=== PATIENT | female | born 1945 | race Caucasian/White ===

== ENCOUNTER 2017-07-16 12:33 | Observation (INO) ==
--- NOTE | 2017-07-16 12:46 | Emergency Department Note ---
ED Disposition Clinical Impression: Elevated troponin Syncope Qualifiers: Syncope type: unspecified Qualified Code(s): R55 - Syncope and collapse Disposition: Admitted As Inpatient Condition on Discharge: Good - Critical Care Critical Care Time: No Attestation: On , the high probability of a clinically significant, sudden or life threatening deterioration of the following system(s) required my full and direct attention, intervention and personal management. The time I documented below is in addition to time spent performing reported procedures but includes the following listed in this critical care notation. Medical Decision Making - Medical Records Medical records reviewed: Yes: I reviewed the patient's medical records. - Ben Inquiry Pt receiving controlled substance: No Vital Signs: 07/16/17 12:34 Temperature 98.0 F Temperature Source Oral Pulse Rate [Right Radial] 76 Respiratory Rate 16 Blood Pressure [Right Arm] 120/62 Blood Pressure Mean [Right Arm] 81 Blood Pressure Source [Right Arm] Automatic Cuff Blood Pressure Position [Right Arm] Supine 02 Sat by Pulse Oximetry 96 - Lab Data Lab Results 07/16/17 12:45: WBC 7.7, RBC 4.34, Hgb 12.7, Hct 39.0, MCV 89.7, MCH 29.3, MCHC 32.7, RDW 13.3, Plt Count 256, MPV 8.6, Neut % (Auto) 68.1, Lymph % (Auto) 24.6 , [place] % (Auto) 5.1, Eos % (Auto) 1.7, Baso % (Auto) 0.4, Neut # (Auto) 5.3, Lymph # (Auto) 1.9, [place] # (Auto) 0.4, Eos # (Auto) 0.1, Baso # (Auto) 0.0 07/16/17 12:45: Sodium 135 L, Potassium 4.2, Chloride 101, Carbon Dioxide 27, Anion Gap 11.2, BUN 15, Creatinine 1.03 H, Estimated Creat Clear 49, Estimated GFR 53 L, Est GFR ( Amer) 64, Glucose 454 H*, Calcium 9.6, Total Bilirubin 1.0, AST 16, ALT 29, Alkaline Phosphatase 127 H, Troponin I 0.13 H, Total Protein 6.8, Albumin 3.5, Globulin 3.3 H, Albumin/Globulin Ratio 1.1 07/16/17 13:01: Lactic Acid 0.8 Result diagrams: 07/16/17 12:45 07/16/17 12:45 Orders (Tests/Meds): ED MEDICATIONS Generic Name Dose Route Start Last Admin Trade Name Freq PRN Reason Stop Dose Admin Aspirin 300 mg 07/16/17 13:57 Aspirin 600mg Suppository RC 07/16/17 13:58 ONCE ONE Discontinued Medications Generic Name Dose Route Start Last Admin Trade Name Freq PRN Reason Stop Dose Admin Acetaminophen 500 mg 07/16/17 12:42 07/16/17 14:53 Tylenol 500mg Tablet PO 07/16/17 12:43 500 mg ONCE ONE Administration Sodium Chloride 500 mls @ 999 mls/hr 07/16/17 12:41 07/16/17 14:39 Sod Chlor 0.9% 1000ml Bag IV 07/16/17 13:11 999 mls/hr .Q31M ONE Administration Cefazolin Sodium 1 gm/ Sodium 50 mls @ 100 mls/hr 07/16/17 12:41 07/16/17 14: 41 Chloride IV 07/16/17 13:10 100 mls/hr ONCE ONE Administration Protocol Insulin Human Regular 2 unit 07/16/17 13:58 07/16/17 14:42 Humulin R Insulin 100 Units/Ml 10ml Vial IVP 07/16/17 13:59 2 unit ONCE ONE Administration Tetanus/Reduced Diphtheria/Acell Pertussis 0.5 ml 07/16/17 12:42 Adacel Tdap 0.5ml Syringe IM 07/16/17 12:43 .ONCE ONE ORDERS Category Date Time Status EKG Request [ECG Request by /Cierra] Stat Y 07/16/17 12:39 Ordered - CT Data CT Scan: Head, C-Spine Time Received: 15:16 (no bleed, no fx) - ECG Data Tracing #1 ECG initial impression time: 15:17 (nsr 71, lvh, no stemi) Fall HPI - General Chief Complaint: Fall Stated Complaint: fall Time Seen by Provider: 07/16/17 12:43 Mode of Arrival: Ambulatory Source of Information: Patient, EMS Limitations: Altered Mental Status - History of Present Illness HPI Narrative: assisted living pt tripped and fell against her bed, striking her head, forehead and occiptal laceration, +confusion, no emesis, poor historian MD complaint: fall - Related Data Allergies Allergy/AdvReac Type Severity Reaction Status Date / Time No Known Allergies Allergy Verified 07/16/17 12:37 [facility] History I have reviewed the patient's past medical history: Yes ROS Obtained: Yes unobtainable due to mental status Physical Exam - General General appearance: alert - Head Head exam: other (superficial linear lac of the left supraorbit, and occipital scalp) - Eye Eye exam: Present: normal appearance, PERRL - ENT ENT exam: Present: normal oropharynx - Neck Neck exam: Present: other (hard c collar) - Chest Chest inspection: Present: normal inspection - Respiratory Respiratory exam: Present: normal lung sounds bilaterally - Cardiovascular Cardiovascular exam: Present: regular rate, normal rhythm - Abdominal Exam Abdominal exam: Present: soft, other (pelvis nontender). Absent: rebound - Extremities Exam Extremities exam: Present: other (head stock operator equal). Absent: tenderness - Back Exam Back exam: Present: other (nontender midline spine of the back) - Neurological Exam Neurological exam: Present: alert. Absent: oriented X3 - Psychiatric Psychiatric exam: Present: depressed - Skin Skin exam: Absent: cyanosis Procedures - Laceration Laceration 1 Site: scalp, other (20cm horizontal occipital lac, irrigated, no fb, bleeding controlled, 10 guevara applied) Size (cm): 20 Description: linear Depth: simple, single layer
[2017-07-16 13:00] LABS: Basophils % 0.4 % (0.1-2.0); Eosinophils # 0.1 K/mm3 (0.0-0.4); Eosinophils % 1.7 % (0.1-12.0); Hemoglobin 12.7 g/dL (12.2-16.2); Lymphocytes # 1.9 K/mm3 (0.7-4.5); Lymphocytes % 24.6 K/mm3 (10-50); Mean Corpuscular HGB Conc 32.7 g/dL (31.8-35.4); Mean Corpuscular Hemoglobin 29.3 pg (27.0-31.2); Mean Corpuscular Volume 89.7 fl (81-99); Mean Platelet Volume 8.6 fl (7.4-10.4); Monocytes # 0.4 K/mm3 (0.1-1.0); Monocytes % 5.1 % (1.7-9.3); Neutrophils # 5.3 K/mm3 (1.8-7.8); Neutrophils % 68.1 % (37.0-80.0); Platelet Count 256 K/mm3 (142-424); Red Blood Count 4.34 M/mm3 (4.20-5.40); Red Cell Distribution Width 13.3 % (11.5-17.5); White Blood Count 7.7 K/mm3 (4.8-10.8)
[2017-07-16 13:15] LABS: Albumin Level 3.5 gm/dL (3.4-5.0); Albumin/Globulin Ratio 1.1 (1.1-1.8); Anion Gap 11.2 mEq/L (5-15); Calcium 9.6 mg/dL (8.5-10.1); Globulin 3.3 gm/dl (1.3-3.2); Potassium 4.2 mmoL/L (3.5-5.1); Total Protein,Serum 6.8 gm/dL (6.4-8.2)
--- NOTE | 2017-07-17 08:33 | History & Physical Report ---
*Admission Date: 07/16/17 *Chief complaint: fall *History of present illness: this wf who is a new resident at nursing home with hx of several medical issues including iddm , htn and hypothyroidism- she also has sig anxiety assoc with recent move - she fell at [facility] - trip mechanism - no chest pain or sz - ssisted living pt tripped and fell against her bed, striking her head, forehead and occiptal laceration, +confusion, no emesis, poor historian [facility] History I have reviewed the patient's past medical history: Yes Medical History: Reports:: Diabetes Mellitus Type 2, Hyperlipidemia, Hypertension Denies:: Cancer, MRSA Other Medical History: Reports: Anemia Amputation: No - *Social History Alcohol Intake: never Occupational Status: other Housing: assisted living facility - Psychiatric History Expresses thoughts of harming self/others: None Suicide Plan Description: No Plan *Family Hx:: Unable to obtain Review of Systems - Review of Systems Review of systems:: pertinent systems reviewed and negative unless documented below - Constitutional Denies fever(s) - Eyes Denies change in vision - ENT Denies sore throat - *Cardiovascular Denies chest pain at rest - *Respiratory Denies cough, Denies shortness of breath - *Gastrointestinal Denies abdominal pain, Denies nausea, Denies vomiting - *Genitourinary Denies blood in urine - *Musculoskeletal Denies joint pain, Denies limited joint movement, Denies neck pain - Integumentary/Breasts Denies rash - *Neurologic Denies seizure-like activity, Denies loss of vision - Psychiatric Reports anxiety Meds Home Medications Medication Instructions Recorded Confirmed Type Amlodipine Besylate [Amlodipine 10 mg PO DAILY 07/16/17 07/16/17 History 10mg Tab] Aspirin [Aspirin 81mg chewable 81 mg PO DAILY 07/16/17 07/16/17 History tab] Cyanocobalamin (Vitamin B-12) 1,000 mcg PO DAILY 07/16/17 07/16/17 History [Vitamin B-12] Duloxetine HCl [Cymbalta 30mg 30 mg PO DAILY 07/16/17 07/16/17 History capsule] Gabapentin [Gabapentin 100mg Cap] 100 mg PO TID 07/16/17 07/16/17 History Insulin Detemir [Levemir 30 unit SQ BID 07/16/17 07/16/17 History 100units/mL 3mL flexpen] LORazepam [Ativan 0.5mg tablet] 0.5 mg PO Q6HP PRN 07/16/17 07/16/17 History Levothyroxine Sodium 50 mcg PO DAILY 07/16/17 07/16/17 History [Levothyroxine 50mcg (0.05mg) Tab] Lisinopril [Lisinopril 10mg Tab] 10 mg PO DAILY 07/16/17 07/16/17 History Multivitamin with Minerals 1 each PO DAILY 07/16/17 07/16/17 History [Multivitamins with Minerals] Omeprazole [Omeprazole 20mg 20 mg PO DAILY 07/16/17 07/16/17 History Capsule] Simvastatin 20 mg PO DAILY 07/16/17 07/16/17 History Tamsulosin HCl [Flomax 0.4mg 0.4 mg PO DAILY 07/16/17 07/16/17 History capsule] Allergies Allergy/AdvReac Type Severity Reaction Status Date / Time No Known Allergies Allergy Verified 07/16/17 12:37 Exam Vital signs and Labs for Last 24 Hours: Temp Pulse Resp BP Pulse Ox 98.1 F 77 16 141/50 95 07/17/17 08:00 07/17/17 08:00 07/17/17 08:00 07/17/17 08:00 07/17/17 08:00 Laboratory Results - last 24 hr 07/16/17 12:45: WBC 7.7, RBC 4.34, Hgb 12.7, Hct 39.0, MCV 89.7, MCH 29.3, MCHC 32.7, RDW 13.3, Plt Count 256, MPV 8.6, Neut % (Auto) 68.1, Lymph % (Auto) 24.6 , [place] % (Auto) 5.1, Eos % (Auto) 1.7, Baso % (Auto) 0.4, Neut # (Auto) 5.3, Lymph # (Auto) 1.9, [place] # (Auto) 0.4, Eos # (Auto) 0.1, Baso # (Auto) 0.0 07/16/17 12:45: Sodium 135 L, Potassium 4.2, Chloride 101, Carbon Dioxide 27, Anion Gap 11.2, BUN 15, Creatinine 1.03 H, Estimated Creat Clear 49, Estimated GFR 53 L, Est GFR ( Amer) 64, Glucose 454 H*, Calcium 9.6, Total Bilirubin 1.0, AST 16, ALT 29, Alkaline Phosphatase 127 H, Troponin I 0.13 H, Total Protein 6.8, Albumin 3.5, Globulin 3.3 H, Albumin/Globulin Ratio 1.1 07/16/17 13:01: Lactic Acid 0.8 07/16/17 15:45: Troponin I 0.11 H 07/16/17 16:21: POC Glucose 359 H* 07/16/17 18:45: Troponin I 0.07 H 07/16/17 20:59: POC Glucose 410 H* 07/16/17 21:45: Troponin I 0.07 H 07/17/17 05:52: POC Glucose 308 H* I & O for Last 24 hours: Intake & Output 07/14/17 07/15/17 07/16/17 07/17/17 11:59 11:59 11:59 11:59 Intake Total 1009 / 1009 Output Total 950 / 950 Balance 59 Weight 132 lb 8 oz - Constitutional no acute distress - *Routine HEENT Exam Head: Present: laceration (repaired in ed ) Eye: Present: EOMI, PERRL, periorbital swelling ENT: Present: mucous membranes dry - *Routine Neck Exam Absent: JVD - *Routine Respiratory Exam Present: CTA bilaterally - *Routine Cardiovascular Exam Present: RRR, murmur, S4 - *Routine Abdominal Exam Present: soft - *Routine Extremities Exam Absent: edema - *Routine Skin Exam Comments: healing laceration - *Routine Neurological Exam Present: alert, CN II-XII intact ox2 - Routine Psychiatric Exam Present: anxious H&P: Result - Labs Labs: Short CBC 07/16/17 Range/Units 12:45 WBC 7.7 (4.8-10.8) K/mm3 Hgb 12.7 (12.2-16.2) g/dL Hct 39.0 (37.0-47.0) % Plt Count 256 (142-424) K/mm3 BMP 07/16/17 12:45 Sodium 135 L Potassium 4.2 Chloride 101 Carbon Dioxide 27 BUN 15 Creatinine 1.03 H Glucose 454 H* Calcium 9.6 Cardiac Enzymes 07/16/17 07/16/17 07/16/17 Range/Units 12:45 15:45 18:45 Troponin I 0.13 H 0.11 H 0.07 H (0.00-0.06) ng/ml 07/16/17 Range/Units 21:45 Troponin I 0.07 H (0.00-0.06) ng/ml Liver Function 07/16/17 Range/Units 12:45 Total Bilirubin 1.0 (0.2-1.0) mg/dL AST 16 (15-37) U/L ALT 29 (12-78) U/L Alkaline Phosphatase 127 H (46-116) U/L Albumin 3.5 (3.4-5.0) gm/dL Assessment and Plan (1) Headache, post-traumatic Current visit: Yes Status: Acute Category: Medical Code(s): G44.309 - Post -traumatic headache, unspecified, not intractable (2) IDDM (insulin dependent diabetes mellitus) Current visit: Yes Status: Acute Category: Medical Code(s): E11.9 - Type 2 diabetes mellitus without complications; Z79.4 - detention (current) use of insulin (3) Scalp laceration Current visit: Yes Status: Acute Category: Medical Code(s): S01.01XA - Laceration without foreign body of scalp, initial encounter (4) Anxiety Current visit: Yes Status: Acute Category: Medical Code(s): F41.9 - Anxiety disorder, unspecified (5) Elevated troponin Current visit: Yes Status: Acute Category: Medical Code(s): R74.8 - Abnormal levels of other serum enzymes
--- NOTE | 2017-07-17 08:45 | Pharmacy Consult Notes ---
[facility] Pharmacy VTE Monitoring - Patient Demographics Admission date: 07/16/17 Report Date: 07/17/17 Time: 08:45 Allergies/Adverse Reactions: Patient Allergies No Known Allergies Allergy (Verified 07/16/17 12:37) Height: 1.6 m Weight: 60.101 kg Patient Problems: Current Active Problems Elevated troponin (Acute) Syncope (Acute) Headache, post-traumatic (Acute) IDDM (insulin dependent diabetes mellitus) (Acute) Scalp laceration (Acute) - VTE Risk Labs: VTE Related Lab Results Hgb 12.7 g/dL (12.2-16.2) 07/16/17 12:45 Hct 39.0 % (37.0-47.0) 07/16/17 12:45 Plt Count 256 K/mm3 (142-424) 07/16/17 12:45 BUN 15 mg/dL (7-18) 07/16/17 12:45 Creatinine 1.03 mg/dL (0.55-1.02) H 07/16/17 12:45 Estimated Creat Clear 49 mL/min (0-300) 07/16/17 12:45 VTE Score: 1 VTE Risk Level: Low Risk - Prophylaxis VTE Prophylaxis Ordered?: Yes Types of VTE Prophylaxis: TEDS Knee High Location of Applied Device: Bilateral Lower Extremeties - VTE Diagnosis Confirmed Treatment or plan recommended: Continue Current Treatment
[2017-07-18 07:30] VITALS: BP 126/56
--- NOTE | 2017-07-18 14:37 | Discharge Summary ---
General - General Admission date:: 07/16/17 Discharge date: 07/18/17 HPI HPI: this wf who is a new resident at care home with hx of several medical issues including iddm , htn and hypothyroidism- she also has sig anxiety assoc with recent move - she fell at [facility] - trip mechanism - no chest pain or sz - ssisted living pt tripped and fell against her bed, striking her head, forehead and occiptal laceration, +confusion, no emesis, poor historian Hospital Course Hospital Course: pt with slow improvement and more to baseline after trauma - she has no focal changes and had elevated glu but otherwise stable exam and labs - she was seen by pt -will arrange therapy at care home and manage glucose Objective Vital signs: Temp Pulse Resp BP Pulse Ox 98.3 F 80 20 126/56 98 07/18/17 07:29 07/18/17 07:29 07/18/17 07:29 07/18/17 07:29 07/18/17 07:29 no acute distress - *Routine HEENT Exam Eye: Present: EOMI, PERRL ENT: Present: mucous membranes dry - *Routine Neck Exam Absent: JVD, tenderness - *Routine Respiratory Exam Present: CTA bilaterally - *Routine Cardiovascular Exam Present: RRR, murmur, S4 - *Routine Abdominal Exam Present: soft - *Routine Extremities Exam Absent: edema, calf tenderness - Routine Back/Spine/Pelvis Exam Back/Spine: Absent: vertebral tenderness - *Routine Skin Exam Present: intact - *Routine Neurological Exam Present: alert, CN II-XII intact. Absent: sensory deficit, motor deficit - Routine Psychiatric Exam Present: anxious Results Labs on day of discharge: Labs from last 24 hours 07/17/17 07/17/17 20:21 16:38 POC Glucose 464 H* 375 H* DS: Diagnosis - Discharge Diagnosis (1) Headache, post-traumatic Status: Acute (2) IDDM (insulin dependent diabetes mellitus) Status: Acute (3) Scalp laceration Status: Acute (4) Anxiety Status: Acute (5) Elevated troponin Status: Acute (6) Neuropathy Status: Acute Discharge Plan - Patient Discharge Instructions ACTIVITY: Continue current activity DIET: continue same diet Patient Instructions: Type 1 Diabetes, DI for Laceration Repair of the Scalp, DI for Anxiety -- Adult - Follow up Plan Follow up with: Tank Gabriel MD [Primary Care Provider] - Disposition: Home, Self-Correction Medications: Home Medications Medication Instructions Recorded Confirmed Type Amlodipine Besylate [Amlodipine 10 mg PO DAILY 07/16/17 07/16/17 History 10mg Tab] Aspirin [Aspirin 81mg chewable 81 mg PO DAILY 07/16/17 07/16/17 History tab] Cyanocobalamin (Vitamin B-12) 1,000 mcg PO DAILY 07/16/17 07/16/17 History [Vitamin B-12] Duloxetine HCl [Cymbalta 30mg 30 mg PO DAILY 07/16/17 07/16/17 History capsule] Gabapentin [Gabapentin 100mg Cap] 100 mg PO TID 07/16/17 07/16/17 History Insulin Detemir [Levemir 30 unit SQ BID 07/16/17 07/16/17 History 100units/mL 3mL flexpen] LORazepam [Ativan 0.5mg tablet] 0.5 mg PO Q6HP PRN 07/16/17 07/16/17 History Levothyroxine Sodium 50 mcg PO DAILY 07/16/17 07/16/17 History [Levothyroxine 50mcg (0.05mg) Tab] Lisinopril [Lisinopril 10mg Tab] 10 mg PO DAILY 07/16/17 07/16/17 History Multivitamin with Minerals 1 each PO DAILY 07/16/17 07/16/17 History [Multivitamins with Minerals] Omeprazole [Omeprazole 20mg 20 mg PO BID 07/16/17 07/17/17 History Capsule] Simvastatin 20 mg PO HS 07/16/17 07/17/17 History Tamsulosin HCl [Flomax 0.4mg 0.4 mg PO DAILY 07/16/17 07/16/17 History capsule] Prescriptions/Medication Reconciliation: New LORazepam [Ativan 0.5mg tablet] 0.5 mg PO Q6HP PRN tablet PRN Reason: Anxiety Pravastatin Sodium [Pravachol 40mg Tablet] 40 mg PO HS tablet Continue Duloxetine HCl [Cymbalta 30mg capsule] 30 mg PO DAILY Amlodipine Besylate [Amlodipine 10mg Tab] 10 mg PO DAILY Aspirin [Aspirin 81mg chewable tab] 81 mg PO DAILY Lisinopril [Lisinopril 10mg Tab] 10 mg PO DAILY Levothyroxine Sodium [Levothyroxine 50mcg (0.05mg) Tab] 50 mcg PO DAILY Tamsulosin HCl [Flomax 0.4mg capsule] 0.4 mg PO DAILY Simvastatin 20 mg PO HS Omeprazole [Omeprazole 20mg Capsule] 20 mg PO BID LORazepam [Ativan 0.5mg tablet] 0.5 mg PO Q6HP PRN PRN Reason: Anxiety Insulin Detemir [Levemir 100units/mL 3mL flexpen] 30 unit SQ BID Gabapentin [Gabapentin 100mg Cap] 100 mg PO TID Cyanocobalamin (Vitamin B-12) [Vitamin B-12] 1,000 mcg PO DAILY Multivitamin with Minerals [Multivitamins with Minerals] 1 each PO DAILY
--- NOTE | 2017-07-18 21:46 | Cardiology Report ---
PROCEDURE: 2-D M-mode and color Doppler study INDICATIONS FOR THE TEST: Chest pain COPD Heart Murmur+ Tobacco Smoking Palpitations Fatigue Syncope Edema Hypertension+Diabetes Mellitus+ Rheumatic Fever SOB [place] Obesity Hyperlipidemia+ Family History HD Additional History PATIENT INFORMATION HEIGHT:63 WEIGHT:132 GENDER: Female B/P:141/50 2-D/M-MODE INTERPRETATION: 2-D MEASUREMENTS OBSERVED VALUES IN CMS Right Ventricular Dimension (RVDd) 2.6 Interventricular Septum (Thickness)(IVsd) 1.5 Left Ventricular Internal Dimensions(LVIDd) 3.7 Left Ventricular Posterior Wall (Thickness)(LVPWd) 1.0 Aortic Root 2.3 Aortic Cusp Separation 1.4 Left Atrial Dimensions (LAD) 4.1 2D 1. Left atrium is mildly enlarged, left ventricle is normal size, mild concentric left ventricular hypertrophy, visually estimated ejection fraction 55% with no obvious regional wall motion abnormality. 2. The right atrium and right ventricle are normal size and contractility. 3. The aortic valve is minimally thickened and fibrosed. 4. The mitral and tricuspid valve leaflets are minimally thickened. 5. The pulmonic valve is poorly visualized. 6. No significant pericardial effusion noted. DOPPLER INTERROGATION: Doppler interrogation of the aortic, mitral and tricuspid valvular presence of mild mitral and tricuspid regurgitation, tricuspid and jet velocity insufficient for calculation of the right ventricular systolic pressure, grade 1 diastolic dysfunction seen with tissue Doppler evidence of raised left atrial pressure. CONCLUSION: 1. Mildly enlarged left atrium, normal left ventricular size, mild concentric left ventricular hypertrophy, visually estimated ejection fraction 55% with no obvious regional wall motion abnormality, grade 1 diastolic dysfunction seen with tissue Doppler evidence of raised left atrial pressure. 2. Mild mitral and tricuspid regurgitation 3. No significant pericardial effusion noted.
== END 2017-07-18 15:03 | disposition home or self-care (01) ==
LOC: 2ND 12:33 → ER 12:33 → 2ND 16:01
PROVIDERS: ADMIT Internal Medicine Adolescent Medicine; ATTEND Emergency Medicine

== ENCOUNTER 2018-07-01 09:37 | Inpatient (IN) ==
[2018-07-01 09:51] LABS: Basophils % 0.2 % (0.1-2.0); Eosinophils # 0.1 K/mm3 (0.0-0.4); Eosinophils % 0.8 % (0.1-12.0); Hematocrit 41.7 % (37.0-47.0); Hemoglobin 13.7 g/dL (12.2-16.2); Lymphocytes # 1.1 K/mm3 (0.7-4.5); Lymphocytes % 12.8 % (10-50); Mean Corpuscular HGB Conc 32.9 g/dL (31.8-35.4); Mean Corpuscular Hemoglobin 29.6 pg (27.0-31.2); Mean Corpuscular Volume 89.7 fl (81-99); Mean Platelet Volume 8.2 fl (7.4-10.4); Monocytes # 0.4 K/mm3 (0.1-1.0); Monocytes % 4.3 % (1.7-9.3); Neutrophils # 7.3 K/mm3 (1.8-7.8); Neutrophils % 81.9 % (37.0-80.0); Platelet Count 182 K/mm3 (142-424); Red Blood Count 4.65 M/mm3 (4.20-5.40); Red Cell Distribution Width 13.6 % (11.5-17.5); White Blood Count 8.9 K/mm3 (4.8-10.8)
[2018-07-01 10:02] LABS: Albumin Level 3.5 gm/dL (3.4-5.0); Albumin/Globulin Ratio 0.9 (1.1-1.8); Anion Gap 15.6 mEq/L (5-15); Bilirubin,Total 0.5 mg/dL (0.2-1.0); Calcium 8.8 mg/dL (8.5-10.1); Potassium 4.6 mmoL/L (3.5-5.1); Total Protein,Serum 7.5 gm/dL (6.4-8.2)
--- NOTE | 2018-07-01 10:19 | Emergency Department Note ---
ED Disposition Clinical Impression: Diarrhea, Weakness, Uncontrolled diabetes mellitus, Hypomagnesemia, Pneumonia Disposition: Still a Patient Condition on Discharge: Fair Instructions: DI for Diarrhea and Traveler's Diarrhea -- Adult, DI for Diarrhea and Traveler's Diarrhea -- Child, DI for Nausea -- Adult, DI for Nausea -- Child Referrals: Provider,Referral, [Referring] - - Critical Care Critical Care Time: No Attestation: On 07/01/18, the high probability of a clinically significant, sudden or life threatening deterioration of the following system(s) required my full and direct attention, intervention and personal management. The time I documented below is in addition to time spent performing reported procedures but includes the following listed in this critical care notation. Medical Decision Making - Medical Records Medical records reviewed: Yes: I reviewed the patient's medical records. - Ben Inquiry Pt receiving controlled substance: No Ben was queried for this patient: No Vital Signs: 07/01/18 09:38 07/01/18 09:45 07/01/18 10:04 Temperature 97.9 F Temperature Source Oral Pulse Rate [Right Radial] 94 H 97 H Respiratory Rate 18 18 Blood Pressure [Right Arm] 138/57 L 150/89 H Blood Pressure Mean [Right Arm] 84 109 Blood Pressure Source [Right Arm] Automatic Cuff Blood Pressure Position [Right Arm] Sitting 02 Sat by Pulse Oximetry 86 L 97 94 L Oxygen Delivery Method Room Air Nasal Cannula Oxygen Flow Rate (LPM) 2 07/01/18 10:32 07/01/18 12:25 07/01/18 13:11 Temperature Temperature Source Pulse Rate [Right Radial] 94 H 92 H 95 H Respiratory Rate 18 18 Blood Pressure [Right Arm] 133/70 141/62 H 153/65 H Blood Pressure Mean [Right Arm] 91 88 94 Blood Pressure Source [Right Arm] Automatic Cuff Automatic Cuff Blood Pressure Position [Right Arm] Sitting Sitting 02 Sat by Pulse Oximetry 94 L 99 96 Oxygen Delivery Method Nasal Cannula Room Air Oxygen Flow Rate (LPM) 2 07/01/18 13:16 Temperature Temperature Source Pulse Rate [Right Radial] Respiratory Rate Blood Pressure [Right Arm] Blood Pressure Mean [Right Arm] Blood Pressure Source [Right Arm] Blood Pressure Position [Right Arm] 02 Sat by Pulse Oximetry 94 L Oxygen Delivery Method Room Air Oxygen Flow Rate (LPM) - Lab Data Lab Results 07/01/18 09:44: WBC 8.9, RBC 4.65, Hgb 13.7, Hct 41.7, MCV 89.7, MCH 29.6, MCHC 32.9, RDW 13.6, Plt Count 182, MPV 8.2, Neut % (Auto) 81.9 H, Lymph % (Auto) 12.8, [place] % (Auto) 4.3, Eos % (Auto) 0.8, Baso % (Auto) 0.2, Neut # (Auto) 7.3, Lymph # (Auto) 1.1, [place] # (Auto) 0.4, Eos # (Auto) 0.1, Baso # (Auto) 0.0 07/01/18 09:44: Sodium 135 L, Potassium 4.6, Chloride 97 L, Carbon Dioxide 27, Anion Gap 15.6 H, BUN 14, Creatinine 0.98, Estimated Creat Clear 50, Estimated GFR 56 L, Est GFR ( Amer) 67, Glucose 383 H, Calcium 8.8, Total Bilirubin 0.5, AST 15, ALT 32, Alkaline Phosphatase 73, Total Protein 7.5, Albumin 3.5, Globulin 4.0 H, Albumin/Globulin Ratio 0.9 L 07/01/18 09:44: Magnesium 1.3 L, Troponin I < 0.02, Lipase 71 L 07/01/18 10:15: Lactate 1.8 07/01/18 10:32: Specimen Source Right radial, O2 % 2lpm nc, ABG pH 7.42, ABG pCO2 36.7, ABG pO2 81.5, ABG HCO3 23.3, ABG Total CO2 24.5, ABG O2 Saturation 96, ABG Base Excess -1.1, James Test Acceptable Result diagrams: 07/01/18 09:44 07/01/18 09:44 Orders (Tests/Meds): ED MEDICATIONS Generic Name Dose Route Start Last Admin Trade Name Freq PRN Reason Stop Dose Admin Sodium Chloride 10 ml 07/01/18 09:43 Saline Flush 10ml Syringe IV 07/31/18 09:42 NEEDED PRN Maintain IV Site Discontinued Medications Generic Name Dose Route Start Last Admin Trade Name Freq PRN Reason Stop Dose Admin Sodium Chloride 1,000 mls @ 999 mls/hr 07/01/18 09:45 07/01/18 10:17 Sod Chlor 0.9% 1000ml Bag IV 07/01/18 10:45 999 mls/hr .Q1H1M SERA Administration Magnesium Sulfate 1 gm/ Sodium 102 mls @ 200 mls/hr 07/01/18 10:47 07/01/18 12:15 Chloride IV 07/01/18 11:17 200 mls/hr ONCE ONE Administration Insulin Human Regular 5 unit 07/01/18 11:39 07/01/18 12:23 Humulin R Insulin 100 Units/Ml 10ml Vial SQ 07/01/18 11:40 5 unit ONCE ONE Administration Ioversol 70 ml 07/01/18 11:59 07/01/18 12:00 Rad-Optiray 350 100ml Vial IV 07/01/18 12:00 70 ml ONCE ONE Administration Protocol Sodium Chloride 10 ml 07/01/18 11:59 07/01/18 12:00 Rad-Saline Flush 10ml Syringe IV 07/01/18 12:00 10 ml ONCE ONE Administration Sodium Chloride 50 ml 07/01/18 11:59 07/01/18 12:00 Rad-Ns 50ml Vial IV 07/01/18 12:00 50 ml ONCE ONE Administration ORDERS Category Date Time Status UA [Urinalysis and Microscopic] Stat Lab 07/01/18 11:50 Ordered Blood Culture Stat Micro 07/01/18 10:02 Received - Radiology Data #1 Image(s): Chest Image Reviewed: Yes I reviewed the patient's radiology image Preliminary Findings: Normal/NAD IMPRESSION: Negative chest, no acute finding - CT Data CT Scan: Chest Time Received: 13:[address] Reviewed: Yes: I have viewed the radiologist's interpretation Preliminary Findings: Abnormal Findings Narrative: IMPRESSION 1. No evidence of pulmonary embolus or aortic aneurysm or dissection. 2. Motion artifact is present obscuring fine detail of the lungs. Patchy infiltrate is present in the left upper lobe. 3. Possible reflux esophagitis Medical Decision Narrative: The patient arrived with a saturation of 86% obtain blood gases showed PO2 of 81 on 2 L of nasal cannula no acidosis. The patient underwent normal chest x-ray but she was positive for left upper lobe infiltrates on the CT scan. I discussed with Dr. Sanchez and opted to start her on antibiotics and observe her for a day before prior to discharge. Is low and she received replacement. General Adult HPI - General Chief complaint: Nausea/Vomiting/Diarrhea Stated complaint: diarrhea x2 days, cough, congestion Time Seen by Provider: 07/01/18 09:50 Mode of Arrival: EMS Limitations: No Limitations Description of Symptoms (Recalled from ER Triage Doc. by RN): Pt reports diarrhea x2 days, pt reports generalized weakness. Pt reports a loose non- productive cough. Pt is alert and oriented x3 - History of Present Illness HPI narrative: 72 years old white female resident of [facility]. She has a past medical history of anxiety, hypothyroidism, hypertension and diabetes. 3 days ago the patient developed sore throat, cough and chest congestion. Next day she develo ped diarrhea, with 2-3 bouts of loose stool a day. Gradually she developed weakness and this morning she was unable to get out of the bed. Upon arrival she complained to the EMS staff of being short of breath she was given neb treatment and arrived with oxygen saturation of 86% on room air. Patient was placed on 2 L of nasal cannula with increase of her oxygen to 96%. He denies having fever chills, she denies having chest pain, palpitations, hemoptysis, hematemesis, coffee-ground emesis or melanotic stool. She denies having vomiting, nausea or muscle cramps. Onset (ago): day(s) (3 days.) Radiation: non-radiation Severity: mild Relieving factors: none Exacerbating factors: none Associated symptoms: cough, weakness, other (Chest congestion and diarrhea for 2 days) - Related Data Home Medications Medication Instructions Recorded Confirmed Amlodipine Besylate [Amlodipine 10 mg PO DAILY 07/16/17 12/19/17 10mg Tab] Aspirin [Aspirin 81mg chewable 81 mg PO DAILY 07/16/17 12/19/17 tab] Cyanocobalamin (Vitamin B-12) 1,000 mcg PO DAILY 07/16/17 12/19/17 [Vitamin B-12] Duloxetine HCl [Cymbalta 30mg 30 mg PO DAILY 07/16/17 12/19/17 capsule] Gabapentin [Gabapentin 100mg Cap] 100 mg PO TID 07/16/17 12/19/17 Insulin Detemir [Levemir 30 unit SQ BID 07/16/17 12/19/17 100units/mL 3mL flexpen] Levothyroxine Sodium 50 mcg PO DAILY 07/16/17 12/19/17 [Levothyroxine 50mcg (0.05mg) Tab] Lisinopril [Lisinopril 10mg Tab] 10 mg PO DAILY 07/16/17 12/19/17 Multivitamin with Minerals 1 each PO DAILY 07/16/17 12/19/17 [Multivitamins with Minerals] Omeprazole [Omeprazole 20mg 20 mg PO BID 07/16/17 12/19/17 Capsule] Simvastatin 20 mg PO HS 07/16/17 12/19/17 Tamsulosin HCl [Flomax 0.4mg 0.4 mg PO DAILY 07/16/17 12/19/17 capsule] Metformin HCl [Metformin HCl ER] 1,000 mg PO BID 12/19/17 12/19/17 Previous Rx's Medication Instructions Recorded LORazepam [Ativan 0.5mg 0.5 mg PO Q6HP PRN tablet 07/18/17 tablet] blood sugar diagnostic strips See Dose Instructions .ROUTE 04/12/18 .MEDSUPPLY #100 each Allergies Allergy/AdvReac Type Severity Reaction Status Date / Time No Known Allergies Allergy Verified 12/19/17 20:33 [facility] History - Hepatitis A Screen Drug use history?: No High risk sexual behaviors?: No History of sexually transmitted infection?: No Currently employed?: No Childcare worker?: No Do you have indoor plumbing?: Yes Do you have electricity?: Yes Attestation statement:: This patient has been screened for Hepatitis A risk factors. I have reviewed the patient's past medical history: No (I reviewed the [facility] medical records.) Medical History: Reports:: Diabetes Mellitus Type 2, Hyperlipidemia, Hypertension Denies:: Cancer, Diabetes Mellitus Type 1, MRSA Other Medical History: Reports: Anemia Amputation: No - Social History Smoking Status: Never smoker Alcohol Intake: never Occupational Status: other Housing: assisted living facility - Psychiatric History Expresses thoughts of harming self/others: None Suicide Plan Description: No Plan Family Hx:: Unable to obtain ROS Obtained: Yes All systems reviewed & no additional complaints Physical Exam - General General appearance: alert, in no apparent distress - Head Head exam: atraumatic, normocephalic, normal inspection - Eye Eye exam: Present: normal appearance, PERRL, EOMI. Absent: scleral icterus, nystagmus - ENT ENT exam: Present: normal exam, normal oropharynx, mucous membranes moist, TM's normal bilaterally, normal external ear exam - Neck Neck exam: Present: normal inspection, full ROM, trachea midline. Absent: tenderness, meningismus, lymphadenopathy - Chest Chest inspection: Present: normal inspection, symmetric chest wall rise. Absent: tenderness, rash - Respiratory Respiratory exam: Present: normal lung sounds bilaterally, other (Increased anteroposterior diameter, decreased air entry bilaterally and no acute distress.). Absent: respiratory distress, wheezes - Cardiovascular Cardiovascular exam: Present: regular rate, normal rhythm, normal heart sounds. Absent: JVD - Abdominal Exam Abdominal exam: Present: soft, normal bowel sounds, other (Strong equal bilateral bilateral femoral pulse.). Absent: distention, tenderness, guarding, rebound, rigidity, Persaud's sign, tenderness at McBurney's Point - External exam: Present: normal external exam - Extremities Exam Extremities exam: Present: normal inspection, full ROM, normal capillary refill, other (onychomycosis of the toenails.). Absent: tenderness, pedal edema, calf tenderness - Back Exam Back exam: Present: normal inspection. Absent: tenderness, CVA tenderness (R), CVA tenderness (L), vertebral tenderness - Neurological Exam Neurological exam: Present: alert, oriented X3, CN II-XII intact, motor sensory deficit - Psychiatric Psychiatric exam: Present: normal affect, normal mood - Skin Skin exam: Present: warm, dry, intact, normal color - Lymphatic Lymphatic Findings: no adenopathy
[2018-07-01 10:28] LABS: Lipase 71 u/L (73-393)
[2018-07-01 10:41] LABS: ABG Base Excess -1.1 mmol/L (-2.4-2.3); ABG HCO3 23.3 mmhg (22.0-26.0); ABG Oxygen Saturation 96 % (90-100); ABG PCO2 36.7 mmhg (35.0-45.0); ABG PH 7.42 mmol/L (7.35-7.45); ABG PO2 81.5 mmhg (80-100); ABG TCO2 24.5 mmhg (23-27)
[2018-07-01 10:45] LABS: Allen's Test Acceptable; Oxygen 2lpm nc %
[2018-07-02 07:43] LABS: Eosinophils # 0.2 K/mm3 (0.0-0.4); Lymphocytes # 1.6 K/mm3 (0.7-4.5)
[2018-07-02 07:54] LABS: Anion Gap 12.6 mEq/L (5-15); Calcium 8.8 mg/dL (8.5-10.1); Potassium 3.6 mmoL/L (3.5-5.1)
[2018-07-02 07:55] LABS: Basophils % 0.3 % (0.1-2.0); Hematocrit 36.9 % (37.0-47.0); Lymphocytes % 16.9 % (10-50); Mean Corpuscular HGB Conc 33.9 g/dL (31.8-35.4); Mean Corpuscular Hemoglobin 29.9 pg (27.0-31.2); Mean Corpuscular Volume 88.4 fl (81-99); Mean Platelet Volume 8.1 fl (7.4-10.4); Monocytes # 0.5 K/mm3 (0.1-1.0); Neutrophils % 75.9 % (37.0-80.0); Platelet Count 182 K/mm3 (142-424); Red Blood Count 4.18 M/mm3 (4.20-5.40); Red Cell Distribution Width 13.7 % (11.5-17.5); White Blood Count 9.2 K/mm3 (4.8-10.8)
[2018-07-02 07:56] LABS: Hemoglobin 12.5 g/dL (12.2-16.2)
--- NOTE | 2018-07-02 08:37 | History & Physical Report ---
*Admission Date: 07/01/18 *Chief complaint: change in mental status *History of present illness: this [facility] with altered mental status and dec ability to ambulate - she denied pain - she was seen in the ed - 2 years old white female resident of [facility]. She has a past medical history of anxiety, hypothyroidism, hypertension and diabetes. 3 days ago the patient developed sore throat, cough and chest congestion. Next day she developed diarrhea, with 2-3 bouts of loose stool a day. Gradually she developed weakness and this morning she was unable to get out of the bed. Upon arrival she complained to the EMS staff of being short of breath she was given neb treatment and arrived with oxygen saturation of 86% on room air. Patient was placed on 2 L of nasal cannula with increase of her oxygen to 96%. He denies having fever chills, she denies having chest pain, palpitations, hemoptysis, hematemesis, coffee-ground emesis or melanotic stool. She denies having vomiting, nausea or muscle cramps. pt was admitted with iv abx and fluids as her ct was abn - [facility] History I have reviewed the patient's past medical history: Yes Medical History: Reports:: Diabetes Mellitus Type 2, Hyperlipidemia, Hypertension Denies:: Cancer, Diabetes Mellitus Type 1, Internal Pacemaker, MRSA *Have you ever received a pneumonia vaccine?: No *Have you received a flu vaccine this season?: No Other Medical History: Reports: Anemia Other Surgeries: No: Pacemaker Amputation: No Fractures: No - *Social History Educational Level: Attended Grade School Smoking Status: Never smoker Alcohol Intake: never *Occupational Status:: disabled Housing: assisted living facility *Travel in the last 8 weeks: None - Psychiatric History Expresses thoughts of harming self/others: None Suicide Plan Description: No Plan Family Hx:: Unable to obtain Review of Systems - Review of Systems Review of systems:: pertinent systems reviewed and negative unless documented below - Constitutional Reports weakness, Denies fever(s) - Eyes Denies change in vision - ENT Denies sore throat - *Cardiovascular Denies chest pain at rest - *Respiratory Denies cough - *Gastrointestinal Denies abdominal pain - *Genitourinary Denies blood in urine - *Musculoskeletal Denies joint pain, Denies joint swelling - Integumentary/Breasts Denies rash - *Neurologic Reports confusion - Psychiatric Reports confusion Meds Home Medications Medication Instructions Recorded Confirmed Type Amlodipine Besylate [Amlodipine 5 mg PO DAILY 07/16/17 07/01/18 History 10mg Tab] Aspirin [Aspirin 81mg chewable 81 mg PO DAILY 07/16/17 07/01/18 History tab] Cyanocobalamin (Vitamin B-12) 1,000 mcg PO DAILY 07/16/17 12/19/17 History [Vitamin B-12] Duloxetine HCl [Cymbalta 30mg 60 mg PO DAILY 07/16/17 07/01/18 History capsule] Gabapentin [Gabapentin 100mg Cap] 100 mg PO HS 07/16/17 07/01/18 History Insulin Detemir [Levemir 35 unit SQ BID 07/16/17 07/01/18 History 100units/mL 3mL flexpen] Levothyroxine Sodium 50 mcg PO DAILY 07/16/17 07/01/18 History [Levothyroxine 50mcg (0.05mg) Tab] Lisinopril [Lisinopril 10mg Tab] 10 mg PO DAILY 07/16/17 07/01/18 History LORazepam [Ativan 0.5mg 0.5 mg PO Q6HP PRN tablet 07/18/17 07/01/18 Rx tablet] Metformin HCl [Metformin HCl ER] 1,000 mg PO BID 12/19/17 07/01/18 History blood sugar diagnostic strips See Dose Instructions .ROUTE 04/12/18 Rx .MEDSUPPLY #100 each ARIPiprazole [Aripiprazole 10mg 10 mg PO DAILY 07/01/18 07/01/18 History Tablet] Acetaminophen [8 Hour Pain Relief] 650 mg PO BID 07/01/18 07/01/18 History Buspirone HCl [Buspar 10mg tablet] 10 mg PO BID 07/01/18 07/01/18 History glipiZIDE [Glucotrol Xl] 2.5 mg PO DAILY 07/01/18 07/01/18 History Allergies Allergy/AdvReac Type Severity Reaction Status Date / Time No Known Allergies Allergy Verified 12/19/17 20:33 Exam Vital signs and Labs for Last 24 Hours: Temp Pulse Resp BP Pulse Ox 98.6 F 91 H 18 131/60 93 L 07/02/18 08:00 07/02/18 08:00 07/02/18 08:00 07/02/18 08:00 07/02/18 08:02 Laboratory Results - last 24 hr 07/01/18 09:44: WBC 8.9, RBC 4.65, Hgb 13.7, Hct 41.7, MCV 89.7, MCH 29.6, MCHC 32.9, RDW 13.6, Plt Count 182, MPV 8.2, Neut % (Auto) 81.9 H, Lymph % (Auto) 12.8, [place] % (Auto) 4.3, Eos % (Auto) 0.8, Baso % (Auto) 0.2, Neut # (Auto) 7.3, Lymph # (Auto) 1.1, [place] # (Auto) 0.4, Eos # (Auto) 0.1, Baso # (Auto) 0.0 07/01/18 09:44: Sodium 135 L, Potassium 4.6, Chloride 97 L, Carbon Dioxide 27, Anion Gap 15.6 H, BUN 14, Creatinine 0.98, Estimated Creat Clear 50, Estimated GFR 56 L, Est GFR ( Amer) 67, Glucose 383 H, Calcium 8.8, Total Bilirubin 0.5, AST 15, ALT 32, Alkaline Phosphatase 73, Total Protein 7.5, Albumin 3.5, Globulin 4.0 H, Albumin/Globulin Ratio 0.9 L 07/01/18 09:44: Magnesium 1.3 L, Troponin I < 0.02, Lipase 71 L 07/01/18 10:15: Lactate 1.8 07/01/18 10:32: Specimen Source Right radial, O2 % 2lpm nc, ABG pH 7.42, ABG pCO2 36.7, ABG pO2 81.5, ABG HCO3 23.3, ABG Total CO2 24.5, ABG O2 Saturation 96, ABG Base Excess -1.1, James Test Acceptable 07/01/18 20:36: POC Glucose 275 H 07/02/18 06:27: POC Glucose 124 H 07/02/18 06:28: WBC 9.2, RBC 4.18 L, Hgb 12.5, Hct 36.9 L, MCV 88.4, MCH 29.9, MCHC 33.9, RDW 13.7, Plt Count 182, MPV 8.1, Neut % (Auto) 75.9, Lymph % (Auto) 16.9, [place] % (Auto) 5.0, Eos % (Auto) 2.0, Baso % (Auto) 0.3, Neut # (Auto) 7.0, Lymph # (Auto) 1.6, [place] # (Auto) 0.5, Eos # (Auto) 0.2, Baso # (Auto) 0.0 07/02/18 06:28: Sodium 139, Potassium 3.6 D, Chloride 102, Carbon Dioxide 28, Anion Gap 12.6, BUN 5 L D, Creatinine 0.64 D, Estimated Creat Clear 46, Estimated GFR 91, Est GFR ( Amer) 110 D, Glucose 129 H D, Calcium 8.8 I & O for Last 24 hours: Intake & Output 06/29/18 06/30/18 07/01/18 07/02/18 11:59 11:59 11:59 11:59 Intake Total 2785 / 2785 Output Total 500 / 500 Balance 2285 / 2285 Weight 140 lb 128 lb 4 oz - Constitutional no acute distress, thin - *Routine HEENT Exam Head: Present: normocephalic Eye: Present: EOMI, PERRL. Absent: conjunctival icterus ENT: Present: mucous membranes dry - *Routine Neck Exam Absent: JVD - *Routine Respiratory Exam Present: decreased breath sounds - *Routine Cardiovascular Exam Present: RRR, murmur, S4 - *Routine Abdominal Exam Present: soft. Absent: tenderness - *Routine Extremities Exam Absent: calf tenderness - *Routine Skin Exam Present: intact - *Routine Neurological Exam Present: alert, CN II-XII intact, altered mental status - Routine Psychiatric Exam Present: unable to assess Assessment and Plan (1) CAP (community acquired pneumonia) Current visit: Yes Status: Acute Qualifiers: Laterality: left Lung location: upper lobe of lung Qualified Code(s): J18.1 - Lobar pneumonia, unspecified organism Category: Medical Code(s): J18.9 - Pneumonia, unspecified organism (2) Hypomagnesemia Current visit: Yes Status: Acute Category: Medical Code(s): E83.42 - Hypomagnesemia (3) Uncontrolled diabetes mellitus Current visit: Yes Status: Acute Qualifiers: Diabetes mellitus type: type 2 Glycemic state: with hyperglycemia Qualified Code(s): E11.65 - Type 2 diabetes mellitus with hyperglycemia Category: Medical Code(s): E11.65 - Type 2 diabetes mellitus with hyperglycemia (4) Weakness Current visit: Yes Status: Acute Category: Medical Code(s): R53.1 - Weakness (5) Anxiety Current visit: Yes Status: Acute Category: Medical Code(s): F41.9 - Anxiety disorder, unspecified (6) Hypothyroidism (acquired) Current visit: Yes Status: Acute Category: Medical Code(s): E03.9 - Hypothyroidism, unspecified
[2018-07-02 09:12] LABS: Microscopic, Urine URINE MICROSCOPIC (MICROSCOPIC)
[2018-07-02 09:27] LABS: Appearance,Urine CLEAR (Clear); Bilirubin,Urine Negative (Negative); Blood, Urine TRACE-L (Negative); Color,Urine YELLOW (Yellow); Glucose,Urine (UA) 3+ (Negative); Ketones,Urine Negative (Negative); Leukocyte Esterase,Urine Negative (Negative); PH,Urine 5.5 (5.0-8.5); Protein,Urine Negative (Negative); Specific Gravity, Urine <= 1.005 (1.005-1.030); Urobilinogen,Urine 0.2 EU/dl (0.2)
[2018-07-02 09:41] LABS: Bacteria,Urine 2+ /lpf
--- NOTE | 2018-07-02 10:10 | Pharmacy Consult Notes ---
[facility] Pharmacy VTE Monitoring - Patient Demographics Admission date: 07/01/18 Report Date: 07/02/18 Time: 10:09 Allergies/Adverse Reactions: Patient Allergies No Known Allergies Allergy (Verified 12/19/17 20:33) Height: 1.63 m Weight: 58.173 kg Patient Problems: Current Active Problems Diarrhea (Acute) Weakness (Acute) Uncontrolled diabetes mellitus (Acute) Hypomagnesemia (Acute) Pneumonia (Acute) CAP (community acquired pneumonia) (Acute) Anxiety (Acute) Hypothyroidism (acquired) (Acute) - VTE Risk Labs: VTE Related Lab Results Hgb 12.5 g/dL (12.2-16.2) 07/02/18 06:28 Hct 36.9 % (37.0-47.0) L 07/02/18 06:28 Plt Count 182 K/mm3 (142-424) 07/02/18 06:28 BUN 5 mg/dL (7-18) L D 07/02/18 06:28 Creatinine 0.64 mg/dL (0.55-1.02) D 07/02/18 06:28 Estimated Creat Clear 46 mL/min (50-200) 07/02/18 06:28 VTE Score: 2 - Prophylaxis VTE Prophylaxis Ordered?: Yes Types of VTE Prophylaxis: TEDS Knee High Location of Applied Device: Bilateral Lower Extremeties - VTE Diagnosis Confirmed Treatment or plan recommended: Continue Current Treatment
--- NOTE | 2018-07-03 13:02 | Progress Note ---
Internal Medicine - PN: Subj *Date: 07/03/18 *Time: 08:00 Interval history: doing better - will increase act level- Exam Vital signs and Labs for Last 24 Hours: Temp Pulse Resp BP Pulse Ox 98.4 F 79 18 131/57 L 93 L 07/03/18 11:38 07/03/18 11:38 07/03/18 07:38 07/03/18 11:38 07/03/18 11:38 Laboratory Results - last 24 hr 07/02/18 17:13: POC Glucose 293 H 07/02/18 20:17: POC Glucose 217 H 07/03/18 06:36: POC Glucose 59 L 07/03/18 06:50: POC Glucose 64 L 07/03/18 07:03: POC Glucose 77 07/03/18 08:40: POC Glucose 191 H 07/03/18 11:19: POC Glucose 208 H I & O for Last 24 hours: Intake & Output 07/01/18 07/02/18 07/03/18 07/04/18 11:59 11:59 11:59 11:59 Intake Total 2785 / 2785 1327 / 1327 Output Total 500 / 500 900 / 900 Balance 2285 / 2285 427 / 427 Weight 140 lb 128 lb 4 oz 128 lb 7 oz Microbiology Reports for the Last 24 Hours: Microbiology 07/01/18 10:02 Blood Blood Culture - Preliminary NO GROWTH AFTER 48 HOURS 07/01/18 10:02 Blood Blood Culture - Preliminary NO GROWTH AFTER 48 HOURS 07/01/18 15:44 Urine,Clean Catch Urine Culture - Preliminary NO GROWTH AFTER 24 HOURS - Constitutional no acute distress, average body habitus - *Routine HEENT Exam Head: Present: normocephalic Eye: Present: EOMI, PERRL ENT: Present: mucous membranes dry - *Routine Neck Exam Absent: JVD - *Routine Respiratory Exam Present: decreased breath sounds - *Routine Cardiovascular Exam Present: RRR, murmur - *Routine Abdominal Exam Present: soft - *Routine Extremities Exam Absent: calf tenderness - *Routine Skin Exam Present: intact - *Routine Neurological Exam Present: alert, CN II-XII intact - Routine Psychiatric Exam Present: unable to assess Assessment and Plan (1) CAP (community acquired pneumonia) Current visit: Yes Status: Acute Qualifiers: Laterality: left Lung location: upper lobe of lung Qualified Code(s): J18.1 - Lobar pneumonia, unspecified organism Category: Medical Code(s): J18.9 - Pneumonia, unspecified organism (2) Hypomagnesemia Current visit: Yes Status: Acute Category: Medical Code(s): E83.42 - Hypomagnesemia (3) Uncontrolled diabetes mellitus Current visit: Yes Status: Acute Qualifiers: Diabetes mellitus type: type 2 Glycemic state: with hyperglycemia Qualified Code(s): E11.65 - Type 2 diabetes mellitus with hyperglycemia Category: Medical Code(s): E11.65 - Type 2 diabetes mellitus with hyperglycemia (4) Weakness Current visit: Yes Status: Acute Category: Medical Code(s): R53.1 - Weakness (5) Anxiety Current visit: Yes Status: Acute Category: Medical Code(s): F41.9 - Anxiety disorder, unspecified (6) Hypothyroidism (acquired) Current visit: Yes Status: Acute Category: Medical Code(s): E03.9 - Hypothyroidism, unspecified
[2018-07-03 13:46] LABS: Albumin/Globulin Ratio 0.7 (1.1-1.8); Bilirubin,Total 0.4 mg/dL (0.2-1.0); Calcium 9.2 mg/dL (8.5-10.1); Globulin 4.2 gm/dl (1.3-3.2); Total Protein,Serum 7.2 gm/dL (6.4-8.2)
[2018-07-03 14:37] LABS: Basophils % 0.4 % (0.1-2.0); Eosinophils # 0.3 K/mm3 (0.0-0.4); Eosinophils % 3.6 % (0.1-12.0); Hematocrit 38.9 % (37.0-47.0); Hemoglobin 12.8 g/dL (12.2-16.2); Lymphocytes # 1.6 K/mm3 (0.7-4.5); Lymphocytes % 21.4 % (10-50); Mean Corpuscular Hemoglobin 29.5 pg (27.0-31.2); Mean Corpuscular Volume 89.6 fl (81-99); Monocytes # 0.3 K/mm3 (0.1-1.0); Monocytes % 4.3 % (1.7-9.3); Neutrophils # 5.4 K/mm3 (1.8-7.8); Neutrophils % 70.3 % (37.0-80.0); Platelet Count 219 K/mm3 (142-424); Red Blood Count 4.34 M/mm3 (4.20-5.40); Red Cell Distribution Width 13.5 % (11.5-17.5); White Blood Count 7.7 K/mm3 (4.8-10.8)
--- NOTE | 2018-07-04 10:05 | Discharge Summary ---
General - General Admission date:: 07/01/18 Discharge date: 07/04/18 HPI HPI: [facility] with altered mental status and dec ability to ambulate - she denied pain - she was seen in the ed - 2 [facility] She has a past medical history of anxiety, hypothyroidism, hypertension and diabetes. 3 days ago the patient developed sore throat, cough and chest congestion. Next day she developed diarrhea, with 2-3 bouts of loose stool a day. Gradually she developed weakness and this morning she was unable to get out of the bed. Upon arrival she complained to the EMS staff of being short of breath she was given neb treatment and arrived with oxygen saturation of 86% on room air. Patient was placed on 2 L of nasal cannula with increase of her oxygen to 96%. He denies having fever chills, she denies having chest pain, palpitations, hemoptysis, hematemesis, coffee-ground emesis or melanotic stool. She denies having vomiting, nausea or muscle cramps. pt was admitted with iv abx and fluids as her ct was abn - Hospital Course Hospital Course: cta:IMPRESSION 1. No evidence of pulmonary embolus or aortic aneurysm or dissection. 2. Motion artifact is present obscuring fine detail of the lungs. Patchy infiltrate is present in the left upper lobe. 3. Possible reflux esophagitis urine and blood cx neg will dc back to personal half-way on antibiotics Objective Vital signs: Temp Pulse Resp BP Pulse Ox 97.9 F 73 18 146/63 H 96 07/04/18 08:00 07/04/18 08:00 07/04/18 08:00 07/04/18 08:00 07/04/18 08:00 no acute distress - *Routine HEENT Exam Head: Present: normocephalic Eye: Present: PERRL ENT: Present: mucous membranes moist - *Routine Respiratory Exam Present: CTA bilaterally - *Routine Cardiovascular Exam Present: RRR - *Routine Abdominal Exam Present: soft, normoactive bowel sounds. Absent: tenderness - *Routine Extremities Exam Present: full ROM - *Routine Skin Exam Present: intact - *Routine Neurological Exam Present: alert, oriented X3 - Routine Psychiatric Exam Present: normal affect Results Labs on day of discharge: Labs from last 24 hours 07/04/18 07/04/18 07/03/18 08:29 05:50 20:36 WBC RBC Hgb Hct MCV MCH MCHC RDW Plt Count MPV Neut % (Auto) Lymph % (Auto) Mason % (Auto) Eos % (Auto) Baso % (Auto) Neut # (Auto) Lymph # (Auto) Mason # (Auto) Eos # (Auto) Baso # (Auto) Sodium Potassium Chloride Carbon Dioxide Anion Gap BUN Creatinine Estimated Creat Clear Estimated GFR Est GFR ( Amer) Glucose POC Glucose 243 H 73 110 Calcium Total Bilirubin AST ALT Alkaline Phosphatase Total Protein Albumin Globulin Albumin/Globulin Ratio 07/03/18 07/03/18 07/03/18 16:37 13:16 13:16 WBC 7.7 RBC 4.34 Hgb 12.8 Hct 38.9 MCV 89.6 MCH 29.5 MCHC 33.0 RDW 13.5 Plt Count 219 MPV 8.0 Neut % (Auto) 70.3 Lymph % (Auto) 21.4 Mason % (Auto) 4.3 Eos % (Auto) 3.6 Baso % (Auto) 0.4 Neut # (Auto) 5.4 Lymph # (Auto) 1.6 Mason # (Auto) 0.3 Eos # (Auto) 0.3 Baso # (Auto) 0.0 Sodium 142 Potassium 4.0 Chloride 104 Carbon Dioxide 29 Anion Gap 13.0 BUN 8 D Creatinine 0.63 Estimated Creat Clear 46 Estimated GFR 93 Est GFR ( Amer) 112 Glucose 106 POC Glucose 94 Calcium 9.2 Total Bilirubin 0.4 AST 12 L ALT 25 Alkaline Phosphatase 65 Total Protein 7.2 Albumin 3.0 L Globulin 4.2 H Albumin/Globulin Ratio 0.7 L 07/03/18 11:19 WBC RBC Hgb Hct MCV MCH MCHC RDW Plt Count MPV Neut % (Auto) Lymph % (Auto) Mason % (Auto) Eos % (Auto) Baso % (Auto) Neut # (Auto) Lymph # (Auto) Mason # (Auto) Eos # (Auto) Baso # (Auto) Sodium Potassium Chloride Carbon Dioxide Anion Gap BUN Creatinine Estimated Creat Clear Estimated GFR Est GFR ( Amer) Glucose POC Glucose 208 H Calcium Total Bilirubin AST ALT Alkaline Phosphatase Total Protein Albumin Globulin Albumin/Globulin Ratio Preliminary micro results at discharge 07/01/18 10:02 Blood Culture - Preliminary Blood NO GROWTH AFTER 48 HOURS 07/01/18 10:02 Blood Culture - Preliminary Blood NO GROWTH AFTER 48 HOURS - Additional Comments Dr Gabriel will round all orders per Dr Gabriel DS: Diagnosis - Discharge Diagnosis (1) CAP (community acquired pneumonia) Status: Acute (2) Hypomagnesemia Status: Acute (3) Uncontrolled diabetes mellitus Status: Acute (4) Weakness Status: Acute (5) Anxiety Status: Acute (6) Hypothyroidism (acquired) Status: Acute Discharge Plan - Patient Discharge Instructions ACTIVITY: Continue current activity DIET: continue same diet Patient Instructions: Diarrhea, DI for Pneumonia -- Adult, DI for Hypoxia - Follow up Plan Follow up with: Tank Gabriel MD [Primary Care Provider] - 1 week Disposition: Home, Self-Long Term Medications: Home Medications Medication Instructions Recorded Confirmed Type Amlodipine Besylate [Amlodipine 5 mg PO DAILY 07/16/17 07/01/18 History 10mg Tab] Aspirin [Aspirin 81mg chewable 81 mg PO DAILY 07/16/17 07/01/18 History tab] Duloxetine HCl [Cymbalta 30mg 60 mg PO DAILY 07/16/17 07/01/18 History capsule] Gabapentin [Gabapentin 100mg Cap] 100 mg PO HS 07/16/17 07/01/18 History Insulin Detemir [Levemir 35 unit SQ BID 07/16/17 07/01/18 History 100units/mL 3mL flexpen] Levothyroxine Sodium 50 mcg PO DAILY 07/16/17 07/01/18 History [Levothyroxine 50mcg (0.05mg) Tab] Lisinopril [Lisinopril 10mg Tab] 10 mg PO DAILY 07/16/17 07/01/18 History LORazepam [Ativan 0.5mg 0.5 mg PO Q6HP PRN tablet 07/18/17 07/01/18 Rx tablet] Metformin HCl [Metformin HCl ER] 1,000 mg PO BIDWM 12/19/17 07/02/18 History ARIPiprazole [Aripiprazole 10mg 10 mg PO DAILY 07/01/18 07/01/18 History Tablet] Acetaminophen [8 Hour Pain Relief] 650 mg PO BID 07/01/18 07/01/18 History Buspirone HCl [Buspar 10mg tablet] 10 mg PO BID 07/01/18 07/01/18 History glipiZIDE [Glucotrol Xl] 2.5 mg PO DAILY 07/01/18 07/01/18 History Loperamide HCl [Loperamide] 4 mg PO Q4-6H PRN 07/02/18 07/02/18 History diphenhydrAMINE HCl [Benadryl] 25 mg PO Q6HP PRN 07/02/18 07/02/18 History Cefdinir [Omnicef 300mg Capsule] 300 mg PO BID 7 Days #20 cap 07/04/18 Rx Prescriptions/Medication Reconciliation: New Cefdinir [Omnicef 300mg Capsule] 300 mg PO BID 7 Days #20 cap Continue Duloxetine HCl [Cymbalta 30mg capsule] 60 mg PO DAILY Amlodipine Besylate [Amlodipine 10mg Tab] 5 mg PO DAILY Aspirin [Aspirin 81mg chewable tab] 81 mg PO DAILY Lisinopril [Lisinopril 10mg Tab] 10 mg PO DAILY Levothyroxine Sodium [Levothyroxine 50mcg (0.05mg) Tab] 50 mcg PO DAILY Insulin Detemir [Levemir 100units/mL 3mL flexpen] 35 unit SQ BID Gabapentin [Gabapentin 100mg Cap] 100 mg PO HS LORazepam [Ativan 0.5mg tablet] 0.5 mg PO Q6HP PRN tablet PRN Reason: Anxiety Metformin HCl [Metformin HCl ER] 1,000 mg PO BIDWM glipiZIDE [Glucotrol Xl] 2.5 mg PO DAILY Buspirone HCl [Buspar 10mg tablet] 10 mg PO BID Loperamide HCl [Loperamide] 4 mg PO Q4-6H PRN PRN Reason: Diarrhea ARIPiprazole [Aripiprazole 10mg Tablet] 10 mg PO DAILY Acetaminophen [8 Hour Pain Relief] 650 mg PO BID diphenhydrAMINE HCl [Benadryl] 25 mg PO Q6HP PRN PRN Reason: Itching
== END 2018-07-04 12:19 | disposition home or self-care (01) | DRG 195 ==
LOC: ER 09:37 → 2ND 13:39
PROVIDERS: ADMIT Internal Medicine Adolescent Medicine; ATTEND Emergency Medicine
CPT/HCPCS: 36415; 71010; 71045; 71275; 74019; 74020; 80048; 80053; 81001; 82803; 82962; 83605; 83690; 83735; 84484; 85025; 87040; 87086; 92610; 94761; 96365; 96367; 96375; 97165; 99285; J0456; Q9967

== ENCOUNTER 2019-01-01 22:31 | Inpatient (IN) ==
[2019-01-01 22:50] LABS: Basophils % 0.2 % (0.1-2.0); Eosinophils % 0.2 % (0.1-12.0); Hematocrit 34.4 % (37.0-47.0); Hemoglobin 10.5 g/dL (12.2-16.2); Mean Corpuscular HGB Conc 30.5 g/dL (31.8-35.4); Mean Corpuscular Volume 92.8 fl (81-99); Mean Platelet Volume 7.4 fl (7.4-10.4); Monocytes # 0.7 K/mm3 (0.1-1.0); Monocytes % 4.7 % (1.7-9.3); Neutrophils % 88.8 % (37.0-80.0); Platelet Count 395 K/mm3 (142-424); Red Blood Count 3.71 M/mm3 (4.20-5.40); Red Cell Distribution Width 14.6 % (11.5-17.5); White Blood Count 15.8 K/mm3 (4.8-10.8)
[2019-01-01 22:59] LABS: ABG Base Excess -0.1 mmol/L (-2.4-2.3); ABG HCO3 24.5 mmhg (22.0-26.0); ABG Oxygen Saturation 91 % (90-100); ABG PCO2 39.3 mmhg (35.0-45.0); ABG PH 7.41 mmol/L (7.35-7.45); ABG TCO2 25.7 mmhg (23-27)
[2019-01-01 23:01] LABS: Allen's Test Acceptable; Oxygen 2LPM %
[2019-01-01 23:07] LABS: Albumin Level 2.4 gm/dL (3.4-5.0); Albumin/Globulin Ratio 0.5 (1.1-1.8); Bilirubin,Total 0.5 mg/dL (0.2-1.0); Calcium 9.4 mg/dL (8.5-10.1); Globulin 4.4 gm/dl (1.3-3.2); Total Protein,Serum 6.8 gm/dL (6.4-8.2)
[2019-01-01 23:10] LABS: Erythrocyte Sedimentation Rate 128 mm/hr (0-30)
[2019-01-01 23:12] LABS: C-Reactive Protein 23.6 mg/dL (0.0-0.9)
[2019-01-01 23:41] LABS: Microscopic, Urine URINE MICROSCOPIC (MICROSCOPIC)
[2019-01-01 23:43] LABS: Appearance,Urine SL CLOUDY (Clear); Bilirubin,Urine Negative (Negative); Blood, Urine Negative (Negative); Color,Urine YELLOW (Yellow); Glucose,Urine (UA) Negative (Negative); Ketones,Urine Negative (Negative); Leukocyte Esterase,Urine 1+ (Negative); Protein,Urine Negative (Negative); Specific Gravity, Urine 1.015 (1.005-1.030); Urobilinogen,Urine 0.2 EU/dl (0.2)
[2019-01-01 23:54] LABS: Lymphocytes % 6 % (10-50); Neutrophils % 94 % (42-76); Total Cells Counted 100
[2019-01-01 23:55] LABS: Anisocytosis 1+
[2019-01-01 23:57] LABS: Bacteria,Urine 4+ /lpf
--- NOTE | 2019-01-01 23:59 | Emergency Department Note ---
ED Disposition Clinical Impression: HCAP (healthcare-associated pneumonia), IDDM (insulin dependent diabetes mellitus), Hypothyroidism (acquired), Elevated troponin, Elevated erythrocyte sedimentation rate, Renal insufficiency Sepsis Qualifiers: Sepsis type: sepsis due to unspecified organism Sepsis acute organ dysfunction status: without acute organ dysfunction Qualified Code(s): A41.9 - Sepsis, unspecified organism Anemia Qualifiers: Anemia type: unspecified type Qualified Code(s): D64.9 - Anemia, unspecified UTI (urinary tract infection) Qualifiers: Urinary tract infection type: site unspecified Hematuria presence: without hematuria Qualified Code(s): N39.0 - Urinary tract infection, site not specified Disposition: Admitted as Observation Condition on Discharge: Serious - Critical Care Critical Care Time: No Attestation: On 01/01/19, the high probability of a clinically significant, sudden or life threatening deterioration of the following system(s) required my full and direct attention, intervention and personal management. The time I documented below is in addition to time spent performing reported procedures but includes the following listed in this critical care notation. Medical Decision Making - Medical Records Medical records reviewed: Yes: I reviewed the patient's medical records. - Ben Inquiry Pt receiving controlled substance: No Vital Signs: 01/01/19 22:31 01/01/19 22:59 01/01/19 23:08 Temperature 98.3 F 98.6 F Temperature Source Oral Rectal Pulse Rate [Right] 88 88 Respiratory Rate 20 24 Blood Pressure [Right Arm] 131/58 L 122/54 L Blood Pressure Mean [Right Arm] 82 76 02 Sat by Pulse Oximetry 90 L 93 L Oxygen Delivery Method Nasal Cannula Nasal Cannula Oxygen Flow Rate (LPM) 2 2 - Lab Data Lab results reviewed: Yes: I reviewed the patient's lab results. Lab Results 01/01/19 22:39: WBC 15.8 H, RBC 3.71 L, Hgb 10.5 L, Hct 34.4 L, MCV 92.8, MCH 28.3, MCHC 30.5 L, RDW 14.6, Plt Count 395, MPV 7.4, Neut % (Auto) 88.8 H, Lymph % (Auto) 6.0 L, Fleming % (Auto) 4.7, Eos % (Auto) 0.2, Baso % (Auto) 0.2, Neut # (Auto) 14.0 H, Lymph # (Auto) 1.0, Fleming # (Auto) 0.7, Eos # (Auto) 0.0, Baso # (Auto) 0.0, Total Counted 100, Neutrophils % (Manual) 94 H, Lymphocytes % (Manual) 6 L, Platelet Estimate Normal, RBC Morphology Not Reportable, Anisocytosis 1+, ESR 128 H 01/01/19 22:39: Sodium 133 L, Potassium 5.0, Chloride 96 L, Carbon Dioxide 26, Anion Gap 16.0 H, BUN 28 H, Creatinine 1.04 H, Estimated Creat Clear 58, Estimated GFR 52 L, Est GFR ( Amer) 63, Glucose 183 H, Calcium 9.4, Total Bilirubin 0.5, AST 12 L, ALT 16, Alkaline Phosphatase 79, Troponin I 0.53 H, C- Reactive Protein 23.6 H, Total Protein 6.8, Albumin 2.4 L, Globulin 4.4 H, Albumin/Globulin Ratio 0.5 L 01/01/19 22:39: Lactate 2.8 H 01/01/19 22:48: Influenza Type A Ag Negative, Influenza Type B Ag Negative 01/01/19 22:57: Specimen Source Left radial, O2 % 2lpm, ABG pH 7.41, ABG pCO2 39.3, ABG pO2 60.0 L, ABG HCO3 24.5, ABG Total CO2 25.7, ABG O2 Saturation 91, ABG Base Excess -0.1, James Test Acceptable 01/01/19 23:05: Urine Color Yellow, Urine Appearance Sl cloudy, Urine pH 6.0, Ur Specific Simpson 1.015, Urine Protein Negative, Urine Glucose (UA) Negative, Uri ne Ketones Negative, Urine Blood Negative, Urine Nitrate Negative, Urine Bilirubin Negative, Urine Urobilinogen 0.2, Ur Leukocyte Esterase 1+ A, Urine WBC 3-5, Urine Bacteria 4+ Result diagrams: 01/01/19 22:39 01/01/19 22:39 Orders (Tests/Meds): ED MEDICATIONS Generic Name Dose Route Start Last Admin Trade Name Freq PRN Reason Stop Dose Admin Sodium Chloride 1,000 mls @ 999 mls/hr 01/01/19 23:00 01/01/19 22:56 Sod Chlor 0.9% 1000ml Bag IV 01/02/19 00:00 999 mls/hr .Q1H1M SERA Administration Levofloxacin/Dextrose 750 mg in 150 mls @ 100 mls/hr 01/02/19 00:00 Levofloxacin 750mg/150ml Premix IV 01/16/19 00:00 Q24H SERA Protocol Cefepime HCl 2 gm/ Sodium 100 mls @ 200 mls/hr 01/02/19 00:00 01/02/19 00:08 Chloride IV 01/16/19 00:00 200 mls/hr Q12H SERA Administration Protocol Sodium Chloride 3 ml 01/01/19 22:45 Sodium Chloride 3% 15ml [facility] 01/31/19 22:44 ONCE PRN INDUCE SPUTUM COLLECTION Discontinued Medications Generic Name Dose Route Start Last Admin Trade Name Freq PRN Reason Stop Dose Admin Albuterol/Ipratropium 3 ml 01/01/19 22:45 01/01/19 22:56 Duoneb 3ml [facility] 01/01/19 22:46 3 ml ONCE ONE Administration Methylprednisolone Sodium Succinate 125 mg 01/01/19 22:38 01/01/19 22:56 Solu-Medrol 125mg/2ml Vial IV 01/01/19 22:39 125 mg ONCE ONE Administration ORDERS Category Date Time Status XR chest portable Stat Exams 01/01/19 22:57 Taken Blood Culture Stat Micro 01/01/19 22:44 Received Sputum Culture & Gram Stain Stat Micro 01/01/19 22:45 Ordered Urine Culture Stat Micro 01/01/19 23:05 Received Arterial Blood Gas Stat RT 01/01/19 22:45 Ordered ECG Request by /Cierra Stat Y 01/01/19 22:37 Ordered - Radiology Data #1 Image(s): Chest Image Reviewed: Yes I reviewed the patient's radiology image Preliminary Findings: Abnormal (inflitrate ) - ECG Data Tracing #1 Normal Sinus Rhythm: Yes Ischemic changes: non-specific ST-T wave changes Resp/SOB HPI - General Chief Complaint: Shortness of Breath/Dyspnea Stated Complaint: soa Time Seen by Provider: 01/01/19 23:00 Mode of Arrival: EMS Source of Information: Patient, EMS, Medical Record Limitations: No Limitations Description of Symptoms (Recalled from ER Triage Doc. by RN): Pt presents to ED with soa, low sats, and stating she just feels weak. 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 Complaint: shortness of breath, cough Onset (ago): day(s) Severity: moderate Known history of: diabetes Associated symptoms: denies other symptoms Treatment prior to arrival: none - Related Data Home oxygen amount: none Home Medications Medication Instructions Recorded Confirmed Amlodipine Besylate [Amlodipine 5 mg PO DAILY 07/16/17 01/01/19 10mg Tab] Aspirin [Aspirin 81mg chewable 81 mg PO DAILY 07/16/17 01/01/19 tab] Duloxetine HCl [Cymbalta 30mg 60 mg PO DAILY 07/16/17 01/01/19 capsule] Insulin Detemir [Levemir 35 unit SQ BID 07/16/17 01/01/19 100units/mL 3mL flexpen] Levothyroxine Sodium 50 mcg PO DAILY 07/16/17 01/01/19 [Levothyroxine 50mcg (0.05mg) Tab] Lisinopril [Lisinopril 10mg Tab] 10 mg PO DAILY 07/16/17 01/01/19 ARIPiprazole [Aripiprazole 10mg 10 mg PO DAILY 07/01/18 01/01/19 Tablet] Acetaminophen [8 Hour Pain Relief] 650 mg PO BID 07/01/18 01/01/19 Buspirone HCl [Buspar 10mg 10 mg PO BID 07/01/18 01/01/19 tablet] glipiZIDE [Glucotrol Xl] 2.5 mg PO DAILY 07/01/18 01/01/19 Loperamide HCl [Loperamide] 4 mg PO Q4-6H PRN 07/02/18 01/01/19 diphenhydrAMINE HCl [Benadryl] 25 mg PO Q6HP PRN 07/02/18 01/01/19 gabapentin 100 mg capsule 300 mg PO HS cap 10/25/18 01/01/19 Blood Sugar Diagnostic [True 1 strip .ROUTE .MEDSUPPLY 01/01/19 01/01/19 Metrix Glucose Test Strip] Lancets [E-Zject Lancets] 1 dose .ROUTE .MEDSUPPLY 01/01/19 01/01/19 Linagliptin [Tradjenta] 5 mg PO DAILY 01/01/19 01/01/19 Metformin HCl 100 mg PO BID 01/01/19 01/01/19 Montelukast Sodium [Montelukast 10 mg PO QPM 01/01/19 01/01/19 10mg Tab] Multivit,Tx with Iron,Minerals 1 tab PO DAILY 01/01/19 01/01/19 [Complete Multivitamin] Omeprazole [Omeprazole 20mg 20 mg PO BID 01/01/19 01/01/19 Capsule] Simvastatin 20 mg PO QHS 01/01/19 01/01/19 Tamsulosin HCl 0.4 mg PO DAILY 01/01/19 01/01/19 Allergies Allergy/AdvReac Type Severity Reaction Status Date / Time No Known Allergies Allergy Verified 12/19/18 15:29 [facility] History - Hepatitis A Screen Drug use history?: No High risk sexual behaviors?: No History of sexually transmitted infection?: No Currently employed?: No Childcare worker?: No Do you have indoor plumbing?: Yes Do you have electricity?: Yes Attestation statement:: This patient has been screened for Hepatitis A risk factors. I have reviewed the patient's past medical history: Yes Medical History: Reports:: Diabetes Mellitus Type 2, Hyperlipidemia, Hypertension Denies:: Cancer, Diabetes Mellitus Type 1, Internal Pacemaker, MRSA Other Medical History: Reports: Anemia Other Surgeries: No: Pacemaker Amputation: No Fractures: No - Social History Smoking Status: Never smoker Alcohol Intake: never Occupational Status: disabled Housing: assisted living facility Family Hx:: Unable to obtain ROS Obtained: Yes All systems reviewed & no additional complaints - Constitutional Constitutional: Denies fever(s), Reports weakness - Eyes Eyes: Denies change in vision - ENT Ears, Nose, Mouth, and Throat: Denies sore throat - Cardiovascular Cardiovascular: Denies chest pain, Reports dyspnea - Respiratory Respiratory: Yes as per HPI, Yes cough, Yes non-productive cough, No coughing up blood - Gastrointestinal Gastrointestingal: Denies: abdominal pain, vomiting - Genitourinary Female Genitourinary: Denies hematuria - Musculoskeletal Musculoskeletal: Denies joint pain - Integumentary/Breasts Skin/Breast: Denies rash - Neurologic Neurologic: Denies frequent falls, Denies seizure-like activity Physical Exam - General General appearance: alert, in no apparent distress - Head Head exam: normocephalic - Eye Eye exam: Present: PERRL, EOMI. Absent: scleral icterus - ENT ENT exam: Present: mucous membranes dry - Neck Neck exam: Absent: trachea midline - Respiratory Respiratory exam: Present: other (dec bs bilat ). Absent: respiratory distress - Cardiovascular Cardiovascular exam: Present: regular rate, systolic murmur, +S4 - Abdominal Exam Abdominal exam: Present: soft - Extremities Exam Extremities exam: Present: pedal edema. Absent: calf tenderness - Neurological Exam Neurological exam: Present: alert, CN II-XII intact - Psychiatric Psychiatric exam: Present: flat affect - Skin Skin exam: Absent: intact
[2019-01-02 06:14] LABS: Basophils % 0.1 % (0.1-2.0); Eosinophils % 0.1 % (0.1-12.0); Hematocrit 33.7 % (37.0-47.0); Hemoglobin 10.1 g/dL (12.2-16.2); Lymphocytes # 0.6 K/mm3 (0.7-4.5); Lymphocytes % 4.1 % (10-50); Mean Corpuscular HGB Conc 29.9 g/dL (31.8-35.4); Mean Corpuscular Volume 93.1 fl (81-99); Mean Platelet Volume 7.7 fl (7.4-10.4); Monocytes # 0.5 K/mm3 (0.1-1.0); Monocytes % 3.3 % (1.7-9.3); Neutrophils # 13.4 K/mm3 (1.8-7.8); Neutrophils % 92.3 % (37.0-80.0); Platelet Count 402 K/mm3 (142-424); Red Blood Count 3.62 M/mm3 (4.20-5.40); Red Cell Distribution Width 14.7 % (11.5-17.5); White Blood Count 14.5 K/mm3 (4.8-10.8)
[2019-01-02 06:25] LABS: Anion Gap 13.2 mEq/L (5-15); Calcium 9.2 mg/dL (8.5-10.1)
--- NOTE | 2019-01-02 08:30 | Consult Report ---
History of Present Illness Consult date: 01/02/19 Requesting physician: Tank Gabriel Consult reason: shortness of breath Chief complaint: SOA, elevated troponins Additional Medical History:: 1. DM, treated for "years" 2. [facility] 3. Elevated troponins, 12/2018 A. Echo, 12/2018, normal LVEF 4. Elevated ESR, CRP, 12/2018 5. Hypertension 6. Hyperlipidemia 7. Hypothyroidism, on replacement therapy History of present illness: 73-year-old white female with insulin treated diabetes mellitus, hypertension hyperlipidemia who is a resident of extended care facility in a [facility] was admitted to the hospital for shortness of breath and weakness. Patient found to have elevated troponins, sed rate, C-reactive protein and elevated white count along with bilateral pneumonia on chest x-ray. Patient denies chest pain but does relate shortness of breath. She denies any prior history of cardiac disease or tobacco use. [facility] History Medical History: Reports:: Diabetes Mellitus Type 2, Hyperlipidemia, Hypertension Denies:: Cancer, Diabetes Mellitus Type 1, Internal Pacemaker, MRSA *Have you ever received a pneumonia vaccine?: Yes *Have you received a flu vaccine this season?: Yes Other Medical History: Reports: Anemia, Hypothyroidism Other Surgeries: No: Pacemaker Amputation: No Fractures: No - *Social History Smoking Status: Never smoker Alcohol Intake: never *Occupational Status:: disabled Housing: correction *Travel in the last 8 weeks: None Family Hx:: Unable to obtain Meds Home Medications Medication Instructions Recorded Confirmed Type Amlodipine Besylate [Amlodipine 5 mg PO DAILY 07/16/17 01/02/19 History 10mg Tab] Aspirin [Aspirin 81mg chewable 81 mg PO DAILY 07/16/17 01/02/19 History tab] Duloxetine HCl [Cymbalta 30mg 60 mg PO DAILY 07/16/17 01/02/19 History capsule] Insulin Detemir [Levemir 35 unit SQ BID 07/16/17 01/01/19 History 100units/mL 3mL flexpen] Levothyroxine Sodium 50 mcg PO DAILY 07/16/17 01/02/19 History [Levothyroxine 50mcg (0.05mg) Tab] Lisinopril [Lisinopril 10mg Tab] 10 mg PO DAILY 07/16/17 01/02/19 History ARIPiprazole [Aripiprazole 10mg 10 mg PO DAILY 07/01/18 01/02/19 History Tablet] Acetaminophen [8 Hour Pain Relief] 650 mg PO BID 07/01/18 01/02/19 History Buspirone HCl [Buspar 10mg 10 mg PO BID 07/01/18 01/02/19 History tablet] glipiZIDE [Glucotrol Xl] 2.5 mg PO DAILY 07/01/18 01/01/19 History Loperamide HCl [Loperamide] 4 mg PO Q4-6H PRN 07/02/18 01/02/19 History diphenhydrAMINE HCl [Benadryl] 25 mg PO Q6HP PRN 07/02/18 01/02/19 History gabapentin 100 mg capsule 300 mg PO HS cap 10/25/18 01/02/19 History Blood Sugar Diagnostic [True 1 strip .ROUTE .MEDSUPPLY 01/01/19 01/01/19 History Metrix Glucose Test Strip] Lancets [E-Zject Lancets] 1 dose .ROUTE .MEDSUPPLY 01/01/19 01/01/19 History Linagliptin [Tradjenta] 5 mg PO DAILY 01/01/19 01/02/19 History Metformin HCl 1,000 mg PO BID 01/01/19 01/02/19 History Montelukast Sodium [Montelukast 10 mg PO QPM 01/01/19 01/02/19 History 10mg Tab] Multivit,Tx with Iron,Minerals 1 tab PO DAILY 01/01/19 01/02/19 History [Complete Multivitamin] Omeprazole [Omeprazole 20mg 20 mg PO BID 01/01/19 01/02/19 History Capsule] Simvastatin 20 mg PO QHS 01/01/19 01/02/19 History Tamsulosin HCl 0.4 mg PO DAILY 01/01/19 01/02/19 History Acetaminophen [Tylenol 500mg 500 mg PO Q6 PRN 01/02/19 01/02/19 History tablet] Ascorbic Acid [Vitamin C] 1,000 mg PO DAILY 01/02/19 01/02/19 History Allergies Allergy/AdvReac Type Severity Reaction Status Date / Time No Known Allergies Allergy Verified 12/19/18 15:29 Review of Systems - *Cardiovascular Reports shortness of breath, Denies chest pain - *Respiratory Reports cough, Reports shortness of breath, Reports wheezing - *Gastrointestinal Denies abdominal pain, Denies nausea, Denies vomiting - *Genitourinary Denies blood in urine - *Musculoskeletal Denies joint pain, Denies back pain - *Neurologic Reports weakness, Denies frequent falls, Denies seizure-like activity Exam Vital signs and Labs for Last 24 Hours: Temp Pulse Resp BP Pulse Ox 98.3 F 85 18 126/64 94 L 01/02/19 04:00 01/02/19 06:23 01/02/19 04:00 01/02/19 04:00 01/02/19 06:23 Laboratory Results - last 24 hr 01/01/19 22:39: WBC 15.8 H, RBC 3.71 L, Hgb 10.5 L, Hct 34.4 L, MCV 92.8, MCH 28.3, MCHC 30.5 L, RDW 14.6, Plt Count 395, MPV 7.4, Neut % (Auto) 88.8 H, Lymph % (Auto) 6.0 L, [place] % (Auto) 4.7, Eos % (Auto) 0.2, Baso % (Auto) 0.2, Neut # (Auto) 14.0 H, Lymph # (Auto) 1.0, [place] # (Auto) 0.7, Eos # (Auto) 0.0, Baso # (Auto) 0.0, Total Counted 100, Neutrophils % (Manual) 94 H, Lymphocytes % (Manual) 6 L, Platelet Estimate Normal, RBC Morphology Not Reportable, Anisocytosis 1+, ESR 128 H 01/01/19 22:39: Sodium 133 L, Potassium 5.0, Chloride 96 L, Carbon Dioxide 26, Anion Gap 16.0 H, BUN 28 H, Creatinine 1.04 H, Estimated Creat Clear 58, Estimated GFR 52 L, Est GFR ( Amer) 63, Glucose 183 H, Calcium 9.4, Total Bilirubin 0.5, AST 12 L, ALT 16, Alkaline Phosphatase 79, Troponin I 0.53 H, C- Reactive Protein 23.6 H, Total Protein 6.8, Albumin 2.4 L, Globulin 4.4 H, Albumin/Globulin Ratio 0.5 L 01/01/19 22:39: Lactate 2.8 H 01/01/19 22:48: Influenza Type A Ag Negative, Influenza Type B Ag Negative 01/01/19 22:57: Specimen Source Left radial, O2 % 2lpm, ABG pH 7.41, ABG pCO2 39.3, ABG pO2 60.0 L, ABG HCO3 24.5, ABG Total CO2 25.7, ABG O2 Saturation 91, ABG Base Excess -0.1, James Test Acceptable 01/01/19 23:05: Urine Color Yellow, Urine Appearance Sl cloudy, Urine pH 6.0, Ur Specific [place] 1.015, Urine Protein Negative, Urine Glucose (UA) Negative, Urine Ketones Negative, Urine Blood Negative, Urine Nitrate Negative, Urine Bilirubin Negative, Urine Urobilinogen 0.2, Ur Leukocyte Esterase 1+ A, Urine WBC 3-5, Urine Bacteria 4+ 01/02/19 03:22: Troponin I 0.52 H 01/02/19 03:22: Lactate 1.3 01/02/19 05:48: WBC 14.5 H, RBC 3.62 L, Hgb 10.1 L, Hct 33.7 L, MCV 93.1, MCH 27.9, MCHC 29.9 L, RDW 14.7, Plt Count 402, MPV 7.7, Neut % (Auto) 92.3 H, Lymph % (Auto) 4.1 L, [place] % (Auto) 3.3, Eos % (Auto) 0.1, Baso % (Auto) 0.1, Neut # (Auto) 13.4 H, Lymph # (Auto) 0.6 L, [place] # (Auto) 0.5, Eos # (Auto) 0.0, Baso # (Auto) 0.0 01/02/19 05:48: Sodium 133 L, Potassium 5.2 H, Chloride 98, Carbon Dioxide 27, Anion Gap 13.2, BUN 29 H, Creatinine 0.87, Estimated Creat Clear 50, Estimated GFR 64, Est GFR ( Amer) 77 D, Glucose 189 H, Calcium 9.2, Magnesium 1.4 01/02/19 05:58: POC Glucose 187 H I & O for Last 24 hours: Intake & Output 12/30/18 12/31/18 01/01/19 01/02/19 11:59 11:59 11:59 11:59 Intake Total 310 / 310 Output Total 630 / 630 Balance -320 / -320 Weight 141 lb 2 oz Microbiology Reports for the Last 24 Hours: Microbiology 01/01/19 23:05 Urine,Catheterized Urine Culture - Preliminary Gram Negative Rods - *Routine HEENT Exam Head: Present: normocephalic Eye: Present: EOMI, PERRL ENT: Present: mucous membranes moist - *Routine Neck Exam Present: supple. Absent: JVD, carotid bruit - *Routine Respiratory Exam Present: decreased breath sounds, rhonchi, wheezes. Absent: accessory muscle use, rales - *Routine Cardiovascular Exam Present: RRR, murmur. Absent: gallop, rubs - *Routine Abdominal Exam Present: soft. Absent: tenderness, distended, guarding - *Routine Extremities Exam Absent: edema, calf tenderness - *Routine Neurological Exam Present: alert, oriented X3, moving all extremities Assessment and Plan (1) HCAP (healthcare-associated pneumonia) Current visit: Yes Status: Acute Category: Medical Code(s): J18.9 - Pneumonia, unspecified organism (2) Anemia Current visit: Yes Status: Acute Qualifiers: Anemia type: unspecified type Qualified Code(s): D64.9 - Anemia, unspecified Category: Medical Code(s): D64.9 - Anemia, unspecified (3) Elevated troponin Current visit: Yes Status: Acute Category: Medical Code(s): R74.8 - Abnormal levels of other serum enzymes (4) Elevated erythrocyte sedimentation rate Current visit: Yes Status: Acute Category: Medical Code(s): R70.0 - Elevated erythrocyte sedimentation rate (5) IDDM (insulin dependent diabetes mellitus) Current visit: Yes Status: Acute Category: Medical Code(s): E11.9 - Type 2 diabetes mellitus without complications; Z79.4 - intermediate (current) use of insulin (6) Hyperlipemia Current visit: No Status: Chronic Qualifiers: Hyperlipidemia type: other hyperlipidemia Qualified Code(s): E78.49 - Other hyperlipidemia; E78.4 - Other hyperlipidemia Category: Medical Code(s): E78.5 - Hyperlipidemia, unspecified (7) Hypertension Current visit: No Status: Chronic Qualifiers: Hypertension type: essential hypertension Qualified Code(s): I10 - Essential (primary) hypertension Category: Medical Code(s): I10 - Essential (primary) hypertension (8) Hyperkalemia Current visit: Yes Status: Acute Category: Medical Code(s): E87.5 - Hyperkalemia (9) Hyponatremia Current visit: Yes Status: Acute Category: Medical Code(s): E87.1 - Hypo- osmolality and hyponatremia (10) Sepsis Current visit: Yes Status: Acute Qualifiers: Sepsis type: sepsis due to unspecified organism Sepsis acute organ dysfunction status: without acute organ dysfunction Qualified Code(s): A41.9 - Sepsis, unspecified organism Category: Medical Code(s): A41.9 - Sepsis, unspecified organism - Assessment and plan all Dx Assessment and Plan for all problems:: 1. Pneumonia/sepsis, treatment per Dr. Gabriel 2. Elevated troponins and CRP likely secondary to underlying infectious process with demand ischemia. Preliminary echocardiogram today shows preserved ejection fraction. No further cardiac work-up at this time until infectious process/sepsis adequately treated. 3. Elevated sed rate, will continue IV steroids at 125 mg every 12 for 2 doses and then begin to taper tomorrow 4. Discussed with Dr. Ricks.
--- NOTE | 2019-01-02 08:54 | History & Physical Report ---
*Admission Date: 01/01/19 *Chief complaint: soa *History of present illness: 73-year-old female with diabetes mellitus, hypertension, hyperlipidemia who is a resident of [facility] was admitted to the hospital for shortness of breath and weakness. Patient found to have elevated troponins, sed rate, C-reactive protein and elevated white count along with bilateral pneumonia on chest x-ray. admitted for pneumonia, and cardiac consult [facility] History I have reviewed the patient's past medical history: Yes Medical History: Reports:: Diabetes Mellitus Type 2, Hyperlipidemia, Hypertension Denies:: Cancer, Diabetes Mellitus Type 1, Internal Pacemaker, MRSA *Have you ever received a pneumonia vaccine?: Yes *Have you received a flu vaccine this season?: Yes Other Medical History: Reports: Anemia, Hypothyroidism Other Surgeries: No: Pacemaker Amputation: No Fractures: No - *Social History Smoking Status: Never smoker Alcohol Intake: never *Occupational Status:: disabled Housing: [employer] *Travel in the last 8 weeks: None Family Hx:: Unable to obtain Review of Systems - Review of Systems Review of systems:: pertinent systems reviewed and negative unless documented below - Constitutional Denies body ache(s), Denies headache(s) - Eyes Denies blurry vision, Denies floaters - ENT Denies pain with swallowing, Denies sore throat - *Cardiovascular Reports shortness of breath, Reports shortness of breath with activity, Denies chest pain at rest, Denies chest pain with activity - *Respiratory Reports shortness of breath - *Gastrointestinal Reports loose stools, Denies nausea, Denies vomiting - *Genitourinary Reports urinary incontinence, Reports urinary urgency, Denies nipple discharge - *Musculoskeletal Denies decreased muscle mass - Integumentary/Breasts Denies rash - *Neurologic Reports weakness, Denies frequent falls, Denies seizure-like activity - Psychiatric Denies anxiety - Endocrine Denies flushing, Denies increased thirst - Hematologic/Lymphatic Denies enlarged lymph nodes - Allergic/Immunologic Denies itchy eyes, Denies wheezing Meds Home Medications Medication Instructions Recorded Confirmed Type Amlodipine Besylate [Amlodipine 5 mg PO DAILY 07/16/17 01/02/19 History 10mg Tab] Aspirin [Aspirin 81mg chewable 81 mg PO DAILY 07/16/17 01/02/19 History tab] Duloxetine HCl [Cymbalta 30mg 60 mg PO DAILY 07/16/17 01/02/19 History capsule] Insulin Detemir [Levemir 35 unit SQ BID 07/16/17 01/01/19 History 100units/mL 3mL flexpen] Levothyroxine Sodium 50 mcg PO DAILY 07/16/17 01/02/19 History [Levothyroxine 50mcg (0.05mg) Tab] Lisinopril [Lisinopril 10mg Tab] 10 mg PO DAILY 07/16/17 01/02/19 History ARIPiprazole [Aripiprazole 10mg 10 mg PO DAILY 07/01/18 01/02/19 History Tablet] Acetaminophen [8 Hour Pain Relief] 650 mg PO BID 07/01/18 01/02/19 History Buspirone HCl [Buspar 10mg 10 mg PO BID 07/01/18 01/02/19 History tablet] glipiZIDE [Glucotrol Xl] 2.5 mg PO DAILY 07/01/18 01/01/19 History Loperamide HCl [Loperamide] 4 mg PO Q4-6H PRN 07/02/18 01/02/19 History diphenhydrAMINE HCl [Benadryl] 25 mg PO Q6HP PRN 07/02/18 01/02/19 History gabapentin 100 mg capsule 300 mg PO HS cap 10/25/18 01/02/19 History Blood Sugar Diagnostic [True 1 strip .ROUTE .MEDSUPPLY 01/01/19 01/01/19 History Metrix Glucose Test Strip] Lancets [E-Zject Lancets] 1 dose .ROUTE .MEDSUPPLY 01/01/19 01/01/19 History Linagliptin [Tradjenta] 5 mg PO DAILY 01/01/19 01/02/19 History Metformin HCl 1,000 mg PO BID 01/01/19 01/02/19 History Montelukast Sodium [Montelukast 10 mg PO QPM 01/01/19 01/02/19 History 10mg Tab] Multivit,Tx with Iron,Minerals 1 tab PO DAILY 01/01/19 01/02/19 History [Complete Multivitamin] Omeprazole [Omeprazole 20mg 20 mg PO BID 01/01/19 01/02/19 History Capsule] Simvastatin 20 mg PO QHS 01/01/19 01/02/19 History Tamsulosin HCl 0.4 mg PO DAILY 01/01/19 01/02/19 History Acetaminophen [Tylenol 500mg 500 mg PO Q6 PRN 01/02/19 01/02/19 History tablet] Ascorbic Acid [Vitamin C] 1,000 mg PO DAILY 01/02/19 01/02/19 History Allergies Allergy/AdvReac Type Severity Reaction Status Date / Time No Known Allergies Allergy Verified 12/19/18 15:29 Exam Vital signs and Labs for Last 24 Hours: Temp Pulse Resp BP Pulse Ox 97.6 F 55 L 18 147/89 H 98 01/02/19 08:00 01/02/19 08:00 01/02/19 08:00 01/02/19 08:00 01/02/19 08:00 Laboratory Results - last 24 hr 01/01/19 22:39: WBC 15.8 H, RBC 3.71 L, Hgb 10.5 L, Hct 34.4 L, MCV 92.8, MCH 28.3, MCHC 30.5 L, RDW 14.6, Plt Count 395, MPV 7.4, Neut % (Auto) 88.8 H, Lymph % (Auto) 6.0 L, [place] % (Auto) 4.7, Eos % (Auto) 0.2, Baso % (Auto) 0.2, Neut # (Auto) 14.0 H, Lymph # (Auto) 1.0, [place] # (Auto) 0.7, Eos # (Auto) 0.0, Baso # (Auto) 0.0, Total Counted 100, Neutrophils % (Manual) 94 H, Lymphocytes % (Manual) 6 L, Platelet Estimate Normal, RBC Morphology Not Reportable, Aniso cytosis 1+, ESR 128 H 01/01/19 22:39: Sodium 133 L, Potassium 5.0, Chloride 96 L, Carbon Dioxide 26, Anion Gap 16.0 H, BUN 28 H, Creatinine 1.04 H, Estimated Creat Clear 58, Estimated GFR 52 L, Est GFR ( Amer) 63, Glucose 183 H, Calcium 9.4, Total Bilirubin 0.5, AST 12 L, ALT 16, Alkaline Phosphatase 79, Troponin I 0.53 H, C- Reactive Protein 23.6 H, Total Protein 6.8, Albumin 2.4 L, Globulin 4.4 H, Albumin/Globulin Ratio 0.5 L 01/01/19 22:39: Lactate 2.8 H 01/01/19 22:48: Influenza Type A Ag Negative, Influenza Type B Ag Negative 01/01/19 22:57: Specimen Source Left radial, O2 % 2lpm, ABG pH 7.41, ABG pCO2 39.3, ABG pO2 60.0 L, ABG HCO3 24.5, ABG Total CO2 25.7, ABG O2 Saturation 91, ABG Base Excess -0.1, James Test Acceptable 01/01/19 23:05: Urine Color Yellow, Urine Appearance Sl cloudy, Urine pH 6.0, Ur Specific [place] 1.015, Urine Protein Negative, Urine Glucose (UA) Negative, Urine Ketones Negative, Urine Blood Negative, Urine Nitrate Negative, Urine Bilirubin Negative, Urine Urobilinogen 0.2, Ur Leukocyte Esterase 1+ A, Urine WBC 3-5, Urine Bacteria 4+ 01/02/19 03:22: Troponin I 0.52 H 01/02/19 03:22: Lactate 1.3 01/02/19 05:48: WBC 14.5 H, RBC 3.62 L, Hgb 10.1 L, Hct 33.7 L, MCV 93.1, MCH 27.9, MCHC 29.9 L, RDW 14.7, Plt Count 402, MPV 7.7, Neut % (Auto) 92.3 H, Lymph % (Auto) 4.1 L, [place] % (Auto) 3.3, Eos % (Auto) 0.1, Baso % (Auto) 0.1, Neut # (Auto) 13.4 H, Lymph # (Auto) 0.6 L, [place] # (Auto) 0.5, Eos # (Auto) 0.0, Baso # (Auto) 0.0 01/02/19 05:48: Sodium 133 L, Potassium 5.2 H, Chloride 98, Carbon Dioxide 27, Anion Gap 13.2, BUN 29 H, Creatinine 0.87, Estimated Creat Clear 50, Estimated GFR 64, Est GFR ( Amer) 77 D, Glucose 189 H, Calcium 9.2, Magnesium 1.4 01/02/19 05:58: POC Glucose 187 H I & O for Last 24 hours: Intake & Output 12/30/18 12/31/18 01/01/19 01/02/19 11:59 11:59 11:59 11:59 Intake Total 310 / 310 Output Total 630 / 630 Balance -320 / -320 Weight 141 lb 2 oz Microbiology Reports for the Last 24 Hours: Microbiology 01/01/19 23:05 Urine,Catheterized Urine Culture - Preliminary Gram Negative Rods - Constitutional no acute distress - *Routine HEENT Exam Head: Present: normocephalic Eye: Present: PERRL ENT: Present: mucous membranes moist - *Routine Neck Exam Present: supple. Absent: lymphadenopathy - *Routine Respiratory Exam Present: decreased breath sounds, rhonchi, wheezes - *Routine Cardiovascular Exam Present: RRR, murmur - *Routine Abdominal Exam Present: soft, normoactive bowel sounds. Absent: tenderness - *Routine Extremities Exam Present: full ROM. Absent: cyanosis, clubbing, edema - *Routine Skin Exam Present: warm. Absent: rash - *Routine Neurological Exam Present: alert, oriented X3 - Routine Psychiatric Exam Present: normal affect Assessment and Plan (1) HCAP (healthcare-associated pneumonia) Current visit: Yes Status: Acute Category: Medical Code(s): J18.9 - Pneumonia, unspecified organism (2) Anemia Current visit: Yes Status: Acute Qualifiers: Anemia type: unspecified type Qualified Code(s): D64.9 - Anemia, unspecified Category: Medical Code(s): D64.9 - Anemia, unspecified (3) Elevated troponin Current visit: Yes Status: Acute Category: Medical Code(s): R74.8 - Abnormal levels of other serum enzymes (4) Elevated erythrocyte sedimentation rate Current visit: Yes Status: Acute Category: Medical Code(s): R70.0 - Elevated erythrocyte sedimentation rate (5) IDDM (insulin dependent diabetes mellitus) Current visit: Yes Status: Acute Category: Medical Code(s): E11.9 - Type 2 diabetes mellitus without complications; Z79.4 - [facility] (current) use of insulin (6) Hyperlipemia Current visit: No Status: Chronic Qualifiers: Hyperlipidemia type: other hyperlipidemia Qualified Code(s): E78.49 - Other hyperlipidemia; E78.4 - Other hyperlipidemia Category: Medical Code(s): E78.5 - Hyperlipidemia, unspecified (7) Hypertension Current visit: No Status: Chronic Qualifiers: Hypertension type: essential hypertension Qualified Code(s): I10 - Essential (primary) hypertension Category: Medical Code(s): I10 - Essential (primary) hypertension (8) Hyperkalemia Current visit: Yes Status: Acute Category: Medical Code(s): E87.5 - Hyperkalemia (9) Hyponatremia Current visit: Yes Status: Acute Category: Medical Code(s): E87.1 - Hypo- osmolality and hyponatremia (10) Sepsis Current visit: Yes Status: Acute Qualifiers: Sepsis type: sepsis due to unspecified organism Sepsis acute organ dysfunction status: without acute organ dysfunction Qualified Code(s): A41.9 - Sepsis, unspecified organism Category: Medical Code(s): A41.9 - Sepsis, unspecified organism - Assessment and plan all Dx Assessment and Plan for all problems:: Rounded with Dr. Gabriel all orders per Harvey remove arguelles iv antibiotics cardiac consult
--- NOTE | 2019-01-02 09:44 | Pharmacy Consult Notes ---
[facility] Pharmacy VTE Monitoring - Patient Demographics Admission date: 01/02/19 Report Date: 01/02/19 Time: 09:44 Allergies/Adverse Reactions: Patient Allergies No Known Allergies Allergy (Verified 12/19/18 15:29) Height: 1.65 m Weight: 64.013 kg Patient Problems: Current Active Problems HCAP (healthcare-associated pneumonia) (Acute) Sepsis (Acute) Elevated erythrocyte sedimentation rate (Acute) Renal insufficiency (Acute) UTI (urinary tract infection) (Acute) Hyperkalemia (Acute) Hyponatremia (Acute) Anemia (Acute) Elevated troponin (Acute) IDDM (insulin dependent diabetes mellitus) (Acute) Hypothyroidism (acquired) (Acute) - VTE Risk Labs: VTE Related Lab Results Hgb 10.1 g/dL (12.2-16.2) L 01/02/19 05:48 Hct 33.7 % (37.0-47.0) L 01/02/19 05:48 Plt Count 402 K/mm3 (142-424) 01/02/19 05:48 BUN 29 mg/dL (7-18) H 01/02/19 05:48 Creatinine 0.87 mg/dL (0.55-1.02) 01/02/19 05:48 Estimated Creat Clear 50 mL/min (50-200) 01/02/19 05:48 VTE Risk Level: Low Risk - Prophylaxis VTE Prophylaxis Ordered?: Yes Types of VTE Prophylaxis: TEDS Knee High Location of Applied Device: Bilateral Lower Extremeties - VTE Diagnosis Confirmed Treatment or plan recommended: Continue Current Treatment
[2019-01-02 14:10] LABS: ABG Base Excess -3.7 mmol/L (-2.4-2.3); ABG HCO3 20.9 mmhg (22.0-26.0); ABG Oxygen Saturation 87 % (90-100); ABG PCO2 33.8 mmhg (35.0-45.0); ABG PH 7.41 mmol/L (7.35-7.45); ABG PO2 53.1 mmhg (80-100)
[2019-01-02 14:11] LABS: Allen's Test Acceptable; Oxygen 30% NC %
--- NOTE | 2019-01-02 16:17 | Electrocardiograph Report ---
APPROVED REPORT Exam: Resting ECG HR:91 bpm ECG Measurements Heart Rate 91 AXES [place] 174 P 62 QRSd 86 QRS -27 QT 376 T83 QTc 462 <Conclusion> Normal sinus rhythm Poor R Wave Progression,LAD Abnormal ECG Electronically signed by : Preston Rodriguez, 01/02/2019 16:16:33
--- NOTE | 2019-01-02 16:18 | Electrocardiograph Report ---
APPROVED REPORT Exam: Resting ECG HR:88 bpm ECG Measurements Heart Rate 88 AXES [place] 144 P 4 QRSd 84 QRS -25 QT 366 T68 QTc 442 <Conclusion> Normal sinus rhythm Poor R Wave Progression,LAD Normal ECG Electronically signed by : Preston Rodriguez, 01/02/2019 16:17:30
[2019-01-02 20:18] LABS: ABG Base Excess -2.8 mmol/L (-2.4-2.3); ABG HCO3 21.5 mmhg (22.0-26.0); ABG Oxygen Saturation 94 % (90-100); ABG PCO2 33.1 mmhg (35.0-45.0); ABG PH 7.43 mmol/L (7.35-7.45); ABG PO2 70.3 mmhg (80-100); ABG TCO2 22.5 mmhg (23-27)
[2019-01-02 20:19] LABS: Allen's Test Y; Oxygen 100 %
--- NOTE | 2019-01-02 21:38 | Cardiology Report ---
APPROVED REPORT EXAM: Comprehensive 2D, Doppler, and color-flow Echocardiogram Inside Sales Administrator: Radha Kaiser CRT Ht: 5 ft 5 in Wt: 170lbs BSA: 1.85 BP: 122/54 mmHg 2D Dimensions LVOT 1.40 cm (M/F) 1.5-2.5 M-Mode Dimensions RVDd 2.00 cm (0.9-2.6)LA Diam 3.80 cm (1.9-4.0) LVDd 4.50 cm (3.5-5.7)Ao Diam 3.00 cm (2.0-3.7) LVDs 2.80 cm (3.5-5.7)AV Cusp 1.40 cm (1.5-2.6) IVSd 1.40 cm (0.6-1.1)PWd 0.80 cm (0.6-1.1) EF (Teich) 68.00% FS 37.80% EDV (Teich) 92.40 mLESV (Teich) 29.60 mL LV Diastology E/A Ratio 1.50MED E' 6.82 (< 7 cm/sec) E'/MED E' Ratio21.70 (>14)LAT E' 7.31 (<10 cm/sec) E/LAT E' Ratio 20.20 (>14) Aortic Valve AoV Peak Isaiah. 183.00 (50-130 cm/s)AO Peak GR. 13.00 mmHg Mitral Valve MV E Max Isaiah. 148.00 (40-130 cm/s)MV A Velocity 96.30 (40-130 cm/s) E/A Ratio 1.50 Pulmonary Valve PA Accel Time 106.00 (>120 msec) Tricuspid Valve TR P. [id number] cm/sRAP Estimate 10.00 mmHg RVSP 56.00 mmHg Left Ventricle Left atrium is mildly enlarged, left ventricle is normal size, mild concentric left ventricular hypertrophy, visually estimated ejection fraction 45 to 50%, there is moderate apical hypokinesis. Grade 1 diastolic dysfunction seen with tissue Doppler evidence of raise left atrial pressure. Right Ventricle Right atrium and right ventricle mildly enlarged with normal contractility. Aortic Valve Aortic valve is thickened and calcified leaflet continue to display good mobility. There is no aortic stenosis, there is mild aortic insufficiency. Mitral Valve Mitral valve is minimally thickened, there is mild mitral regurgitation. Tricuspid Valve Tricuspid valve is grossly normal, there is mild tricuspid regurgitation, calculated right ventricular systolic pressure is 46 mmHg consistent with moderately elevated right ventricular systolic pressure. Pulmonic Valve Pulmonic valve is poorly visualized. Great Vessels Aortic root is normal size. Pericardium No significant pericardial effusion noted. Conclusion 1. Mildly enlarged left atrium, normal left ventricular size, mild concentric left ventricular hypertrophy, visually estimated ejection fraction 45 to 50% with segmental wall motion abnormality described above, grade 1 diastolic dysfunction seen with tissue Doppler evidence of raise left atrial pressure. 2. Mildly enlarged right ventricle with normal contractility. 3. Thickened and calcified aortic valve without aortic stenosis, there is mild aortic insufficiency. 4. Mild mitral and tricuspid regurgitation, calculated right ventricular systolic pressure is 46 mmHg consistent with moderately elevated right ventricular systolic pressure. 5. No significant pericardial effusion noted. Electronically signed by : Jacoby Morales, 01/02/2019 21:37:47
[2019-01-03 06:16] LABS: Basophils % 0.1 % (0.1-2.0); Hematocrit 32.9 % (37.0-47.0); Hemoglobin 9.9 g/dL (12.2-16.2); Lymphocytes # 0.6 K/mm3 (0.7-4.5); Mean Corpuscular HGB Conc 30.1 g/dL (31.8-35.4); Mean Platelet Volume 7.7 fl (7.4-10.4); Monocytes # 0.6 K/mm3 (0.1-1.0); Monocytes % 4.1 % (1.7-9.3); Neutrophils # 14.3 K/mm3 (1.8-7.8); Neutrophils % 91.7 % (37.0-80.0); Platelet Count 443 K/mm3 (142-424); Red Blood Count 3.58 M/mm3 (4.20-5.40); Red Cell Distribution Width 14.7 % (11.5-17.5); White Blood Count 15.6 K/mm3 (4.8-10.8)
[2019-01-03 06:35] LABS: Anion Gap 11.9 mEq/L (5-15); Calcium 9.3 mg/dL (8.5-10.1)
--- NOTE | 2019-01-03 11:19 | Progress Note ---
Subjective Date: 01/03/19 Time: 11:16 Principal diagnosis: elevated troponin, SOB Interval history: This is a 73-year-old white female who was admitted to the hospital with shortness of breath and weakness. The patient does have bilateral pneumonia and also found to have an elevated troponin, sed rate and C-reactive protein as well as an elevated white blood cell count. Is currently being treated for her pneumonia. Her elevated troponin is likely from demand ischemia. the patient denies any chest pain or pressure this morning. She states that she is still short of breath even though she is on a BiPAP machine. The patient states that that is her only complaint is that she feels like she cannot catch her breath. She denies any fever, chills, nausea, vomiting, diarrhea or edema. She does have associated orthopnea with her shortness of breath. Exam Vital signs and Labs for Last 24 Hours: Temp Pulse Resp BP Pulse Ox 98.4 F 87 18 132/65 94 L 01/03/19 08:00 01/03/19 08:00 01/03/19 08:00 01/03/19 08:00 01/03/19 08:00 Laboratory Results - last 24 hr 01/01/19 22:39: Troponin I 0.53 H 01/02/19 14:00: Specimen Source Right radial, O2 % 30% nc, ABG pH 7.41, ABG pCO2 33.8 L, ABG pO2 53.1 L, ABG HCO3 20.9 L, ABG Total CO2 22.0 L, ABG O2 Saturation 87 L*, ABG Base Excess -3.7 L, James Test Acceptable 01/02/19 16:15: POC Glucose 465 H* 01/02/19 20:14: POC Glucose 455 H* 01/02/19 20:17: Specimen Source L/r, O2 % 100, ABG pH 7.43, ABG pCO2 33.1 L, ABG pO2 70.3 L, ABG HCO3 21.5 L, ABG Total CO2 22.5 L, ABG O2 Saturation 94, ABG Base Excess -2.8 L, James Test Y 01/03/19 05:57: WBC 15.6 H, RBC 3.58 L, Hgb 9.9 L, Hct 32.9 L, MCV 92.0, MCH 27.7, MCHC 30.1 L, RDW 14.7, Plt Count 443 H, MPV 7.7, Neut % (Auto) 91.7 H, Lymph % (Auto) 4.0 L, [place] % (Auto) 4.1, Eos % (Auto) 0.0 L, Baso % (Auto) 0.1, Neut # (Auto) 14.3 H, Lymph # (Auto) 0.6 L, [place] # (Auto) 0.6, Eos # (Auto) 0.0, Baso # (Auto) 0.0 01/03/19 05:57: Sodium 131 L, Potassium 4.9, Chloride 97 L, Carbon Dioxide 27, Anion Gap 11.9, BUN 32 H, Creatinine 1.08 H D, Estimated Creat Clear 48, Estimated GFR 50 L, Est GFR ( Amer) 60 D, Glucose 448 H*, Calcium 9.3 01/03/19 05:57: POC Glucose 453 H* I & O for Last 24 hours: Intake & Output 12/31/18 01/01/19 01/02/19 01/03/19 23:59 23:59 23:59 23:59 Intake Total 1482 / 1482 579 / 579 Output Total 880 / 880 Balance 602 / 602 579 / 579 Weight 170 lb 141 lb 2 oz 145 lb 5 oz Microbiology Reports for the Last 24 Hours: Microbiology 01/02/19 10:15 Sputum - Expectorated Sputum Gram Stain - Final 01/02/19 10:15 Sputum - Expectorated Sputum Sputum Culture - Preliminary 01/01/19 23:05 Urine,Catheterized Urine Culture - Final Escherichia coli Narrative: Her telemetry strip is sinus rhythm. - Constitutional no acute distress, average body habitus - *Routine HEENT Exam Head: Present: normocephalic, atraumatic Eye: Present: EOMI, PERRL ENT: Present: mucous membranes moist - *Routine Neck Exam Present: supple, full ROM, normal carotid upstroke. Absent: JVD, carotid bruit, lymphadenopathy - *Routine Respiratory Exam Present: decreased breath sounds, rales, rhonchi - *Routine Cardiovascular Exam Present: RRR, Normal S1, Normal S2. Absent: murmur - *Routine Abdominal Exam Present: soft, normoactive bowel sounds. Absent: tenderness, distended - *Routine Extremities Exam Present: full ROM, pulses intact, normal capillary refill. Absent: cyanosis, clubbing, edema - *Routine Skin Exam Present: intact, warm. Absent: erythema, lesions, rash - *Routine Neurological Exam Present: alert, oriented X3, CN II-XII intact. Absent: sensory deficit, motor deficit - Detailed Eye Exam Eyelids: Left normal inspection Progress Note: A&P (1) HCAP (healthcare-associated pneumonia) Status: Acute Current Visit: Yes (2) Anemia Status: Acute Current Visit: Yes (3) Elevated troponin Status: Acute Current Visit: Yes (4) Elevated erythrocyte sedimentation rate Status: Acute Current Visit: Yes (5) IDDM (insulin dependent diabetes mellitus) Status: Acute Current Visit: Yes (6) Hyperlipemia Status: Chronic Current Visit: No (7) Hypertension Status: Chronic Current Visit: No (8) Hyponatremia Status: Acute Current Visit: Yes (9) Sepsis Status: Acute Current Visit: Yes Assessment and Plan for All Diagnoses:: Plan: 1. Patient was admitted for pneumonia and sepsis. She has been treated with antibiotics per her primary care provider. Will defer. 2. The patient did have an elevated troponin which is most likely secondary to demand ischemia. Her echocardiogram shows a preserved ejection fraction. No plans for invasive cardiac testing at this time due to her sepsis. 3. She also has an elevated CRP consistent with her infectious process and sepsis. 4. Her blood pressure is well controlled. 5. Her LDL goal is less than 100. 6. She is currently on a BiPAP for her shortness of breath. She is also on IV steroids. She states that she is a little more short of breath today than she was yesterday. We will continue her steroids at the current dose and try to begin tapering them tomorrow. 7. Further recommendations will be made pending the patient's response to treatment. Thank you for the opportunity to help participate in the care of this patient.
[2019-01-03 12:27] LABS: Eosinophils % 1 % (0-3); Lymphocytes % 5 % (10-50); Monocytes % 3 % (2-9); Neutrophils % 89 % (42-76); Total Cells Counted 100
[2019-01-03 12:30] LABS: RBC Morphology Normal
--- NOTE | 2019-01-03 16:43 | Progress Note ---
Internal Medicine - PN: Subj *Date: 01/04/19 *Time: 06:58 Interval history: doing better this am - alert - off bpap Exam Vital signs and Labs for Last 24 Hours: Temp Pulse Resp BP Pulse Ox 97.9 F 72 20 133/72 100 01/03/19 15:59 01/03/19 15:59 01/03/19 15:59 01/03/19 15:59 01/03/19 15:59 Laboratory Results - last 24 hr 01/02/19 20:14: POC Glucose 455 H* 01/02/19 20:17: Specimen Source L/r, O2 % 100, ABG pH 7.43, ABG pCO2 33.1 L, ABG pO2 70.3 L, ABG HCO3 21.5 L, ABG Total CO2 22.5 L, ABG O2 Saturation 94, ABG Base Excess -2.8 L, James Test Y 01/03/19 05:57: WBC 15.6 H, RBC 3.58 L, Hgb 9.9 L, Hct 32.9 L, MCV 92.0, MCH 27.7, MCHC 30.1 L, RDW 14.7, Plt Count 443 H, MPV 7.7, Neut % (Auto) 91.7 H, Lymph % (Auto) 4.0 L, [place] % (Auto) 4.1, Eos % (Auto) 0.0 L, Baso % (Auto) 0.1, Neut # (Auto) 14.3 H, Lymph # (Auto) 0.6 L, [place] # (Auto) 0.6, Eos # (Auto) 0.0, Baso # (Auto) 0.0, Total Counted 100, Neutrophils % (Manual) 89 H, Band Neutrophils % 2.0, Lymphocytes % (Manual) 5 L, Monocytes % (Manual) 3, Eosinophils % (Manual) 1, Platelet Estimate Normal, RBC Morphology Normal 01/03/19 05:57: Sodium 131 L, Potassium 4.9, Chloride 97 L, Carbon Dioxide 27, Anion Gap 11.9, BUN 32 H, Creatinine 1.08 H D, Estimated Creat Clear 48, Estimat ed GFR 50 L, Est GFR ( Amer) 60 D, Glucose 448 H*, Calcium 9.3 01/03/19 05:57: POC Glucose 453 H* 01/03/19 11:55: POC Glucose 374 H* I & O for Last 24 hours: Intake & Output 01/01/19 01/02/19 01/03/19 01/04/19 11:59 11:59 11:59 11:59 Intake Total 310 / 310 1751 / 1751 0 / 0 Output Total 880 / 880 Balance -570 / -570 1751 / 1751 0 / 0 Weight 141 lb 2 oz 145 lb 5 oz 145 lb 5.013 oz Microbiology Reports for the Last 24 Hours: Microbiology 01/02/19 10:15 Sputum - Expectorated Sputum Gram Stain - Final 01/02/19 10:15 Sputum - Expectorated Sputum Sputum Culture - Preliminary 01/01/19 23:05 Urine,Catheterized Urine Culture - Final Escherichia coli - Constitutional no acute distress - *Routine HEENT Exam Head: Present: normocephalic Eye: Present: EOMI, PERRL ENT: Present: mucous membranes dry - *Routine Neck Exam Present: supple - *Routine Respiratory Exam Present: decreased breath sounds - *Routine Cardiovascular Exam Present: RRR, murmur, S4 - *Routine Abdominal Exam Present: soft - *Routine Extremities Exam Absent: edema - *Routine Skin Exam Present: intact - *Routine Neurological Exam Present: alert, CN II-XII intact - Routine Psychiatric Exam Present: unable to assess Assessment and Plan (1) HCAP (healthcare-associated pneumonia) Current visit: Yes Status: Acute Category: Medical Code(s): J18.9 - Pneumonia, unspecified organism (2) Anemia Current visit: Yes Status: Acute Qualifiers: Anemia type: unspecified type Qualified Code(s): D64.9 - Anemia, unspecified Category: Medical Code(s): D64.9 - Anemia, unspecified (3) Elevated troponin Current visit: Yes Status: Acute Category: Medical Code(s): R74.8 - Abnormal levels of other serum enzymes (4) Elevated erythrocyte sedimentation rate Current visit: Yes Status: Acute Category: Medical Code(s): R70.0 - Elevated erythrocyte sedimentation rate (5) IDDM (insulin dependent diabetes mellitus) Current visit: Yes Status: Acute Category: Medical Code(s): E11.9 - Type 2 diabetes mellitus without complications; Z79.4 - senior care (current) use of insulin (6) Hyperlipemia Current visit: No Status: Chronic Qualifiers: Hyperlipidemia type: other hyperlipidemia Qualified Code(s): E78.49 - Other hyperlipidemia; E78.4 - Other hyperlipidemia Category: Medical Code(s): E78.5 - Hyperlipidemia, unspecified (7) Hypertension Current visit: No Status: Chronic Qualifiers: Hypertension type: essential hypertension Qualified Code(s): I10 - Essential (primary) hypertension Category: Medical Code(s): I10 - Essential (primary) hypertension (8) Hyponatremia Current visit: Yes Status: Acute Category: Medical Code(s): E87.1 - Hypo- osmolality and hyponatremia (9) Sepsis Current visit: Yes Status: Acute Qualifiers: Sepsis type: sepsis due to unspecified organism Sepsis acute organ dysfunction status: without acute organ dysfunction Qualified Code(s): A41.9 - Sepsis, unspecified organism Category: Medical Code(s): A41.9 - Sepsis, unspecified organism
[2019-01-04 06:35] LABS: Anion Gap 11.9 mEq/L (5-15); Calcium 9.6 mg/dL (8.5-10.1)
[2019-01-04 07:00] LABS: Basophils % 0.1 % (0.1-2.0); Eosinophils % 0.1 % (0.1-12.0); Hematocrit 34.2 % (37.0-47.0); Hemoglobin 9.8 g/dL (12.2-16.2); Lymphocytes # 0.8 K/mm3 (0.7-4.5); Lymphocytes % 5.2 % (10-50); Mean Corpuscular HGB Conc 28.5 g/dL (31.8-35.4); Mean Corpuscular Volume 95.6 fl (81-99); Mean Platelet Volume 7.4 fl (7.4-10.4); Monocytes # 0.7 K/mm3 (0.1-1.0); Monocytes % 4.3 % (1.7-9.3); Neutrophils # 13.9 K/mm3 (1.8-7.8); Neutrophils % 90.3 % (37.0-80.0); Platelet Count 489 K/mm3 (142-424); Red Blood Count 3.58 M/mm3 (4.20-5.40); Red Cell Distribution Width 14.8 % (11.5-17.5); White Blood Count 15.4 K/mm3 (4.8-10.8)
--- NOTE | 2019-01-04 07:59 | Progress Note ---
Subjective Date: 01/04/19 Time: 07:56 Principal diagnosis: elevated troponin, SOB Interval history: 73-year-old white female in bed in no acute distress. Ventimask in place. Patient still complains of shortness of breath and cough but denies any chest pain, pressure or tightness. Exam Vital signs and Labs for Last 24 Hours: Temp Pulse Resp BP Pulse Ox 97.4 F L 78 20 126/78 91 L 01/04/19 04:00 01/04/19 06:40 01/04/19 04:00 01/04/19 06:25 01/04/19 06:40 Laboratory Results - last 24 hr 01/03/19 05:57: Total Counted 100, Neutrophils % (Manual) 89 H, Band Neutrophils % 2.0, Lymphocytes % (Manual) 5 L, Monocytes % (Manual) 3, Eosinophils % (Manual) 1, Platelet Estimate Normal, RBC Morphology Normal 01/03/19 11:55: POC Glucose 374 H* 01/03/19 17:34: POC Glucose 357 H* 01/03/19 20:59: POC Glucose 273 H 01/04/19 05:54: POC Glucose 332 H* 01/04/19 06:05: WBC 15.4 H, RBC 3.58 L, Hgb 9.8 L, Hct 34.2 L, MCV 95.6, MCH 27.3, MCHC 28.5 L, RDW 14.8, Plt Count 489 H, MPV 7.4, Neut % (Auto) 90.3 H, Lymph % (Auto) 5.2 L, [place] % (Auto) 4.3, Eos % (Auto) 0.1, Baso % (Auto) 0.1, Neut # (Auto) 13.9 H, Lymph # (Auto) 0.8, [place] # (Auto) 0.7, Eos # (Auto) 0.0, Baso # (Auto) 0.0 01/04/19 06:05: Sodium 136, Potassium 4.9, Chloride 101, Carbon Dioxide 28, Anion Gap 11.9, BUN 30 H, Creatinine 0.89, Estimated Creat Clear 51, Estimated GFR 62, Est GFR ( Amer) 75 D, Glucose 338 H, Calcium 9.6 I & O for Last 24 hours: Intake & Output 01/01/19 01/02/19 01/03/19 10/17/19 11:59 11:59 11:59 11:59 Intake Total 310 / 310 175 / 175 492 / 492 Output Total 880 / 880 Balance -570 / -570 1750 492 / 492 Weight 141 lb 2 oz 145 lb 5 oz 144 lb 6 oz Microbiology Reports for the Last 24 Hours: Microbiology 01/02/19 10:15 Sputum - Expectorated Sputum Gram Stain - Final 01/02/19 10:15 Sputum - Expectorated Sputum Sputum Culture - Preliminary 01/01/19 22:44 Blood Blood Culture - Preliminary NO GROWTH AFTER 48 HOURS 01/01/19 22:44 Blood Blood Culture - Preliminary NO GROWTH AFTER 48 HOURS 01/01/19 23:05 Urine,Catheterized Urine Culture - Final Escherichia coli - *Routine HEENT Exam Head: Present: normocephalic Eye: Present: EOMI, PERRL ENT: Present: mucous membranes moist - *Routine Respiratory Exam Present: decreased breath sounds, rhonchi. Absent: accessory muscle use, rales, wheezes - *Routine Cardiovascular Exam Present: RRR. Absent: murmur, gallop, rubs - *Routine Abdominal Exam Present: soft. Absent: tenderness, distended, guarding - *Routine Extremities Exam Absent: edema, calf tenderness - *Routine Neurological Exam Present: alert, oriented X3, moving all extremities Progress Note: A&P (1) HCAP (healthcare-associated pneumonia) Status: Acute Current Visit: Yes (2) Anemia Status: Acute Current Visit: Yes (3) Elevated troponin Status: Acute Current Visit: Yes (4) Elevated erythrocyte sedimentation rate Status: Acute Current Visit: Yes (5) IDDM (insulin dependent diabetes mellitus) Status: Acute Current Visit: Yes (6) Hyperlipemia Status: Chronic Current Visit: No (7) Hypertension Status: Chronic Current Visit: No (8) Hyponatremia Status: Acute Current Visit: Yes (9) Sepsis Status: Acute Current Visit: Yes Assessment and Plan for All Diagnoses:: 1. Mild cardiomyopathy with ejection fraction 45-50% by echocardiogram. Will discontinue Norvasc and try to institute angiotensin receptor maribeth and beta-maribeth as blood pressure and pulmonary status tolerate. Cardiac status stable at this time 2. Bilateral pneumonia, on 2 antibiotics 3. Elevated sed rate and CRP, on steroids IV, will begin taper today 4. Hypokalemia, resolved 5. Hyponatremia, resolved 6. Elevated troponin, likely secondary to demand ischemia from infectious process. Will proceed with further cardiac work-up once patient has improved from a pulmonary status. 7. Anemia, stable 8. Diabetes mellitus, on insulin
--- NOTE | 2019-01-04 09:31 | Progress Note ---
Internal Medicine - PN: Subj *Date: 01/05/19 *Time: 12:57 Exam Vital signs and Labs for Last 24 Hours: Temp Pulse Resp BP Pulse Ox 97.9 F 84 18 131/65 95 01/04/19 08:00 01/04/19 08:00 01/04/19 08:00 01/04/19 08:00 01/04/19 08:36 Laboratory Results - last 24 hr 01/03/19 05:57: Total Counted 100, Neutrophils % (Manual) 89 H, Band Neutrophils % 2.0, Lymphocytes % (Manual) 5 L, Monocytes % (Manual) 3, Eosinophils % (Manual) 1, Platelet Estimate Normal, RBC Morphology Normal 01/03/19 11:55: POC Glucose 374 H* 01/03/19 17:34: POC Glucose 357 H* 01/03/19 20:59: POC Glucose 273 H 01/04/19 05:54: POC Glucose 332 H* 01/04/19 06:05: WBC 15.4 H, RBC 3.58 L, Hgb 9.8 L, Hct 34.2 L, MCV 95.6, MCH 27.3, MCHC 28.5 L, RDW 14.8, Plt Count 489 H, MPV 7.4, Neut % (Auto) 90.3 H, Lymph % (Auto) 5.2 L, [place] % (Auto) 4.3, Eos % (Auto) 0.1, Baso % (Auto) 0.1, Neut # (Auto) 13.9 H, Lymph # (Auto) 0.8, [place] # (Auto) 0.7, Eos # (Auto) 0.0, Baso # (Auto) 0.0 01/04/19 06:05: Sodium 136, Potassium 4.9, Chloride 101, Carbon Dioxide 28, Anion Gap 11.9, BUN 30 H, Creatinine 0.89, Estimated Creat Clear 51, Estimated GFR 62, Est GFR ( Amer) 75 D, Glucose 338 H, Calcium 9.6 I & O for Last 24 hours: Intake & Output 01/01/19 01/02/19 01/03/19 01/04/19 11:59 11:59 11:59 11:59 Intake Total 310 / 310 1751 / 1751 502 / 502 Output Total 880 / 880 Balance -570 / -570 1751 / 1751 502 / 502 Weight 141 lb 2 oz 145 lb 5 oz 144 lb 6 oz Microbiology Reports for the Last 24 Hours: Microbiology 01/02/19 10:15 Sputum - Expectorated Sputum Gram Stain - Final 01/02/19 10:15 Sputum - Expectorated Sputum Sputum Culture - Preliminary 01/01/19 22:44 Blood Blood Culture - Preliminary NO GROWTH AFTER 48 HOURS 01/01/19 22:44 Blood Blood Culture - Preliminary NO GROWTH AFTER 48 HOURS 01/01/19 23:05 Urine,Catheterized Urine Culture - Final Escherichia coli - Constitutional no acute distress - *Routine HEENT Exam Head: Present: normocephalic Eye: Present: PERRL ENT: Present: mucous membranes moist - *Routine Neck Exam Present: supple. Absent: lymphadenopathy - *Routine Respiratory Exam Present: rhonchi, wheezes - *Routine Cardiovascular Exam Present: RRR - *Routine Abdominal Exam Present: soft, normoactive bowel sounds. Absent: tenderness - *Routine Extremities Exam Present: full ROM. Absent: cyanosis, clubbing, edema - *Routine Skin Exam Present: warm. Absent: rash - *Routine Neurological Exam Present: alert, oriented X3 - Routine Psychiatric Exam Present: normal affect Assessment and Plan (1) HCAP (healthcare-associated pneumonia) Current visit: Yes Status: Acute Category: Medical Code(s): J18.9 - Pneumonia, unspecified organism (2) Anemia Current visit: Yes Status: Acute Qualifiers: Anemia type: unspecified type Qualified Code(s): D64.9 - Anemia, unspecified Category: Medical Code(s): D64.9 - Anemia, unspecified (3) Elevated troponin Current visit: Yes Status: Acute Category: Medical Code(s): R74.8 - Abnormal levels of other serum enzymes (4) Elevated erythrocyte sedimentation rate Current visit: Yes Status: Acute Category: Medical Code(s): R70.0 - Elevated erythrocyte sedimentation rate (5) IDDM (insulin dependent diabetes mellitus) Current visit: Yes Status: Acute Category: Medical Code(s): E11.9 - Type 2 diabetes mellitus without complications; Z79.4 - senior living (current) use of insulin (6) Hyperlipemia Current visit: No Status: Chronic Qualifiers: Hyperlipidemia type: other hyperlipidemia Qualified Code(s): E78.49 - Other hyperlipidemia; E78.4 - Other hyperlipidemia Category: Medical Code(s): E78.5 - Hyperlipidemia, unspecified (7) Hypertension Current visit: No Status: Chronic Qualifiers: Hypertension type: essential hypertension Qualified Code(s): I10 - Essential (primary) hypertension Category: Medical Code(s): I10 - Essential (primary) hypertension (8) Hyponatremia Current visit: Yes Status: Acute Category: Medical Code(s): E87.1 - Hypo- osmolality and hyponatremia (9) Sepsis Current visit: Yes Status: Acute Qualifiers: Sepsis type: sepsis due to unspecified organism Sepsis acute organ dysfunction status: without acute organ dysfunction Qualified Code(s): A41.9 - Sepsis, unspecified organism Category: Medical Code(s): A41.9 - Sepsis, unspecified organism - Assessment and plan all Dx Assessment and Plan for all problems:: rounded with arthur all orders per arthur
[2019-01-04 09:56] LABS: Lymphocytes % 6 % (10-50); Monocytes % 2 % (2-9); Neutrophils % 92 % (42-76); Total Cells Counted 100
[2019-01-05 07:24] LABS: Basophils % 0.1 % (0.1-2.0); Eosinophils % 0.1 % (0.1-12.0); Hematocrit 32.7 % (37.0-47.0); Hemoglobin 10.2 g/dL (12.2-16.2); Lymphocytes # 0.8 K/mm3 (0.7-4.5); Lymphocytes % 5.7 % (10-50); Mean Corpuscular HGB Conc 31.1 g/dL (31.8-35.4); Mean Corpuscular Volume 92.6 fl (81-99); Monocytes # 0.6 K/mm3 (0.1-1.0); Neutrophils % 90.2 % (37.0-80.0); Platelet Count 440 K/mm3 (142-424); Red Blood Count 3.53 M/mm3 (4.20-5.40); Red Cell Distribution Width 13.9 % (11.5-17.5); White Blood Count 14.5 K/mm3 (4.8-10.8)
[2019-01-05 07:40] LABS: Anion Gap 11.4 mEq/L (5-15); Calcium 9.6 mg/dL (8.5-10.1)
--- NOTE | 2019-01-05 08:01 | Progress Note ---
Subjective Date: 01/05/19 Time: 07:57 Principal diagnosis: elevated troponin, SOB Interval history: 73 yo WF in bed eating breakfast in NAD. Still with cough and complaint of SOA. Denies any chest pain. Knows she is in the hospital but doesn't know which one, what city or what year it is currently. Nurses note reviewed regarding hypotensive, hypoxic, unresponsive episode last evening that responded quickly to reinstitution of BiPAP therapy. Exam Vital signs and Labs for Last 24 Hours: Temp Pulse Resp BP Pulse Ox 97.8 F 79 26 H 125/59 L 96 01/05/19 04:00 01/05/19 04:00 01/05/19 04:00 01/05/19 04:00 01/05/19 04:00 Laboratory Results - last 24 hr 01/04/19 06:05: Total Counted 100, Neutrophils % (Manual) 92 H, Lymphocytes % (Manual) 6 L, Monocytes % (Manual) 2, Platelet Estimate Slight increase 01/04/19 11:11: POC Glucose 289 H 01/04/19 16:41: POC Glucose 357 H* 01/04/19 21:46: POC Glucose 531 H* 01/04/19 21:48: POC Glucose 527 H* 01/04/19 21:55: Random Glucose 568 H* 01/05/19 06:45: POC Glucose 265 H 01/05/19 07:10: WBC 14.5 H, RBC 3.53 L, Hgb 10.2 L, Hct 32.7 L, MCV 92.6, MCH 28.8, MCHC 31.1 L, RDW 13.9, Plt Count 440 H, MPV 8.0, Neut % (Auto) 90.2 H, Lymph % (Auto) 5.7 L, [place] % (Auto) 4.0, Eos % (Auto) 0.1, Baso % (Auto) 0.1, Neut # (Auto) 13.0 H, Lymph # (Auto) 0.8, [place] # (Auto) 0.6, Eos # (Auto) 0.0, Baso # (Auto) 0.0 01/05/19 07:10: Sodium 139, Potassium 5.4 H, Chloride 103, Carbon Dioxide 30, Anion Gap 11.4, BUN 34 H, Creatinine 0.88, Estimated Creat Clear 53, Estimated GFR 63, Est GFR ( Amer) 76, Glucose 277 H, Calcium 9.6 I & O for Last 24 hours: Intake & Output 01/02/19 01/03/19 01/04/19 01/05/19 11:59 11:59 11:59 11:59 Intake Total 310 / 310 1751 / 1751 502 / 502 2657 / 2657 Output Total 880 / 880 Balance -570 / -570 1751 / 1751 502 / 502 2657 / 2657 Weight 141 lb 2 oz 145 lb 5 oz 144 lb 6 oz 149 lb 9 oz Microbiology Reports for the Last 24 Hours: Microbiology 01/02/19 10:15 Sputum - Expectorated Sputum Gram Stain - Final 01/02/19 10:15 Sputum - Expectorated Sputum Sputum Culture - Preliminary - *Routine HEENT Exam Head: Present: normocephalic Eye: Present: EOMI, PERRL ENT: Present: mucous membranes moist - *Routine Respiratory Exam Present: rhonchi, wheezes, diminished air movement. Absent: accessory muscle use, rales - *Routine Cardiovascular Exam Present: RRR. Absent: murmur, gallop, rubs - *Routine Extremities Exam Absent: edema, calf tenderness - *Routine Neurological Exam Present: alert, moving all extremities Progress Note: A&P (1) HCAP (healthcare-associated pneumonia) Status: Acute Current Visit: Yes (2) Anemia Status: Acute Current Visit: Yes (3) Elevated troponin Status: Acute Current Visit: Yes (4) Elevated erythrocyte sedimentation rate Status: Acute Current Visit: Yes (5) IDDM (insulin dependent diabetes mellitus) Status: Acute Current Visit: Yes (6) Hyperlipemia Status: Chronic Current Visit: No (7) Hypertension Status: Chronic Current Visit: No (8) Hyponatremia Status: Acute Current Visit: Yes (9) Sepsis Status: Acute Current Visit: Yes Assessment and Plan for All Diagnoses:: 1. Elevated troponin secondary to demand ischemia from respiratory distress. Continue ASA, ARB and beta-maribeth therapy for mild cardiomyopathy. We will repeat troponin today but patient still is not oriented, therefore we will continue with conservative therapy. 2. Elevated sed rate and CRP, continue IV steroid taper. We will repeat sed rate today 3. Pneumonia and sepsis, continue antibiotic therapy 4. Diabetes mellitus, on insulin 5. Anemia, stable
[2019-01-05 08:43] LABS: Lymphocytes % 5 % (10-50); Monocytes % 5 % (2-9); Neutrophils % 90 % (42-76); Total Cells Counted 100
--- NOTE | 2019-01-05 11:35 | Discharge Summary ---
General - General Admission date:: 01/02/19 Discharge date: 01/05/19 HPI HPI: 73-year-old female with diabetes mellitus, hypertension, hyperlipidemia who is a resident of [facility] in a [facility] of the [facility] was admitted to the hospital for shortness of breath and weakness. Patient found to have elevated troponins, sed rate, C-reactive protein and elevated white count along with bilateral pneumonia on chest x-ray. admitted for pneumonia, and cardiac consult Hospital Course Hospital Course: chest x ray:IMPRESSION: Bilateral pneumonia. The areas of opacification are have a somewhat more nodular appearance. echo:Conclusion 1. Mildly enlarged left atrium, normal left ventricular size, mild concentric left ventricular hypertrophy, visually estimated ejection fraction 45 to 50% with segmental wall motion abnormality described above, grade 1 diastolic dysfunction seen with tissue Doppler evidence of raise left atrial pressure. 2. Mildly enlarged right ventricle with normal contractility. 3. Thickened and calcified aortic valve without aortic stenosis, there is mild aortic insufficiency. 4. Mild mitral and tricuspid regurgitation, calculated right ventricular systolic pressure is 46 mmHg consistent with moderately elevated right ventricular systolic pressure. 5. No significant pericardial effusion noted. urine: positive for e coli wbc and h/h has improved. has not had a fever. cardiology consult: see note will transfer back to [facility], will continue antibiotics for pneumonia and uti. Pt will need 03 at 3 liters per nc while at [facility]. Pt will need oob twice a day and PT/ot for weakness. Objective Vital signs: Temp Pulse Resp BP Pulse Ox 98.0 F 79 21 137/74 93 L 01/05/19 08:00 01/05/19 08:00 01/05/19 08:00 01/05/19 08:00 01/05/19 08:00 no acute distress, chronically ill appearing - *Routine Neck Exam Present: supple - *Routine Respiratory Exam Present: decreased breath sounds, rhonchi, wheezes - *Routine Cardiovascular Exam Present: RRR - *Routine Abdominal Exam Present: soft, normoactive bowel sounds - *Routine Extremities Exam Present: full ROM - *Routine Skin Exam Present: intact - *Routine Neurological Exam Present: alert, oriented X3 - Routine Psychiatric Exam Present: normal affect Results Labs on day of discharge: Labs from last 24 hours 01/05/19 01/05/19 01/05/19 11:11 07:10 07:10 WBC RBC Hgb Hct MCV MCH MCHC RDW Plt Count MPV Neut % (Auto) Lymph % (Auto) [place] % (Auto) Eos % (Auto) Baso % (Auto) Neut # (Auto) Lymph # (Auto) [place] # (Auto) Eos # (Auto) Baso # (Auto) Total Counted Neutrophils % (Manual) Lymphocytes % (Manual) Monocytes % (Manual) Platelet Estimate ESR 95 H Sodium Potassium Chloride Carbon Dioxide Anion Gap BUN Creatinine Estimated Creat Clear Estimated GFR Est GFR ( Amer) Glucose POC Glucose 362 H* Random Glucose Calcium Troponin I 0.44 H 01/05/19 01/05/19 01/05/19 07:10 07:10 06:45 WBC 14.5 H RBC 3.53 L Hgb 10.2 L Hct 32.7 L MCV 92.6 MCH 28.8 MCHC 31.1 L RDW 13.9 Plt Count 440 H MPV 8.0 Neut % (Auto) 90.2 H Lymph % (Auto) 5.7 L [place] % (Auto) 4.0 Eos % (Auto) 0.1 Baso % (Auto) 0.1 Neut # (Auto) 13.0 H Lymph # (Auto) 0.8 [place] # (Auto) 0.6 Eos # (Auto) 0.0 Baso # (Auto) 0.0 Total Counted 100 Neutrophils % (Manual) 90 H Lymphocytes % (Manual) 5 L Monocytes % (Manual) 5 Platelet Estimate Slight increase ESR Sodium 139 Potassium 5.4 H Chloride 103 Carbon Dioxide 30 Anion Gap 11.4 BUN 34 H Creatinine 0.88 Estimated Creat Clear 53 Estimated GFR 63 Est GFR ( Amer) 76 Glucose 277 H POC Glucose 265 H Random Glucose Calcium 9.6 Troponin I 01/04/19 01/04/19 01/04/19 21:55 21:48 21:46 WBC RBC Hgb Hct MCV MCH MCHC RDW Plt Count MPV Neut % (Auto) Lymph % (Auto) [place] % (Auto) Eos % (Auto) Baso % (Auto) Neut # (Auto) Lymph # (Auto) [place] # (Auto) Eos # (Auto) Baso # (Auto) Total Counted Neutrophils % (Manual) Lymphocytes % (Manual) Monocytes % (Manual) Platelet Estimate ESR Sodium Potassium Chloride Carbon Dioxide Anion Gap BUN Creatinine Estimated Creat Clear Estimated GFR Est GFR ( Amer) Glucose POC Glucose 527 H* 531 H* Random Glucose 568 H* Calcium Troponin I 01/04/19 16:41 WBC RBC Hgb Hct MCV MCH MCHC RDW Plt Count MPV Neut % (Auto) Lymph % (Auto) [place] % (Auto) Eos % (Auto) Baso % (Auto) Neut # (Auto) Lymph # (Auto) [place] # (Auto) Eos # (Auto) Baso # (Auto) Total Counted Neutrophils % (Manual) Lymphocytes % (Manual) Monocytes % (Manual) Platelet Estimate ESR Sodium Potassium Chloride Carbon Dioxide Anion Gap BUN Creatinine Estimated Creat Clear Estimated GFR Est GFR ( Amer) Glucose POC Glucose 357 H* Random Glucose Calcium Troponin I Preliminary micro results at discharge 01/02/19 10:15 Sputum Culture - Preliminary Sputum - Expectorated Sputum 01/01/19 22:44 Blood Culture - Preliminary Blood NO GROWTH AFTER 48 HOURS 01/01/19 22:44 Blood Culture - Preliminary Blood NO GROWTH AFTER 48 HOURS - Additional Comments rounded with dr gibson all orders per arthur DS: Diagnosis - Discharge Diagnosis (1) HCAP (healthcare-associated pneumonia) Status: Acute (2) Anemia Status: Acute (3) Elevated troponin Status: Acute (4) Elevated erythrocyte sedimentation rate Status: Acute (5) IDDM (insulin dependent diabetes mellitus) Status: Acute (6) Hyperlipemia Status: Chronic (7) Hypertension Status: Chronic (8) Hyponatremia Status: Acute (9) Sepsis Status: Acute Discharge Plan - Patient Discharge Instructions ACTIVITY: Continue current activity DIET: continue same diet Patient Instructions: Urinary Tract Infection, Pneumonia-Adult, Heart Attack, Echocardiogram, Pneumococcal Vaccine, DI for Pneumonia -- Adult, DI for Urinary Tract Infection (UTI) - Follow up Plan Follow up with: Chloe Moscoso APRN [Advanced Practice Nurse] - Disposition: er [facility] Home Medications: Home Medications Medication Instructions Recorded Confirmed Type Amlodipine Besylate [Amlodipine 5 mg PO DAILY 07/16/17 01/02/19 History 10mg Tab] Aspirin [Aspirin 81mg chewable 81 mg PO DAILY 07/16/17 01/02/19 History tab] Duloxetine HCl [Cymbalta 30mg 60 mg PO DAILY 07/16/17 01/02/19 History capsule] Insulin Detemir [Levemir 35 unit SQ BID 07/16/17 01/01/19 History 100units/mL 3mL flexpen] Levothyroxine Sodium 50 mcg PO DAILY 07/16/17 01/02/19 History [Levothyroxine 50mcg (0.05mg) Tab] Lisinopril [Lisinopril 10mg Tab] 10 mg PO DAILY 07/16/17 01/02/19 History ARIPiprazole [Aripiprazole 10mg 10 mg PO DAILY 07/01/18 01/02/19 History Tablet] Acetaminophen [8 Hour Pain Relief] 650 mg PO BID 07/01/18 01/02/19 History Buspirone HCl [Buspar 10mg 10 mg PO BID 07/01/18 01/02/19 History tablet] Loperamide HCl [Loperamide] 4 mg PO Q6HP PRN 07/02/18 01/02/19 History diphenhydrAMINE HCl [Benadryl] 25 mg PO Q6HP PRN 07/02/18 01/02/19 History Linagliptin [Tradjenta] 5 mg PO DAILY 01/01/19 01/02/19 History Metformin HCl 1,000 mg PO BID 01/01/19 01/02/19 History Montelukast Sodium [Montelukast 10 mg PO DAILY 01/01/19 01/02/19 History 10mg Tab] Multivit,Tx with Iron,Minerals 1 tab PO DAILY 01/01/19 01/02/19 History [Complete Multivitamin] Omeprazole [Omeprazole 20mg 20 mg PO BID 01/01/19 01/02/19 History Capsule] Simvastatin 20 mg PO HS 01/01/19 01/02/19 History Tamsulosin HCl 0.4 mg PO HS 01/01/19 01/02/19 History Acetaminophen [Tylenol 500mg 500 mg PO Q6HP PRN 01/02/19 01/02/19 History tablet] Ascorbic Acid [Vitamin C] 1,000 mg PO DAILY 01/02/19 01/02/19 History Gabapentin [Gabapentin 300mg Cap] 300 mg PO HS 01/02/19 01/02/19 History Cefdinir [Omnicef 300mg Capsule] 300 mg PO BID 7 Days #7 cap 01/05/19 Rx Clindamycin HCl [Clindamycin HCl 300 mg PO Q8 7 Days #21 cap 01/05/19 Rx 300mg Cap] Irbesartan [Avapro 75mg 75 mg PO DAILY 30 Days #30 tab 01/05/19 Rx tablet] Metoprolol Succinate [Toprol XL 25 mg PO DAILY 30 Days #30 01/05/19 Rx 25mg tablet] tab.er.24h Pravastatin Sodium [Pravachol 40mg 40 mg PO HS 30 Days #30 tab 01/05/19 Rx Tablet] predniSONE [Deltasone 10mg tablet] 10 mg PO BID 8 Days #15 tab 01/05/19 Rx Prescriptions/Medication Reconciliation: New Clindamycin HCl [Clindamycin HCl 300mg Cap] 300 mg PO Q8 7 Days #21 cap Cefdinir [Omnicef 300mg Capsule] 300 mg PO BID 7 Days #7 cap Pravastatin Sodium [Pravachol 40mg Tablet] 40 mg PO HS 30 Days #30 tab Irbesartan [Avapro 75mg tablet] 75 mg PO DAILY 30 Days #30 tab Metoprolol Succinate [Toprol XL 25mg tablet] 25 mg PO DAILY 30 Days #30 tab.er.24h predniSONE [Deltasone 10mg tablet] 10 mg PO BID 8 Days #15 tab Continued Duloxetine HCl [Cymbalta 30mg capsule] 60 mg PO DAILY Amlodipine Besylate [Amlodipine 10mg Tab] 5 mg PO DAILY Aspirin [Aspirin 81mg chewable tab] 81 mg PO DAILY Levothyroxine Sodium [Levothyroxine 50mcg (0.05mg) Tab] 50 mcg PO DAILY Insulin Detemir [Levemir 100units/mL 3mL flexpen] 35 unit SQ BID Buspirone HCl [Buspar 10mg tablet] 10 mg PO BID Simvastatin 20 mg PO HS Omeprazole [Omeprazole 20mg Capsule] 20 mg PO BID Montelukast Sodium [Montelukast 10mg Tab] 10 mg PO DAILY Metformin HCl 1,000 mg PO BID Linagliptin [Tradjenta] 5 mg PO DAILY Ascorbic Acid [Vitamin C] 1,000 mg PO DAILY Acetaminophen [Tylenol 500mg tablet] 500 mg PO Q6HP PRN PRN Reason: As Needed For Fever Or Pain ARIPiprazole [Aripiprazole 10mg Tablet] 10 mg PO DAILY Tamsulosin HCl 0.4 mg PO HS Multivit,Tx with Iron,Minerals [Complete Multivitamin] 1 tab PO DAILY Gabapentin [Gabapentin 300mg Cap] 300 mg PO HS Discontinued Lisinopril [Lisinopril 10mg Tab] 10 mg PO DAILY Loperamide HCl [Loperamide] 4 mg PO Q6HP PRN PRN Reason: Diarrhea Acetaminophen [8 Hour Pain Relief] 650 mg PO BID diphenhydrAMINE HCl [Benadryl] 25 mg PO Q6HP PRN PRN Reason: Itching - Problem Reconciliation Problems Reviewed?: Yes
[2019-01-05 11:50] VITALS: BP 122/61
== END 2019-01-05 15:12 | DRG 194 ==
LOC: ER 22:31 → 2ND 22:31 → OBSVTOIN 01-02 01:15 → 2ND 01-02 01:19
PROVIDERS: ADMIT Emergency Medicine; ATTEND Emergency Medicine
CPT/HCPCS: 36415; 71010; 71045; 80048; 80053; 81001; 82803; 82947; 82962; 83605; 83735; 84484; 85007; 85025; 85651; 86140; 87040; 87070; 87086; 87088; 87186; 87205; 87275; 87276; 92610; 93005; 93306; 94640; 94660; 94761; 96365; 96375; 97110; 97162; 99285; J1956

== ENCOUNTER → 2019-05-11 16:12 | Outpatient (CLI) | payer MEDICARE, MEDICAID, SELFPAY ==
[2019-05-11 16:21] LABS: Basophils # 0.1 K/mm3 (0-0.2); Basophils % 0.9 % (0.1-2.0); Eosinophils # 0.7 K/mm3 (0.0-0.4); Eosinophils % 6.2 % (0.1-12.0); Hematocrit 41.7 % (37.0-47.0); Hemoglobin 13.3 g/dL (12.2-16.2); Lymphocytes # 2.1 K/mm3 (0.7-4.5); Lymphocytes % 19.3 % (10-50); Mean Corpuscular Hemoglobin 27.8 pg (27.0-31.2); Mean Corpuscular Volume 86.8 fl (81-99); Mean Platelet Volume 8.9 fl (7.4-10.4); Monocytes # 0.5 K/mm3 (0.1-1.0); Monocytes % 4.6 % (1.7-9.3); Neutrophils # 7.6 K/mm3 (1.8-7.8); Platelet Count 315 K/mm3 (142-424); Red Cell Distribution Width 14.5 % (11.5-17.5)
[2019-05-11 17:52] LABS: Chloride 92 mmol/L (98-107); Potassium 5.3 mmoL/L (3.5-5.1); Sodium 133 mmol/L (136-145)
[2019-05-11 17:55] LABS: Alanine Aminotransferase 17 U/L (12-78); Albumin Level 3.8 g/dl (3.5-5.0); Albumin/Globulin Ratio 1.5 (1.1-1.8); Alkaline Phosphatase 73 U/L (38-126); Anion Gap 20.3 mEq/L (5-15); Aspartate Amino Transferase 22 U/L (14-36); Bilirubin,Total 0.5 mg/dl (0.2-1.3); Blood Urea Nitrogen 19 mg/dl (7-17); Calcium 10.2 mg/dl (8.4-10.2); Carbon Dioxide 26 mmol/L (22.0-30.0); Estimated Glomerular Filt Rate 98 ml/min (>60); GFR (African American) 118 ML/MIN (>60); Globulin 2.5 g/dL (1.3-3.2); Total Protein,Serum 6.3 g/dl (6.3-8.2)
[2019-05-11 18:07] LABS: Glucose 430 mg/dl (74-100)
== END ==
PROVIDERS: Visit Provider Emergency Medicine
DX: R26.81 Unsteadiness on feet (principal); M62.81 Muscle weakness (generalized)
CPT/HCPCS: 80053; 85025

== ENCOUNTER → 2019-06-15 11:02 | Outpatient (CLI) | payer MEDICARE, MEDICAID, SELFPAY ==
[2019-06-15 11:08] LABS: Microscopic, Urine URINE MICROSCOPIC (MICROSCOPIC)
[2019-06-15 11:38] LABS: Basophils # 0.1 K/mm3 (0-0.2); Basophils % 0.8 % (0.1-2.0); Eosinophils # 0.9 K/mm3 (0.0-0.4); Eosinophils % 7.4 % (0.1-12.0); Hematocrit 40.3 % (37.0-47.0); Hemoglobin 12.8 g/dL (12.2-16.2); Lymphocytes # 2.1 K/mm3 (0.7-4.5); Lymphocytes % 17.7 % (10-50); Mean Corpuscular HGB Conc 31.7 g/dL (31.8-35.4); Mean Corpuscular Hemoglobin 27.4 pg (27.0-31.2); Mean Corpuscular Volume 86.5 fl (81-99); Monocytes # 0.6 K/mm3 (0.1-1.0); Monocytes % 5.4 % (1.7-9.3); Neutrophils % 68.7 % (37.0-80.0); Platelet Count 305 K/mm3 (142-424); Red Blood Count 4.66 M/mm3 (4.20-5.40); White Blood Count 11.7 K/mm3 (4.8-10.8)
[2019-06-15 12:23] LABS: Bilirubin,Urine Negative (Negative); Blood, Urine TRACE-I (Negative); Color,Urine YELLOW (Yellow); Glucose,Urine (UA) 2+ (Negative); Ketones,Urine Negative (Negative); Leukocyte Esterase,Urine 3+ (Negative); Nitrate,Urine Negative (Negative); Protein,Urine Negative (Negative); Urobilinogen,Urine 0.2 EU/dl (0.2)
[2019-06-15 12:25] LABS: Appearance,Urine Cloudy (Clear)
[2019-06-15 12:37] LABS: Bacteria,Urine 4+ /lpf; WBC,Urine TNTC #/hpf (0-3)
[2019-06-15 12:38] LABS: Mucus,Urine Trace /lpf; Squamous Epithelial Cell,Urine Occasional #/hpf (0-5)
[2019-06-15 13:11] LABS: Chloride 91 mmol/L (98-107); Potassium 5.2 mmoL/L (3.5-5.1); Sodium 131 mmol/L (136-145)
[2019-06-15 13:13] LABS: Alanine Aminotransferase 18 U/L (12-78); Aspartate Amino Transferase 20 U/L (14-36); Blood Urea Nitrogen 8 mg/dl (7-17); Estimated Glomerular Filt Rate 98 ml/min (>60); GFR (African American) 118 ML/MIN (>60)
[2019-06-15 13:14] LABS: Albumin Level 3.8 g/dl (3.5-5.0); Albumin/Globulin Ratio 1.6 (1.1-1.8); Alkaline Phosphatase 83 U/L (38-126); Anion Gap 17.2 mEq/L (5-15); Bilirubin,Total 0.6 mg/dl (0.2-1.3); Calcium 10.1 mg/dl (8.4-10.2); Carbon Dioxide 28 mmol/L (22.0-30.0); Globulin 2.4 g/dL (1.3-3.2); Glucose 269 mg/dl (74-100); Total Protein,Serum 6.2 g/dl (6.3-8.2)
== END ==
PROVIDERS: Visit Provider Emergency Medicine
DX: R10.9 Unspecified abdominal pain (principal); R30.0 Dysuria
CPT/HCPCS: 80053; 81001; 85025; 87086; 87088; 87186

== ENCOUNTER → 2019-06-19 03:46 | Outpatient (REF) | payer MEDICARE, MEDICAID, SELFPAY ==
[2019-06-19 04:14] LABS: Anion Gap 9.8 mEq/L (5-15); Blood Urea Nitrogen 14 mg/dl (7-17); Calcium 9.6 mg/dl (8.4-10.2); Carbon Dioxide 31 mmol/L (22.0-30.0); Chloride 99 mmol/L (98-107); Estimated Glomerular Filt Rate 121 ml/min (>60); GFR (African American) 146 ML/MIN (>60); Glucose 90 mg/dl (74-100); Potassium 4.8 mmoL/L (3.5-5.1); Sodium 135 mmol/L (136-145)
== END ==
LOC: LAB 03:46
PROVIDERS: Visit Provider Emergency Medicine
DX: R53.81 Other malaise (principal)
CPT/HCPCS: 80048

== ENCOUNTER → 2019-07-27 08:55 | Outpatient (CLI) | payer MEDICARE, MEDICAID, SELFPAY ==
--- NOTE | 2019-07-27 09:08 | XR_ITS ---
PROCEDURE: XR HUMERUS RT CLINICAL INDICATION: humerus fx Pain following injury COMPARISON: No exams were available for comparison FINDINGS: There is a nondisplaced fracture involving the humeral head along the lateral aspect. There are no previous exams available for comparison. No evidence of dislocation of the shoulder. There are mild osteoarthritic changes of the acromioclavicular joint. Other findings:None. IMPRESSION: Nondisplaced humeral head fracture Dictated by: James Goldman MD 07/27/2019 09:49 Electronically signed by James Goldman MD in [facility] 07/27/2019 09:49
--- NOTE | 2019-07-27 09:54 | XR_ITS ---
PROCEDURE: XR SHOULDER RT MIN 2V CLINICAL INDICATION: humerus fx Follow-up fracture COMPARISON: No exams were available for comparison FINDINGS: There is an impacted fracture of the humeral neck with mild anterior displacement the distal fracture fragment. Fracture also involves the head of the humerus at the base of the greater tubercle. There is some minimal inferior subluxation of the humeral head but no sathish dislocation. IMPRESSION: Mildly displaced comminuted fracture of the humeral head and neck Dictated by: James Goldman MD 07/27/2019 13:55 Electronically signed by James Goldman MD in [facility] 07/27/2019 13:55
--- NOTE | 2019-07-27 11:36 | CT_ITS ---
PROCEDURE: CT SHOULDER RT WO CON CLINICAL HISTORY: evaluate for humerus fracture Pain, right humeral fracture, the COMPARISON: No exams were available for comparison TECHNIQUE: Axial images obtained with sagittal and coronal reformats. All CT scans at the facility use one or more dose reduction, viz: automated exposure control, ma/kV adjustment per patient size (including targeted exams where dose is matched to indication, i.e. head), or iterative reconstruction technique. FINDINGS: There is a displaced fracture involving the surgical neck of the humerus with 1 cm anterior displacement of the distal fracture fragment. There is dorsal angulation of the distal fracture fragment. There is internal rotation of the distal fracture fragment. There is no evidence of shoulder dislocation. There is increased soft tissue density about the right shoulder joint capsule consistent with some underlying hemorrhage/information. There is avulsion fracture along the lateral aspect of the humeral head. IMPRESSION: Displaced fracture of the anatomic neck of the humerus as described above. Dictated by: James Goldman MD 07/27/2019 12:48 Electronically signed by James Goldman MD in [facility] 07/27/2019 12:48
--- NOTE | 2019-07-27 11:36 | XR_ITS ---
PROCEDURE: XR ELBOW RT 2V CLINICAL INDICATION: right elbow pain COMPARISON: XR HUMERUS RT from 07/27/2019 FINDINGS: No fracture or dislocation. No lytic or blastic change. There is normal mineralization. The joint spaces are well-preserved. No significant degenerative/arthritic changes. No erosive changes evident. Other findings:There is a small enthesophyte at the olecranon process. IMPRESSION: No acute findings. Dictated by: James Goldman MD 07/27/2019 12:34 Electronically signed by James Goldman MD in [facility] 07/27/2019 12:34
== END ==
PROVIDERS: PCP Emergency Medicine; Visit Provider Orthopaedic Surgery
DX: M79.601 Pain in right arm (principal); S42.301A Unspecified fracture of shaft of humerus, right arm, initial encounter for closed fracture
CPT/HCPCS: 73030; 73060; 73070; 73200

== ENCOUNTER → 2019-07-29 01:01 | Outpatient (CLI) | payer MEDICARE, MEDICAID, SELFPAY ==
[2019-07-29 02:51] LABS: Microscopic, Urine URINE MICROSCOPIC (MICROSCOPIC)
[2019-07-29 02:59] LABS: Appearance,Urine SL CLOUDY (Clear); Basophils # 0.1 K/mm3 (0-0.2); Basophils % 1.1 % (0.1-2.0); Bilirubin,Urine Negative (Negative); Blood, Urine Negative (Negative); Color,Urine YELLOW (Yellow); Eosinophils # 0.8 K/mm3 (0.0-0.4); Eosinophils % 6.3 % (0.1-12.0); Glucose,Urine (UA) Negative (Negative); Hematocrit 33.7 % (37.0-47.0); Hemoglobin 10.7 g/dL (12.2-16.2); Ketones,Urine Negative (Negative); Leukocyte Esterase,Urine 2+ (Negative); Lymphocytes # 2.4 K/mm3 (0.7-4.5); Lymphocytes % 19.2 % (10-50); Mean Corpuscular HGB Conc 31.8 g/dL (31.8-35.4); Mean Corpuscular Hemoglobin 26.7 pg (27.0-31.2); Mean Corpuscular Volume 83.9 fl (81-99); Mean Platelet Volume 7.8 fl (7.4-10.4); Monocytes # 0.9 K/mm3 (0.1-1.0); Monocytes % 7.4 % (1.7-9.3); Neutrophils # 8.1 K/mm3 (1.8-7.8); Neutrophils % 66.1 % (37.0-80.0); Nitrate,Urine POSITIVE (Negative); Platelet Count 366 K/mm3 (142-424); Protein,Urine Negative (Negative); Red Blood Count 4.02 M/mm3 (4.20-5.40); Red Cell Distribution Width 16.1 % (11.5-17.5); Urobilinogen,Urine 0.2 EU/dl (0.2); White Blood Count 12.3 K/mm3 (4.8-10.8)
[2019-07-29 03:03] LABS: WBC,Urine 50-100 #/hpf (0-3)
[2019-07-29 03:07] LABS: Alanine Aminotransferase 11 U/L (12-78); Albumin/Globulin Ratio 1.5 (1.1-1.8); Alkaline Phosphatase 83 U/L (38-126); Anion Gap 12.7 mEq/L (5-15); Aspartate Amino Transferase 17 U/L (14-36); Bilirubin,Total 0.5 mg/dl (0.2-1.3); Blood Urea Nitrogen 23 mg/dl (7-17); Calcium 10.4 mg/dl (8.4-10.2); Carbon Dioxide 32 mmol/L (22.0-30.0); Chloride 93 mmol/L (98-107); Estimated Glomerular Filt Rate 82 ml/min (>60); GFR (African American) 99 ML/MIN (>60); Globulin 2.7 g/dL (1.3-3.2); Glucose 89 mg/dl (74-100); Potassium 5.7 mmoL/L (3.5-5.1); Sodium 132 mmol/L (136-145); Total Protein,Serum 6.7 g/dl (6.3-8.2)
== END ==
LOC: LAB 01:03 → LAB.DROPOF 07-30 09:22
PROVIDERS: PCP Emergency Medicine; Visit Provider Emergency Medicine
DX: R10.9 Unspecified abdominal pain (principal); R30.9 Painful micturition, unspecified
CPT/HCPCS: 80053; 81001; 85025; 87086; 87088; 87186

== ENCOUNTER → 2019-08-13 12:45 | Outpatient (CLI) | payer MEDICARE, MEDICAID, SELFPAY ==
[2019-08-13 12:51] LABS: Microscopic, Urine URINE MICROSCOPIC (MICROSCOPIC)
[2019-08-13 13:54] LABS: Appearance,Urine CLOUDY (Clear); Bilirubin,Urine Negative (Negative); Blood, Urine TRACE-I (Negative); Color,Urine YELLOW (Yellow); Glucose,Urine (UA) Negative (Negative); Ketones,Urine Negative (Negative); Leukocyte Esterase,Urine 3+ (Negative); Nitrate,Urine Negative (Negative); Protein,Urine TRACE (Negative); Specific Gravity, Urine 1.015 (1.005-1.030); Urobilinogen,Urine 0.2 EU/dl (0.2)
[2019-08-13 14:04] LABS: Bacteria,Urine 4+ /lpf; WBC,Urine TNTC #/hpf (0-3)
== END ==
PROVIDERS: Visit Provider Emergency Medicine
DX: N39.0 Urinary tract infection, site not specified (principal)
CPT/HCPCS: 81001; 87086; 87088; 87186

== ENCOUNTER → 2019-08-15 09:56 | Outpatient (CLI) | payer MEDICARE, MEDICAID, SELFPAY ==
--- NOTE | 2019-08-15 10:06 | XR_ITS ---
PROCEDURE: XR SHOULDER RT MIN 2V CLINICAL INDICATION: humerus FX FU Follow-up fracture COMPARISON: XR SHOULDER RT MIN 2V from 07/27/2019 FINDINGS: The impacted humeral neck fracture is present. There is foreshortening with impaction of the distal fracture fragment with mild lateral displacement of the distal fracture fragment. IMPRESSION: Impacted humeral neck fracture. The fracture fragments appear somewhat more impacted than when compared to the previous exam Dictated by: James Goldman MD 08/15/2019 16:01 Electronically signed by James Goldman MD in [facility] 08/15/2019 16:01
== END ==
PROVIDERS: PCP Emergency Medicine; Visit Provider Orthopaedic Surgery
DX: S42.301A Unspecified fracture of shaft of humerus, right arm, initial encounter for closed fracture (principal)
CPT/HCPCS: 73030

== ENCOUNTER → 2019-09-07 08:23 | Outpatient (CLI) | payer MEDICARE, MEDICAID, SELFPAY ==
--- NOTE | 2019-09-07 08:36 | XR_ITS ---
PROCEDURE: XR SHOULDER RT MIN 2V CLINICAL INDICATION: proximal humerus FX FU COMPARISON: XR SHOULDER RT MIN 2V from 07/27/2019 FINDINGS: The complex fracture of the humeral neck and head is again noted with faint callus formation at the fracture site laterally. The humeral head does right somewhat high in the glenoid somewhat more pronounced than on the previous films of 07/27/2019 suggesting some degree of rotator cuff injury. Stable mild degenerate change of the AC joint is again noted. IMPRESSION: Early healing complex fracture of of the humeral head and neck Dictated by: Dr. Corby Sharp MD 09/07/2019 09:[address] Corby Sharp MD in [facility] 09/07/2019 09:01
== END ==
PROVIDERS: PCP Emergency Medicine; Visit Provider Orthopaedic Surgery
DX: S42.201A Unspecified fracture of upper end of right humerus, initial encounter for closed fracture (principal)
CPT/HCPCS: 73030

== ENCOUNTER → 2019-10-11 08:37 | Outpatient (CLI) | payer MEDICARE, MEDICAID, SELFPAY ==
--- NOTE | 2019-10-11 08:50 | XR_ITS ---
PROCEDURE: XR SHOULDER RT MIN 2V CLINICAL INDICATION: Proximal humerus FX Follow-up fracture COMPARISON: XR SHOULDER RT MIN 2V from 07/27/2019 XR SHOULDER RT MIN 2V from 08/15/2019 XR SHOULDER RT MIN 2V from 09/07/2019 FINDINGS: There is a healing displaced proximal humeral fracture with anterior displacement and impaction of the fracture fragments as before. The glenoid head is located. Degenerative changes are present at the AC joint. IMPRESSION: No change displaced and impacted proximal humeral fracture Dictated by: James Goldman MD 10/11/2019 16:31 Electronically signed by James Goldman MD in [facility] 10/11/2019 16:31
== END ==
PROVIDERS: PCP Emergency Medicine; Visit Provider Orthopaedic Surgery
DX: S42.201A Unspecified fracture of upper end of right humerus, initial encounter for closed fracture (principal)
CPT/HCPCS: 73030

== ENCOUNTER → 2019-11-12 09:00 | Outpatient (CLI) | payer MEDICARE, MEDICAID, SELFPAY ==
--- NOTE | 2019-11-12 09:12 | XR_ITS ---
PROCEDURE: XR SHOULDER RT MIN 2V CLINICAL INDICATION: humerus fx Follow-up fracture COMPARISON: CR XR SHOULDER RT MIN 2V from 07/27/2019 DX XR SHOULDER RT MIN 2V from 08/15/2019 CR XR SHOULDER RT MIN 2V from 09/07/2019 CR XR SHOULDER RT MIN 2V from 10/11/2019 FINDINGS: Right humeral neck fracture is once again noted. Fracture line is visible medially. The humeral head is located although somewhat rotated with the greater tuberosity rotated superiorly. There is some callus formation noted medially in the fracture line is somewhat less visible. IMPRESSION: Healing right humeral neck fracture as described above Dictated by: James Goldman MD 11/12/2019 11:38 James Goldman MD in [facility] 11/12/2019 11:38
== END ==
PROVIDERS: PCP Emergency Medicine; Visit Provider Orthopaedic Surgery
DX: S42.209A Unspecified fracture of upper end of unspecified humerus, initial encounter for closed fracture (principal)
CPT/HCPCS: 73030

== ENCOUNTER → 2019-11-22 12:35 | Outpatient (CLI) | payer MEDICARE, MEDICAID, SELFPAY | PROVIDERS: Visit Provider Internal Medicine Cardiovascular Disease | DX: E11.69 Type 2 diabetes mellitus with other specified complication (principal); E78.49 Other hyperlipidemia; I51.7 Cardiomegaly; K21.9 Gastro-esophageal reflux disease without esophagitis; R06.00 Dyspnea, unspecified; R94.31 Abnormal electrocardiogram [ECG] [EKG]; Z79.4 Long term (current) use of insulin | CPT/HCPCS: 36415; 83880 ==

== ENCOUNTER → 2019-11-28 13:02 | Outpatient (CLI) | payer MEDICARE, MEDICAID, SELFPAY ==
--- NOTE | 2019-11-28 13:03 | CA_ITS ---
APPROVED REPORT EXAM: Comprehensive 2D, Doppler, and color-flow Echocardiogram Division Chair: Radha Kaiser CRT Ht: 5 ft 4 in Wt: 146lbs BSA: 1.71 BP: 132/53 mmHg Indications: cardiomegaly, dm, hld 2D Dimensions LVOT 1.48 cm (M/F) 1.5-2.5 M-Mode Dimensions RVDd 3.09 cm (0.9-2.6) LVDd 3.90 cm (3.5-5.7) LVDs 2.81 cm (3.5-5.7) IVSd 1.25 cm (0.6-1.1) PWd 0.66 cm (0.6-1.1) EF (Teich) 54.80% FS 27.90% EDV (Teich) 65.90 mL ESV (Teich) 29.80 mL LV Diastology E/A Ratio 0.74 Mitral Valve MV A Velocity 75.00 (40-130 cm/s) Left Ventricle Left atrium is mildly enlarged, left ventricle is normal size, mild concentric left ventricular hypertrophy, visually estimated ejection fraction 55% with no regional wall motion abnormality, grade 1 diastolic dysfunction seen without tissue Doppler evidence of raise left atrial pressure. Right Ventricle Right atrium and right ventricle are mildly enlarged with normal contractility. Aortic Valve Aortic valve is minimally thickened and fibrosed, there is no aortic stenosis or aortic insufficiency. Mitral Valve Mitral valve has mild mitral annular calcification, there is no mitral stenosis, there is mild mitral regurgitation. Tricuspid Valve Tricuspid valve grossly normal, there is mild tricuspid regurgitation, tricuspid regurgitation jet velocity is inadequate for calculation of the right ventricular systolic pressure. Pulmonic Valve Pulmonic valve is poorly visualized. Great Vessels Aortic root is normal size. Pericardium No significant pericardial effusion noted. Conclusion 1. Mild biatrial alignment, normal left ventricular size, mild concentric left ventricular hypertrophy, visually estimated ejection fraction 55% with no regional wall motion abnormality. Grade 1 diastolic dysfunction seen without tissue Doppler evidence of raise left atrial pressure. 2. Mildly enlarged right ventricle with normal contractility. 3. Mild mitral and tricuspid regurgitation. 4. No significant pericardial effusion noted. Electronically signed by : Jacoby Morales, 11/29/2019 13:49:57
== END ==
PROVIDERS: PCP Emergency Medicine; Visit Provider Internal Medicine Cardiovascular Disease
DX: E11.69 Type 2 diabetes mellitus with other specified complication (principal); E78.49 Other hyperlipidemia; I51.7 Cardiomegaly; K21.9 Gastro-esophageal reflux disease without esophagitis; R06.00 Dyspnea, unspecified; R94.31 Abnormal electrocardiogram [ECG] [EKG]; Z79.4 Long term (current) use of insulin
CPT/HCPCS: 93306

== ENCOUNTER → 2019-12-20 09:56 | Outpatient (CLI) | payer MEDICARE, MEDICAID, SELFPAY ==
[2019-12-20 12:12] LABS: NT Pro Brain Natriuretic Pep. 144 pg/mL (0-125)
== END ==
PROVIDERS: Visit Provider Internal Medicine
DX: R06.00 Dyspnea, unspecified (principal)
CPT/HCPCS: 36415; 83880

== ENCOUNTER → 2020-04-04 20:44 | Outpatient (CLI) | payer MEDICARE, MEDICAID, SELFPAY | PROVIDERS: PCP Nurse Practitioner Family; Visit Provider Nurse Practitioner Family | DX: U07.1 COVID-19 (principal) | CPT/HCPCS: U0003 ==

== ENCOUNTER → 2020-10-09 11:50 | Outpatient (CLI) | payer MEDICARE, MEDICAID, SELFPAY ==
[2020-10-09 12:21] LABS: Basophils # 0.1 K/mm3 (0-0.2); Basophils % 0.7 % (0.1-2.0); Eosinophils # 0.5 K/mm3 (0.0-0.4); Eosinophils % 6.3 % (0.1-12.0); Hemoglobin 8.8 g/dL (12.2-16.2); Lymphocytes # 1.6 K/mm3 (0.7-4.5); Lymphocytes % 21.3 % (10-50); Mean Corpuscular HGB Conc 30.5 g/dL (31.8-35.4); Mean Corpuscular Hemoglobin 24.4 pg (27.0-31.2); Mean Platelet Volume 7.3 fl (7.4-10.4); Monocytes # 0.4 K/mm3 (0.1-1.0); Neutrophils # 5.1 K/mm3 (1.8-7.8); Neutrophils % 66.7 % (37.0-80.0); Platelet Count 408 K/mm3 (142-424); Red Blood Count 3.62 M/mm3 (4.20-5.40); Red Cell Distribution Width 15.1 % (11.5-17.5); White Blood Count 7.6 K/mm3 (4.8-10.8)
[2020-10-09 13:37] LABS: Anion Gap 15.2 mEq/L (5-15); Blood Urea Nitrogen 14 mg/dl (7-17); Calcium 9.6 mg/dl (8.4-10.2); Carbon Dioxide 30 mmol/L (22.0-30.0); Chloride 96 mmol/L (98-107); Estimated Glomerular Filt Rate 82 ml/min (>60); GFR (African American) 99 ML/MIN (>60); Glucose 164 mg/dl (74-100); Potassium 5.2 mmoL/L (3.5-5.1); Sodium 136 mmol/L (136-145)
== END ==
PROVIDERS: Visit Provider Internal Medicine Cardiovascular Disease
DX: J18.9 Pneumonia, unspecified organism (principal); R06.00 Dyspnea, unspecified
CPT/HCPCS: 36415; 80048; 85025

== ENCOUNTER 2020-10-16 08:20 | Outpatient (CLI) | payer MEDICARE, MEDICAID, SELFPAY ==
[2020-10-16] VITALS (18 sets, daily range): BP systolic 130–165; BP diastolic 50–80; PULSE 73–88; RESP 16–18; TEMP 36.2–36.6; O2SAT 95–99; BMI 24.1
[2020-10-16 09:03] LABS: Hematocrit 27.6 % (37.0-47.0); Hemoglobin 8.3 g/dL (12.2-16.2)
--- NOTE | 2020-10-16 10:34 | PC.NURSE ---
1030 - BLOOD TRANSFUSION STARTED AT 100 ML/HR AT THIS TIME.
--- NOTE | 2020-10-16 11:04 | PC.NURSE ---
1100-INCREASED RATE TO 150 ML/HR AT THIS TIME.
--- NOTE | 2020-10-16 12:20 | PC.NURSE ---
1130-INCREASED RATE TO 200 ML/HR AT THIS TIME.
--- NOTE | 2020-10-16 12:56 | PC.NURSE ---
1252 - BLOOD TRANSFUSION STARTED AT 100 ML/HR AT THIS TIME.
--- NOTE | 2020-10-16 14:04 | PC.NURSE ---
1322 - INCREASED RATE TO 150 ML/HR AT THIS TIME.
--- NOTE | 2020-10-16 14:08 | PC.NURSE ---
1352 - INCREASED RATE TO 200 ML/HR AT THIS TIME.
[2020-10-16 16:02] LABS: Hematocrit 33.1 % (37.0-47.0)
[2020-10-16 16:12] LABS: Hemoglobin 10.8 g/dL (12.2-16.2)
== END 2020-10-16 16:10 | disposition home or self-care (01) ==
LOC: INF 08:34
PROVIDERS: Visit Provider Nurse Practitioner Family
DX: D64.9 Anemia, unspecified (principal)
CPT/HCPCS: 36430; 85014; 85018; 86850; P9016

== ENCOUNTER → 2020-12-01 13:02 | Outpatient (CLI) | payer MEDICARE, MEDICAID, SELFPAY ==
--- NOTE | 2020-12-01 13:08 | FL_ITS ---
PROCEDURE: FL BARIUM SWALLOW MODIFIED CLINICAL INDICATION: dysphagia COMPARISON: No exams were available for comparison TECHNIQUE: Patient administered varying consistencies of barium contrast, while viewed in lateral position under real-time fluoroscopy with cine recording. FLUOROSCOPY TIME:2 minutes and 2 seconds The study was performed in conjunction with speech pathologist. Please see that report & recommendations. FINDINGS: Patient was given varying consistencies of barium. There was minimal flash penetration with a large amount of thin barium. No aspiration. No significant delay or residual.. IMPRESSION: Minimal flash penetration with large amount of thin barium Please see speech pathologist report and recommendations. Dictated by: James Goldman MD 12/02/2020 11:18 James Goldman MD in [facility] 12/02/2020 11:18
--- NOTE | 2020-12-01 14:10 | HMH.SLMBS2 ---
Speech & Language Evaluation Speech/Language Mod Barium Swallow Start: 12/01/20 14:00 Freq: once Status: Complete Protocol: Document 12/01/20 14:00 RYAN (Rec: 12/01/20 14:10 RYAN [id number]) General Information General Current Food Consistancy Regular,Thin Liquids Dentition Edentulous Oxygen Status Room Air Facial Symmetry Symmetrical Patient Orientation Person,Place,Time Ability to Follow Directions Excellent Communication Ability No Impairment MBS Recommendations Diet Dietary Recommendations Dysphagia Mechanical Soft, Ground Meats,Thin Liquids Treatment/Strategies Strategy/Precaution Recommend Sitting Upright (90 deg),No Straw,Liquids from Cup Mod Barium Swallow Impressions Summary and Impressions Oral Phase Impression Mild Impairment Oral Phase Summary Ms. Huntley was given the following consistencies: thins via straw and open cup, pudding, pureed, mechanical soft, and pill with thin wash. She did exhibit difficulty with chewing mechanical soft appropriately before initiating the swallow. Pharyngeal Phase Impression Minimal Impairment Pharyngeal Phase Summary Flash penetration to the vocal folds was noted with large volume of thin liquids via straw. Ms. Huntley exhibited difficulty with taking small bites and small sips. Residue in valleculae noted with all thin consistencies. Speech/Language MBS Assessment/Goals/Plan Assessment Date of Evaluation: 12/01/20 Evaluation Type Initial Certification Assessment/Problems Dysphagia Does Patient Qualify for Service No Qualify/Failure Comment Ms. Huntley does not qualify for therapy services at our facility but she would benefit from speech therapy from her SNF. Recommendations PHYSICIAN CERTIFICATION: The specified therapy services are required, authorized, and reviewed every 30 days. Diet Recommendations Mechanical Soft Liquid Type Recommendations Normal/Thin SL Swallow Guidelines Standard Aspiration Prec. Dysphagia Swallow Precautions/Strategies Sitting Upright (90 deg),No Straw,Liquids from Cup,Small Bites and Sips,Alternate
== END ==
PROVIDERS: PCP Nurse Practitioner Family; Visit Provider Emergency Medicine
DX: R13.10 Dysphagia, unspecified (principal)
CPT/HCPCS: 70371; 92611

== ENCOUNTER → 2020-12-19 15:18 | Outpatient (CLI) | payer MEDICARE, MEDICAID, SELFPAY ==
[2020-12-19 15:23] LABS: Microscopic, Urine URINE MICROSCOPIC (MICROSCOPIC)
[2020-12-19 18:46] LABS: Appearance,Urine CLEAR (Clear); Bilirubin,Urine Negative (Negative); Blood, Urine TRACE-I (Negative); Color,Urine YELLOW (Yellow); Glucose,Urine (UA) Negative (Negative); Ketones,Urine Negative (Negative); Leukocyte Esterase,Urine 1+ (Negative); Nitrate,Urine Negative (Negative); PH,Urine 5.5 (5.0-8.5); Protein,Urine Negative (Negative); Urobilinogen,Urine 0.2 EU/dl (0.2)
[2020-12-19 19:17] LABS: Bacteria,Urine 4+ /lpf
== END ==
PROVIDERS: Visit Provider Emergency Medicine
DX: N39.0 Urinary tract infection, site not specified (principal); B96.20 Unspecified Escherichia coli [E. coli] as the cause of diseases classified elsewhere
CPT/HCPCS: 81001; 87086; 87088; 87186

== ENCOUNTER 2021-03-28 10:35 | Inpatient (IN) | payer MEDICARE, MEDICAID, SELFPAY ==
[2021-03-28] VITALS (11 sets, daily range): BP systolic 115–213; BP diastolic 65–97; PULSE 73–96; RESP 16–18; TEMP 36.9–37.7; O2SAT 94–99; BMI 23.6; BMI 21.8
--- NOTE | 2021-03-28 10:44 | CT_ITS ---
PROCEDURE INFORMATION: Exam: CT Head Without Contrast Exam date and time: 03/28/2021 10:44 AM Age: 75 years old Clinical indication: Altered mental status/memory loss; Confusion or disorientation; Additional info: Altered mental status, aphasia TECHNIQUE: Imaging protocol: Computed tomography of the head without contrast. Radiation optimization: All CT scans at this facility use at least one of these dose optimization techniques: automated exposure control; mA and/or kV adjustment per patient size (includes targeted exams where dose is matched to clinical indication); or iterative reconstruction. Other technique: STROKE PROTOCOL was implemented. COMPARISON: HEADWO CT head/brain wo con 12/19/2017 8:45 PM FINDINGS: Brain: There are low-attenuation foci in the periventricular and subcortical white matter of both hemispheres. This is a nonspecific finding which likely represents microangiopathic change in a patient of this age. There is a chronic lacunar infarct left basal ganglia. There is no evidence of acute territorial infarction, hemorrhage, mass, mass effect, or midline shift. There are no abnormal intra-axial or extra-axial fluid collections. Cerebral ventricles: The sulci, cisterns, and ventricles are prominent, consistent with diffuse volume loss. Paranasal sinuses: The there is mucosal thickening in both maxillary sinuses, several ethmoid air cells, and left sphenoid chamber. Mastoid air cells: Visualized mastoid air cells are well aerated. Bones/joints: Unremarkable. No acute fracture. Soft tissues: Unremarkable. IMPRESSION: 1. No evidence of acute intracranial abnormality. 2. Chronic lacunar infarct left basal ganglia. 3. Non-specific white matter change and volume loss as described. 4. If there is strong clinical concern for acute intracranial abnormality, then an MRI examination of the brain should be considered for further evaluation. However, if there are no deficits on neurological exam, then follow-up imaging could be considered on a nonemergent outpatient basis as clinically warranted. ASSESSMENT: ASPECTS ([facility] Stroke Program Early CT Score) is 10.
--- NOTE | 2021-03-28 10:44 | XR_ITS ---
PROCEDURE INFORMATION: Exam: XR Chest Exam date and time: 03/28/2021 10:44 AM Age: 75 years old Clinical indication: Shortness of breath; Additional info: AMS TECHNIQUE: Imaging protocol: XR of the chest. Views: 1 view. COMPARISON: SD XR CHEST PORTABLE 01/02/2019 8:21 PM FINDINGS: Airway: Patent Lungs: Right lung base is obscured by superimposition of the overlying right hand. There are questionable ground-glass opacifications in the right lung base. Remainder of the lungs are clear. Pleural spaces: Unremarkable. No pleural effusion. No pneumothorax. Heart/Mediastinum: The heart is moderately enlarged. Vasculature: Calcified aortic knob. Bones/joints: No acute skeletal abnormality or aggressive osseous lesion. IMPRESSION: 1. Right lung base is obscured by the overlying right hand, however I question developing airspace disease in the right lung base. 2. No other acute thoracic pathology is identified.
--- NOTE | 2021-03-28 10:44 | CT_ITS ---
PROCEDURE INFORMATION: Exam: CT Angiography Head With Contrast, Venography Exam date and time: 03/28/2021 10:44 AM Age: 75 years old Clinical indication: Cognitive deficit; Other symptoms involving cognitive function; Additional info: Altered mental status, aphasia TECHNIQUE: Imaging protocol: Computed tomography angiography of the head with contrast. Exam focused on the veins. 3D rendering (Not supervised by radiologist): MIP and/or 3D reconstructed images were created by the technologist. Radiation optimization: All CT scans at this facility use at least one of these dose optimization techniques: automated exposure control; mA and/or kV adjustment per patient size (includes targeted exams where dose is matched to clinical indication); or iterative reconstruction. Contrast material: ISOVUE; Contrast volume: 75 ml; Contrast route: INTRAVENOUS (IV); COMPARISON: CT HEAD/BRAIN WO CON 03/28/2021 10:53 AM FINDINGS: Limitations: Suboptimal imaging. Limited evaluation. Cavernous Sinus: Inadequate opacification. Veins: Inadequate venous opacification. Brain: No definite mass, mass effect, or midline shift. Cerebral ventricles: No ventriculomegaly. Involutional change. Soft tissues: Unremarkable. IMPRESSION: Technically limited CT venogram of the intracranial circulation. Images were obtained during during the arterial phase, with inadequate venous opacification. Repeat imaging in the venous phase can be considered as clinically warranted.
--- NOTE | 2021-03-28 10:44 | CT_ITS ---
PROCEDURE INFORMATION: Exam: CT Angiography Neck With Contrast Exam date and time: 03/28/2021 10:44 AM Age: 75 years old Clinical indication: Cognitive deficit; Other symptoms involving cognitive function; Additional info: Altered mental status, aphasia TECHNIQUE: Imaging protocol: Computed tomography angiography of the neck with contrast. 3D rendering (Not supervised by radiologist): MIP and/or 3D reconstructed images were created by the technologist. Radiation optimization: All CT scans at this facility use at least one of these dose optimization techniques: automated exposure control; mA and/or kV adjustment per patient size (includes targeted exams where dose is matched to clinical indication); or iterative reconstruction. Contrast material: ISOVUE; Contrast volume: 75 ml; Contrast route: INTRAVENOUS (IV); COMPARISON: [facility] CT cervical spine wo con 12/19/2017 8:48 PM FINDINGS: Right common carotid artery: No stenosis. No dissection or occlusion.There is calcified and noncalcified plaque at the bifurcation. Right internal carotid artery: No stenosis of the extracranial segment. No dissection or occlusion. Right external carotid artery: No occlusion or stenosis of the origin. Left common carotid artery: No stenosis. No dissection or occlusion. There is calcified and noncalcified plaque at the bifurcation. Left internal carotid artery: No stenosis of the extracranial segment. No dissection or occlusion. Left external carotid artery: No occlusion or stenosis of the origin. Right vertebral artery: No stenosis. No dissection or occlusion. Left vertebral artery: No stenosis. No dissection or occlusion. Soft tissues: Normal. No significant soft tissue swelling. Bones/joints: No acute fracture. IMPRESSION: 1. No hemodynamically significant stenosis, dissection or occlusion. 2. Findings were discussed with MIAN Ureña at 03/28/2021 12:16 PM EST. REFERENCES: NASCET CRITERIA. The degree of internal carotid artery stenosis is based on NASCET criteria. Normal is no stenosis. Mild is less than 50% stenosis. Moderate is 50-69% stenosis. Severe is 70% to 99% stenosis. Total occlusion is no detectable patent lumen.
--- NOTE | 2021-03-28 10:48 | ECG_ITS ---
APPROVED REPORT Exam: Resting ECG HR:90 bpm ECG Measurements Heart Rate 90 AXES [place] 184 P 87 QRSd 76 QRS -49 QT 360 T 71 QTc 440 Conclusion Normal sinus rhythm Left axis deviation Pulmonary disease pattern Abnormal ECG Electronically signed by : Romeo Sanchez MD 03/29/2021 09:00:28
[2021-03-28 11:01] LABS: Microscopic, Urine URINE MICROSCOPIC (MICROSCOPIC)
[2021-03-28 11:02] LABS: Basophils # 0.1 K/mm3 (0-0.2); Basophils % 0.9 % (0.1-2.0); Eosinophils % 0.1 % (0.1-12.0); Hematocrit 44.4 % (37.0-47.0); Hemoglobin 13.5 g/dL (12.2-16.2); Lymphocytes # 1.2 K/mm3 (0.7-4.5); Lymphocytes % 8.7 % (10-50); Mean Corpuscular HGB Conc 30.4 g/dL (31.8-35.4); Mean Corpuscular Hemoglobin 28.3 pg (27.0-31.2); Mean Corpuscular Volume 93.2 fl (81-99); Mean Platelet Volume 8.7 fl (7.4-10.4); Monocytes # 0.6 K/mm3 (0.1-1.0); Monocytes % 4.6 % (1.7-9.3); Neutrophils # 11.9 K/mm3 (1.8-7.8); Neutrophils % 85.8 % (37.0-80.0); Platelet Count 463 K/mm3 (142-424); Red Blood Count 4.77 M/mm3 (4.20-5.40); White Blood Count 13.9 K/mm3 (4.8-10.8)
[2021-03-28 11:07] LABS: Appearance,Urine CLEAR (Clear); Bilirubin,Urine Negative (Negative); Blood, Urine 1+ (Negative); Color,Urine YELLOW (Yellow); Glucose,Urine (UA) 3+ (Negative); Ketones,Urine 1+ (Negative); Leukocyte Esterase,Urine Negative (Negative); MANUAL DIFFERENTIAL MANUAL DIFFERENTIAL (MANUAL DIFF); Nitrate,Urine POSITIVE (Negative); Protein,Urine 2+ (Negative); Urobilinogen,Urine 0.2 EU/dl (0.2)
[2021-03-28 11:08] LABS: Alanine Aminotransferase 22 U/L (12-78); Albumin Level 4.8 g/dl (3.5-5.0); Albumin/Globulin Ratio 1.4 (1.1-1.8); Alkaline Phosphatase 96 U/L (38-126); Aspartate Amino Transferase 31 U/L (14-36); Bilirubin,Total 0.8 mg/dl (0.2-1.3); Blood Urea Nitrogen 42 mg/dl (7-17); Calcium 11.7 mg/dl (8.4-10.2); Carbon Dioxide 31 mmol/L (22.0-30.0); Chloride 102 mmol/L (98-107); Creatinine Clearance Estimated 37 mL/min (50-200); Estimated Glomerular Filt Rate 40 ml/min (>60); GFR (African American) 48 ML/MIN (>60); Globulin 3.5 g/dL (1.3-3.2); Sodium 148 mmol/L (136-145); Total Protein,Serum 8.3 g/dl (6.3-8.2)
[2021-03-28 11:17] LABS: Glucose 674 mg/dl (74-100)
--- NOTE | 2021-03-28 11:17 | PC.NURSE ---
LAB CALLED WITH CRITICAL GLUCOSE OF 674 AWARE
--- NOTE | 2021-03-28 11:22 | PC.NURSE ---
called RT for vbg collection
[2021-03-28 11:34] LABS: Acetone, Serum (Rapid) Small (None Detect)
[2021-03-28 11:35] LABS: Bacteria,Urine 2+ /lpf; RBC,Urine Occasional #/hpf (0-3); Squamous Epithelial Cell,Urine Occasional #/hpf (0-5); WBC,Urine Occasional #/hpf (0-3)
[2021-03-28 11:54] LABS: Lymphocytes % 10 % (10-50); Monocytes % 6 % (2-9); Neutrophils % 83 % (42-76); Platelet Estimate Slight Increase; Total Cells Counted 100
[2021-03-28 11:55] LABS: Hypochromasia 2+
[2021-03-28 11:55] LABS: Procalcitonin 0.306 ng/mL (0.0-2.0)
[2021-03-28 12:09] LABS: Lactic Acid 1.7 mmol/L (0.7-2.1)
[2021-03-28 12:25] LABS: POC Glucose,Bedside 522 (70-110)
--- NOTE | 2021-03-28 12:27 | HMH.EDGENADL ---
ED Disposition Clinical Impression: Diabetic ketoacidosis Qualifiers: Diabetes mellitus type: type 2 Diabetes mellitus complication detail: without coma Qualified Code(s): E11.10 - Type 2 diabetes mellitus with ketoacidosis without coma Urinary tract infection Qualifiers: Urinary tract infection type: acute cystitis Hematuria presence: without hematuria Qualified Code(s): N30.00 - Acute cystitis without hematuria Altered mental status Qualifiers: Altered mental status type: unspecified Qualified Code(s): R41.82 - Altered mental status, unspecified Disposition: Admitted As Inpatient Condition on Discharge: Serious Instructions: DI for Altered Mental Status Referrals: Tank Gabriel MD [Primary Care Provider] - Time of Disposition: 14:27 - Critical Care Critical Care Time: Yes Attestation: On , the high probability of a clinically significant, sudden or life threatening deterioration of the following system(s) required my full and direct attention, intervention and personal management. The time I documented below is in addition to time spent performing reported procedures but includes the following listed in this critical care notation. Total Critical Care Time: 35 Vital system(s) involved:: Circulatory Failure, Central Nervous System, Metabolic Failure My critical care processes included: Assessment & monitoring of V/S, Initial and Re-exams, Data Review/Interpretation, Coordinating Care, Medication Orders and management, Documentation Medical Decision Making - Medical Records Medical records reviewed: Yes: I reviewed the patient's medical records. - Ben Inquiry Pt receiving controlled substance: No Vital Signs: 03/28/21 10:41 03/28/21 10:53 03/28/21 11:45 Temperature 99.9 F H Temperature Source Rectal Pulse Rate 89 94 H Pulse Rate [Left Radial] 89 Respiratory Rate 18 16 18 Blood Pressure 189/95 H 134/91 H Blood Pressure [Right Arm] 189/91 H Blood Pressure Mean 145 Blood Pressure Mean [Right Arm] 123 Blood Pressure Source [Right Arm] Automatic Cuff Blood Pressure Position [Right Arm] Supine 02 Sat by Pulse Oximetry 96 98 95 Oxygen Delivery Method Room Air 03/28/21 12:02 03/28/21 12:30 03/28/21 13:00 Temperature Temperature Source Pulse Rate 91 H 96 H 94 H Pulse Rate [Left Radial] Respiratory Rate 18 18 18 Blood Pressure 203/95 H 201/97 H 211/97 H Blood Pressure [Right Arm] Blood Pressure Mean 131 131 135 Blood Pressure Mean [Right Arm] Blood Pressure Source [Right Arm] Blood Pressure Position [Right Arm] 02 Sat by Pulse Oximetry 96 96 95 Oxygen Delivery Method 03/28/21 13:30 Temperature Temperature Source Pulse Rate 91 H Pulse Rate [Left Radial] Respiratory Rate 18 Blood Pressure 213/94 H Blood Pressure [Right Arm] Blood Pressure Mean 133 Blood Pressure Mean [Right Arm] Blood Pressure Source [Right Arm] Blood Pressure Position [Right Arm] 02 Sat by Pulse Oximetry 94 L Oxygen Delivery Method - Lab Data Lab Results 03/28/21 10:00: Urine Color Yellow, Urine Appearance Clear, Urine pH 5.0, Ur Specific [place] 1.020, Urine Protein 2+, Urine Glucose (UA) 3+, Urine Ketones 1+, Urine Blood 1+, Urine Nitrate Positive, Urine Bilirubin Negative, Urine Urobilinogen 0.2, Ur Leukocyte Esterase Negative, Urine RBC Occasional, Urine WBC Occasional, Ur Squamous Epith Cells Occasional, Urine Bacteria 2+ 03/28/21 10:00: WBC 13.9 H, RBC 4.77, Hgb 13.5, Hct 44.4, MCV 93.2, MCH 28.3, MCHC 30.4 L, RDW 14.0, Plt Count 463 H, MPV 8.7, Neut % (Auto) 85.8 H, Lymph % (Auto) 8.7 L, [place] % (Auto) 4.6, Eos % (Auto) 0.1, Baso % (Auto) 0.9, Neut # (Auto) 11.9 H, Lymph # (Auto) 1.2, [place] # (Auto) 0.6, Eos # (Auto) 0.0, Baso # (Auto) 0.1, Total Counted 100, Neutrophils % (Manual) 83 H, Band Neutrophils % 1.0, Lymphocytes % (Manual) 10, Monocytes % (Manual) 6, Platelet Estimate Slight increase, Hypochromasia 2+ 03/28/21 10:00: Sodium 148 H, Potassium 5.0, Chloride 102
[2021-03-28 12:41] LABS: VBG Base Excess -1.7 mmol/L (-2.4-2.3); VBG HCO3 24.7 mmol/L (23-30); VBG PO2 46.6 mmol/L (28-40); VBG Total CO2 26.3 mmol/L (23-27)
[2021-03-28 12:46] LABS: VBG PCO2 51.1 mmol/L (35-51)
[2021-03-28 13:09] LABS: POC Glucose,Bedside 557 (70-110)
[2021-03-28 14:22] LABS: POC Glucose,Bedside 424 (70-110)
[2021-03-28 15:22] LABS: POC Glucose,Bedside 433 (70-110)
[2021-03-28 15:43] LABS: Coronavirus 19, PCR Not Detected (NotDetected); Influenza A, PCR Not Detected (NotDetected); Influenza B, PCR Not Detected (NotDetected)
[2021-03-28 16:16] LABS: Chloride 118 mmol/L (98-107)
[2021-03-28 16:19] LABS: Anion Gap 27.1 mEq/L (5-15); Blood Urea Nitrogen 51 mg/dl (7-17); Calcium 11.4 mg/dl (8.4-10.2); Carbon Dioxide 26 mmol/L (22.0-30.0); Creatinine Clearance Estimated 49 mL/min (50-200); Estimated Glomerular Filt Rate 54 ml/min (>60); GFR (African American) 65 ML/MIN (>60)
[2021-03-28 16:22] LABS: POC Glucose,Bedside 370 (70-110)
[2021-03-28 16:24] LABS: Sodium 164 mmol/L (136-145)
[2021-03-28 16:25] LABS: Glucose 446 mg/dl (74-100); Potassium 7.1 mmoL/L (3.5-5.1)
[2021-03-28 22:56] LABS: Chloride 113 mmol/L (98-107); Potassium 4.5 mmoL/L (3.5-5.1)
[2021-03-28 22:58] LABS: Acetone, Serum (Rapid) None Detected (None Detect)
[2021-03-28 22:59] LABS: Anion Gap 17.5 mEq/L (5-15); Blood Urea Nitrogen 47 mg/dl (7-17); Carbon Dioxide 28 mmol/L (22.0-30.0); Creatinine Clearance Estimated 45 mL/min (50-200); Estimated Glomerular Filt Rate 54 ml/min (>60); GFR (African American) 65 ML/MIN (>60)
[2021-03-28 23:01] LABS: Glucose 206 mg/dl (74-100); Sodium 154 mmol/L (136-145)
[2021-03-29] VITALS (7 sets, daily range): BP systolic 137–193; BP diastolic 52–84; PULSE 81–106; RESP 16–22; TEMP 36.4–38.5; O2SAT 93–99; BMI 220363.4
--- NOTE | 2021-03-29 05:47 | PC.NURSE ---
Pt is A/O to person. Remains on 2L NC with O2 sats >90%. Insulin drip has been turned off since 23:44. Spot checked blood sugar's t/o the night. Pt has been a q2h turn, placed pressure dressing to coccyx. Pt is incontinent and is wearing an attends. Have tried multiple attempts to get ahold of herr of court, to obtain an photo consent with no answer. Will pass on to oncoming nurse to attempt to obtain consent today.
--- NOTE | 2021-03-29 06:44 | PC.NURSE ---
patient up to floor via stretcher from ICU @ this time.
[2021-03-29 09:03] LABS: Basophils # 0.2 K/mm3 (0-0.2); Basophils % 0.9 % (0.1-2.0); Eosinophils % 0.2 % (0.1-12.0); Hematocrit 38.5 % (37.0-47.0); Hemoglobin 12.2 g/dL (12.2-16.2); Lymphocytes # 2.2 K/mm3 (0.7-4.5); Mean Corpuscular HGB Conc 31.6 g/dL (31.8-35.4); Mean Corpuscular Hemoglobin 28.5 pg (27.0-31.2); Mean Corpuscular Volume 90.4 fl (81-99); Mean Platelet Volume 8.9 fl (7.4-10.4); Monocytes # 1.1 K/mm3 (0.1-1.0); Monocytes % 4.8 % (1.7-9.3); Neutrophils # 18.3 K/mm3 (1.8-7.8); Neutrophils % 84.1 % (37.0-80.0); Platelet Count 390 K/mm3 (142-424); Red Blood Count 4.26 M/mm3 (4.20-5.40); Red Cell Distribution Width 14.1 % (11.5-17.5); White Blood Count 21.8 K/mm3 (4.8-10.8)
[2021-03-29 09:06] LABS: MANUAL DIFFERENTIAL MANUAL DIFFERENTIAL (MANUAL DIFF)
[2021-03-29 09:08] LABS: Chloride 109 mmol/L (98-107); Potassium 3.4 mmoL/L (3.5-5.1)
[2021-03-29 09:11] LABS: Blood Urea Nitrogen 41 mg/dl (7-17); Creatinine Clearance Estimated 45 mL/min (50-200); Estimated Glomerular Filt Rate 54 ml/min (>60); GFR (African American) 65 ML/MIN (>60)
[2021-03-29 09:12] LABS: Calcium 10.2 mg/dl (8.4-10.2); Carbon Dioxide 29 mmol/L (22.0-30.0); Glucose 351 mg/dl (74-100)
[2021-03-29 09:16] LABS: Anion Gap 15.4 mEq/L (5-15)
[2021-03-29 09:17] LABS: Sodium 150 mmol/L (136-145)
[2021-03-29 09:32] LABS: Anisocytosis 1+; Lymphocytes % 8 % (10-50); Monocytes % 7 % (2-9); Neutrophils % 84 % (42-76); Platelet Estimate Normal; Total Cells Counted 100
--- NOTE | 2021-03-29 10:12 | HMH.HP ---
*Admission Date: 03/28/21 *Chief complaint: altered mental status *History of present illness: this patient from local [facility]- pt to ed per ems c/o ams. per senior living staff they are unable to give a last known normal in the last 3 days. senior living staff states they noticed today that pt was unable to swallow or speak appropriately at baseline. on arrival to ED pt is unable to give information or answer questions. 75-year-old female presenting to the emergency department with altered mental status. Patient arrives from her senior living by EMS. They state that this morning nursing staff noticed that she was confused, speaking less. She usually sits up in bed and speaks in short sentences. They did not notice numbness or weakness in 1 extremity. No slurred speech. No facial asymmetry. Unsure exactly when she was last normal. Possibly a few days ago. No known illness, fevers, vomiting, rashes on her skin. No prior history of stroke. No trauma. Review of systems unable to be performed with patient as she is altered [facility] History I have reviewed the patient's past medical history: Yes Medical History: Reports:: Anxiety, Cardiomyopathy, Coronary Artery Disease, Dementia, Diabetes Mellitus Type 2, Gastroesophageal Reflux Disease(GERD), Hyperlipidemia, Hypertension, Renal Insufficiency, Urinary Tract Infection Denies:: Cancer, Diabetes Mellitus Type 1, Internal Pacemaker, MRSA *Have you ever received a pneumonia vaccine?: Yes (winter 2016) *Have you received a flu vaccine this season?: Yes (01/01/2021) Other Medical History: Reports: Anemia, Hypothyroidism Other Surgeries: Yes: No Previous Surgery. No: Pacemaker Amputation: No Fractures: Yes - *Social History Smoking Status: Never smoker Alcohol Intake: never Substance Use Type: denies use *Occupational Status:: retired Housing: senior living *Travel in the last 8 weeks: None - Psychiatric History Pschychiatric History:: Reports:: Anxiety Family Hx:: Unable to obtain Review of Systems - Review of Systems Review of systems:: pertinent systems reviewed and negative unless documented below - Constitutional Denies fever(s) - Eyes Denies change in vision - ENT Denies sore throat - *Cardiovascular Denies chest pain at rest - *Respiratory Denies cough - *Gastrointestinal Denies abdominal pain - *Genitourinary Denies blood in urine - *Musculoskeletal Denies joint pain - Integumentary/Breasts Denies rash - *Neurologic Denies seizure-like activity - Psychiatric Denies behavioral changes Meds Home Medications Medication Instructions Recorded Confirmed Type Acetaminophen 500 mg PO Q4HP PRN 03/28/21 03/29/21 History Aspirin [Aspirin 81mg chewable 81 mg PO DAILY 03/28/21 03/28/21 History tab] Baclofen [Lioresal 10mg tablet] 10 mg PO DAILY 03/28/21 03/28/21 History Buspirone HCl [Buspar 10mg 10 mg PO TID 03/28/21 03/28/21 History tablet] Duloxetine HCl 60 mg PO DAILY 03/28/21 03/28/21 History Furosemide [Furosemide 20mg Tab*] 20 mg PO DAILY 03/28/21 03/28/21 History Gabapentin [Gabapentin 100mg Cap] 100 mg PO DAILY 03/28/21 03/28/21 History Hydrocod/Acet 5/325 mg [[place] 1 tab PO BID 03/28/21 03/28/21 History 5/325mg tablet] LORazepam [Ativan 0.5mg 0.5 mg PO TID 03/28/21 03/29/21 History tablet] Loperamide HCl [Loperamide] 2 mg PO QIDP PRN 03/28/21 03/29/21 History Losartan Potassium 25 mg PO DAILY 03/28/21 03/28/21 History Mag Hydrox/Aluminum Hyd/Simeth 30 ml PO Q6HP PRN 03/28/21 03/29/21 History [[place] Liquid] Metformin HCl 500 mg PO BID 03/28/21 03/28/21 History Metoprolol Tartrate [Lopressor 12.5 mg PO BID 03/28/21 03/29/21 History 25mg tablet] Omeprazole [Omeprazole 20mg 20 mg PO DAILY 03/28/21 03/28/21 History Capsule] Sennosides [Senna] 8.6 mg PO BID 03/28/21 03/29/21 History Simethicone [Gas Relief] 80 - 160 mg PO QIDP PRN 03/28/21 03/29/21 History hydrOXYzine pamoate [Vistaril] 25 mg PO TIDP P
--- NOTE | 2021-03-29 11:08 | HMH.PHAINT ---
MEDICATION RECONCILIATION COMPLETE USING MAR FROM [facility].
--- NOTE | 2021-03-29 11:08 | HMH.PHAVTE ---
[facility] Pharmacy VTE Monitoring - Patient Demographics Admission date: 03/28/21 Report Date: 03/29/21 Time: 11:09 Allergies/Adverse Reactions: Patient Allergies No Known Allergies Allergy (Verified 10/09/20 11:26) Height: 1.65 cm Weight: 60.073 kg Patient Problems: Current Active Problems UTI (urinary tract infection) (Acute) Diabetic ketoacidosis (Acute) Altered mental status (Acute) - VTE Risk Labs: VTE Related Lab Results Hgb 12.2 g/dL (12.2-16.2) 03/29/21 08:53 Hct 38.5 % (37.0-47.0) 03/29/21 08:53 Plt Count 390 K/mm3 (142-424) 03/29/21 08:53 BUN 41 mg/dl (7-17) H 03/29/21 08:53 Creatinine 1.00 mg/dl (0.52-1.04) 03/29/21 08:53 Estimated Creat Clear 45 mL/min (50-200) 03/29/21 08:53 Was VTE Risk Assessment Performed: Yes VTE Risk Level: Very Low Risk Clinical Trial Participant: No - Prophylaxis VTE Prophylaxis Ordered?: Yes Types of VTE Prophylaxis: TEDS Knee High Location of Applied Device: Bilateral Lower Extremeties
[2021-03-29 17:52] LABS: POC Glucose,Bedside 465 (70-110)
[2021-03-29 20:11] LABS: POC Glucose,Bedside 283 (70-110)
[2021-03-30 04:00] VITALS: BP 179/77; PULSE 84; RESP 18; TEMP 37.6; O2SAT 94
--- NOTE | 2021-03-30 04:37 | PC.NURSE ---
pt has rested t/o most of shift, has remained on room air t/o shift with O2 sats 94-97%, incontinent of urine this shift, 2100 FSBS 283
[2021-03-30 05:00] VITALS: BMI 21.6
[2021-03-30 05:33] LABS: POC Glucose,Bedside 293 (70-110)
--- NOTE | 2021-03-30 05:36 | PC.NURSE ---
pt did have a temp of 101.3 at beginning of shift and was treated per MAY, 399 temp 99.6
[2021-03-30 07:12] LABS: Basophils # 0.1 K/mm3 (0-0.2); Basophils % 0.6 % (0.1-2.0); Eosinophils # 0.1 K/mm3 (0.0-0.4); Eosinophils % 0.6 % (0.1-12.0); Lymphocytes # 2.1 K/mm3 (0.7-4.5); Mean Corpuscular HGB Conc 30.5 g/dL (31.8-35.4); Mean Corpuscular Hemoglobin 28.1 pg (27.0-31.2); Mean Corpuscular Volume 92.1 fl (81-99); Mean Platelet Volume 8.2 fl (7.4-10.4); Monocytes # 0.6 K/mm3 (0.1-1.0); Monocytes % 5.3 % (1.7-9.3); Neutrophils # 8.9 K/mm3 (1.8-7.8); Neutrophils % 75.5 % (37.0-80.0); Platelet Count 282 K/mm3 (142-424); Red Blood Count 3.91 M/mm3 (4.20-5.40); White Blood Count 11.8 K/mm3 (4.8-10.8)
[2021-03-30 07:24] LABS: Anion Gap 8.2 mEq/L (5-15); Blood Urea Nitrogen 23 mg/dl (7-17); Calcium 9.7 mg/dl (8.4-10.2); Carbon Dioxide 30 mmol/L (22.0-30.0); Chloride 108 mmol/L (98-107); Creatinine Clearance Estimated 44 mL/min (50-200); Estimated Glomerular Filt Rate 70 ml/min (>60); GFR (African American) 84 ML/MIN (>60); Glucose 304 mg/dl (74-100); Potassium 3.2 mmoL/L (3.5-5.1); Sodium 143 mmol/L (136-145)
--- NOTE | 2021-03-30 07:46 | DIET.NUTRFU ---
RD visited patient today, she does not wear teeth and is having trouble with chewing meat. Agreed to try MSOFT ground diet. Notified kitchen of change for lunch. See assessment for further information
[2021-03-30 08:00] VITALS: BP 135/94; PULSE 84; RESP 16; TEMP 36.4; O2SAT 95
--- NOTE | 2021-03-30 08:54 | SW/DCPLANNER ---
This patient currently resides at [facility]. I spoke with Michelle from [facility] to confirm that patient is ICF level of care and will NOT require an additional COVID swab prior to returning. The plan for this patient is to return to [facility] today.
--- NOTE | 2021-03-30 08:59 | HMH.DCSUM ---
General - General Admission date:: 03/28/21 Discharge date: 03/30/21 HPI HPI: this patient from local ecf- pt to ed per ems c/o ams. per custodial staff they are unable to give a last known normal in the last 3 days. custodial staff states they noticed today that pt was unable to swallow or speak appropriately at baseline. on arrival to ED pt is unable to give information or answer questions. 75-year-old female presenting to the emergency department with altered mental status. Patient arrives from her custodial by EMS. They state that this morning nursing staff noticed that she was confused, speaking less. She usually sits up in bed and speaks in short sentences. They did not notice numbness or weakness in 1 extremity. No slurred speech. No facial asymmetry. Unsure exactly when she was last normal. Possibly a few days ago. No known illness, fevers, vomiting, rashes on her skin. No prior history of stroke. No trauma. Review of systems unable to be performed with patient as she is altered Hospital Course Hospital Course: Laboratory Tests 03/28/21 03/28/21 03/28/21 10:00 10:00 10:00 WBC 13.9 H RBC 4.77 Hgb 13.5 Hct 44.4 MCV 93.2 MCH 28.3 MCHC 30.4 L RDW 14.0 Plt Count 463 H MPV 8.7 Neut % (Auto) 85.8 H Lymph % (Auto) 8.7 L [place] % (Auto) 4.6 Eos % (Auto) 0.1 Baso % (Auto) 0.9 Neut # (Auto) 11.9 H Lymph # (Auto) 1.2 [place] # (Auto) 0.6 Eos # (Auto) 0.0 Baso # (Auto) 0.1 Total Counted 100 Neutrophils % (Manual) 83 H Band Neutrophils % 1.0 Lymphocytes % (Manual) 10 Monocytes % (Manual) 6 Platelet Estimate Slight increase Hypochromasia 2+ Anisocytosis VBG pH VBG pCO2 VBG pO2 VBG HCO3 VBG Total CO2 VBG O2 Saturation VBG Base Excess Sodium 148 H Potassium 5.0 Chloride 102 Carbon Dioxide 31 H Anion Gap 20.0 H BUN 42 H Creatinine 1.30 H Estimated Creat Clear 37 Estimated GFR 40 L Est GFR ( Amer) 48 L Glucose 674 H* POC Glucose Lactate Calcium 11.7 H Total Bilirubin 0.8 AST 31 ALT 22 Alkaline Phosphatase 96 Total Protein 8.3 H Albumin 4.8 Globulin 3.5 H Albumin/Globulin Ratio 1.4 Procalcitonin Urine Color Yellow Urine Appearance Clear Urine pH 5.0 Ur Specific [place] 1.020 Urine Protein 2+ Urine Glucose (UA) 3+ Urine Ketones 1+ Urine Blood 1+ Urine Nitrate Positive Urine Bilirubin Negative Urine Urobilinogen 0.2 Ur Leukocyte Esterase Negative Urine RBC Occasional Urine WBC Occasional Ur Squamous Epith Cells Occasional Urine Bacteria 2+ Acetone Level SARS-CoV-2 (PCR) Influenza A Untype (PCR) Influenza Type B (PCR) 03/28/21 03/28/21 03/28/21 10:50 10:50 11:17 WBC RBC Hgb Hct MCV MCH MCHC RDW Plt Count MPV Neut % (Auto) Lymph % (Auto) [place] % (Auto) Eos % (Auto) Baso % (Auto) Neut # (Auto) Lymph # (Auto) [place] # (Auto) Eos # (Auto) Baso # (Auto) Total Counted Neutrophils % (Manual) Band Neutrophils % Lymphocytes % (Manual) Monocytes % (Manual) Platelet Estimate Hypochromasia Anisocytosis VBG pH 7.30 L VBG pCO2 51.1 H VBG pO2 46.6 H VBG HCO3 24.7 VBG Total CO2 26.3 VBG O2 Saturation 81.0 H VBG Base Excess -1.7 Sodium Potassium Chloride Carbon Dioxide Anion Gap BUN Creatinine Estimated Creat Clear Estimated GFR Est GFR ( Amer) Glucose POC Glucose Lactate Calcium Total Bilirubin AST ALT Alkaline Phosphatase Total Protein Albumin Globulin Albumin/Globulin Ratio Procalcitonin 0.306 Urine Color Urine Appearance Urine pH Ur Specific [place] Urine Protein Urine Glucose (UA) Urine Ketones Urine Blood
[2021-03-30 10:53] VITALS: BMI 21.6
[2021-03-30 10:57] LABS: POC Glucose,Bedside 376 (70-110)
[2021-03-30 10:57] LABS: POC Glucose,Bedside 328 (70-110)
[2021-03-30 10:57] LABS: POC Glucose,Bedside 203 (70-110)
[2021-03-30 10:57] LABS: POC Glucose,Bedside 197 (70-110)
[2021-03-30 10:57] LABS: POC Glucose,Bedside 324 (70-110)
[2021-03-30 10:57] LABS: POC Glucose,Bedside 349 (70-110)
[2021-03-30 10:57] LABS: POC Glucose,Bedside 200 (70-110)
[2021-03-30 10:57] LABS: POC Glucose,Bedside 263 (70-110)
[2021-03-30 10:57] LABS: POC Glucose,Bedside 405 (70-110)
== END 2021-03-30 10:33 | DRG 638 ==
LOC: ER 14:28 → ICU 17:15 → 2ND 03-29 05:24 → ICU 03-29 10:50
PROVIDERS: Nurse Practitioner Family; Admitting Provider Emergency Medicine; Emergency Provider Emergency Medicine; PCP Emergency Medicine; Visit Provider Emergency Medicine
DX: E11.10 Type 2 diabetes mellitus with ketoacidosis without coma (principal); I42.9 Cardiomyopathy, unspecified; N30.00 Acute cystitis without hematuria; I25.10 Atherosclerotic heart disease of native coronary artery without angina pectoris; Z20.822 Contact with and (suspected) exposure to COVID-19; I10 Essential (primary) hypertension; Z79.899 Other long term (current) drug therapy; F41.9 Anxiety disorder, unspecified; F03.90 Unspecified dementia, unspecified severity, without behavioral disturbance, psychotic disturbance, mood disturbance, and anxiety; K21.9 Gastro-esophageal reflux disease without esophagitis; E78.5 Hyperlipidemia, unspecified; E03.9 Hypothyroidism, unspecified
CPT/HCPCS: 36415; 70450; 70496; 70498; 71045; 80048; 80053; 81001; 82009; 82803; 82962; 83605; 84145; 85007; 85025; 87040; 87086; 87088; 87186; 93005; 96366; 96374; 96375; 99285; C9803; J0696; Q9967; U0003; U0005

== ENCOUNTER → 2021-04-01 13:34 | Outpatient (CLI) | payer MEDICARE, MEDICAID, SELFPAY ==
--- NOTE | 2021-04-01 13:54 | CT_ITS ---
FINAL REPORT TECHNIQUE: Axial images through the pelvis were performed by computed tomography. This study was performed with techniques to keep radiation doses as low as reasonably achievable (ALARA). Individualized dose reduction techniques using automated exposure control or adjustment of mA and/or kV according to the patient's size were employed. CLINICAL HISTORY: INCREASED PAIN FINDINGS: No fracture is identified. There are mild degenerative changes of the hips. The uterus is lobulated with multiple calcifications, likely represent fibroids. There is a small umbilical hernia. IMPRESSION: Fibroid uterus. Small umbilical hernia. Reviewed, Interpreted and Dictated by Shahbaz Collazo III, MD Transcribed by Leelee Lay Authenticated by Shahbaz Collazo III, MD on 04/01/2021 03:53:08 PM [facility]
--- NOTE | 2021-04-01 13:54 | CT_ITS ---
FINAL REPORT TECHNIQUE: Axial imaging of the lumbar spine was obtained without contrast. Sagittal and coronal reformatted images were also obtained and reviewed. This study was performed with techniques to keep radiation doses as low as reasonably achievable (ALARA). Individualized dose reduction techniques using automated exposure control or adjustment of mA and/or kV according to the patient''s size were employed. CLINICAL HISTORY: INCREASED PAIN FINDINGS: No fracture is identified. Mild and moderate degenerative changes are present. L1-L2: No evidence of central canal stenosis or neural foraminal narrowing. L2-L3: An annular bulge is present. No evidence of central canal stenosis or neural foraminal narrowing. L3-L4: An annular bulge and facet arthropathy are present. There is mild bilateral neural foraminal narrowing. L4-L5: An annular bulge is present. Facet arthropathy and osteophytes are present. There is moderate bilateral neural foraminal narrowing. There is mild central canal stenosis with an AP diameter of the thecal sac of 7 mm. L5-S1: An annular bulge is present. Facet arthropathy and there is moderate bilateral neural foraminal narrowing. IMPRESSION: Multilevel degenerative change and spondylosis with mild central canal stenosis at L4-5. Reviewed, Interpreted and Dictated by Shahbaz Collazo III, MD Transcribed by Leelee Lay Authenticated by Shahbaz Collazo III, MD on 04/01/2021 04:04:[address] [facility]
== END ==
PROVIDERS: PCP Emergency Medicine; Visit Provider Nurse Practitioner Family
DX: M54.50 Low back pain, unspecified (principal); M53.3 Sacrococcygeal disorders, not elsewhere classified; R10.2 Pelvic and perineal pain
CPT/HCPCS: 72131; 72192

== ENCOUNTER 2021-04-25 22:59 | Emergency (ER) | payer MEDICARE, MEDICAID, SELFPAY ==
[2021-04-25 22:30] VITALS: BP 144/68; PULSE 86; RESP 19; TEMP 36.9; O2SAT 96; BMI 27.3
[2021-04-25 23:24] VITALS: BMI 27.4
--- NOTE | 2021-04-25 23:26 | XR_ITS ---
PROCEDURE INFORMATION: Exam: XR Chest Exam date and time: 04/25/2021 11:26 PM Age: 75 years old Clinical indication: Shortness of breath; Additional info: SOA TECHNIQUE: Imaging protocol: XR of the chest. Views: 1 view. COMPARISON: CR XR CHEST PORTABLE 03/28/2021 11:29 AM FINDINGS: Lungs: No definite consolidation. Pleural spaces: No significant pleural effusion. No pneumothorax. Heart/Mediastinum: No cardiomegaly. Bones/joints: Degenerative changes of spine. Soft tissues: Unremarkable. IMPRESSION: No definite acute cardiopulmonary disease.
[2021-04-25 23:34] LABS: Microscopic, Urine URINE MICROSCOPIC (MICROSCOPIC)
[2021-04-25 23:39] LABS: Appearance,Urine CLEAR (Clear); Bilirubin,Urine Negative (Negative); Blood, Urine TRACE-I (Negative); Color,Urine YELLOW (Yellow); Glucose,Urine (UA) 1+ (Negative); Ketones,Urine Negative (Negative); Leukocyte Esterase,Urine Negative (Negative); Nitrate,Urine Negative (Negative); Protein,Urine Negative (Negative); Specific Gravity, Urine 1.025 (1.005-1.030); Urobilinogen,Urine 0.2 EU/dl (0.2)
[2021-04-25 23:41] LABS: Basophils # 0.1 K/mm3 (0-0.2); Basophils % 0.5 % (0.1-2.0); Eosinophils # 0.8 K/mm3 (0.0-0.4); Eosinophils % 7.5 % (0.1-12.0); Hematocrit 31.3 % (37.0-47.0); Hemoglobin 10.1 g/dL (12.2-16.2); Lymphocytes # 2.2 K/mm3 (0.7-4.5); Lymphocytes % 21.8 % (10-50); Mean Corpuscular HGB Conc 32.3 g/dL (31.8-35.4); Mean Corpuscular Hemoglobin 28.6 pg (27.0-31.2); Mean Corpuscular Volume 88.4 fl (81-99); Mean Platelet Volume 7.8 fl (7.4-10.4); Monocytes # 0.7 K/mm3 (0.1-1.0); Monocytes % 6.6 % (1.7-9.3); Neutrophils # 6.5 K/mm3 (1.8-7.8); Neutrophils % 63.7 % (37.0-80.0); Platelet Count 269 K/mm3 (142-424); Red Blood Count 3.54 M/mm3 (4.20-5.40); Red Cell Distribution Width 15.2 % (11.5-17.5); White Blood Count 10.3 K/mm3 (4.8-10.8)
[2021-04-25 23:46] LABS: Alanine Aminotransferase 13 U/L (12-78); Albumin Level 3.8 g/dl (3.5-5.0); Albumin/Globulin Ratio 1.5 (1.1-1.8); Alkaline Phosphatase 72 U/L (38-126); Amylase 48 U/L (30-110); Aspartate Amino Transferase 25 U/L (14-36); Bilirubin,Total 0.7 mg/dl (0.2-1.3); Blood Urea Nitrogen 13 mg/dl (7-17); Calcium 9.4 mg/dl (8.4-10.2); Carbon Dioxide 30 mmol/L (22.0-30.0); Chloride 91 mmol/L (98-107); Creatinine Clearance Estimated 55 mL/min (50-200); Estimated Glomerular Filt Rate 81 ml/min (>60); GFR (African American) 98 ML/MIN (>60); Globulin 2.5 g/dL (1.3-3.2); Glucose 253 mg/dl (74-100); Lipase 31 U/L (23-300); Sodium 126 mmol/L (136-145); Total Protein,Serum 6.3 g/dl (6.3-8.2)
[2021-04-25 23:47] LABS: Lactic Acid 1.3 mmol/L (0.7-2.1)
[2021-04-25 23:49] LABS: Bacteria,Urine 3+ /lpf; Squamous Epithelial Cell,Urine Occasional #/hpf (0-5)
--- NOTE | 2021-04-25 23:51 | HMH.EDGENADL ---
ED Disposition Clinical Impression: Abdominal pain Qualifiers: Abdominal location: generalized Qualified Code(s): R10.84 - Generalized abdominal pain Disposition: Home, Self-Care Condition on Discharge: Good Instructions: DI for Acute Pain -- Adult Additional Instructions: see pcp for follow up Referrals: Tank Gabriel MD [Primary Care Provider] - - Critical Care Critical Care Time: No Attestation: On 04/25/21, the high probability of a clinically significant, sudden or life threatening deterioration of the following system(s) required my full and direct attention, intervention and personal management. The time I documented below is in addition to time spent performing reported procedures but includes the following listed in this critical care notation. Medical Decision Making - Medical Records Medical records reviewed: Yes: I reviewed the patient's medical records. - Ben Inquiry Pt receiving controlled substance: No Vital Signs: 04/25/21 22:30 Temperature 98.4 F Temperature Source Rectal Pulse Rate [Right] 86 Respiratory Rate 19 Blood Pressure [Right Arm] 144/68 H Blood Pressure Mean [Right Arm] 93 02 Sat by Pulse Oximetry 96 Oxygen Delivery Method Room Air - Lab Data Lab results reviewed: Yes: I reviewed the patient's lab results. Lab Results 04/25/21 23:00: WBC 10.3, RBC 3.54 L, Hgb 10.1 L, Hct 31.3 L, MCV 88.4, MCH 28.6, MCHC 32.3, RDW 15.2, Plt Count 269, MPV 7.8, Neut % (Auto) 63.7, Lymph % (Auto) 21.8, [place] % (Auto) 6.6, Eos % (Auto) 7.5, Baso % (Auto) 0.5, Neut # (Auto) 6.5, Lymph # (Auto) 2.2, [place] # (Auto) 0.7, Eos # (Auto) 0.8 H, Baso # (Auto) 0.1, ESR 84 H 04/25/21 23:00: Sodium 126 L, Potassium 4.6, Chloride 91 L, Carbon Dioxide 30, Anion Gap 9.6, BUN 13, Creatinine 0.70, Estimated Creat Clear 55, Estimated GFR 81, Est GFR ( Amer) 98, Glucose 253 H, Calcium 9.4, Total Bilirubin 0.7, AST 25, ALT 13, Alkaline Phosphatase 72, C-Reactive Protein 4.1 H, Total Protein 6.3, Albumin 3.8, Globulin 2.5, Albumin/Globulin Ratio 1.5, Amylase 48, Lipase 31, Procalcitonin 0.050 04/25/21 23:00: Lactate 1.3 04/25/21 23:00: Urine Color Yellow, Urine Appearance Clear, Urine pH 5.0, Ur Specific [place] 1.025, Urine Protein Negative, Urine Glucose (UA) 1+, Urine Ketones Negative, Urine Blood Trace-i, Urine Nitrate Negative, Urine Bilirubin Negative, Urine Urobilinogen 0.2, Ur Leukocyte Esterase Negative, Urine RBC 3-5, Urine WBC 10-20, Ur Squamous Epith Cells Occasional, Urine Bacteria 3+ 04/25/21 23:00: NT-Pro-B Natriuret Pep 499 H Result diagrams: 04/25/21 23:00 04/25/21 23:00 Orders (Tests/Meds): ED MEDICATIONS Generic Name Dose Route Start Last Admin Trade Name Freq PRN Reason Stop Dose Admin Ceftriaxone Sodium 1 gm/ 50 mls @ 100 mls/hr 04/25/21 23:45 04/26/21 00:00 Sodium Chloride IV 05/09/21 23:44 100 mls/hr Q24H SERA Administration Discontinued Medications Generic Name Dose Route Start Last Admin Trade Name Freq PRN Reason Stop Dose Admin Iopamidol 75 ml 04/26/21 00:32 04/26/21 00:34 Iopamidol-370 (76%);100ml Bottle IV 04/26/21 00:33 75 ml ONCE ONE Administration ORDERS Category Date Time Status Urine Culture Stat Micro 04/25/21 23:00 Received - Radiology Data #1 Image(s): Chest Image Reviewed: Yes I reviewed the patient's radiology image Preliminary Findings: Normal/NAD - CT Data CT Scan: Abdomen, Pelvis Time Received: 01:[address] Reviewed: Yes: I have viewed the radiologist's interpretation Preliminary Findings: Abnormal (see report ) Medical Decision Narrative: will send back to [facility] and will do op eval General Adult HPI - General Chief complaint: PAIN Stated complaint: excessive grunting/no injury/possible pain Time Seen by Provider: 04/25/21 23:00 Mode of Arrival: EMS Source of Information: Patient, EMS, Medical Record Limitations: Altered Mental Status Description of Symptoms (Recalled from ER Triage Doc. by RN)
[2021-04-25 23:56] LABS: C-Reactive Protein 4.1 mg/L (0-4)
--- NOTE | 2021-04-25 23:58 | CT_ITS ---
PROCEDURE INFORMATION: Exam: CT Abdomen And Pelvis With Contrast Exam date and time: 04/25/2021 11:58 PM Age: 75 years old Clinical indication: Abdominal pain; Generalized; Additional info: Recent abd pain TECHNIQUE: Imaging protocol: Computed tomography of the abdomen and pelvis with contrast. Radiation optimization: All CT scans at this facility use at least one of these dose optimization techniques: automated exposure control; mA and/or kV adjustment per patient size (includes targeted exams where dose is matched to clinical indication); or iterative reconstruction. Contrast material: ISOVUE; Contrast volume: 75 ml; Contrast route: IV; COMPARISON: No relevant prior studies available. FINDINGS: Lungs: Few nodules and/or focal scarring, up to 0.7 cm. Mediastinal space: Calcification along posterior mediastinum. Liver: Unremarkable. Gallbladder and bile ducts: No calcified stones. No ductal dilation. Pancreas: Unremarkable. No ductal dilation. Spleen: Few calcifications. Adrenal glands: No mass. Kidneys and ureters: Unremarkable. No significant hydronephrosis. Stomach and bowel: Segmental mural/fold thickening versus underdistention of stomach. No definite bowel wall thickening. No obstruction. Appendix: Normal. No inflammation. Intraperitoneal space: No significant fluid collection. No definite free air. Vasculature: Wqfs-vi-vjxjmpse atherosclerotic disease. No aneurysm. Lymph nodes: No pathologically enlarged lymph nodes. Urinary bladder: Borderline bladder wall thickening, up to 4-5 mm. Qiu catheter within collapse bladder, limiting evaluation. Reproductive: Mildly lobulated uterus with few coarse calcifications. Bones/joints: Degenerative changes of spine. No acute fracture. Soft tissues: Tiny umbilical hernia containing fat. IMPRESSION: 1. Gastric wall thickening versus underdistention. Clinical correlation is needed. 2. Cystitis vs underdistention. Correlate with urinalysis. 3. Probable fibroid uterus. 4. Pulmonary nodules. For patients at low risk (minimal or absent history of smoking and of other known risk factors), recommend CT Chest at 3-6 months, then consider CT Chest at 18-24 months. For patients at high risk (history of smoking or of other known risk factors), recommend CT Chest at 3-6 months, then CT Chest at 18-24 months. (Reference: Ludwin) REFERENCES: Ludwin Veloz et al. Guidelines for Management of Incidental Pulmonary Nodules Detected on CT Images: From the Fleischner Society 2017. Radiology. 2017;284(1):228-243.
[2021-04-26 00:02] LABS: Anion Gap 9.6 mEq/L (5-15); Potassium 4.6 mmoL/L (3.5-5.1)
[2021-04-26 00:06] LABS: Erythrocyte Sedimentation Rate 84 mm/hr (0-30)
[2021-04-26 00:15] LABS: NT Pro Brain Natriuretic Pep. 499 pg/mL (0-450)
[2021-04-26 01:51] VITALS: BP 140/62; PULSE 69; RESP 20; TEMP 36.9; O2SAT 97
== END 2021-04-26 02:13 | disposition home or self-care (01) ==
PROVIDERS: Emergency Provider Emergency Medicine; PCP Emergency Medicine
DX: R10.84 Generalized abdominal pain (principal); R06.09 Other forms of dyspnea; I25.10 Atherosclerotic heart disease of native coronary artery without angina pectoris; F03.90 Unspecified dementia, unspecified severity, without behavioral disturbance, psychotic disturbance, mood disturbance, and anxiety; E11.9 Type 2 diabetes mellitus without complications; K21.9 Gastro-esophageal reflux disease without esophagitis; I10 Essential (primary) hypertension; E78.5 Hyperlipidemia, unspecified; E03.9 Hypothyroidism, unspecified; Z79.899 Other long term (current) drug therapy
CPT/HCPCS: 71045; 74177; 80053; 81001; 82150; 83605; 83690; 83880; 84145; 85025; 85651; 86140; 87086; 87088; 87186; 96365; 99283; J0696; Q9967

== ENCOUNTER → 2021-05-01 06:19 | Outpatient (CLI) | payer MEDICARE, MEDICAID, SELFPAY ==
--- NOTE | 2021-05-01 06:42 | CT_ITS ---
FINAL REPORT TECHNIQUE: Axial images were obtained from the lung apex to the mid abdomen by computed tomography. Coronal reformatted images were obtained. This study was performed with techniques to keep radiation doses as low as reasonably achievable, (ALARA). Individualized dose reduction techniques using automated exposure control or adjustment of mA and/or kV according to the patient''s size were employed. CLINICAL HISTORY: LUNG NODULE COMPARISON: Chest CT dated July 01, 2018; abdomen and pelvis CT dated April 26, 2021 FINDINGS: There is no axillary adenopathy. There are multiple small mediastinal lymph nodes. There is moderate to severe coronary artery calcification. Heart size is normal. There is no pericardial or pleural effusion. There is diffuse esophageal wall thickening favored to be inflammatory. On lung window images there is mild scarring. A calcified granuloma is seen in the right lower lobe. There are several right lower lobe nodules that appear new since the prior chest CT from 2018. A nodule posterior to the granuloma measures 6 mm. Inferior to this is an 8 mm nodule that was on the recent abdomen CT. There are several other small right lower lobe nodules that are also new measuring less than 5 mm. There is a new 4 mm nodule in the superior segment of the left lower lobe. There are multiple other less than 5 mm left lower lobe pulmonary nodules. IMPRESSION: Multiple new small pulmonary nodules are nonspecific and could be inflammatory or neoplastic. Recommend follow-up CT in 3-6 months. Diffuse esophageal wall thickening is favored to be inflammatory. Consider correlation with upper endoscopy. Reviewed, Interpreted and Dictated by Shahbaz Collazo III, MD Transcribed by Eliot Ken Authenticated by Shahbaz Collazo III, MD on 05/01/2021 08:20:58 AM [facility]
== END ==
PROVIDERS: PCP Emergency Medicine; Visit Provider Emergency Medicine
DX: R91.1 Solitary pulmonary nodule (principal)
CPT/HCPCS: 71250

== ENCOUNTER → 2021-05-07 05:41 | Outpatient (CLI) | payer MEDICARE, MEDICAID, SELFPAY ==
[2021-05-07 07:31] LABS: Occult Blood,Stool Negative (Negative)
== END ==
PROVIDERS: Visit Provider Emergency Medicine
DX: D64.9 Anemia, unspecified (principal)
CPT/HCPCS: 82272; G0328

== ENCOUNTER 2021-05-10 02:44 | Inpatient (IN) | payer MEDICARE, MEDICAID, SELFPAY ==
[2021-05-10] VITALS (19 sets, daily range): BP systolic 132–171; BP diastolic 52–80; PULSE 30–115; RESP 13–20; TEMP 36.9–37.8; O2SAT 94–100; BMI 25.7; BMI 23.6
--- NOTE | 2021-05-10 02:44 | XR_ITS ---
PROCEDURE INFORMATION: Exam: XR Chest Exam date and time: 05/10/2021 2:44 AM Age: 75 years old Clinical indication: Other: Low 02 sats; Additional info: Low o2 TECHNIQUE: Imaging protocol: XR of the chest. Views: 1 view. COMPARISON: CT CHEST WO CON 05/01/2021 7:09 AM FINDINGS: Lungs: Mild biapical scarring. Mild chronic-appearing interstitial coarsening. No overt pulmonary edema. No consolidation. Mild bibasilar atelectasis. Pleural spaces: No pleural effusion. No pneumothorax. Heart/Mediastinum: Normal heart size. Aortic atherosclerosis. Bones/joints: Osteopenia. Old fracture right proximal humerus. IMPRESSION: Mild bibasilar atelectasis.
--- NOTE | 2021-05-10 02:44 | ECG_ITS ---
APPROVED REPORT Exam: Resting ECG HR:87 bpm ECG Measurements Heart Rate 87 AXES OH 207 P 76 QRSd 91 QRS -35 QT 366 T 82 QTc 411 Conclusion SINUS RHYTHM LEFT AXIS DEVIATION [QRS AXIS < -30] SEPTAL MYOCARDIAL INFARCTION , PROBABLY OLD [40+ ms Q WAVE IN V1/V2] ABNORMAL ECG UNCONFIRMED REPORT Electronically signed by : Romeo Sanchez MD 05/11/2021 18:00:48
[2021-05-10 02:55] LABS: Basophils # 0.1 K/mm3 (0-0.2); Basophils % 0.2 % (0.1-2.0); Eosinophils # 0.4 K/mm3 (0.0-0.4); Eosinophils % 2.4 % (0.1-12.0); Hematocrit 32.4 % (37.0-47.0); Hemoglobin 10.6 g/dL (12.2-16.2); Lymphocytes # 1.9 K/mm3 (0.7-4.5); Lymphocytes % 10.2 % (10-50); Mean Corpuscular HGB Conc 32.7 g/dL (31.8-35.4); Mean Corpuscular Hemoglobin 28.7 pg (27.0-31.2); Mean Corpuscular Volume 87.8 fl (81-99); Mean Platelet Volume 7.5 fl (7.4-10.4); Monocytes # 0.8 K/mm3 (0.1-1.0); Monocytes % 4.2 % (1.7-9.3); Neutrophils # 15.4 K/mm3 (1.8-7.8); Platelet Count 285 K/mm3 (142-424); Red Blood Count 3.68 M/mm3 (4.20-5.40); Red Cell Distribution Width 14.6 % (11.5-17.5); White Blood Count 18.6 K/mm3 (4.8-10.8)
[2021-05-10 02:58] LABS: MANUAL DIFFERENTIAL MANUAL DIFFERENTIAL (MANUAL DIFF)
[2021-05-10 03:02] LABS: Alanine Aminotransferase 18 U/L (12-78); Albumin Level 3.6 g/dl (3.5-5.0); Albumin/Globulin Ratio 1.2 (1.1-1.8); Alkaline Phosphatase 64 U/L (38-126); Anion Gap 9.4 mEq/L (5-15); Aspartate Amino Transferase 39 U/L (14-36); Bilirubin,Total 0.7 mg/dl (0.2-1.3); Blood Urea Nitrogen 16 mg/dl (7-17); Calcium 9.6 mg/dl (8.4-10.2); Carbon Dioxide 33 mmol/L (22.0-30.0); Chloride 93 mmol/L (98-107); Creatinine Clearance Estimated 51 mL/min (50-200); Estimated Glomerular Filt Rate 81 ml/min (>60); GFR (African American) 98 ML/MIN (>60); Globulin 2.9 g/dL (1.3-3.2); Glucose 146 mg/dl (74-100); Lactic Acid 1.4 mmol/L (0.7-2.1); Potassium 4.4 mmoL/L (3.5-5.1); Sodium 131 mmol/L (136-145); Total Protein,Serum 6.5 g/dl (6.3-8.2)
[2021-05-10 03:07] LABS: C-Reactive Protein 146.5 mg/L (0-4)
[2021-05-10 03:16] LABS: Lymphocytes % 9 % (10-50); Neutrophils % 77 % (42-76); Platelet Estimate Normal; RBC Morphology Normal; Total Cells Counted 100
[2021-05-10 03:17] LABS: Troponin I < 0.01 ng/ml (0.00-0.034)
[2021-05-10 03:20] LABS: Erythrocyte Sedimentation Rate 108 mm/hr (0-30); Procalcitonin 2.85 ng/mL (0.0-2.0)
[2021-05-10 03:40] LABS: NT Pro Brain Natriuretic Pep. 634 pg/mL (0-450)
--- NOTE | 2021-05-10 03:55 | PC.NURSE ---
Spoke with Linn Staton, superintendent overhead distribution guardian for Ankush Huntley who gave phone consent to treat Ankush Huntley. Consent was witnessed by Sheri Heck rn.
[2021-05-10 04:02] LABS: Microscopic, Urine URINE MICROSCOPIC (MICROSCOPIC)
[2021-05-10 04:03] LABS: Appearance,Urine CLEAR (Clear); Bilirubin,Urine Negative (Negative); Blood, Urine Negative (Negative); Color,Urine YELLOW (Yellow); Glucose,Urine (UA) Negative (Negative); Ketones,Urine Negative (Negative); Leukocyte Esterase,Urine Negative (Negative); Nitrate,Urine Negative (Negative); PH,Urine 7.5 (5.0-8.5); Protein,Urine Negative (Negative); Urobilinogen,Urine 0.2 EU/dl (0.2)
[2021-05-10 04:09] LABS: Squamous Epithelial Cell,Urine Occasional #/hpf (0-5); WBC,Urine Occasional #/hpf (0-3)
--- NOTE | 2021-05-10 04:48 | HMH.EDAMS ---
ED Disposition Clinical Impression: SIRS (systemic inflammatory response syndrome), Hypothyroidism (acquired) Altered mental status Qualifiers: Altered mental status type: unspecified Qualified Code(s): R41.82 - Altered mental status, unspecified Diabetes mellitus Qualifiers: Diabetes mellitus type: type 2 Diabetes mellitus intermediate project manager insulin use: unspecified intermediate project manager insulin use status Diabetes mellitus complication status: with other specified complication Qualified Code(s): E11.69 - Type 2 diabetes mellitus with other specified complication Disposition: Admitted As Inpatient Condition on Discharge: Fair Instructions: DI for Altered Mental Status Referrals: Tank Gabriel MD [Primary Care Provider] - - Critical Care Critical Care Time: No Attestation: On 05/10/21, the high probability of a clinically significant, sudden or life threatening deterioration of the following system(s) required my full and direct attention, intervention and personal management. The time I documented below is in addition to time spent performing reported procedures but includes the following listed in this critical care notation. Medical Decision Making - Medical Records Medical records reviewed: Yes: I reviewed the patient's medical records. - Ben Inquiry Pt receiving controlled substance: No Vital Signs: 05/10/21 02:25 05/10/21 03:00 05/10/21 03:30 Temperature 98.5 F Temperature Source Rectal Pulse Rate 88 89 Pulse Rate [Right] 83 Respiratory Rate 20 Blood Pressure 132/53 L 143/57 H Blood Pressure [Right Arm] 139/74 Blood Pressure Mean 99 90 Blood Pressure Mean [Right Arm] 95 02 Sat by Pulse Oximetry 94 L 97 99 Oxygen Delivery Method Room Air Room Air Room Air 05/10/21 04:00 05/10/21 04:30 Temperature Temperature Source Pulse Rate 92 H 87 Pulse Rate [Right] Respiratory Rate Blood Pressure 139/55 L 141/55 H Blood Pressure [Right Arm] Blood Pressure Mean 83 83 Blood Pressure Mean [Right Arm] 02 Sat by Pulse Oximetry 97 96 Oxygen Delivery Method Room Air Room Air - Lab Data Lab results reviewed: Yes: I reviewed the patient's lab results. Lab Results 05/10/21 02:30: WBC 18.6 H, RBC 3.68 L, Hgb 10.6 L, Hct 32.4 L, MCV 87.8, MCH 28.7, MCHC 32.7, RDW 14.6, Plt Count 285, MPV 7.5, Neut % (Auto) 83.0 H, Lymph % (Auto) 10.2, [place] % (Auto) 4.2, Eos % (Auto) 2.4, Baso % (Auto) 0.2, Neut # (Auto) 15.4 H, Lymph # (Auto) 1.9, [place] # (Auto) 0.8, Eos # (Auto) 0.4, Baso # (Auto) 0.1, Total Counted 100, Neutrophils % (Manual) 77 H, Band Neutrophils % 14.0 H, Lymphocytes % (Manual) 9 L, Platelet Estimate Normal, RBC Morphology Normal, ESR 108 H 05/10/21 02:30: Sodium 131 L, Potassium 4.4, Chloride 93 L, Carbon Dioxide 33 H, Anion Gap 9.4, BUN 16, Creatinine 0.70, Estimated Creat Clear 51, Estimated GFR 81, Est GFR ( Amer) 98, Glucose 146 H, Calcium 9.6, Total Bilirubin 0.7, AST 39 H, ALT 18, Alkaline Phosphatase 64, Troponin I < 0.01, C-Reactive Protein 146.5 H, Total Protein 6.5, Albumin 3.6, Globulin 2.9, Albumin/Globulin Ratio 1.2, Procalcitonin 2.85 H 05/10/21 02:30: Lactate 1.4 05/10/21 02:30: NT-Pro-B Natriuret Pep 634 H 05/10/21 03:55: Urine Color Yellow, Urine Appearance Clear, Urine pH 7.5, Ur Specific [place] 1.010, Urine Protein Negative, Urine Glucose (UA) Negative, Urine Ketones Negative, Urine Blood Negative, Urine Nitrate Negative, Urine Bilirubin Negative, Urine Urobilinogen 0.2, Ur Leukocyte Esterase Negative, Urine WBC Occasional, Ur Squamous Epith Cells Occasional Result diagrams: 05/10/21 02:30 05/10/21 02:30 Orders (Tests/Meds): ED MEDICATIONS Generic Name Dose Route Start Last Admin Trade Name Freq PRN Reason Stop Dose Admin Sodium Chloride 1,000 mls @ 999 mls/hr 05/10/21 04:15 05/10/21 04:12 Sod Chlor 0.9% 1000ml Bag IV 05/10/21 05:15 999 mls/hr .Q1H1M SERA Administration ORDERS Category Date Time Status Rapid PCR Covid and Flu A/B Stat Lab 02
[2021-05-10 05:12] LABS: Coronavirus 19, PCR Not Detected (NotDetected); Influenza A, PCR Not Detected (NotDetected); Influenza B, PCR Not Detected (NotDetected)
--- NOTE | 2021-05-10 05:23 | PC.NURSE ---
Called [facility] for Vancomycin dosing, s/w Audra. She will place order in MAY.
--- NOTE | 2021-05-10 07:52 | HMH.HP ---
*Admission Date: 05/10/21 *Chief complaint: altered mental status *History of present illness: this patient was sent from [facility] for altered mental status and was found in the ed to have elevated wbc and inflammatory markers and was admitted and started on abx- has had e coli uti in mar and recent klebsiella uti - pt was unable to give specific hx at this time [facility] History I have reviewed the patient's past medical history: Yes Medical History: Reports:: Anxiety, Cardiomyopathy, Coronary Artery Disease, Dementia, Diabetes Mellitus Type 2, Gastroesophageal Reflux Disease(GERD), Hyperlipidemia, Hypertension, Renal Insufficiency, Urinary Tract Infection Denies:: Cancer, Diabetes Mellitus Type 1, Internal Pacemaker, MRSA *Have you ever received a pneumonia vaccine?: Yes *Have you received a flu vaccine this season?: Yes Other Medical History: Reports: Anemia, Hypothyroidism Other Surgeries: Yes: No Previous Surgery. No: Pacemaker Amputation: No Fractures: Yes - *Social History Smoking Status: Never smoker Alcohol Intake: never Substance Use Type: denies use *Occupational Status:: retired Housing: jail *Travel in the last 8 weeks: None - Psychiatric History Pschychiatric History:: Reports:: Anxiety Family Hx:: Unable to obtain Review of Systems - Review of Systems Review of systems:: unable to obtain Meds Home Medications Medication Instructions Recorded Confirmed Type Acetaminophen 500 mg PO Q4HP PRN 03/28/21 05/10/21 History Aspirin [Aspirin 81mg chewable 81 mg PO DAILY 03/28/21 05/10/21 History tab] Buspirone HCl [Buspar 10mg 10 mg PO TID 03/28/21 05/10/21 History tablet] Duloxetine HCl 60 mg PO DAILY 03/28/21 05/10/21 History Furosemide [Furosemide 20mg Tab*] 20 mg PO DAILY 03/28/21 05/10/21 History Gabapentin [Gabapentin 100mg Cap] 100 mg PO DAILY 03/28/21 05/10/21 History LORazepam [Ativan 0.5mg 0.5 mg PO TID 03/28/21 05/10/21 History tablet] Loperamide HCl [Loperamide] 2 mg PO QIDP PRN 03/28/21 05/10/21 History Losartan Potassium 25 mg PO DAILY 03/28/21 05/10/21 History Mag Hydrox/Aluminum Hyd/Simeth 30 ml PO Q6HP PRN 03/28/21 05/10/21 History [Vanessa-Lanta Liquid] Metformin HCl 500 mg PO BID 03/28/21 05/10/21 History Metoprolol Tartrate [Lopressor 12.5 mg PO BID 03/28/21 05/10/21 History 25mg tablet] Omeprazole [Omeprazole 20mg 20 mg PO DAILY 03/28/21 05/10/21 History Capsule] Sennosides [Senna] 8.6 mg PO BID 03/28/21 05/10/21 History Simethicone [Gas Relief] 80 - 160 mg PO QIDP PRN 03/28/21 05/10/21 History Gabapentin [Neurontin 300mg 300 mg PO HS 03/29/21 05/10/21 History capsule] Lactulose 30 ml PO DAILYP PRN 03/29/21 05/10/21 History Levocetirizine Dihydrochloride 5 mg PO DAILY 03/29/21 05/10/21 History Levothyroxine Sodium 50 mcg PO DAILYDM 03/29/21 05/10/21 History [Levothyroxine 50mcg (0.05mg) Tab] Linagliptin [Tradjenta 5mg tablet] 5 mg PO DAILYDM 03/29/21 05/10/21 History Multivitamin 1 tab PO DAILY 03/29/21 05/10/21 History Pravastatin Sodium [Pravachol 40mg 40 mg PO HS 03/29/21 05/10/21 History Tablet] Insulin Glargine,Hum.rec.anlog 16 units SQ DAILY 04/26/21 05/10/21 History [Lantus Solostar 100 Units/mL 3mL flexpen] hydrocodone 5 mg-acetaminophen 325 1 tab PO BID #60 tab 04/27/21 05/10/21 Rx mg tablet hydrOXYzine pamoate [Vistaril 25mg 25 mg PO Q8H PRN 05/10/21 05/10/21 History capsule] risperiDONE [Risperidone] 1 mg PO HS 05/10/21 05/10/21 History Allergies Allergy/AdvReac Type Severity Reaction Status Date / Time No Known Allergies Allergy Verified 04/23/21 18:16 Exam Vital signs and Labs for Last 24 Hours: Temp Pulse Resp BP Pulse Ox 98.5 F 87 20 141/55 H 96 05/10/21 02:25 05/10/21 04:30 05/10/21 02:25 05/10/21 04:30 05/10/21 04:30 Laboratory Results - last 24 hr 05/10/21 02:30: WBC 18.6 H, RBC 3.68 L, Hgb 10.6 L, Hct 32.4 L, MCV 87.8, MCH 28.7, MCHC 32.7, RDW 14.6, Plt Count 285, MP
--- NOTE | 2021-05-10 08:35 | PC.NURSE ---
Attempted to call report, nurse unavailable at this time to take report, Demolition Worker aware and will inform the nurse to call when available
--- NOTE | 2021-05-10 08:37 | PC.NURSE ---
1200cc emptied from arguelles
--- NOTE | 2021-05-10 08:38 | HMH.PHACONS ---
- Pharmacy Consult Date: 05/10/21 Time: 08:38 Referring provider: DR HALL Reason for Consult:: VANCOMYCIN DOSING CONSULT Allergies and ADEs:: Allergies Allergy/AdvReac Type Severity Reaction Status Date / Time No Known Allergies Allergy Verified 04/23/21 18:16 Home Medications:: Home Medications Medication Instructions Recorded Confirmed Type Acetaminophen 500 mg PO Q4HP PRN 03/28/21 05/10/21 History Aspirin [Aspirin 81mg chewable 81 mg PO DAILY 03/28/21 05/10/21 History tab] Buspirone HCl [Buspar 10mg 10 mg PO TID 03/28/21 05/10/21 History tablet] Duloxetine HCl 60 mg PO DAILY 03/28/21 05/10/21 History Furosemide [Furosemide 20mg Tab*] 20 mg PO DAILY 03/28/21 05/10/21 History Gabapentin [Gabapentin 100mg Cap] 100 mg PO DAILY 03/28/21 05/10/21 History LORazepam [Ativan 0.5mg 0.5 mg PO TID 03/28/21 05/10/21 History tablet] Loperamide HCl [Loperamide] 2 mg PO QIDP PRN 03/28/21 05/10/21 History Losartan Potassium 25 mg PO DAILY 03/28/21 05/10/21 History Mag Hydrox/Aluminum Hyd/Simeth 30 ml PO Q6HP PRN 03/28/21 05/10/21 History [Vanessa-L[place] Liquid] Metformin HCl 500 mg PO BID 03/28/21 05/10/21 History Metoprolol Tartrate [Lopressor 12.5 mg PO BID 03/28/21 05/10/21 History 25mg tablet] Omeprazole [Omeprazole 20mg 20 mg PO DAILY 03/28/21 05/10/21 History Capsule] Sennosides [Senna] 8.6 mg PO BID 03/28/21 05/10/21 History Simethicone [Gas Relief] 80 - 160 mg PO QIDP PRN 03/28/21 05/10/21 History Gabapentin [Neurontin 300mg 300 mg PO HS 03/29/21 05/10/21 History capsule] Lactulose 30 ml PO DAILYP PRN 03/29/21 05/10/21 History Levocetirizine Dihydrochloride 5 mg PO DAILY 03/29/21 05/10/21 History Levothyroxine Sodium 50 mcg PO DAILYDM 03/29/21 05/10/21 History [Levothyroxine 50mcg (0.05mg) Tab] Linagliptin [Tradjenta 5mg tablet] 5 mg PO DAILYDM 03/29/21 05/10/21 History Multivitamin 1 tab PO DAILY 03/29/21 05/10/21 History Pravastatin Sodium [Pravachol 40mg 40 mg PO HS 03/29/21 05/10/21 History Tablet] Insulin Glargine,Hum.rec.anlog 16 units SQ DAILY 04/26/21 05/10/21 History [Lantus Solostar 100 Units/mL 3mL flexpen] hydrocodone 5 mg-acetaminophen 325 1 tab PO BID #60 tab 04/27/21 05/10/21 Rx mg tablet hydrOXYzine pamoate [Vistaril 25mg 25 mg PO Q8H PRN 05/10/21 05/10/21 History capsule] risperiDONE [Risperidone] 1 mg PO HS 05/10/21 05/10/21 History Height: 1.63 m Weight: 68.039 kg Laboratory Results:: Laboratory Results - last 24 hr 05/10/21 02:30: WBC 18.6 H, RBC 3.68 L, Hgb 10.6 L, Hct 32.4 L, MCV 87.8, MCH 28.7, MCHC 32.7, RDW 14.6, Plt Count 285, MPV 7.5, Neut % (Auto) 83.0 H, Lymph % (Auto) 10.2, [place] % (Auto) 4.2, Eos % (Auto) 2.4, Baso % (Auto) 0.2, Neut # (Auto) 15.4 H, Lymph # (Auto) 1.9, [place] # (Auto) 0.8, Eos # (Auto) 0.4, Baso # (Auto) 0.1, Total Counted 100, Neutrophils % (Manual) 77 H, Band Neutrophils % 14.0 H, Lymphocytes % (Manual) 9 L, Platelet Estimate Normal, RBC Morphology Normal, ESR 108 H 05/10/21 02:30: Sodium 131 L, Potassium 4.4, Chloride 93 L, Carbon Dioxide 33 H, Anion Gap 9.4, BUN 16, Creatinine 0.70, Estimated Creat Clear 51, Estimated GFR 81, Est GFR ( Amer) 98, Glucose 146 H, Calcium 9.6, Total Bilirubin 0.7, AST 39 H, ALT 18, Alkaline Phosphatase 64, Troponin I < 0.01, C-Reactive Protein 146.5 H, Total Protein 6.5, Albumin 3.6, Globulin 2.9, Albumin/Globulin Ratio 1.2, Procalcitonin 2.85 H 05/10/21 02:30: Lactate 1.4 05/10/21 02:30: NT-Pro-B Natriuret Pep 634 H 05/10/21 03:55: Urine Color Yellow, Urine Appearance Clear, Urine pH 7.5, Ur Specific [place] 1.010, Urine Protein Negative, Urine Glucose (UA) Negative, Urine Ketones Negative, Urine Blood Negative, Urine Nitrate Negative, Urine Bilirubin Negative, Urine Urobilinogen 0.2, Ur Leukocyte Esterase Negative, Urine WBC Occasional, Ur Squamous Epith Cells Occasional 05/10/21 05:00: SARS-CoV-2 (PCR) Not detected, Influenza A Untype (PCR) Not detected, Influenza Type B
--- NOTE | 2021-05-10 09:26 | HMH.PHAINT ---
MEDICATION RECONCILIATION COMPLETE USING MAR FROM [facility].
--- NOTE | 2021-05-10 09:26 | HMH.PHAVTE ---
[facility] Pharmacy VTE Monitoring - Patient Demographics Admission date: 05/10/21 Report Date: 05/10/21 Time: 09:26 Allergies/Adverse Reactions: Patient Allergies No Known Allergies Allergy (Verified 04/23/21 18:16) Height: 1.63 m Weight: 68.039 kg Patient Problems: Current Active Problems Altered mental status (Acute) SIRS (systemic inflammatory response syndrome) (Acute) Decubitus ulcer of coccygeal region, stage 1 (Acute) Renal insufficiency (Chronic) Diabetes mellitus (Chronic) Hypothyroidism (acquired) (Chronic) - VTE Risk Labs: VTE Related Lab Results Hgb 10.6 g/dL (12.2-16.2) L 05/10/21 02:30 Hct 32.4 % (37.0-47.0) L 05/10/21 02:30 Plt Count 285 K/mm3 (142-424) 05/10/21 02:30 BUN 16 mg/dl (7-17) 05/10/21 02:30 Creatinine 0.70 mg/dl (0.52-1.04) 05/10/21 02:30 Estimated Creat Clear 51 mL/min (50-200) 05/10/21 02:30 Was VTE Risk Assessment Performed: No Clinical Trial Participant: No - Prophylaxis VTE Prophylaxis Ordered?: Yes Types of VTE Prophylaxis: TEDS Knee High Location of Applied Device: Bilateral Lower Extremeties
[2021-05-10 09:48] LABS: Troponin I < 0.01 ng/ml (0.00-0.034)
--- NOTE | 2021-05-10 10:53 | PC.NURSE ---
contacted [place] to verify pts diet. pureed and thickened iquids
--- NOTE | 2021-05-10 10:53 | PC.NURSE ---
contacted [place] regarding pt diet. Pureed and thick liquids
[2021-05-10 16:21] LABS: Troponin I < 0.01 ng/ml (0.00-0.034)
--- NOTE | 2021-05-10 19:18 | PC.WOUNDNOTE ---
BRUISING NOTED TO THE RT ARM SCATTERED ABRASIONS NOTED TO BLE REDNESS/BOGGY/NON BLANCHABLE BILATERAL HEELS REDNESS NOTED TO BILATERAL HEELS BRUISING NOTED TO LEFT ARM STAGE 2/REDNESS NOTED TO COCCYX
[2021-05-10 21:49] LABS: POC Glucose,Bedside 286 (70-110)
[2021-05-11] VITALS (8 sets, daily range): BP systolic 104–148; BP diastolic 56–77; PULSE 54–116; RESP 16–24; TEMP 36.8–37.6; O2SAT 88–96; BMI 23.6
--- NOTE | 2021-05-11 05:26 | PC.NURSE ---
Addendum entered by Meredith Richards RN 05/11/21 05:57: pt did have desat this morning while resting, and was placed on 2L NC and returned to 92%, Original Note: pt has not rested well this shift, is restless and continuously makes grunting noises, has attempted to get out of bed several times, bed alarm on for safety, PRN medications given, remains on room air, O2 sats 94-96%, HR has been 108-111 this shift, has complained of stomach pain, was treated per MAY, arguelles remains in place, dressing on coccyx changed this shift
[2021-05-11 06:23] LABS: Basophils % 0.2 % (0.1-2.0); Eosinophils # 0.1 K/mm3 (0.0-0.4); Eosinophils % 0.7 % (0.1-12.0); Lymphocytes % 5.5 % (10-50); Mean Corpuscular HGB Conc 32.9 g/dL (31.8-35.4); Mean Corpuscular Volume 88.1 fl (81-99); Mean Platelet Volume 7.5 fl (7.4-10.4); Monocytes # 0.7 K/mm3 (0.1-1.0); Neutrophils # 15.8 K/mm3 (1.8-7.8); Neutrophils % 89.6 % (37.0-80.0); Platelet Count 292 K/mm3 (142-424); Red Cell Distribution Width 14.8 % (11.5-17.5); White Blood Count 17.7 K/mm3 (4.8-10.8)
[2021-05-11 06:25] LABS: Chloride 101 mmol/L (98-107); Potassium 4.8 mmoL/L (3.5-5.1); Sodium 130 mmol/L (136-145)
[2021-05-11 06:26] LABS: Hematocrit 27.3 % (37.0-47.0)
[2021-05-11 06:28] LABS: Blood Urea Nitrogen 17 mg/dl (7-17); Calcium 8.6 mg/dl (8.4-10.2); Carbon Dioxide 23 mmol/L (22.0-30.0); Creatinine Clearance Estimated 47 mL/min (50-200); Estimated Glomerular Filt Rate 81 ml/min (>60); GFR (African American) 98 ML/MIN (>60); Glucose 232 mg/dl (74-100); MANUAL DIFFERENTIAL MANUAL DIFFERENTIAL (MANUAL DIFF)
[2021-05-11 06:33] LABS: Anion Gap 10.8 mEq/L (5-15)
[2021-05-11 06:45] LABS: Lymphocytes % 6 % (10-50); Neutrophils % 88 % (42-76); Platelet Estimate Normal; RBC Morphology Normal; Total Cells Counted 100
[2021-05-11 07:03] LABS: POC Glucose,Bedside 252 (70-110)
[2021-05-11 07:43] LABS: Procalcitonin 7.22 ng/mL (0.0-2.0)
--- NOTE | 2021-05-11 09:20 | HMH.ACPN2 ---
Internal Medicine - PN: Subj *Date: 05/11/21 *Time: 08:10 Interval history: pt laying in bed open eyes when spoke to but does not answer questions. Exam Vital signs and Labs for Last 24 Hours: Temp Pulse Resp BP Pulse Ox 98.2 F 102 H 16 140/68 93 L 05/11/21 07:56 05/11/21 07:56 05/11/21 07:56 05/11/21 07:56 05/11/21 07:56 Laboratory Results - last 24 hr 05/10/21 09:10: Troponin I < 0.01 05/10/21 15:30: Troponin I < 0.01 05/10/21 20:14: POC Glucose 286 H 05/11/21 05:18: POC Glucose 252 H 05/11/21 05:19: Sodium 130 L, Potassium 4.8, Chloride 101, Carbon Dioxide 23, Anion Gap 10.8, BUN 17, Creatinine 0.70, Estimated Creat Clear 47, Estimated GFR 81, Est GFR ( Amer) 98, Glucose 232 H, Calcium 8.6 05/11/21 05:19: WBC 17.7 H, RBC 3.10 L, Hgb 9.0 L, Hct 27.3 L, MCV 88.1, MCH 29.0, MCHC 32.9, RDW 14.8, Plt Count 292, MPV 7.5, Neut % (Auto) 89.6 H, Lymph % (Auto) 5.5 L, [place] % (Auto) 4.0, Eos % (Auto) 0.7, Baso % (Auto) 0.2, Neut # (Auto) 15.8 H, Lymph # (Auto) 1.0, [place] # (Auto) 0.7, Eos # (Auto) 0.1, Baso # (Auto) 0.0, Total Counted 100, Neutrophils % (Manual) 88 H, Band Neutrophils % 6.0, Lymphocytes % (Manual) 6 L, Platelet Estimate Normal, RBC Morphology Normal 05/11/21 05:19: Procalcitonin 7.22 H I & O for Last 24 hours: Intake & Output 05/08/21 05/09/21 05/10/21 05/11/21 11:59 11:59 11:59 11:59 Intake Total 720 / 720 Output Total 100 / 100 450 / 450 Balance -100 / -100 270 / 270 Weight 138 lb 6 oz Microbiology Reports for the Last 24 Hours: Microbiology 05/10/21 03:53 Urine,Catheterized Urine Culture - Preliminary NO GROWTH AFTER 24 HOURS - Constitutional no acute distress - *Routine HEENT Exam Head: Present: normocephalic Eye: Present: PERRL ENT: Present: mucous membranes moist - *Routine Neck Exam Present: supple. Absent: lymphadenopathy - *Routine Respiratory Exam Present: rhonchi - *Routine Cardiovascular Exam Present: RRR - *Routine Abdominal Exam Present: soft, normoactive bowel sounds. Absent: tenderness - *Routine Exam Comments: arguelles draining at bedside - *Routine Extremities Exam Absent: cyanosis, clubbing, edema - *Routine Skin Exam Present: warm, wounds. Absent: rash Comments: stage 1 to coccyx - *Routine Neurological Exam Present: altered mental status Assessment and Plan (1) Altered mental status Status: Acute Qualifiers: Altered mental status type: delirium Qualified Code(s): R41.0 - Disorientation, unspecified Category: Medical Code(s): R41.82 - Altered mental status, unspecified (2) SIRS (systemic inflammatory response syndrome) Status: Acute Category: Medical Code(s): R65.10 - Systemic inflammatory response syndrome (SIRS) of non-infectious origin without acute organ dysfunction (3) Renal insufficiency Status: Chronic Category: Medical Code(s): N28.9 - Disorder of kidney and ureter, unspecified (4) Diabetes mellitus Status: Chronic Qualifiers: Diabetes mellitus type: type 2 Diabetes mellitus custodial insulin use: unspecified intermediate card tender insulin use status Diabetes mellitus complication status: with other specified complication Qualified Code(s): E11.69 - Type 2 diabetes mellitus with other specified complication Category: Medical Code(s): E11.9 - Type 2 diabetes mellitus without complications (5) Hypothyroidism (acquired) Status: Chronic Category: Medical Code(s): E03.9 - Hypothyroidism, unspecified (6) Decubitus ulcer of coccygeal region, stage 1 Status: Acute Category: Medical Code(s): L89.151 - Pressure ulcer of sacral region, stage 1 - Assessment and plan all Dx Assessment and Plan for all problems:: Rounded with Dr. Gabriel all orders per Harvey cruz c&S abg
--- NOTE | 2021-05-11 09:23 | XR_ITS ---
FINAL REPORT TECHNIQUE: Single view chest CLINICAL HISTORY: cough COMPARISON: May 10, 2021 FINDINGS: A single view of the chest was obtained. The heart and mediastinum are within normal limits. There are dense, patchy bibasilar airspace infiltrates, right greater than left, new from prior exam, consistent with acute pneumonia. There is no pneumothorax. Osseous structures are unremarkable. IMPRESSION: Findings consistent with acute pneumonia. Reviewed, Interpreted and Dictated by Jw Bui MD Transcribed by Lizabeth Graf Authenticated by Jw Bui MD on 05/11/2021 11:17:[address] [facility]
--- NOTE | 2021-05-11 09:44 | SW/DCPLANNER ---
Addendum entered by [facility] 05/15/21 13:04: Michelle has stated this patient can return to [facility] today. Addendum entered by [facility] 05/15/21 09:45: The plan for this patient is to discharge back to [facility] today once tube feedings are available at [facility] per Michelle. Also Michelle has stated that this patient will not require a COVID swab prior to returning. Addendum entered by [facility] 05/14/21 09:24: Updated patient information including tube feedings has been faxed to Michelle at [facility]. CORRECTION: JEVITY 1.2 Addendum entered by [facility] 05/14/21 08:08: I have updated Michelle edwards/ Clarita kee AM regarding tubefeedings at discharge: Jevity 1.5. Addendum entered by [facility] 05/13/21 10:10: I have informed Michelle edwards/ Clarita Ashley that patient will have PEG tube placed tomorrow. Addendum entered by [facility] 05/12/21 09:45: Updated patient information has been faxed to Gale edwards/ [facility] [place]. Original Note: This patient currently resides at [facility]. I spoke with Gale this AM from [place]: patient is currently [facility] level of care. I will continue to follow up with and Gale at [facility] until patient is medically stable for discharge. Discharge date is unknown at this time.
[2021-05-11 10:19] LABS: ABG Base Excess -2.4 mmol/L (-2.4-2.3); ABG HCO3 21.9 mmhg (22.0-26.0); ABG Oxygen Saturation 92 % (90-100); ABG PCO2 33.7 mmhg (35.0-45.0); ABG PH 7.43 mmol/L (7.35-7.45); ABG PO2 61.8 mmhg (80-100); ABG TCO2 22.9 mmhg (23-27)
[2021-05-11 10:20] LABS: Allen's Test ACCEPTABLE; Oxygen 1 %; Source Left Radial
--- NOTE | 2021-05-11 10:37 | PC.NURSE ---
spoke with guardianship who stated that it was okay to speak with patient granddaughter about status, but she could not give any consents for treatment or make decisions. also got the consent for pictures on the chart.
--- NOTE | 2021-05-11 14:44 | DIET.NUTRFU ---
Spoke to [facility] nurse today who is familiar with patient. She reported patient was on pureed, nectar thick but intake had declined over the past couple weeks. Unable to provide weights, patient had not been weighted recently. Patient needs total assistance with meals at [place]. Upon visit family was present but unable to provide any hx. Patient was too lethargic to answer any questions or to eat anything she was just holding food in her mouth. She has skin breakdown to her coccyx and increased nutritional needs. Ordered glucerna BID to help if consumed. Once more alert may benefit from speech eval for safe diet before discharge. At risk for malnutrition and weight loss secondary to poor intake. Will continue to work with provider and patient to meet needs.
--- NOTE | 2021-05-11 16:36 | HMH.PTWOUND ---
Rehab Inpt Wound Evaluation Rehab IP Wound Evaluation Start: 05/11/21 12:08 Freq: ONCE Status: Active Protocol: Document 05/11/21 16:31 GRISELDA (Rec: 05/11/21 16:36 GRISELDA [id number]) Rehab PT Wound Assessment Patient Status Premedicated Prior to Dressing Change No Subjective Subjective pt non-verbal, non-arousable Wound Sacrum Wound Type Pressure Ulcer Wound Staging Stage II Query Text:Stage I - Unbroken, red skin, no blanching. Stage II - Skin broken, superficial skin loss involving epidermis alone or also dermis. Partial loss of skin layers. Stage III - Pressure area involves epidermis, dermis and subcutaneous tissue, full thickness skin loss. Stage IV - Pressure area involves epidermis, subcutaneous tissue, bone and other supportive tissue. Full thickness skin loss with extensive destruction of underlying tissue and structures. Wound Length (cm) 1.5 Wound Width (cm) 1.5 Wound Bed Appearance Dusky Red,[place],Yellow Percentage Granulated (%) 50 Percentage of Slough (%) 50 Percentage of Eschar (Yellow) (%) 25 Wound Margins Description Indistinct Surrounding Tissue Appearance [place] Wound Drainage Description Serosanguineous Drainage Amount Scant Drainage Odor No Odor Dressing Status Changed,Soiled Wound Topical Solution/Irrigant Antibiotic Irrigant Primary Dressing Absorbant Pad Comment optifoam sacral pad Wound Debridement Amount of Tissue None Removed Dressing Change Patient Tolerance Tolerated Poorly Plan/Recommendation Comment Wound is clean stage II, no debridement necessary, pressure relieving by NSG Q2H will be most beneficial along with PRN dressing change by nsg. If wound changes or degenerates please contact WC team again Eval Complexity Eval Charge Codes 08793 - Moderate Complexity G-codes PT Current Status Other PT/OT Status PT Current Status Modifier CM-At least 80% but less than 100% impaired, limited or restricted PT Goal Status Other PT/OT Status PT Goal Status Modifer CM-At least 80% but less than 100% impaired, limited or restricted
[2021-05-12] VITALS (7 sets, daily range): BP systolic 131–163; BP diastolic 61–78; PULSE 94–105; RESP 16–25; TEMP 36.9–37.9; O2SAT 92–97; BMI 24.6
[2021-05-12 05:20] LABS: MANUAL DIFFERENTIAL MANUAL DIFFERENTIAL (MANUAL DIFF)
[2021-05-12 05:23] LABS: Basophils # 0.1 K/mm3 (0-0.2); Basophils % 0.5 % (0.1-2.0); Eosinophils # 0.1 K/mm3 (0.0-0.4); Eosinophils % 0.7 % (0.1-12.0); Hematocrit 27.3 % (37.0-47.0); Hemoglobin 8.6 g/dL (12.2-16.2); Lymphocytes % 6.7 % (10-50); Mean Corpuscular HGB Conc 31.6 g/dL (31.8-35.4); Mean Corpuscular Hemoglobin 28.3 pg (27.0-31.2); Mean Corpuscular Volume 89.6 fl (81-99); Mean Platelet Volume 8.3 fl (7.4-10.4); Monocytes # 0.5 K/mm3 (0.1-1.0); Monocytes % 3.7 % (1.7-9.3); Neutrophils # 12.6 K/mm3 (1.8-7.8); Neutrophils % 88.4 % (37.0-80.0); Platelet Count 351 K/mm3 (142-424); Red Blood Count 3.04 M/mm3 (4.20-5.40); Red Cell Distribution Width 15.8 % (11.5-17.5); White Blood Count 14.3 K/mm3 (4.8-10.8)
[2021-05-12 05:41] LABS: Anion Gap 11.8 mEq/L (5-15); Blood Urea Nitrogen 17 mg/dl (7-17); Calcium 8.7 mg/dl (8.4-10.2); Carbon Dioxide 24 mmol/L (22.0-30.0); Chloride 108 mmol/L (98-107); Creatinine Clearance Estimated 49 mL/min (50-200); Estimated Glomerular Filt Rate 97 ml/min (>60); GFR (African American) 118 ML/MIN (>60); Glucose 250 mg/dl (74-100); Potassium 4.8 mmoL/L (3.5-5.1); Sodium 139 mmol/L (136-145)
[2021-05-12 06:00] LABS: Lymphocytes % 5 % (10-50); Neutrophils % 95 % (42-76); Platelet Estimate Normal; RBC Morphology Normal; Total Cells Counted 100
--- NOTE | 2021-05-12 07:34 | PC.NURSE ---
LATE ENTRY: While feeding pt on 05/11/21-pt would pocket pureed food in mouth and would experience dysphagia even with honey thickened liquids. This RN placed pt to NPO status and ordered a bedside swallow eval on pt. Speech therapy was notified of evaluation and Tom Moscoso APRN made aware of this RN's concerns of dysphagia.
--- NOTE | 2021-05-12 08:23 | FL_ITS ---
FINAL REPORT CLINICAL HISTORY: fluoro time 3:05 FINDINGS: MODIFIED BARIUM SWALLOW History: Dysphagia FINDINGS: Fluoroscopy was provided for the speech pathologist to evaluate the swallowing mechanism. The patient was given several different consistencies of barium while the swallow was visualized fluoroscopically. The report of the speech pathologist should be consulted prior to making dietary decisions. FLUOROSCOPY TIME: 3 minutes IMPRESSION: Modified barium swallow under fluoroscopic guidance. Please see the report of the speech pathologist for Dietary recommendations. Reviewed, Interpreted and Dictated by Jw Bui MD Transcribed by BASILIO Eric Authenticated by Jw Bui MD on 05/13/2021 12:21:48 PM [facility]
--- NOTE | 2021-05-12 08:44 | HMH.SLDYSPHA ---
Speech & Language Evaluation Speech/Language Dysphagia Evaluation Start: 05/12/21 08:27 Freq: ONCE Status: Active Protocol: Document 05/12/21 08:27 RYAN (Rec: 05/12/21 08:44 RYAN [id number]) Dysphagia Assess/Goals/Plan Assessment Date of Evaluation: 05/12/21 Evaluation Type Initial Certification Assessment/Problems Dysphagia evaluation Does Patient Qualify for Service Yes Qualify/Failure Comment Ms. Lechuga displayed signs and symptoms of dysphagia and a modified is recommended at this time. Goals will be determined by modified with results. Recommendations PHYSICIAN CERTIFICATION: The specified therapy services are required, authorized, and reviewed every 30 days. Diet Recommendations NPO Crush Meds Crush all meds Plan Pt/Guardian verbally ack understanding Yes: Nurse and care management of dx/prognosis/goals notified G -code Required No Speech & Language HPI Language Primary Language [place] General Information General Current Food Consistancy Pureed,[place] Liquids Dentition Poor Dentition Oxygen Status Nasal Cannula Facial Symmetry Symmetrical Ability to Follow Directions Fair Communication Ability Severe Impairment Dysphagia:Food Presentation Evaluation Food Type Pureed,Liquid,Pudding [place] Consistency Liquid Response Coughing after swallow Honey Consistency Liquid Response Coughing after swallow Dysphagia Evaluation Summary Ms. Lechuga was given the following consistencies; nectar thick, honey thick, puree, and pudding. She attempted to cough when given nectar and honey. Modified is warrented to determine least restrictive diet and to rule out silent aspiration. Stroke Dysphagia Assessment PHYSICIAN CERTIFICATION: I certify the specified therapy services for Ankush Huntley are required, authorized, and reviewed every 30 days.
[2021-05-12 10:44] LABS: Vancomycin,Peak 18.2 ug/ml (11-39)
--- NOTE | 2021-05-12 10:57 | HMH.PHACONS ---
- Pharmacy Consult Date: 05/12/21 Time: 10:58 Referring provider: DR. HALL Reason for Consult:: VANCOMYCIN LEVELS AND DOSE CHANGE Allergies and ADEs:: Allergies Allergy/AdvReac Type Severity Reaction Status Date / Time No Known Allergies Allergy Verified 04/23/21 18:16 Home Medications:: Home Medications Medication Instructions Recorded Confirmed Type Acetaminophen 500 mg PO Q4HP PRN 03/28/21 05/10/21 History Aspirin [Aspirin 81mg chewable 81 mg PO DAILY 03/28/21 05/10/21 History tab] Buspirone HCl [Buspar 10mg 10 mg PO TID 03/28/21 05/10/21 History tablet] Duloxetine HCl 60 mg PO DAILY 03/28/21 05/10/21 History Furosemide [Furosemide 20mg Tab*] 20 mg PO DAILY 03/28/21 05/10/21 History Gabapentin [Gabapentin 100mg Cap] 100 mg PO DAILY 03/28/21 05/10/21 History Loperamide HCl [Loperamide] 2 mg PO QIDP PRN 03/28/21 05/10/21 History Losartan Potassium 25 mg PO DAILY 03/28/21 05/10/21 History Mag Hydrox/Aluminum Hyd/Simeth 30 ml PO Q6HP PRN 03/28/21 05/10/21 History [Vanessa-Lanta Liquid] Metformin HCl 500 mg PO BIDWMEAL 03/28/21 05/10/21 History Metoprolol Tartrate [Lopressor 12.5 mg PO BID 03/28/21 05/10/21 History 25mg tablet] Omeprazole [Omeprazole 20mg 20 mg PO DAILY 03/28/21 05/10/21 History Capsule] Sennosides [Senna] 8.6 mg PO BID 03/28/21 05/10/21 History Simethicone [Gas Relief] 80 - 160 mg PO QIDP PRN 03/28/21 05/10/21 History Gabapentin [Neurontin 300mg 300 mg PO HS 03/29/21 05/10/21 History capsule] Lactulose 30 ml PO DAILYP PRN 03/29/21 05/10/21 History Levocetirizine Dihydrochloride 2.5 mg PO DAILY 03/29/21 05/10/21 History Levothyroxine Sodium 50 mcg PO DAILYDM 03/29/21 05/10/21 History [Levothyroxine 50mcg (0.05mg) Tab] Linagliptin [Tradjenta 5mg tablet] 5 mg PO DAILYDM 03/29/21 05/10/21 History Multivitamin 1 tab PO DAILY 03/29/21 05/10/21 History Pravastatin Sodium [Pravachol 40mg 40 mg PO HS 03/29/21 05/10/21 History Tablet] Insulin Glargine,Hum.rec.anlog 16 units SQ HS 04/26/21 05/10/21 History [Lantus Solostar 100 Units/mL 3mL flexpen] hydrocodone 5 mg-acetaminophen 325 1 tab PO BID #60 tab 04/27/21 05/10/21 Rx mg tablet LORazepam [Ativan 1mg tablet] 1 mg PO TID 05/10/21 05/10/21 History hydrOXYzine pamoate [Vistaril 25mg 25 mg PO TIDP PRN 05/10/21 05/10/21 History capsule] risperiDONE [Risperidone] 1 mg PO HS 05/10/21 05/10/21 History Height: 1.63 m Weight: 65.408 kg Laboratory Results:: Laboratory Results - last 24 hr 05/12/21 05:14: WBC 14.3 H, RBC 3.04 L, Hgb 8.6 L, Hct 27.3 L, MCV 89.6, MCH 28.3, MCHC 31.6 L, RDW 15.8, Plt Count 351, MPV 8.3, Neut % (Auto) 88.4 H, Lymph % (Auto) 6.7 L, [place] % (Auto) 3.7, Eos % (Auto) 0.7, Baso % (Auto) 0.5, Neut # (Auto) 12.6 H, Lymph # (Auto) 1.0, [place] # (Auto) 0.5, Eos # (Auto) 0.1, Baso # (Auto) 0.1, Total Counted 100, Neutrophils % (Manual) 95 H, Lymphocytes % (Manual) 5 L, Platelet Estimate Normal, RBC Morphology Normal 05/12/21 05:14: Sodium 139, Potassium 4.8, Chloride 108 H, Carbon Dioxide 24, Anion Gap 11.8, BUN 17, Creatinine 0.60, Estimated Creat Clear 49, Estimated GFR 97, Est GFR ( Amer) 118 D, Glucose 250 H, Calcium 8.7 05/12/21 05:14: Vancomycin Trough 6.0 05/12/21 09:28: Vancomycin Peak 18.2 Medical History: Reports:: Anxiety, Cardiomyopathy, Coronary Artery Disease, Dementia, Diabetes Mellitus Type 2, Gastroesophageal Reflux Disease(GERD), Hyperlipidemia, Hypertension, Renal Insufficiency, Urinary Tract Infection Denies:: Cancer, Diabetes Mellitus Type 1, Internal Pacemaker, MRSA Assessment and Plan (1) Altered mental status Status: Acute Qualifiers: Altered mental status type: delirium Qualified Code(s): R41.0 - Disorientation, unspecified Category: Medical Code(s): R41.82 - Altered mental status, unspecified (2) SIRS (systemic inflammatory response syndrome) Status: Acute Category: Medical Code(s): R65.10 - Systemic inflammatory response sy
[2021-05-12 11:39] LABS: POC Glucose,Bedside 306 (70-110)
--- NOTE | 2021-05-12 14:23 | HMH.ACPN2 ---
Internal Medicine - PN: Subj *Date: 05/12/21 *Time: 09:23 Interval history: 75-year-old female patient sitting up in bed alert, she does not communicate verbally nor answer questions. Currently urine and blood cultures x2 no growth at 48 hours Exam Vital signs and Labs for Last 24 Hours: Temp Pulse Resp BP Pulse Ox 98.4 F 105 H 20 163/73 H 97 05/12/21 11:28 05/12/21 11:28 05/12/21 11:28 05/12/21 11:05/12/21 11:28 Laboratory Results - last 24 hr 05/12/21 05:14: WBC 14.3 H, RBC 3.04 L, Hgb 8.6 L, Hct 27.3 L, MCV 89.6, MCH 28.3, MCHC 31.6 L, RDW 15.8, Plt Count 351, MPV 8.3, Neut % (Auto) 88.4 H, Lymph % (Auto) 6.7 L, [place] % (Auto) 3.7, Eos % (Auto) 0.7, Baso % (Auto) 0.5, Neut # (Auto) 12.6 H, Lymph # (Auto) 1.0, [place] # (Auto) 0.5, Eos # (Auto) 0.1, Baso # (Auto) 0.1, Total Counted 100, Neutrophils % (Manual) 95 H, Lymphocytes % (Manual) 5 L, Platelet Estimate Normal, RBC Morphology Normal 05/12/21 05:14: Sodium 139, Potassium 4.8, Chloride 108 H, Carbon Dioxide 24, Anion Gap 11.8, BUN 17, Creatinine 0.60, Estimated Creat Clear 49, Estimated GFR 97, Est GFR ( Amer) 118 D, Glucose 250 H, Calcium 8.7 05/12/21 05:14: Vancomycin Trough 6.0 05/12/21 09:28: Vancomycin Peak 18.2 05/12/21 11:18: POC Glucose 306 H* I & O for Last 24 hours: Intake & Output 05/09/21 05/10/21 05/11/21 05/12/21 23:59 23:59 23:59 23:59 Intake Total 720 / 720 0 / 0 Output Total 250 / 250 625 / 625 300 / 300 Balance 470 / 470 -625 / -625 -300 / -300 Weight 138 lb 6 oz 138 lb 5.794 oz 144 lb 3.2 oz Microbiology Reports for the Last 24 Hours: Microbiology 05/10/21 05:30 Blood Blood Culture - Preliminary NO GROWTH AFTER 48 HOURS 05/10/21 05:30 Blood Blood Culture - Preliminary NO GROWTH AFTER 48 HOURS 05/10/21 03:53 Urine,Catheterized Urine Culture - Final NO GROWTH AFTER 48 HOURS - Constitutional no acute distress, chronically ill appearing - *Routine HEENT Exam Head: Present: normocephalic Eye: Present: EOMI ENT: Present: mucous membranes moist - *Routine Neck Exam Present: trachea midline. Absent: tracheal deviation - *Routine Respiratory Exam Present: rhonchi. Absent: accessory muscle use - *Routine Cardiovascular Exam Present: RRR - *Routine Abdominal Exam Present: soft, normoactive bowel sounds. Absent: tenderness - *Routine Extremities Exam Present: pulses intact. Absent: cyanosis, clubbing - *Routine Skin Exam Present: dry, wounds. Absent: cyanosis Comments: 812 coccyx - *Routine Neurological Exam Present: alert, altered mental status - Routine Psychiatric Exam Present: unable to assess Assessment and Plan (1) Altered mental status Status: Acute Qualifiers: Altered mental status type: delirium Qualified Code(s): R41.0 - Disorientation, unspecified Category: Medical Code(s): R41.82 - Altered mental status, unspecified (2) SIRS (systemic inflammatory response syndrome) Status: Acute Category: Medical Code(s): R65.10 - Systemic inflammatory response syndrome (SIRS) of non-infectious origin without acute organ dysfunction (3) Renal insufficiency Status: Chronic Category: Medical Code(s): N28.9 - Disorder of kidney and ureter, unspecified (4) Diabetes mellitus Status: Chronic Qualifiers: Diabetes mellitus type: type 2 Diabetes mellitus shelter insulin use: unspecified long distance billing operator insulin use status Diabetes mellitus complication status: with other specified complication Qualified Code(s): E11.69 - Type 2 diabetes mellitus with other specified complication Category: Medical Code(s): E11.9 - Type 2 diabetes mellitus without complications (5) Hypothyroidism (acquired) Status: Chronic Category: Medical Code(s): E03.9 - Hypothyroidism, unspecified (6) Decubitus ulcer of coccygeal region, stage 1 Status: Acute Category: Med
--- NOTE | 2021-05-12 15:21 | HMH.SLMBS2 ---
Speech & Language Evaluation Speech/Language Mod Barium Swallow Start: 05/12/21 08:23 Freq: ONCE Status: Complete Protocol: Document 05/12/21 15:02 RYAN (Rec: 05/12/21 15:21 RYAN [id number]) General Information General Current Food Consistancy NPO Dentition Edentulous Oxygen Status Nasal Cannula Facial Symmetry Symmetrical Ability to Follow Directions Fair Communication Ability Severe Impairment MBS Recommendations Diet Dietary Recommendations NPO Referrals/Other Recommended Referrals Alternate Feeding Method Mod Barium Swallow Impressions Summary and Impressions Oral Phase Impression Severe Impairment Oral Phase Summary Ms. Lechuga was given the following consistencies; nectar via open cup and straw, honey via open cup, puree, and pudding. Pharyngeal Phase Impression Severe Impairment Pharyngeal Phase Summary She displayed deep penetration to the cords when given nectar thick and honey thick liquids. Ms. Lechuga's swallow reflex is impaired and she is at risk for aspiration. At this time, it is recommended that Ms. Lechuga be referred for a PEG tube for all nutrition due to increased risk for aspiration. Speech/Language MBS Assessment/Goals/Plan Assessment Date of Evaluation: 05/12/21 Evaluation Type Initial Certification Assessment/Problems Dysphagia Does Patient Qualify for Service No Qualify/Failure Comment Ms. Lechuga is unable to follow simple directions. Recommendations PHYSICIAN CERTIFICATION: The specified therapy services are required, authorized, and reviewed every 30 days. Diet Recommendations NPO Plan Pt/Guardian verbally ack understanding Yes: Nurse notified of dx/prognosis/goals G -code Required No Mod Barium Swallow Setup Exam Setup Radiologist Shahbaz Collazo Level of Consciousness Awake Mod Barium Swallow-Lat View Textures Lateral View Food Presentation [place] Liquid via Cup,[place] Liquid via Straw,Honey Liquid via Cup,Pureed Food- Thick Comment Ms. Lechuga was given the following consistencies; nectar via open cup and straw, honey via open cup, puree,
--- NOTE | 2021-05-12 15:34 | DIET.NUTRFU ---
Reviewed barium swallow test completed today by SEWING ROOM SUPERVISOR. She aspirated on multiple trials of nectar and honey thick liquids. It is unsafe to continue on oral diet and is recommended PEG placement to safely meet nutritional needs. Will consult provider to discuss wishes with family. To continue aggressive measures or comfort measures. Currently she lives at [place], with other comorbidities may need to consider quality of life.
[2021-05-12 16:24] LABS: POC Glucose,Bedside 109 (70-110)
[2021-05-12 16:24] LABS: POC Glucose,Bedside 233 (70-110)
[2021-05-12 16:24] LABS: POC Glucose,Bedside 255 (70-110)
[2021-05-12 16:24] LABS: POC Glucose,Bedside 180 (70-110)
--- NOTE | 2021-05-12 18:41 | PC.NURSE ---
Pt has yelled out and grunted very loudly for the majority of this shift. When pt was asked if she was hurting, pt would state no . Pt has remained NPO per speech therapy recommendations. Pt has been a q2h turn. Qiu cath draining cloudy, dark yellow urine. No other acute changes or complaints, will continue to monitor.
[2021-05-12 19:04] LABS: POC Glucose,Bedside 219 (70-110)
[2021-05-12 21:05] LABS: POC Glucose,Bedside 212 (70-110)
[2021-05-13] VITALS (16 sets, daily range): BP systolic 110–171; BP diastolic 56–87; PULSE 51–97; RESP 14–20; TEMP 36.2–38; O2SAT 91–100; BMI 24.7
--- NOTE | 2021-05-13 05:37 | PC.NURSE ---
Beginning of shift pt remained to yell and grunt very loudly. Pt did however get some rest t/o the night. Pt denies pain when asked. Qiu draining dark yellow urine at bedside. Pt remains NPO. Pt remains on 1L NC with O2 sats >90%.
[2021-05-13 06:39] LABS: POC Glucose,Bedside 219 (70-110)
[2021-05-13 06:45] LABS: MANUAL DIFFERENTIAL MANUAL DIFFERENTIAL (MANUAL DIFF)
[2021-05-13 06:48] LABS: Basophils # 0.1 K/mm3 (0-0.2); Basophils % 0.9 % (0.1-2.0); Eosinophils # 0.1 K/mm3 (0.0-0.4); Eosinophils % 1.1 % (0.1-12.0); Hemoglobin 8.1 g/dL (12.2-16.2); Lymphocytes # 1.1 K/mm3 (0.7-4.5); Lymphocytes % 11.7 % (10-50); Mean Corpuscular HGB Conc 31.2 g/dL (31.8-35.4); Mean Corpuscular Hemoglobin 27.8 pg (27.0-31.2); Mean Platelet Volume 8.4 fl (7.4-10.4); Monocytes # 0.4 K/mm3 (0.1-1.0); Monocytes % 4.7 % (1.7-9.3); Neutrophils # 7.7 K/mm3 (1.8-7.8); Neutrophils % 81.5 % (37.0-80.0); Platelet Count 338 K/mm3 (142-424); Red Blood Count 2.92 M/mm3 (4.20-5.40); Red Cell Distribution Width 16.1 % (11.5-17.5); White Blood Count 9.5 K/mm3 (4.8-10.8)
[2021-05-13 06:54] LABS: Chloride 110 mmol/L (98-107); Potassium 4.2 mmoL/L (3.5-5.1); Sodium 140 mmol/L (136-145)
[2021-05-13 06:57] LABS: Anion Gap 12.2 mEq/L (5-15); Blood Urea Nitrogen 19 mg/dl (7-17); Carbon Dioxide 22 mmol/L (22.0-30.0); Creatinine Clearance Estimated 50 mL/min (50-200); Estimated Glomerular Filt Rate 81 ml/min (>60); GFR (African American) 98 ML/MIN (>60)
[2021-05-13 06:58] LABS: Calcium 8.6 mg/dl (8.4-10.2); Glucose 215 mg/dl (74-100)
--- NOTE | 2021-05-13 08:42 | HMH.GSCON ---
*Admission Date: 05/10/21 *Reason for consult:: PEG tube *History of present illness: Patient is a 75-year-old female from extended care facility with history of Anxiety, Cardiomyopathy, Coronary Artery Disease, Dementia, Diabetes Mellitus Type 2, Gastroesophageal Reflux Disease(GERD), Hyperlipidemia, Hypertension, Renal Insufficiency, Urinary Tract Infection admitted a few days ago with mental status changes. She had presented to the emergency department with said mental status changes per report from the [facility], facial and upper extremity edema, hypoglycemia, diminished oxygen saturation. She was found to have elevated white blood cell count and inflammatory markers. She underwent modified barium swallow and speech pathology evaluation which reveals the penetration to the cords with impaired swallowing reflex. It is recommended that she be referred for PEG tube for nutrition due to the risk for aspiration. Surgical consultation was ordered today. Review of Systems - Review of Systems Review of systems:: unable to obtain [facility] History I have reviewed the patient's past medical history: Yes Medical History: Reports:: Anxiety, Cardiomyopathy, Coronary Artery Disease, Dementia, Diabetes Mellitus Type 2, Gastroesophageal Reflux Disease(GERD), Hyperlipidemia, Hypertension, Renal Insufficiency, Urinary Tract Infection Denies:: Cancer, Diabetes Mellitus Type 1, Internal Pacemaker, MRSA *Have you ever received a pneumonia vaccine?: Yes *Have you received a flu vaccine this season?: Yes Other Medical History: Reports: Anemia, Hypothyroidism Other Surgeries: Yes: No Previous Surgery. No: Pacemaker Amputation: No Fractures: Yes - *Social History Smoking Status: Never smoker Alcohol Intake: never Substance Use Type: denies use *Occupational Status:: disabled Housing: [facility] *Travel in the last 8 weeks: None - Psychiatric History Pschychiatric History:: Reports:: Anxiety Family Hx:: Unable to obtain [facility] Medications Medication Instructions Recorded Confirmed Type Acetaminophen 500 mg PO Q4HP PRN 03/28/21 05/10/21 History Aspirin [Aspirin 81mg chewable 81 mg PO DAILY 03/28/21 05/10/21 History tab] Buspirone HCl [Buspar 10mg 10 mg PO TID 03/28/21 05/10/21 History tablet] Duloxetine HCl 60 mg PO DAILY 03/28/21 05/10/21 History Furosemide [Furosemide 20mg Tab*] 20 mg PO DAILY 03/28/21 05/10/21 History Gabapentin [Gabapentin 100mg Cap] 100 mg PO DAILY 03/28/21 05/10/21 History Loperamide HCl [Loperamide] 2 mg PO QIDP PRN 03/28/21 05/10/21 History Losartan Potassium 25 mg PO DAILY 03/28/21 05/10/21 History Mag Hydrox/Aluminum Hyd/Simeth 30 ml PO Q6HP PRN 03/28/21 05/10/21 History [Vanessa-Lanta Liquid] Metformin HCl 500 mg PO BIDWMEAL 03/28/21 05/10/21 History Metoprolol Tartrate [Lopressor 12.5 mg PO BID 03/28/21 05/10/21 History 25mg tablet] Omeprazole [Omeprazole 20mg 20 mg PO DAILY 03/28/21 05/10/21 History Capsule] Sennosides [Senna] 8.6 mg PO BID 03/28/21 05/10/21 History Simethicone [Gas Relief] 80 - 160 mg PO QIDP PRN 03/28/21 05/10/21 History Gabapentin [Neurontin 300mg 300 mg PO HS 03/29/21 05/10/21 History capsule] Lactulose 30 ml PO DAILYP PRN 03/29/21 05/10/21 History Levocetirizine Dihydrochloride 2.5 mg PO DAILY 03/29/21 05/10/21 History Levothyroxine Sodium 50 mcg PO DAILYDM 03/29/21 05/10/21 History [Levothyroxine 50mcg (0.05mg) Tab] Linagliptin [Tradjenta 5mg tablet] 5 mg PO DAILYDM 03/29/21 05/10/21 History Multivitamin 1 tab PO DAILY 03/29/21 05/10/21 History Pravastatin Sodium [Pravachol 40mg 40 mg PO HS 03/29/21 05/10/21 History Tablet] Insulin Glargine,Hum.rec.anlog 16 units SQ HS 04/26/21 05/10/21 History [Lantus Solostar 100 Units/mL 3mL flexpen] hydrocodone 5 mg-acetaminophen 325 1 tab PO BID #60 tab 04/27/21 05/10/21 Rx mg tablet LORazepam [Ativan 1mg tablet] 1 mg PO TID 05/10/21 05/10/21 History hydrOXYzine pamoate [Vistaril 25mg
[2021-05-13 09:06] LABS: Eosinophils % 1 % (0-3); Lymphocytes % 16 % (10-50); Monocytes % 3 % (2-9); Neutrophils % 80 % (42-76); Total Cells Counted 100
[2021-05-13 09:07] LABS: Platelet Estimate Normal
--- NOTE | 2021-05-13 09:21 | HMH.ACPN2 ---
Internal Medicine - PN: Subj *Date: 05/13/21 *Time: 08:15 Interval history: pt moaning this am and alert Exam Vital signs and Labs for Last 24 Hours: Temp Pulse Resp BP Pulse Ox 98.2 F 94 H 18 171/87 H 91 L 05/13/21 08:00 05/13/21 08:00 05/13/21 08:00 05/13/21 08:00 05/13/21 08:00 Laboratory Results - last 24 hr 05/10/21 11:12: POC Glucose 109 05/10/21 16:02: POC Glucose 180 H 05/11/21 11:17: POC Glucose 233 H 05/11/21 16:54: POC Glucose 255 H 05/12/21 09:28: Vancomycin Peak 18.2 05/12/21 11:18: POC Glucose 306 H* 05/12/21 17:05: POC Glucose 219 H 05/12/21 20:16: POC Glucose 212 H 05/13/21 05:25: POC Glucose 219 H 05/13/21 06:00: WBC 9.5 D, RBC 2.92 L, Hgb 8.1 L, Hct 26.0 L, MCV 89.0, MCH 27.8, MCHC 31.2 L, RDW 16.1, Plt Count 338, MPV 8.4, Neut % (Auto) 81.5 H, Lymph % (Auto) 11.7, [place] % (Auto) 4.7, Eos % (Auto) 1.1, Baso % (Auto) 0.9, Neut # (Auto) 7.7, Lymph # (Auto) 1.1, [place] # (Auto) 0.4, Eos # (Auto) 0.1, Baso # (Auto) 0.1, Total Counted 100, Neutrophils % (Manual) 80 H, Lymphocytes % (Manual) 16, Monocytes % (Manual) 3, Eosinophils % (Manual) 1, Platelet Estimate Normal 05/13/21 06:00: Sodium 140, Potassium 4.2, Chloride 110 H, Carbon Dioxide 22, Anion Gap 12.2, BUN 19 H, Creatinine 0.70, Estimated Creat Clear 50, Estimated GFR 81, Est GFR ( Amer) 98, Glucose 215 H, Calcium 8.6 I & O for Last 24 hours: Intake & Output 0205/11/21 05/12/21 05/13/21 11:59 11:59 11:59 11:59 Intake Total 720 / 720 0 / 0 400 / 400 Output Total 100 / 100 450 / 450 625 / 625 550 / 550 Balance -100 / -100 270 / 270 -625 / -625 -150 / -150 Weight 138 lb 6 oz 138 lb 5.794 oz 144 lb 3.2 oz 145 lb 2.473 oz Microbiology Reports for the Last 24 Hours: Microbiology 05/10/21 05:30 Blood Blood Culture - Preliminary NO GROWTH AFTER 48 HOURS 05/10/21 05:30 Blood Blood Culture - Preliminary NO GROWTH AFTER 48 HOURS 05/10/21 03:53 Urine,Catheterized Urine Culture - Final NO GROWTH AFTER 48 HOURS - Constitutional no acute distress - *Routine HEENT Exam Head: Present: normocephalic Eye: Present: PERRL ENT: Present: mucous membranes moist - *Routine Neck Exam Present: supple. Absent: lymphadenopathy - *Routine Respiratory Exam Present: CTA bilaterally - *Routine Cardiovascular Exam Present: RRR - *Routine Abdominal Exam Present: soft, normoactive bowel sounds. Absent: tenderness - *Routine Extremities Exam Absent: cyanosis, clubbing, edema - *Routine Skin Exam Present: wounds Comments: stage 2 to coccyx - *Routine Neurological Exam Present: alert, altered mental status Assessment and Plan (1) Altered mental status Status: Acute Qualifiers: Altered mental status type: delirium Qualified Code(s): R41.0 - Disorientation, unspecified Category: Medical Code(s): R41.82 - Altered mental status, unspecified (2) SIRS (systemic inflammatory response syndrome) Status: Acute Category: Medical Code(s): R65.10 - Systemic inflammatory response syndrome (SIRS) of non-infectious origin without acute organ dysfunction (3) Renal insufficiency Status: Chronic Category: Medical Code(s): N28.9 - Disorder of kidney and ureter, unspecified (4) Diabetes mellitus Status: Chronic Qualifiers: Diabetes mellitus type: type 2 Diabetes mellitus intermodal truck driver insulin use: unspecified intermodal truck driver insulin use status Diabetes mellitus complication status: with other specified complication Qualified Code(s): E11.69 - Type 2 diabetes mellitus with other specified complication Category: Medical Code(s): E11.9 - Type 2 diabetes mellitus without complications (5) Hypothyroidism (acquired) Status: Chronic Category: Medical Code(s): E03.9 - Hypothyroidism, unspecified (6) Decubitus ulcer of coccyx, stage 2 Status: Acute Category: Medical Code(s): L89.152 - Pressure
--- NOTE | 2021-05-13 10:02 | DIET.NUTRFU ---
Rounded with Dr. Gabriel this AM, patient is under state care and will have PEG placed probably tomorrow. CBW is stable at 65kg. Once TF is appropriate to start 20ml/hr of Jevity 1.2 with goal rate of 60ml/hr providing 1380ml/1656kcal and 77gm protein with 1113ml free water. Start with minimal flushes around medications. Once IVF is discontinued flush with 140ml [id number] with total fluid of 1953ml/day meeting 100% of needs.
--- NOTE | 2021-05-13 10:13 | PC.NURSE ---
Have called and received consent for blood tx with declan Montano. Have also spoke with nurse process consultant Irina Mcdermott and she stated she would have Dusty to call back with consent. Spoke with Irina @ [phone].
--- NOTE | 2021-05-13 11:17 | HMH.ANESCL ---
[facility] Anesthesia Checklist - Patient Identification Patient Identification: Arm Band - Structural Data Admitted From: Inpatient Planned Operative Procedure/s: PEG placement Consent for Planned Operative Procedure(s) Verified: Yes - Airway Assessment C-Spine Mobility Assessed: No TMJ Mobility Assessed: No Dentition: Edentulous - Neurological Assessment Level of Consciousness: Awake, Disoriented, Restless Hx Seizures: No Numbness or tingling in extremities: No - Anesthesia Plan Anesthesia Risk discussed: Yes Anesthesia Plan: Verified ASA Class: III Anesthesia Type: MAC [facility] History I have reviewed the patient's past medical history: Yes Medical History: Reports:: Anxiety, Cardiomyopathy, Coronary Artery Disease, Dementia, Diabetes Mellitus Type 2, Gastroesophageal Reflux Disease(GERD), Hyperlipidemia, Hypertension, Renal Insufficiency, Urinary Tract Infection Denies:: Cancer, Diabetes Mellitus Type 1, Internal Pacemaker, MRSA *Have you ever received a pneumonia vaccine?: Yes *Have you received a flu vaccine this season?: Yes Other Medical History: Reports: Anemia, Hypothyroidism Anesthesia experience/problems:: None Other Surgeries: Yes: No Previous Surgery. No: Pacemaker Amputation: No Fractures: Yes - *Social History Smoking Status: Never smoker Alcohol Intake: never Substance Use Type: denies use *Occupational Status:: disabled Housing: skilled nursing *Travel in the last 8 weeks: None - Psychiatric History Pschychiatric History:: Reports:: Anxiety Family Hx:: Unable to obtain
--- NOTE | 2021-05-13 11:23 | PC.NURSE ---
Addendum entered by Dwayne Simon RN 05/13/21 11:25: consent for PEG tube placement on phone verbally with guardian, Dusty. Original Note: Adolph Desai RN, Nurse Industry Consultant x 1 unit of blood is not to be given at this time r/t to stable hgb. Did receive consenrt t
--- NOTE | 2021-05-13 11:28 | PC.NURSE ---
Pt down for peg at this time.
--- NOTE | 2021-05-13 11:40 | PC.NURSE ---
Addendum entered by Dwayne Simon RN 05/13/21 11:41: @ 1138 Original Note: Called and spoke with Earline in preop to make her aware, lab called with positive CRE screen. Also called Dr. Gabriel's office and JADE on Emily's to call this RN. Will attempt to call again.
--- NOTE | 2021-05-13 12:09 | P.PCN_ITS ---
- Procedure: Date: 05/13/21 Patient Date of :: 1945 Procedure Performed:: Placement of 20 Slovenian pull-type PEG tube Indications:: Patient is a 75-year-old female with significant dementia from extended care facility with history of Anxiety, Cardiomyopathy, Coronary Artery Disease, Dementia, Diabetes Mellitus Type 2, Gastroesophageal Reflux Disease(GERD), Hyperlipidemia, Hypertension, Renal Insufficiency, Urinary Tract Infection admitted a few days ago with mental status changes. She had presented to the emergency department with said mental status changes per report from the senior living, facial and upper extremity edema, hypoglycemia, diminished oxygen saturation. She was found to have elevated white blood cell count and inflammatory markers. She underwent modified barium swallow and speech pathology evaluation which reveals the penetration to the cords with impaired swallowing reflex. It is recommended that she be referred for PEG tube for nutrition due to the risk for aspiration. Surgical consultation was ordered today. Performing Provider:: Shahbaz Wei MD Referring Provider:: Bruno Gabriel MD Sedation:: Propofol Procedure:: Patient was taken to endoscopy procedure room. She is maintained on the hospital bed in a supine position. Adequate intravenous sedation was achieved with anesthesia titration of propofol. Olympus endoscope was inserted via the oropharynx. Esophagus was cannulated. Endoscope was advanced to the stomach. Gastroesophageal junction was encountered at approximately 40 cm from the incisors. Stomach was cannulated and insufflated. Overall gastric lumen appeared unremarkable. Endoscope was advanced through the pylorus and limited endoscopic evaluation of the duodenal bulb and sweep appeared unremarkable. Endoscope was withdrawn into the gastric lumen. There was good light reflex. Abdomen was prepped and draped. Local anesthetic was infiltrated at the site of the light reflex. Small incision was made. Needle catheter was inserted through the incision into the gastric lumen. Catheter was grasped with the loop snare. Loop guidewire was inserted through the catheter. Endoscope with snare and loop guidewire were then withdrawn. 20 Slovenian pull-type PEG tube was secured to the loop guidewire. Traction was then placed on the loop guidewire pulling the PEG tube via the oropharynx to exit the abdomen at the catheter insertion site. Bumper was placed on the PEG tube after antibiotic ointment was placed at the incision site. Completion endoscopy was performed which revealed PEG tube to be in a good position in the distal body of the stomach without evidence of bleeding. PEG tube catheter was then cut to the appropriate length. Clamp and feeding infusion apparatus were attached. It was at approximately 3 cm at the level of the skin. Findings:: Unremarkable limited upper endoscopy Recommendations:: Recommend withholding using tube feeds for approximately 24 hours. Complications:: None immediately apparent Estimated blood obtained (mL): 3
--- NOTE | 2021-05-13 12:49 | PC.NURSE ---
Spoke with Se from Dr. Gabriel's office she stated that she got message about positive CRE. Stated that she placed message on his desk as he was not present.
[2021-05-13 16:53] LABS: POC Glucose,Bedside 256 (70-110)
--- NOTE | 2021-05-13 19:19 | PC.NURSE ---
changed dsg to buttocks this shift.
[2021-05-14] VITALS: BP 146/69; PULSE 87; RESP 18; TEMP 37.3; O2SAT 97
[2021-05-14 01:25] LABS: POC Glucose,Bedside 205 (70-110)
[2021-05-14 04:00] VITALS: BP 152/92; PULSE 92; RESP 20; TEMP 37.2; O2SAT 93
[2021-05-14 06:18] LABS: POC Glucose,Bedside 217 (70-110)
[2021-05-14 06:18] LABS: MANUAL DIFFERENTIAL MANUAL DIFFERENTIAL (MANUAL DIFF)
[2021-05-14 06:24] LABS: Basophils # 0.1 K/mm3 (0-0.2); Basophils % 0.6 % (0.1-2.0); Eosinophils # 0.3 K/mm3 (0.0-0.4); Hemoglobin 7.9 g/dL (12.2-16.2); Mean Corpuscular HGB Conc 31.6 g/dL (31.8-35.4); Mean Corpuscular Hemoglobin 28.3 pg (27.0-31.2); Mean Corpuscular Volume 89.5 fl (81-99); Mean Platelet Volume 8.1 fl (7.4-10.4); Monocytes # 0.4 K/mm3 (0.1-1.0); Monocytes % 5.1 % (1.7-9.3); Neutrophils # 6.7 K/mm3 (1.8-7.8); Neutrophils % 78.2 % (37.0-80.0); Platelet Count 315 K/mm3 (142-424); Red Blood Count 2.79 M/mm3 (4.20-5.40); Red Cell Distribution Width 15.7 % (11.5-17.5); White Blood Count 8.5 K/mm3 (4.8-10.8)
[2021-05-14 06:27] LABS: Chloride 114 mmol/L (98-107); Potassium 4.1 mmoL/L (3.5-5.1); Sodium 143 mmol/L (136-145)
[2021-05-14 06:30] LABS: Anion Gap 12.1 mEq/L (5-15); Blood Urea Nitrogen 19 mg/dl (7-17); Carbon Dioxide 21 mmol/L (22.0-30.0); Creatinine Clearance Estimated 50 mL/min (50-200); Estimated Glomerular Filt Rate 81 ml/min (>60); GFR (African American) 98 ML/MIN (>60)
[2021-05-14 06:31] LABS: Calcium 8.4 mg/dl (8.4-10.2); Glucose 193 mg/dl (74-100)
--- NOTE | 2021-05-14 06:56 | P.PN_ITS ---
Subjective Narrative: No issues with regard to PEG per nursing staff. Progress Note: A&P (1) Altered mental status Status: Acute (2) SIRS (systemic inflammatory response syndrome) Status: Acute (3) Renal insufficiency Status: Chronic (4) Diabetes mellitus Status: Chronic (5) Hypothyroidism (acquired) Status: Chronic (6) Decubitus ulcer of coccygeal region, stage 1 Status: Acute (7) Feeding difficulty in adult Status: Acute Assessment and plan: Overall, stable status post percutaneous endoscopic gastrostomy tube placement yesterday. May begin using PEG for tube feeds Exam Vital signs and Labs for Last 24 Hours: Temp Pulse Resp BP Pulse Ox 98.9 F 92 H 20 152/92 H 93 L 05/14/21 04:00 05/14/21 04:00 05/14/21 04:00 05/14/21 04:00 05/14/21 04:00 Laboratory Results - last 24 hr 05/13/21 06:00: WBC 9.5 D, RBC 2.92 L, Hgb 8.1 L, Hct 26.0 L, MCV 89.0, MCH 27.8, MCHC 31.2 L, RDW 16.1, Plt Count 338, MPV 8.4, Neut % (Auto) 81.5 H, Lymph % (Auto) 11.7, [place] % (Auto) 4.7, Eos % (Auto) 1.1, Baso % (Auto) 0.9, Neut # (Auto) 7.7, Lymph # (Auto) 1.1, [place] # (Auto) 0.4, Eos # (Auto) 0.1, Baso # (Auto) 0.1, Total Counted 100, Neutrophils % (Manual) 80 H, Lymphocytes % (Manual) 16, Monocytes % (Manual) 3, Eosinophils % (Manual) 1, Platelet Estimate Normal 05/13/21 06:00: Sodium 140, Potassium 4.2, Chloride 110 H, Carbon Dioxide 22, Anion Gap 12.2, BUN 19 H, Creatinine 0.70, Estimated Creat Clear 50, Estimated GFR 81, Est GFR ( Amer) 98, Glucose 215 H, Calcium 8.6 05/13/21 08:42: Blood Type O Negative, Antibody Screen Positive 05/13/21 08:42: Antibody Identification Anti-D 05/13/21 16:14: POC Glucose 256 H 05/13/21 20:06: POC Glucose 205 H 05/14/21 05:57: POC Glucose 217 H 05/14/21 06:04: WBC 8.5, RBC 2.79 L, Hgb 7.9 L, Hct 25.0 L, MCV 89.5, MCH 28.3, MCHC 31.6 L, RDW 15.7, Plt Count 315, MPV 8.1, Neut % (Auto) 78.2, Lymph % (Auto) 12.0, [place] % (Auto) 5.1, Eos % (Auto) 4.0, Baso % (Auto) 0.6, Neut # (Auto) 6.7, Lymph # (Auto) 1.0, [place] # (Auto) 0.4, Eos # (Auto) 0.3, Baso # (Auto) 0.1 05/14/21 06:04: Sodium 143, Potassium 4.1, Chloride 114 H, Carbon Dioxide 21 L, Anion Gap 12.1, BUN 19 H, Creatinine 0.70, Estimated Creat Clear 50, Estimated GFR 81, Est GFR ( Amer) 98, Glucose 193 H, Calcium 8.4 I & O for Last 24 hours: Intake & Output 05/11/21 05/12/21 05/13/21 05/14/21 11:59 11:59 11:59 11:59 Intake Total 720 / 720 0 / 0 400 / 400 2653 / 2653 Output Total 450 / 450 625 / 625 750 / 750 650 / 650 Balance 270 / 270 -625 / -625 -350 / -350 2002 Weight 138 lb 5.794 oz 144 lb 3.2 oz 145 lb 2.473 oz Microbiology Reports for the Last 24 Hours: Microbiology 05/10/21 20:25 Rectum CRE Surveillance Culture - Final - Constitutional no acute distress - *Routine Respiratory Exam Absent: respiratory distress - *Routine Cardiovascular Exam Absent: tachycardia
[2021-05-14 07:28] LABS: Anisocytosis 1+; Eosinophils % 3 % (0-3); Hypochromasia 1+; Lymphocytes % 18 % (10-50); Monocytes % 4 % (2-9); Neutrophils % 75 % (42-76); Platelet Estimate Normal; Total Cells Counted 100
[2021-05-14 08:00] VITALS: BP 169/73; PULSE 87; RESP 26; TEMP 36.9; O2SAT 96
--- NOTE | 2021-05-14 09:03 | HMH.ACPN2 ---
Internal Medicine - PN: Subj *Date: 05/14/21 *Time: 17:22 Interval history: 75-year-old female patient sitting up in bed resting quietly with eyes closed, does open eyes with verbal stimuli. G-tube in place with dressing and abdominal binder. General surgery has seen today and we will start tube feeds and begin planning for discharge Exam Vital signs and Labs for Last 24 Hours: Temp Pulse Resp BP Pulse Ox 98.9 F 92 H 20 152/92 H 93 L 05/14/21 04:00 05/14/21 04:00 05/14/21 04:00 05/14/21 04:00 05/14/21 04:00 Laboratory Results - last 24 hr 05/13/21 06:00: Total Counted 100, Neutrophils % (Manual) 80 H, Lymphocytes % (Manual) 16, Monocytes % (Manual) 3, Eosinophils % (Manual) 1, Platelet Estimate Normal 05/13/21 08:42: Blood Type O Negative, Antibody Screen Positive 05/13/21 08:42: Antibody Identification Anti-D 05/13/21 16:14: POC Glucose 256 H 05/13/21 20:06: POC Glucose 205 H 05/14/21 05:57: POC Glucose 217 H 05/14/21 06:04: WBC 8.5, RBC 2.79 L, Hgb 7.9 L, Hct 25.0 L, MCV 89.5, MCH 28.3, MCHC 31.6 L, RDW 15.7, Plt Count 315, MPV 8.1, Neut % (Auto) 78.2, Lymph % (Auto) 12.0, [place] % (Auto) 5.1, Eos % (Auto) 4.0, Baso % (Auto) 0.6, Neut # (Auto) 6.7, Lymph # (Auto) 1.0, [place] # (Auto) 0.4, Eos # (Auto) 0.3, Baso # (Auto) 0.1, Total Counted 100, Neutrophils % (Manual) 75, Lymphocytes % (Manual) 18, Monocytes % (Manual) 4, Eosinophils % (Manual) 3, Platelet Estimate Normal, Hypochromasia 1+, Anisocytosis 1+ 05/14/21 06:04: Sodium 143, Potassium 4.1, Chloride 114 H, Carbon Dioxide 21 L, Anion Gap 12.1, BUN 19 H, Creatinine 0.70, Estimated Creat Clear 50, Estimated GFR 81, Est GFR ( Amer) 98, Glucose 193 H, Calcium 8.4 I & O for Last 24 hours: Intake & Output 05/11/21 05/12/21 05/13/21 05/14/21 23:59 23:59 23:59 23:59 Intake Total 0 / 0 400 / 3053 2653 / 2653 Output Total 625 / 625 550 / 850 700 / 1150 450 / 450 Balance -625 / -625 -550 / -850 -300 / 1903 2203 / 2203 Weight 138 lb 5.794 oz 144 lb 3.2 oz 145 lb 2.473 oz Microbiology Reports for the Last 24 Hours: Microbiology 05/10/21 20:25 Rectum CRE Surveillance Culture - Final - Constitutional no acute distress, chronically ill appearing - *Routine HEENT Exam Head: Present: normocephalic Eye: Present: EOMI ENT: Present: mucous membranes moist - *Routine Neck Exam Present: trachea midline. Absent: tracheal deviation - *Routine Respiratory Exam Present: CTA bilaterally. Absent: accessory muscle use - *Routine Cardiovascular Exam Present: RRR - *Routine Abdominal Exam Present: soft, normoactive bowel sounds. Absent: tenderness, distended, firm Comments: GT w/ drsg in place - *Routine Extremities Exam Present: full ROM, pulses intact. Absent: cyanosis, clubbing - *Routine Skin Exam Present: intact, dry, warm. Absent: cyanosis, erythema Comments: stage 2 to coccyx - *Routine Neurological Exam Present: alert, altered mental status - Routine Psychiatric Exam Present: unable to assess Assessment and Plan (1) Altered mental status Status: Acute Qualifiers: Altered mental status type: delirium Qualified Code(s): R41.0 - Disorientation, unspecified Category: Medical Code(s): R41.82 - Altered mental status, unspecified (2) SIRS (systemic inflammatory response syndrome) Status: Acute Category: Medical Code(s): R65.10 - Systemic inflammatory response syndrome (SIRS) of non-infectious origin without acute organ dysfunction (3) Renal insufficiency Status: Chronic Category: Medical Code(s): N28.9 - Disorder of kidney and ureter, unspecified (4) Diabetes mellitus Status: Chronic Qualifiers: Diabetes mellitus type: type 2 Diabetes mellitus residential insulin use: unspecified residential insulin use status Diabetes mellitus complication status: with other specified complication Qualified Code(s): E11.69 - Type 2 diabetes mellitus with other specified complication Category:
--- NOTE | 2021-05-14 09:29 | PC.NURSE ---
Dr. Maravilla assessed patient and determined the patient will be discharged today. This nurse asked Dr. Maravilla if we still needed to do another ct with and without contrast and Dr. Mead said test was not needed, she already had a ct and ultrasound while here and has a hysterectomy and fibroid removal for tuesday.
[2021-05-14 09:43] LABS: Vancomycin,Trough 13.2 ug/mL (5.0-10.0)
--- NOTE | 2021-05-14 10:05 | DIET.NUTRFU ---
ready to start TF of 20ml/hr of Jevity 1.2 with goal rate of 60ml/hr providing 1380ml/1656kcal and 77gm protein with 1113ml free water. Start with minimal flushes around medications. Once IVF is discontinued flush with 140ml [id number] with total fluid of 1953ml/day meeting 100% of needs. Plans to return to [place], checking on formula availability and tolerance
--- NOTE | 2021-05-14 10:34 | HMH.PHACONS ---
- Pharmacy Consult Date: 05/14/21 Time: 10:52 Referring provider: DR. HALL Reason for Consult:: VANCOMYCIN TROUGH LEVEL Allergies and ADEs:: Allergies Allergy/AdvReac Type Severity Reaction Status Date / Time No Known Allergies Allergy Verified 04/23/21 18:16 Home Medications:: Home Medications Medication Instructions Recorded Confirmed Type Acetaminophen 500 mg PO Q4HP PRN 03/28/21 05/10/21 History Aspirin [Aspirin 81mg chewable 81 mg PO DAILY 03/28/21 05/10/21 History tab] Buspirone HCl [Buspar 10mg 10 mg PO TID 03/28/21 05/10/21 History tablet] Duloxetine HCl 60 mg PO DAILY 03/28/21 05/10/21 History Furosemide [Furosemide 20mg Tab*] 20 mg PO DAILY 03/28/21 05/10/21 History Gabapentin [Gabapentin 100mg Cap] 100 mg PO DAILY 03/28/21 05/10/21 History Loperamide HCl [Loperamide] 2 mg PO QIDP PRN 03/28/21 05/10/21 History Losartan Potassium 25 mg PO DAILY 03/28/21 05/10/21 History Mag Hydrox/Aluminum Hyd/Simeth 30 ml PO Q6HP PRN 03/28/21 05/10/21 History [Vanessa-Lanta Liquid] Metformin HCl 500 mg PO BIDWMEAL 03/28/21 05/10/21 History Metoprolol Tartrate [Lopressor 12.5 mg PO BID 03/28/21 05/10/21 History 25mg tablet] Omeprazole [Omeprazole 20mg 20 mg PO DAILY 03/28/21 05/10/21 History Capsule] Sennosides [Senna] 8.6 mg PO BID 03/28/21 05/10/21 History Simethicone [Gas Relief] 80 - 160 mg PO QIDP PRN 03/28/21 05/10/21 History Gabapentin [Neurontin 300mg 300 mg PO HS 03/29/21 05/10/21 History capsule] Lactulose 30 ml PO DAILYP PRN 03/29/21 05/10/21 History Levocetirizine Dihydrochloride 2.5 mg PO DAILY 03/29/21 05/10/21 History Levothyroxine Sodium 50 mcg PO DAILYDM 03/29/21 05/10/21 History [Levothyroxine 50mcg (0.05mg) Tab] Linagliptin [Tradjenta 5mg tablet] 5 mg PO DAILYDM 03/29/21 05/10/21 History Multivitamin 1 tab PO DAILY 03/29/21 05/10/21 History Pravastatin Sodium [Pravachol 40mg 40 mg PO HS 03/29/21 05/10/21 History Tablet] Insulin Glargine,Hum.rec.anlog 16 units SQ HS 04/26/21 05/10/21 History [Lantus Solostar 100 Units/mL 3mL flexpen] hydrocodone 5 mg-acetaminophen 325 1 tab PO BID #60 tab 04/27/21 05/10/21 Rx mg tablet LORazepam [Ativan 1mg tablet] 1 mg PO TID 05/10/21 05/10/21 History hydrOXYzine pamoate [Vistaril 25mg 25 mg PO TIDP PRN 05/10/21 05/10/21 History capsule] risperiDONE [Risperidone] 1 mg PO HS 05/10/21 05/10/21 History Height: 1.63 m Weight: 65.841 kg Laboratory Results:: Laboratory Results - last 24 hr 05/13/21 08:42: Blood Type O Negative, Antibody Screen Positive 05/13/21 08:42: Antibody Identification Anti-D 05/13/21 16:14: POC Glucose 256 H 05/13/21 20:06: POC Glucose 205 H 05/14/21 05:57: POC Glucose 217 H 05/14/21 06:04: WBC 8.5, RBC 2.79 L, Hgb 7.9 L, Hct 25.0 L, MCV 89.5, MCH 28.3, MCHC 31.6 L, RDW 15.7, Plt Count 315, MPV 8.1, Neut % (Auto) 78.2, Lymph % (Auto) 12.0, [place] % (Auto) 5.1, Eos % (Auto) 4.0, Baso % (Auto) 0.6, Neut # (Auto) 6.7, Lymph # (Auto) 1.0, [place] # (Auto) 0.4, Eos # (Auto) 0.3, Baso # (Auto) 0.1, Total Counted 100, Neutrophils % (Manual) 75, Lymphocytes % (Manual) 18, Monocytes % (Manual) 4, Eosinophils % (Manual) 3, Platelet Estimate Normal, Hypochromasia 1+, Anisocytosis 1+ 05/14/21 06:04: Sodium 143, Potassium 4.1, Chloride 114 H, Carbon Dioxide 21 L, Anion Gap 12.1, BUN 19 H, Creatinine 0.70, Estimated Creat Clear 50, Estimated GFR 81, Est GFR ( Amer) 98, Glucose 193 H, Calcium 8.4 05/14/21 08:34: Vancomycin Trough 13.2 H Medical History: Reports:: Anxiety, Cardiomyopathy, Coronary Artery Disease, Dementia, Diabetes Mellitus Type 2, Gastroesophageal Reflux Disease(GERD), Hyperlipidemia, Hypertension, Renal Insufficiency, Urinary Tract Infection Denies:: Cancer, Diabetes Mellitus Type 1, Internal Pacemaker, MRSA, Seizures Assessment and Plan (1) Altered mental status Status: Acute Qualifiers: Altered mental status type: delirium Qualified Code(s): R41.0 - Disorientation,
--- NOTE | 2021-05-14 11:16 | HMH.ACPN2 ---
Internal Medicine - PN: Subj *Date: 05/14/21 *Time: 11:16 Exam Vital signs and Labs for Last 24 Hours: Temp Pulse Resp BP Pulse Ox 98.4 F 87 26 H 169/73 H 96 05/14/21 08:00 05/14/21 08:00 05/14/21 08:00 05/14/21 08:00 05/14/21 08:00 Laboratory Results - last 24 hr 05/13/21 08:42: Blood Type O Negative, Antibody Screen Positive 05/13/21 08:42: Antibody Identification Anti-D 05/13/21 16:14: POC Glucose 256 H 05/13/21 20:06: POC Glucose 205 H 05/14/21 05:57: POC Glucose 217 H 05/14/21 06:04: WBC 8.5, RBC 2.79 L, Hgb 7.9 L, Hct 25.0 L, MCV 89.5, MCH 28.3, MCHC 31.6 L, RDW 15.7, Plt Count 315, MPV 8.1, Neut % (Auto) 78.2, Lymph % (Auto) 12.0, [place] % (Auto) 5.1, Eos % (Auto) 4.0, Baso % (Auto) 0.6, Neut # (Auto) 6.7, Lymph # (Auto) 1.0, [place] # (Auto) 0.4, Eos # (Auto) 0.3, Baso # (Auto) 0.1, Total Counted 100, Neutrophils % (Manual) 75, Lymphocytes % (Manual) 18, Monocytes % (Manual) 4, Eosinophils % (Manual) 3, Platelet Estimate Normal, Hypochromasia 1+, Anisocytosis 1+ 05/14/21 06:04: Sodium 143, Potassium 4.1, Chloride 114 H, Carbon Dioxide 21 L, Anion Gap 12.1, BUN 19 H, Creatinine 0.70, Estimated Creat Clear 50, Estimated GFR 81, Est GFR ( Amer) 98, Glucose 193 H, Calcium 8.4 05/14/21 08:34: Vancomycin Trough 13.2 H I & O for Last 24 hours: Intake & Output 05/11/21 05/12/21 05/13/21 05/14/21 23:59 23:59 23:59 23:59 Intake Total 0 / 0 400 / 3053 2653 / 2653 Output Total 625 / 625 550 / 850 700 / 1150 450 / 450 Balance -625 / -625 -550 / -850 -300 / 1903 2203 / 2203 Weight 62.76 kg 65.408 kg 65.841 kg Microbiology Reports for the Last 24 Hours: Microbiology 05/10/21 20:25 Rectum CRE Surveillance Culture - Final Assessment and Plan (1) Altered mental status Status: Acute Qualifiers: Altered mental status type: delirium Qualified Code(s): R41.0 - Disorientation, unspecified Category: Medical Code(s): R41.82 - Altered mental status, unspecified (2) SIRS (systemic inflammatory response syndrome) Status: Acute Category: Medical Code(s): R65.10 - Systemic inflammatory response syndrome (SIRS) of non-infectious origin without acute organ dysfunction (3) Renal insufficiency Status: Chronic Category: Medical Code(s): N28.9 - Disorder of kidney and ureter, unspecified (4) Diabetes mellitus Status: Chronic Qualifiers: Diabetes mellitus type: type 2 Diabetes mellitus termite exterminator helper insulin use: unspecified termite exterminator helper insulin use status Diabetes mellitus complication status: with other specified complication Qualified Code(s): E11.69 - Type 2 diabetes mellitus with other specified complication Category: Medical Code(s): E11.9 - Type 2 diabetes mellitus without complications (5) Hypothyroidism (acquired) Status: Chronic Category: Medical Code(s): E03.9 - Hypothyroidism, unspecified (6) Decubitus ulcer of coccygeal region, stage 1 Status: Acute Category: Medical Code(s): L89.151 - Pressure ulcer of sacral region, stage 1 (7) Feeding difficulty in adult Status: Acute Category: Medical Code(s): R63.39 - Other feeding difficulties The patient's infection will respond to the chosen ABx?: Yes Is the patient receiving the right drug, dose, and route?: Yes Could a more targeted ABx be ordered?: No
[2021-05-14 12:00] VITALS: BP 148/85; PULSE 84; RESP 20; TEMP 36.6; O2SAT 99
[2021-05-14 12:11] LABS: POC Glucose,Bedside 251 (70-110)
[2021-05-14 12:11] LABS: POC Glucose,Bedside 187 (70-110)
--- NOTE | 2021-05-14 14:16 | DIET.NUTRFU ---
spoke to nursing, TF started and tolerating well, increased to 30ml/hr with goal rate of 60ml/hr. IVF still in place, flush with 50ml Qshift.
[2021-05-14 16:00] VITALS: BP 149/87; PULSE 88; RESP 22; TEMP 37.1; O2SAT 95
[2021-05-14 20:00] VITALS: BP 110/62; PULSE 97; RESP 26; TEMP 37; O2SAT 98
[2021-05-14 22:18] LABS: POC Glucose,Bedside 277 (70-110)
[2021-05-15] VITALS: BP 141/66; PULSE 95; RESP 24; TEMP 36.9; O2SAT 93
[2021-05-15 02:38] LABS: POC Glucose,Bedside 281 (70-110)
[2021-05-15 04:00] VITALS: BP 161/72; PULSE 66; RESP 20; TEMP 36.6; O2SAT 98
[2021-05-15 06:10] VITALS: BMI 25.4
[2021-05-15 06:48] LABS: MANUAL DIFFERENTIAL MANUAL DIFFERENTIAL (MANUAL DIFF)
[2021-05-15 06:55] LABS: Basophils % 0.4 % (0.1-2.0); Eosinophils # 0.5 K/mm3 (0.0-0.4); Eosinophils % 4.5 % (0.1-12.0); Hematocrit 26.7 % (37.0-47.0); Hemoglobin 8.3 g/dL (12.2-16.2); Lymphocytes # 1.5 K/mm3 (0.7-4.5); Mean Corpuscular Hemoglobin 28.1 pg (27.0-31.2); Mean Corpuscular Volume 90.7 fl (81-99); Monocytes # 0.6 K/mm3 (0.1-1.0); Monocytes % 5.5 % (1.7-9.3); Neutrophils # 8.2 K/mm3 (1.8-7.8); Neutrophils % 75.6 % (37.0-80.0); Platelet Count 390 K/mm3 (142-424); Red Blood Count 2.94 M/mm3 (4.20-5.40); Red Cell Distribution Width 16.4 % (11.5-17.5); White Blood Count 10.9 K/mm3 (4.8-10.8)
--- NOTE | 2021-05-15 06:58 | PC.NURSE ---
At 0600 patient had 30 ml of residual in contents. Patient has met Tube feed goal rate of 60 ml.
[2021-05-15 07:00] LABS: Chloride 115 mmol/L (98-107); Potassium 4.4 mmoL/L (3.5-5.1); Sodium 144 mmol/L (136-145)
[2021-05-15 07:03] LABS: Anion Gap 11.4 mEq/L (5-15); Blood Urea Nitrogen 19 mg/dl (7-17); Calcium 8.5 mg/dl (8.4-10.2); Carbon Dioxide 22 mmol/L (22.0-30.0); Creatinine Clearance Estimated 51 mL/min (50-200); Estimated Glomerular Filt Rate 81 ml/min (>60); GFR (African American) 98 ML/MIN (>60); Glucose 331 mg/dl (74-100)
[2021-05-15 08:00] VITALS: BP 82/53; PULSE 95; RESP 18; TEMP 36.8; O2SAT 93
[2021-05-15 08:28] LABS: Eosinophils % 2 % (0-3); Lymphocytes % 8 % (10-50); Monocytes % 3 % (2-9); Neutrophils % 87 % (42-76); Platelet Estimate Normal; Total Cells Counted 100
--- NOTE | 2021-05-15 09:06 | HMH.DCSUM ---
General - General Admission date:: 05/10/21 Discharge date: 05/15/21 HPI HPI: this patient was sent from [facility] for altered mental status and was found in the ed to have elevated wbc and inflammatory markers and was admitted and started on abx- has had e coli uti in mar and recent klebsiella uti - pt was unable to give specific hx at this time Hospital Course Hospital Course: 75-year-old female patient was sent from [facility] for altered mental status and was found in the ed to have elevated wbc and inflammatory markers and was admitted and started on abx- has had e coli uti in mar and recent klebsiella uti - pt was unable to give specific hx at this time 05/11/21 CXR: FINDINGS: A single view of the chest was obtained. The heart and mediastinum are within normal limits. There are dense, patchy bibasilar airspace infiltrates, right greater than left, new from prior exam, consistent with acute pneumonia. There is no pneumothorax. Osseous structures are unremarkable. IMPRESSION: Findings consistent with acute pneumonia. Reviewed, Interpreted and Dictated by Jw Bui MD 05/12/21 MBS: FINDINGS: MODIFIED BARIUM SWALLOW History: Dysphagia FINDINGS: Fluoroscopy was provided for the speech pathologist to evaluate the swallowing mechanism. The patient was given several different consistencies of barium while the swallow was visualized fluoroscopically. The report of the speech pathologist should be consulted prior to making dietary decisions. FLUOROSCOPY TIME: 3 minutes IMPRESSION: Modified barium swallow under fluoroscopic guidance. Please see the report of the speech pathologist for Dietary recommendations. Reviewed, Interpreted and Dictated by Jw Bui MD 05/13/[address] per General Surgery: Procedure:: Patient was taken to endoscopy procedure room. She is maintained on the hospital bed in a supine position. Adequate intravenous sedation was achieved with anesthesia titration of propofol. Olympus endoscope was inserted via the oropharynx. Esophagus was cannulated. Endoscope was advanced to the stomach. Gastroesophageal junction was encountered at approximately 40 cm from the incisors. Stomach was cannulated and insufflated. Overall gastric lumen appeared unremarkable. Endoscope was advanced through the pylorus and limited endoscopic evaluation of the duodenal bulb and sweep appeared unremarkable. Endoscope was withdrawn into the gastric lumen. There was good light reflex. Abdomen was prepped and draped. Local anesthetic was infiltrated at the site of the light reflex. Small incision was made. Needle catheter was inserted through the incision into the gastric lumen. Catheter was grasped with the loop snare. Loop guidewire was inserted through the catheter. Endoscope with snare and loop guidewire were then withdrawn. 20 Fijian pull-type PEG tube was secured to the loop guidewire. Traction was then placed on the loop guidewire pulling the PEG tube via the oropharynx to exit the abdomen at the catheter insertion site. Bumper was placed on the PEG tube after antibiotic ointment was placed at the incision site. Completion endoscopy was performed which revealed PEG tube to be in a good position in the distal body of the stomach without evidence of bleeding. PEG tube catheter was then cut to the appropriate length. Clamp and feeding infusion apparatus were attached. It was at approximately 3 cm at the level of the skin. Findings:: Unremarkable limited upper endoscopy 75-year-old female patient resting quietly in bed, she will open her eyes with verbal/tactile stimuli but is nonverbal but will occasionally grunt. She was admitted for pneumonia on chest x-ray elevated white blood cell count she has received ceftriaxone, clindamycin, and vancomycin during her stay. After failing a modified barium swallow a PEG tube was placed she has met a tube feed goal of 60 cc an hour with less than 30 c
--- NOTE | 2021-05-15 09:25 | CT_ITS ---
FINAL REPORT TECHNIQUE: Axial images were performed through the brain.This study was performed with techniques to keep radiation doses as low as reasonably achievable, (ALARA). Individualized dose reduction techniques using automated exposure control or adjustment of mA and/or kV according to the patient''s size were employed. CLINICAL HISTORY: AMS COMPARISON: March 28, 2021 FINDINGS: There is moderate diffuse atrophy. There is proportionate ventriculomegaly. There is no extra-axial fluid or midline shift. There is no evidence of acute hemorrhage or mass. The paranasal sinuses are well aerated. IMPRESSION: Moderate atrophy, stable. No acute intracranial process. Reviewed, Interpreted and Dictated by Jw Bui MD Transcribed by Eliot Ken Authenticated by Jw Bui MD on 05/15/2021 11:23:54 AM [facility]
--- NOTE | 2021-05-15 09:59 | PC.NURSE ---
patient arguelles was removed on 05/14/21 per md order
--- NOTE | 2021-05-15 10:45 | DIET.NUTRFU ---
RD reviewed patients TF with provider today. She has hx of DM, was fairly well controlled upon admit. Insulin in place, elevated BS today of 300. Will switch to glucerna to help with diabetic control. Spoke to social insurance analyst at [facility] to help with discharge planning, hoping to return today.
[2021-05-15 12:00] VITALS: BP 195/90; PULSE 95; RESP 28; TEMP 37.1; O2SAT 97
[2021-05-15 12:47] LABS: POC Glucose,Bedside 389 (70-110)
[2021-05-15 14:35] VITALS: BP 150/88
== END 2021-05-15 15:56 | DRG 871 ==
LOC: ER 05:21 → 2ND 05:24
PROVIDERS: Nurse Practitioner Family; Surgery; Admitting Provider Emergency Medicine; Emergency Provider Emergency Medicine; PCP Emergency Medicine; Visit Provider Emergency Medicine
PROC: 0DH63UZ Insertion of Feeding Device into Stomach, Percutaneous Approach (ICD-10-PCS; CPT 43246; principal; 2021-05-13 12:00)
DX: A41.9 Sepsis, unspecified organism (principal); J69.0 Pneumonitis due to inhalation of food and vomit; I42.9 Cardiomyopathy, unspecified; Z79.4 Long term (current) use of insulin; F41.9 Anxiety disorder, unspecified; I25.10 Atherosclerotic heart disease of native coronary artery without angina pectoris; K21.9 Gastro-esophageal reflux disease without esophagitis; E78.5 Hyperlipidemia, unspecified; I10 Essential (primary) hypertension; E03.9 Hypothyroidism, unspecified; N28.9 Disorder of kidney and ureter, unspecified; E11.69 Type 2 diabetes mellitus with other specified complication; L89.151 Pressure ulcer of sacral region, stage 1; D64.9 Anemia, unspecified; R63.30 Feeding difficulties, unspecified
CPT/HCPCS: 43246; 36415; 70371; 70450; 71045; 80048; 80053; 80202; 81001; 82272; 82803; 82962; 83605; 83880; 84145; 84484; 85007; 85014; 85018; 85025; 85048; 85049; 85651; 86140; 86850; 86870; 87040; 87081; 87086; 92610; 92611; 93005; 94760; 96365; 96367; 96375; 99285; C9803; G0328; J0696; J2405; J3370; U0003; U0005

== ENCOUNTER 2021-05-24 15:14 | Observation (INO) | payer MEDICARE, MEDICAID, SELFPAY ==
[2021-05-24 15:33] LABS: Microscopic, Urine URINE MICROSCOPIC (MICROSCOPIC)
[2021-05-24 15:42] LABS: Appearance,Urine CLEAR (Clear); Bilirubin,Urine Negative (Negative); Blood, Urine Negative (Negative); Color,Urine YELLOW (Yellow); Glucose,Urine (UA) 1+ (Negative); Ketones,Urine Negative (Negative); Leukocyte Esterase,Urine Negative (Negative); Nitrate,Urine Negative (Negative); Protein,Urine TRACE (Negative)
[2021-05-24 15:50] VITALS: BMI 29.7
[2021-05-24 15:51] LABS: Bacteria,Urine Trace /lpf; WBC,Urine Occasional #/hpf (0-3); Yeast,Urine 1+ /lpf
--- NOTE | 2021-05-24 15:53 | XR_ITS ---
PROCEDURE INFORMATION: Exam: XR Chest Exam date and time: 05/24/2021 3:53 PM Age: 75 years old Clinical indication: Condition or disease; Other: Hypoxia TECHNIQUE: Imaging protocol: XR of the chest. Views: 1 view. COMPARISON: CR XR CHEST PORTABLE 05/11/2021 9:41 AM FINDINGS: Lungs: Opacities in both bases may represent atelectasis or pneumonia.. Pleural spaces: Unremarkable. No pleural effusion. No pneumothorax. Heart/Mediastinum: Unremarkable. No cardiomegaly. Bones/joints: Unremarkable. IMPRESSION: Opacities in both bases may represent atelectasis or pneumonia..
[2021-05-24 16:00] LABS: Chloride 95 mmol/L (98-107); Sodium 136 mmol/L (136-145)
[2021-05-24 16:01] LABS: Potassium 4.1 mmoL/L (3.5-5.1)
[2021-05-24 16:03] LABS: Alanine Aminotransferase 22 U/L (12-78); Alkaline Phosphatase 88 U/L (38-126); Anion Gap 13.1 mEq/L (5-15); Aspartate Amino Transferase 30 U/L (14-36); Bilirubin,Total 0.9 mg/dl (0.2-1.3); Blood Urea Nitrogen 60 mg/dl (7-17); Carbon Dioxide 32 mmol/L (22.0-30.0); Creatinine Clearance Estimated 47 mL/min (50-200); Estimated Glomerular Filt Rate 48 ml/min (>60); GFR (African American) 58 ML/MIN (>60)
[2021-05-24 16:04] LABS: Albumin Level 3.2 g/dl (3.5-5.0); Albumin/Globulin Ratio 1.2 (1.1-1.8); Calcium 8.3 mg/dl (8.4-10.2); Globulin 2.7 g/dL (1.3-3.2); Glucose 382 mg/dl (74-100); Lactic Acid 1.8 mmol/L (0.7-2.1); Total Protein,Serum 5.9 g/dl (6.3-8.2)
[2021-05-24 16:07] LABS: Basophils % 0.6 % (0.1-2.0); Eosinophils % 0.3 % (0.1-12.0); Hematocrit 25.9 % (37.0-47.0); Lymphocytes # 0.6 K/mm3 (0.7-4.5); Lymphocytes % 9.6 % (10-50); Mean Corpuscular Hemoglobin 28.3 pg (27.0-31.2); Mean Corpuscular Volume 91.3 fl (81-99); Monocytes # 0.4 K/mm3 (0.1-1.0); Monocytes % 5.8 % (1.7-9.3); Neutrophils # 5.1 K/mm3 (1.8-7.8); Neutrophils % 83.7 % (37.0-80.0); Platelet Count 377 K/mm3 (142-424); Red Blood Count 2.83 M/mm3 (4.20-5.40); Red Cell Distribution Width 18.1 % (11.5-17.5); White Blood Count 6.1 K/mm3 (4.8-10.8)
[2021-05-24 16:09] VITALS: BP 156/71; PULSE 97; RESP 16; TEMP 39.1; O2SAT 97; BMI 29.7
[2021-05-24 16:25] LABS: Coronavirus 19, PCR Not Detected (NotDetected); Influenza A, PCR Not Detected (NotDetected); Influenza B, PCR Not Detected (NotDetected)
[2021-05-24 16:42] VITALS: BP 123/58; PULSE 93; O2SAT 98
--- NOTE | 2021-05-24 16:42 | HMH.EDGENADL ---
ED Disposition Clinical Impression: HCAP (healthcare-associated pneumonia), Dehydration AMS (altered mental status) Qualifiers: Altered mental status type: somnolence Qualified Code(s): R40.0 - Somnolence Disposition: Admitted As Inpatient Condition on Discharge: Serious - Critical Care Critical Care Time: No Attestation: On 05/24/21, the high probability of a clinically significant, sudden or life threatening deterioration of the following system(s) required my full and direct attention, intervention and personal management. The time I documented below is in addition to time spent performing reported procedures but includes the following listed in this critical care notation. Medical Decision Making - Ben Inquiry Pt receiving controlled substance: No Vital Signs: 05/24/21 16:09 05/24/21 16:42 05/24/21 18:54 Temperature 102.4 F H 100.1 F H Temperature Source Rectal Rectal Pulse Rate 93 H 91 H Pulse Rate [Left Radial] 97 H Respiratory Rate 16 16 Blood Pressure 123/58 L 137/70 Blood Pressure [Right Arm] 156/71 H Blood Pressure Mean [Right Arm] 99 Blood Pressure Source Automatic Cuff Blood Pressure Position Sitting 02 Sat by Pulse Oximetry 97 98 Oxygen Delivery Method Nasal Cannula Nasal Cannula Nasal Cannula Oxygen Flow Rate (LPM) 4 4 4 - Lab Data Lab Results 05/24/21 15:29: Urine Color Yellow, Urine Appearance Clear, Urine pH 8.0, Ur Specific [place] 1.010, Urine Protein Trace, Urine Glucose (UA) 1+, Urine Ketones Negative, Urine Blood Negative, Urine Nitrate Negative, Urine Bilirubin Negative, Urine Urobilinogen 4.0, Ur Leukocyte Esterase Negative, Urine RBC None, Urine WBC Occasional, Ur Squamous Epith Cells None, Urine Bacteria Trace, Urine Yeast 1+ 05/24/21 15:35: WBC 6.1, RBC 2.83 L, Hgb 8.0 L, Hct 25.9 L, MCV 91.3, MCH 28.3, MCHC 31.0 L, RDW 18.1 H, Plt Count 377, MPV 10.0, Neut % (Auto) 83.7 H, Lymph % (Auto) 9.6 L, [place] % (Auto) 5.8, Eos % (Auto) 0.3, Baso % (Auto) 0.6, Neut # (Auto) 5.1, Lymph # (Auto) 0.6 L, [place] # (Auto) 0.4, Eos # (Auto) 0.0, Baso # (Auto) 0.0 05/24/21 15:35: Sodium 136, Potassium 4.1, Chloride 95 L, Carbon Dioxide 32 H, Anion Gap 13.1, BUN 60 H, Creatinine 1.10 H, Estimated Creat Clear 47, Estimated GFR 48 L, Est GFR ( Amer) 58 L, Glucose 382 H, Calcium 8.3 L, Total Bilirubin 0.9, AST 30, ALT 22, Alkaline Phosphatase 88, Total Protein 5.9 L, Albumin 3.2 L, Globulin 2.7, Albumin/Globulin Ratio 1.2 05/24/21 15:35: Lactate 1.8 05/24/21 15:35: SARS-CoV-2 (PCR) Not detected, Influenza A Untype (PCR) Not detected, Influenza Type B (PCR) Not detected 05/24/21 16:47: Specimen Source Right radial, O2 % 4, ABG pH 7.52 H, ABG pCO2 40.0, ABG pO2 116.4 H, ABG HCO3 31.8 H, ABG Total CO2 33.0 H, ABG O2 Saturation 99, ABG Base Excess 8.9 H, James Test Y Result diagrams: 05/24/21 15:35 05/24/21 15:35 Orders (Tests/Meds): ED MEDICATIONS Generic Name Dose Route Start Last Admin Trade Name Freq PRN Reason Stop Dose Admin Levofloxacin/Dextrose 750 mg in 150 mls @ 100 mls/hr 05/24/21 17:00 Levofloxacin 750mg/150ml Premix IV 06/07/21 16:59 Q24H SERA Cefepime HCl 2 gm/ Sodium 100 mls @ 100 mls/hr 05/24/21 17:00 05/24/21 17:12 Chloride IV 06/07/21 16:59 100 mls/hr Q12H SERA Administration Miscellaneous 1 each 05/24/21 17:00 Vancomycin Consult Request * 06/23/21 16:59 CONSULT PHARMACY SERA Discontinued Medications Generic Name Dose Route Start Last Admin Trade Name Freq PRN Reason Stop Dose Admin Acetaminophen 650 mg 05/24/21 15:51 05/24/21 15:55 Acetaminophen 650mg Suppository RC 05/24/21 15:52 650 mg ONCE ONE Administration ORDERS Category Date Time Status Blood Culture Stat Micro 05/24/21 15:35 Received - Radiology Data #1 Image(s): Chest Image Reviewed: Yes I reviewed the patient's radiology image, Yes I have reviewed radiologist's interpretation PROCEDURE INFORMATION: Exam: XR Chest Exam tony
--- NOTE | 2021-05-24 16:47 | CT_ITS ---
PROCEDURE INFORMATION: Exam: CT Head Without Contrast Exam date and time: 05/24/2021 4:47 PM Age: 75 years old Clinical indication: Altered mental status/memory loss; Confusion or disorientation; Additional info: AMS TECHNIQUE: Imaging protocol: Computed tomography of the head without contrast. Radiation optimization: All CT scans at this facility use at least one of these dose optimization techniques: automated exposure control; mA and/or kV adjustment per patient size (includes targeted exams where dose is matched to clinical indication); or iterative reconstruction. COMPARISON: CT HEAD/BRAIN WO CON 03/28/2021 10:53 AM FINDINGS: Brain: There is no acute intracranial hemorrhage, cerebral edema, or midline shift. Chronic microvascular ischemic changes are seen in the periventricular white matter. Age-related cerebral and cerebellar volume loss is present. Cerebral ventricles: No hydrocephalus. Paranasal sinuses: There is mild mucosal thickening noted within the paranasal sinuses. Mastoid air cells: The mastoid air cells are clear. Orbital cavity: The included orbital structures are unremarkable. Vasculature: Atherosclerotic calcifications are seen involving the cavernous carotid arteries. Bones/joints: No acute fracture. Soft tissues: Unremarkable. IMPRESSION: 1. No acute intracranial abnormality. 2. Atrophy and chronic deep white matter ischemic changes.
--- NOTE | 2021-05-24 16:59 | PC.NURSE ---
Pt to rad
[2021-05-24 17:04] LABS: ABG Base Excess 8.9 mmol/L (-2.4-2.3); ABG HCO3 31.8 mmhg (22.0-26.0); ABG Oxygen Saturation 99 % (90-100); ABG PH 7.52 mmol/L (7.35-7.45); ABG PO2 116.4 mmhg (80-100)
[2021-05-24 17:05] LABS: Allen's Test Y; Oxygen 4 %; Source Right Radial
--- NOTE | 2021-05-24 17:37 | PC.NURSE ---
Talking to about admission
[2021-05-24 18:31] VITALS: BMI 29.3
--- NOTE | 2021-05-24 18:36 | HMH.HP ---
*Admission Date: 05/24/21 *Chief complaint: ams *History of present illness: 75 yr old female presented to ed via ambulance c/o ams, fever and hypoxia. per senior care staff pt was recently d/c from hospital for gtube placement. senior care staff states they checked on pt around 1500 and pt was unresponsove, warm to the touch and soa. staff states they checked an o2 sat and it was 88% on room air. pt is non-verbal at baseline and unable to answer questions. Pt was found to have pneumonia and low 02 placed on 4 liters nc. admitted for treatment and work up [facility] History I have reviewed the patient's past medical history: Yes Medical History: Reports:: Anxiety, Cardiomyopathy, Coronary Artery Disease, Dementia, Diabetes Mellitus Type 2, Gastroesophageal Reflux Disease(GERD), Hyperlipidemia, Hypertension, Renal Insufficiency, Urinary Tract Infection Denies:: Cancer, Diabetes Mellitus Type 1, Internal Pacemaker, MRSA, Seizures *Have you ever received a pneumonia vaccine?: No *Have you received a flu vaccine this season?: No Other Medical History: Reports: Anemia, Hypothyroidism Other Surgeries: Yes: No Previous Surgery. No: Pacemaker Amputation: No Fractures: Yes - *Social History Smoking Status: Never smoker Alcohol Intake: never Substance Use Type: denies use *Occupational Status:: disabled Housing: senior care *Travel in the last 8 weeks: None - Psychiatric History Pschychiatric History:: Reports:: Anxiety Family Hx:: Unable to obtain Review of Systems - Review of Systems Review of systems:: unable to obtain Meds Home Medications Medication Instructions Recorded Confirmed Type Acetaminophen 500 mg PO Q4HP PRN 03/28/21 05/24/21 History Aspirin [Aspirin 81mg chewable 81 mg PO DAILY 03/28/21 05/24/21 History tab] Buspirone HCl [Buspar 10mg 10 mg PO TID 03/28/21 05/24/21 History tablet] Duloxetine HCl 60 mg PO DAILY 03/28/21 05/24/21 History Furosemide [Furosemide 20mg Tab*] 20 mg PO DAILY 03/28/21 05/24/21 History Losartan Potassium 25 mg PO DAILY 03/28/21 05/24/21 History Metformin HCl 500 mg PO BIDWMEAL 03/28/21 05/24/21 History Metoprolol Tartrate [Lopressor 12.5 mg PO BID 03/28/21 05/24/21 History 25mg tablet] Omeprazole [Omeprazole 20mg 20 mg PO DAILY 03/28/21 05/24/21 History Capsule] Sennosides [Senna] 8.6 mg PO BID 03/28/21 05/24/21 History Simethicone [Gas Relief] 80 - 160 mg PO QIDP PRN 03/28/21 05/24/21 History Gabapentin [Neurontin 300mg 300 mg PO HS 03/29/21 05/24/21 History capsule] Lactulose 30 ml PO DAILYP PRN 03/29/21 05/24/21 History Levocetirizine Dihydrochloride 2.5 mg PO DAILY 03/29/21 05/24/21 History Levothyroxine Sodium 50 mcg PO DAILYDM 03/29/21 05/24/21 History [Levothyroxine 50mcg (0.05mg) Tab] Linagliptin [Tradjenta 5mg tablet] 5 mg PO DAILYDM 03/29/21 05/24/21 History Pravastatin Sodium [Pravachol 40mg 40 mg PO HS 03/29/21 05/24/21 History Tablet] Insulin Glargine,Hum.rec.anlog 16 units SQ HS 04/26/21 05/24/21 History [Lantus Solostar 100 Units/mL 3mL flexpen] LORazepam [Ativan 1mg tablet] 1 mg PO TID 05/10/21 05/24/21 History hydrOXYzine pamoate [Vistaril 25mg 25 mg PO Q6 PRN 05/10/21 05/24/21 History capsule] risperiDONE [Risperidone] 1 mg PO HS 05/10/21 05/24/21 History hydrocodone 5 mg-acetaminophen 325 1 tab PO BID #60 tab 05/18/21 05/24/21 Rx mg tablet Allergies Allergy/AdvReac Type Severity Reaction Status Date / Time No Known Allergies Allergy Verified 04/23/21 18:16 Exam Vital signs and Labs for Last 24 Hours: Temp Pulse Resp BP Pulse Ox 102.4 F H 93 H 16 123/58 L 98 05/24/21 16:09 05/24/21 16:42 05/24/21 16:09 05/24/21 16:42 05/24/21 16:42 Laboratory Results - last 24 hr 05/24/21 15:29: Urine Color Yellow, Urine Appearance Clear, Urine pH 8.0, Ur Specific [place] 1.010, Urine Protein Trace, Urine Glucose (UA) 1+, Urine Ketones Negative, Urine Blood Negative, Urine Nitrate Negative, Uri
[2021-05-24 18:54] VITALS: BP 137/70; PULSE 91; RESP 16; TEMP 37.8; O2SAT 99
--- NOTE | 2021-05-24 19:54 | PC.NURSE ---
patient up to floor via stretcher @ this time.
--- NOTE | 2021-05-24 23:26 | PC.WOUNDNOTE ---
1: Stage 2 coccyx 2: Boggy Heels 3: Bruising Lt arm 4: Bruising Rt arm
[2021-05-25] VITALS (19 sets, daily range): BP systolic 113–162; BP diastolic 53–91; PULSE 77–90; RESP 16–20; TEMP 36.6–37.2; O2SAT 95–100; BMI 29.8; BMI 29.4
[2021-05-25 06:49] LABS: Basophils % 0.2 % (0.1-2.0); Eosinophils % 0.1 % (0.1-12.0); Hematocrit 24.9 % (37.0-47.0); Hemoglobin 7.4 g/dL (12.2-16.2); Lymphocytes # 0.8 K/mm3 (0.7-4.5); Lymphocytes % 13.7 % (10-50); Mean Corpuscular HGB Conc 29.6 g/dL (31.8-35.4); Mean Corpuscular Hemoglobin 27.7 pg (27.0-31.2); Mean Corpuscular Volume 93.6 fl (81-99); Mean Platelet Volume 9.5 fl (7.4-10.4); Monocytes # 0.6 K/mm3 (0.1-1.0); Monocytes % 11.4 % (1.7-9.3); Neutrophils # 4.1 K/mm3 (1.8-7.8); Neutrophils % 74.6 % (37.0-80.0); Platelet Count 318 K/mm3 (142-424); Red Blood Count 2.67 M/mm3 (4.20-5.40); Red Cell Distribution Width 18.2 % (11.5-17.5); White Blood Count 5.5 K/mm3 (4.8-10.8)
[2021-05-25 07:09] LABS: Anion Gap 11.3 mEq/L (5-15); Blood Urea Nitrogen 49 mg/dl (7-17); Calcium 8.4 mg/dl (8.4-10.2); Carbon Dioxide 32 mmol/L (22.0-30.0); Chloride 102 mmol/L (98-107); Creatinine Clearance Estimated 52 mL/min (50-200); Estimated Glomerular Filt Rate 70 ml/min (>60); GFR (African American) 84 ML/MIN (>60); Glucose 329 mg/dl (74-100); Potassium 3.3 mmoL/L (3.5-5.1); Sodium 142 mmol/L (136-145)
--- NOTE | 2021-05-25 07:24 | P.CONPHA_ITS ---
[facility] Pharmacy VTE Monitoring - Patient Demographics Admission date: 05/24/21 Report Date: 05/25/21 Time: 07:24 Allergies/Adverse Reactions: Patient Allergies No Known Allergies Allergy (Verified 04/23/21 18:16) Height: 1.52 m Weight: 68.946 kg Patient Problems: Current Active Problems HCAP (healthcare-associated pneumonia) (Acute) Altered mental status (Acute) Decubitus ulcer of coccyx, stage 2 (Acute) G tube feedings (Acute) Dehydration (Acute) Diabetes mellitus (Chronic) CAP (community acquired pneumonia) (Acute) - VTE Risk Labs: VTE Related Lab Results Hgb 7.4 g/dL (12.2-16.2) L 05/25/21 06:15 Hct 24.9 % (37.0-47.0) L 05/25/21 06:15 Plt Count 318 K/mm3 (142-424) 05/25/21 06:15 BUN 49 mg/dl (7-17) H 05/25/21 06:15 Creatinine 0.80 mg/dl (0.52-1.04) D 05/25/21 06:15 Estimated Creat Clear 52 mL/min (50-200) 05/25/21 06:15 Was VTE Risk Assessment Performed: Yes VTE Risk Level: Low Risk Clinical Trial Participant: No - Prophylaxis VTE Prophylaxis Ordered?: Yes Types of VTE Prophylaxis: TEDS Knee High Location of Applied Device: Bilateral Lower Extremeties
--- NOTE | 2021-05-25 07:56 | HMH.PHAINT ---
home medicaiton list verified using list from [facility]
--- NOTE | 2021-05-25 08:01 | DIET.NUTRFU ---
Addendum entered by Zuleyma Cope RD, LD 05/25/21 10:10: to promote healing of skin breakdown to bottom, increased protein needs to 1.3gm/kg=84gm/day of protein to reach this will need to add 1 scoop of beneprotein TID. Mix 1 unpacked level scoop (7g) with 2-4 fl oz (60-120 mL) water.. Administer by syringe through a feeding tube. Flush afterwards with a minimum of 1-2 fl oz (30-60 mL) water. Pateint was also started on zinc and vitamin C for healing. Original Note: Patient admitted with PNA, was recently here and had PEG placed. She is NPO d/t failing swallowing study. RD consult placed. Start TF: Glucerna at 20ml/hr with goal rate of 70ml/hr ATC providing 1610kcal and 67gm protein with 1373ml free water. IVF running. When discontinued flush with 140ml Q6H providing 560ml with total 1933. This with meet high nutritional needs to promote healing.
--- NOTE | 2021-05-25 09:06 | HMH.PTWOUND ---
Rehab Inpt Wound Evaluation Rehab IP Wound Evaluation Start: 05/25/21 06:18 Freq: ONCE Status: Active Protocol: Document 05/25/21 09:01 GRISELDA (Rec: 05/25/21 09:06 ALFONSONATHANAEL [id number]) Rehab PT Wound Assessment Patient Status Premedicated Prior to Dressing Change No Subjective Subjective Pt is resident at local SNF - Pt is non-verbal, non- ambulatory and unable to perform any self-care activities. Pt is alson incontinent of bowel and bladder. Wound Sacrum Wound Type Pressure Ulcer Wound Staging Stage II Query Text:Stage I - Unbroken, red skin, no blanching. Stage II - Skin broken, superficial skin loss involving epidermis alone or also dermis. Partial loss of skin layers. Stage III - Pressure area involves epidermis, dermis and subcutaneous tissue, full thickness skin loss. Stage IV - Pressure area involves epidermis, subcutaneous tissue, bone and other supportive tissue. Full thickness skin loss with extensive destruction of underlying tissue and structures. Wound Length (cm) 8 Wound Width (cm) 7 Wound Bed Appearance Dusky Red,Slough,Peeling Skin, Necrotic Percentage of Slough (%) 100 Percentage of Eschar (Purple) (%) 100 Wound Margins Description Indistinct Surrounding Tissue Temperature Warm Wound Drainage Description Serosanguineous Drainage Amount Scant Drainage Odor No Odor Dressing Status Soiled Wound Topical Solution/Irrigant Antibiotic Irrigant Primary Dressing Absorbant Pad Comment optifoam sacral Wound Debridement Method Gauze Wound Debridement Amount of Tissue Minimal Removed Wound Debridement Result Patient Unable to Tolerate, Yellow Sloughing Remains Dressing Change Date 05/25/21 Dressing Change Patient Tolerance Tolerated Poorly Plan/Recommendation Comment Pressure wound stage 2 sacrum - due to pt's immobility and poor nutrition pressure relief Q2H per nsg will be best treatment w/ dressing changes daily or when soiled - no sharp debridement ot this time - slough t
--- NOTE | 2021-05-25 09:07 | HMH.PHACONS ---
- Pharmacy Consult Date: 05/25/21 Time: 09:07 Referring provider: DR HALL Reason for Consult:: VANCOMYCIN DOSING CONSULT Allergies and ADEs:: Allergies Allergy/AdvReac Type Severity Reaction Status Date / Time No Known Allergies Allergy Verified 04/23/21 18:16 Home Medications:: Home Medications Medication Instructions Recorded Confirmed Type Acetaminophen 500 mg PO Q4HP PRN 03/28/21 05/24/21 History Aspirin [Aspirin 81mg chewable 81 mg PO DAILY 03/28/21 05/24/21 History tab] Buspirone HCl [Buspar 10mg 10 mg PO TID 03/28/21 05/24/21 History tablet] Duloxetine HCl 60 mg PO DAILY 03/28/21 05/24/21 History Furosemide [Furosemide 20mg Tab*] 20 mg PO DAILY 03/28/21 05/24/21 History Losartan Potassium 25 mg PO DAILY 03/28/21 05/24/21 History Metformin HCl 500 mg PO BIDWMEAL 03/28/21 05/24/21 History Metoprolol Tartrate [Lopressor 12.5 mg PO BID 03/28/21 05/24/21 History 25mg tablet] Omeprazole [Omeprazole 20mg 20 mg PO DAILY 03/28/21 05/24/21 History Capsule] Sennosides [Senna] 8.6 mg PO BID 03/28/21 05/24/21 History Simethicone [Gas Relief] 80 - 160 mg PO QIDP PRN 03/28/21 05/24/21 History Gabapentin [Neurontin 300mg 300 mg PO HS 03/29/21 05/24/21 History capsule] Lactulose 30 ml PO DAILYP PRN 03/29/21 05/24/21 History Levocetirizine Dihydrochloride 2.5 mg PO DAILY 03/29/21 05/24/21 History Levothyroxine Sodium 50 mcg PO DAILYDM 03/29/21 05/24/21 History [Levothyroxine 50mcg (0.05mg) Tab] Linagliptin [Tradjenta 5mg tablet] 5 mg PO DAILYDM 03/29/21 05/24/21 History Pravastatin Sodium [Pravachol 40mg 40 mg PO HS 03/29/21 05/24/21 History Tablet] Insulin Glargine,Hum.rec.anlog 16 units SQ HS 04/26/21 05/24/21 History [Lantus Solostar 100 Units/mL 3mL flexpen] LORazepam [Ativan 1mg tablet] 1 mg PO TID 05/10/21 05/24/21 History hydrOXYzine pamoate [Vistaril 25mg 25 mg PO TIDP PRN 05/10/21 05/25/21 History capsule] risperiDONE [Risperidone] 1 mg PO HS 05/10/21 05/24/21 History hydrocodone 5 mg-acetaminophen 325 1 tab PO BID #60 tab 05/18/21 05/24/21 Rx mg tablet Gabapentin [Gabapentin 100mg Cap] 100 mg PO DAILY 05/25/21 05/25/21 History Insulin Aspart Prot/Insuln Asp 20 unit SQ BIDWMEAL 05/25/21 05/25/21 History [Insulin Aspart Prot-Insuln Asp] Semaglutide [Ozempic] 0.5 mg SQ FR 05/25/21 05/25/21 History Height: 1.52 m Weight: 68 kg Laboratory Results:: Laboratory Results - last 24 hr 05/24/21 15:29: Urine Color Yellow, Urine Appearance Clear, Urine pH 8.0, Ur Specific [place] 1.010, Urine Protein Trace, Urine Glucose (UA) 1+, Urine Ketones Negative, Urine Blood Negative, Urine Nitrate Negative, Urine Bilirubin Negative, Urine Urobilinogen 4.0, Ur Leukocyte Esterase Negative, Urine RBC None, Urine WBC Occasional, Ur Squamous Epith Cells None, Urine Bacteria Trace, Urine Yeast 1+ 05/24/21 15:35: WBC 6.1, RBC 2.83 L, Hgb 8.0 L, Hct 25.9 L, MCV 91.3, MCH 28.3, MCHC 31.0 L, RDW 18.1 H, Plt Count 377, MPV 10.0, Neut % (Auto) 83.7 H, Lymph % (Auto) 9.6 L, [place] % (Auto) 5.8, Eos % (Auto) 0.3, Baso % (Auto) 0.6, Neut # (Auto) 5.1, Lymph # (Auto) 0.6 L, [place] # (Auto) 0.4, Eos # (Auto) 0.0, Baso # (Auto) 0.0 05/24/21 15:35: Sodium 136, Potassium 4.1, Chloride 95 L, Carbon Dioxide 32 H, Anion Gap 13.1, BUN 60 H, Creatinine 1.10 H, Estimated Creat Clear 47, Estimated GFR 48 L, Est GFR ( Amer) 58 L, Glucose 382 H, Calcium 8.3 L, Total Bilirubin 0.9, AST 30, ALT 22, Alkaline Phosphatase 88, Total Protein 5.9 L, Albumin 3.2 L, Globulin 2.7, Albumin/Globulin Ratio 1.2 05/24/21 15:35: Lactate 1.8 05/24/21 15:35: SARS-CoV-2 (PCR) Not detected, Influenza A Untype (PCR) Not detected, Influenza Type B (PCR) Not detected 05/24/21 16:47: Specimen Source Right radial, O2 % 4, ABG pH 7.52 H, ABG pCO2 40.0, ABG pO2 116.4 H, ABG HCO3 31.8 H, ABG Total CO2 33.0 H, ABG O2 Saturation 99, ABG Base Excess 8.9 H, James Test Y 05/25/21 06:15: WBC 5.5, RBC 2.67 L, Hgb 7.4 L, Hct 24.9 L, MCV 93
--- NOTE | 2021-05-25 09:14 | XR_ITS ---
FINAL REPORT CLINICAL HISTORY: Confirm PICC line placement FINDINGS: A right-sided PICC line terminates in the lower SVC. The heart size is normal. There is pulmonary vascular congestion. The mediastinum is normal. There is bibasilar atelectasis or pneumonia. There are no pleural effusions. There is no pneumothorax. There is a chronic right proximal humeral fracture. IMPRESSION: Right-sided PICC line terminates in the lower SVC. Pulmonary vascular congestion with bibasilar atelectasis or pneumonia. Reviewed, Interpreted and Dictated by Shahbaz Collazo III, MD Transcribed by Eliot Ken Authenticated by Shahbaz Collazo III, MD on 05/25/2021 12:34:35 PM [facility]
--- NOTE | 2021-05-25 09:36 | SW/DCPLANNER ---
This patient currently resides at [facility] and is a [facility] of the [facility]. Per Michelle patient is currently SNF level of care. Patient will return to [facility] today with IV antibiotics and PICC line for pneumonia. Dr Gabriel has stated that comfort care is the best options for this patient and I have asked Chloe to add a detailed note to patients chart regarding DNR status. I also spoke with Michelle and due to IV antibiotics at discharge Michelle will start the Comfort Care process after completing IV antibiotics. Patient will return to [facility] today and COVID swab is not needed prior to discharge.
--- NOTE | 2021-05-25 09:41 | HMH.DCSUM ---
General - General Admission date:: 05/24/21 Discharge date: 05/25/21 HPI HPI: 75 yr old female presented to ed via ambulance c/o ams, fever and hypoxia. per snf staff pt was recently d/c from hospital for gtube placement. snf staff states they checked on pt around 1500 and pt was unresponsove, warm to the touch and soa. staff states they checked an o2 sat and it was 88% on room air. pt is non-verbal at baseline and unable to answer questions. Pt was found to have pneumonia and low 02 placed on 4 liters nc. admitted for treatment and work up Hospital Course Hospital Course: Abnormal Lab Results 05/24/21 15:35: RBC 2.83 L, Hgb 8.0 L, Hct 25.9 L, MCHC 31.0 L, RDW 18.1 H, Neut % (Auto) 83.7 H, Lymph % (Auto) 9.6 L, Lymph # (Auto) 0.6 L 05/24/21 15:35: Chloride 95 L, Carbon Dioxide 32 H, BUN 60 H, Creatinine 1.10 H, Estimated GFR 48 L, Est GFR ( Amer) 58 L, Glucose 382 H, Calcium 8.3 L, Total Protein 5.9 L, Albumin 3.2 L 05/24/21 16:47: ABG pH 7.52 H, ABG pO2 116.4 H, ABG HCO3 31.8 H, ABG Total CO2 33.0 H, ABG Base Excess 8.9 H 05/25/21 06:15: RBC 2.67 L, Hgb 7.4 L, Hct 24.9 L, MCHC 29.6 L, RDW 18.2 H, [place] % (Auto) 11.4 H 05/25/21 06:15: Potassium 3.3 L, Carbon Dioxide 32 H, BUN 49 H, Glucose 329 H Ordering Physician: Pedro Gautam MD Date of Service: 05/24/21 Procedure(s): XR chest portable Accession Number(s): [id number] cc: Eboni Arredondo MD; Provider,Referral MD~ PROCEDURE INFORMATION: Exam: XR Chest Exam date and time: 05/24/2021 3:53 PM Age: 75 years old Clinical indication: Condition or disease; Other: Hypoxia TECHNIQUE: Imaging protocol: XR of the chest. Views: 1 view. COMPARISON: CR XR CHEST PORTABLE 05/11/2021 9:41 AM FINDINGS: Lungs: Opacities in both bases may represent atelectasis or pneumonia.. Pleural spaces: Unremarkable. No pleural effusion. No pneumothorax. Heart/Mediastinum: Unremarkable. No cardiomegaly. Bones/joints: Unremarkable. IMPRESSION: Opacities in both bases may represent atelectasis or pneumonia.. Ordering Physician: Pedro Gautam MD Date of Service: 05/24/21 Procedure(s): CT head/brain wo con Accession Number(s): [id number] cc: Tank Gabriel MD; Elvin Chiu MD; Pedro Gautam MD~ PROCEDURE INFORMATION: Exam: CT Head Without Contrast Exam date and time: 05/24/2021 4:47 PM Age: 75 years old Clinical indication: Altered mental status/memory loss; Confusion or disorientation; Additional info: AMS TECHNIQUE: Imaging protocol: Computed tomography of the head without contrast. Radiation optimization: All CT scans at this facility use at least one of these dose optimization techniques: automated exposure control; mA and/or kV adjustment per patient size (includes targeted exams where dose is matched to clinical indication); or iterative reconstruction. COMPARISON: CT HEAD/BRAIN WO CON 03/28/2021 10:53 AM FINDINGS: Brain: There is no acute intracranial hemorrhage, cerebral edema, or midline shift. Chronic microvascular ischemic changes are seen in the periventricular white matter. Age-related cerebral and cerebellar volume loss is present. Cerebral ventricles: No hydrocephalus. Paranasal sinuses: There is mild mucosal thickening noted within the paranasal sinuses. Mastoid air cells: The mastoid air cells are clear. Orbital cavity: The included orbital structures are unremarkable. Vasculature: Atherosclerotic calcifications are seen involving the cavernous carotid arteries. Bones/joints: No acute fracture. Soft tissues: Unremarkable. IMPRESSION: 1. No acute intracranial abnormality. 2. Atrophy and chronic deep white matter ischemic changes. Discharge Plan (1) G tube feedings-continue tube feedings (2) CAP (community acquired pneumonia)-picc placement for iv antibiotics to be given at snf (3) Decubitus ulcer of coccyx, stage 3-picc for iv antibiotics, wound care. Please
--- NOTE | 2021-05-25 09:55 | PC.NURSE ---
DISCHARGE ORDER PLACED BUT PT IS TO RECEIVE PICC LINE AND BLOOD TRANSFUSION BEFORE TRANSFER BACK TO INTERMEDIATE PER MD. IS TO BE D/C FOLLOWING POST 1 HOUR H/H.
[2021-05-25 12:50] LABS: POC Glucose,Bedside 262 (70-110)
--- NOTE | 2021-05-25 15:53 | PC.NURSE ---
BLOOD STILL NOT AVAILABLE
[2021-05-25 16:46] LABS: POC Glucose,Bedside 181 (70-110)
--- NOTE | 2021-05-25 18:41 | PC.NURSE ---
report called to [facility].
--- NOTE | 2021-05-25 21:51 | PC.NURSE ---
Removed arguelles cath. Catheter intact. Patient tolerated well will continue to monitor.
[2021-05-25 22:06] LABS: Hematocrit 32.6 % (37.0-47.0)
[2021-05-25 22:10] LABS: Hemoglobin 9.9 g/dL (12.2-16.2)
--- NOTE | 2021-05-25 22:19 | PC.NURSE ---
2219 EMS called for transport.
--- NOTE | 2021-05-25 22:36 | PC.NURSE ---
PT WAS D/C VIA STRETCHER PER [facility] @ [id number]
--- NOTE | 2021-05-26 14:34 | CARE MANAGER ---
Spoke with Meredith, staff nurse at [facility] about how this patient is post discharge. Meredith states patient is stable and seems to be well.
== END 2021-05-25 22:36 ==
LOC: ER 16:45 → 2ND 20:01
PROVIDERS: Admitting Provider Emergency Medicine; Emergency Provider Emergency Medicine; PCP Emergency Medicine; Visit Provider Emergency Medicine
DX: J18.9 Pneumonia, unspecified organism (principal); E11.9 Type 2 diabetes mellitus without complications; Z79.4 Long term (current) use of insulin; I42.9 Cardiomyopathy, unspecified; I25.10 Atherosclerotic heart disease of native coronary artery without angina pectoris; Z93.1 Gastrostomy status; K21.9 Gastro-esophageal reflux disease without esophagitis; I10 Essential (primary) hypertension; E78.5 Hyperlipidemia, unspecified; E03.9 Hypothyroidism, unspecified; Z79.899 Other long term (current) drug therapy; L89.153 Pressure ulcer of sacral region, stage 3; Z20.822 Contact with and (suspected) exposure to COVID-19
CPT/HCPCS: 36430; G0378; 36415; 36569; 51702; 70450; 71045; 80048; 80053; 81001; 82803; 82962; 83605; 85014; 85018; 85025; 86850; 86870; 87040; 87081; 96365; 99285; C1751; C9803; J1956; P9016; U0003; U0005

== ENCOUNTER → 2021-05-28 08:40 | Outpatient (CLI) | payer MEDICARE, MEDICAID, SELFPAY ==
[2021-05-28 09:23] LABS: Anion Gap 8.4 mEq/L (5-15); Blood Urea Nitrogen 35 mg/dl (7-17); Calcium 8.8 mg/dl (8.4-10.2); Carbon Dioxide 36 mmol/L (22.0-30.0); Chloride 103 mmol/L (98-107); Estimated Glomerular Filt Rate 97 ml/min (>60); GFR (African American) 118 ML/MIN (>60); Glucose 211 mg/dl (74-100); Potassium 4.4 mmoL/L (3.5-5.1); Sodium 143 mmol/L (136-145)
[2021-05-28 09:28] LABS: Vancomycin,Trough 7.7 ug/mL (5.0-10.0)
== END ==
PROVIDERS: Visit Provider Emergency Medicine
DX: L89.152 Pressure ulcer of sacral region, stage 2 (principal); Z51.81 Encounter for therapeutic drug level monitoring
CPT/HCPCS: 80048; 80202

== ENCOUNTER → 2021-05-30 12:21 | Outpatient (CLI) | payer MEDICARE, MEDICAID, SELFPAY ==
[2021-05-30 14:09] LABS: Anion Gap 7.3 mEq/L (5-15); Blood Urea Nitrogen 27 mg/dl (7-17); Calcium 8.7 mg/dl (8.4-10.2); Carbon Dioxide 36 mmol/L (22.0-30.0); Chloride 103 mmol/L (98-107); Estimated Glomerular Filt Rate 97 ml/min (>60); GFR (African American) 118 ML/MIN (>60); Glucose 152 mg/dl (74-100); Potassium 4.3 mmoL/L (3.5-5.1); Sodium 142 mmol/L (136-145)
[2021-05-30 14:13] LABS: Vancomycin,Trough 16.2 ug/mL (5.0-10.0)
== END ==
PROVIDERS: Visit Provider Emergency Medicine
DX: I10 Essential (primary) hypertension (principal); Z51.81 Encounter for therapeutic drug level monitoring
CPT/HCPCS: 80048; 80202

== ENCOUNTER 2021-06-09 14:17 | Inpatient (IN) | payer MEDICARE, MEDICAID, SELFPAY ==
[2021-06-09] VITALS (14 sets, daily range): BP systolic 118–178; BP diastolic 52–80; PULSE 84–94; RESP 15–36; TEMP 36.7–37.4; O2SAT 77–100; BMI 29.1; BMI 26.3
--- NOTE | 2021-06-09 14:18 | PC.NURSE ---
Respiratory called for pt
--- NOTE | 2021-06-09 14:20 | PC.NURSE ---
RESP PLACING PT ON BI PAP
--- NOTE | 2021-06-09 14:25 | HMH.EDGENADL ---
ED Disposition Clinical Impression: G tube feedings Pneumonia Qualifiers: Pneumonia type: aspiration pneumonia Aspiration pneumonia type: due to regurgitated food Laterality: right Lung location: lower lobe of lung Qualified Code(s): J69.0 - Pneumonitis due to inhalation of food and vomit Disposition: Admitted As Inpatient Condition on Discharge: Serious Referrals: Tank Gabriel MD [Primary Care Provider] - - Critical Care Critical Care Time: No Attestation: On , the high probability of a clinically significant, sudden or life threatening deterioration of the following system(s) required my full and direct attention, intervention and personal management. The time I documented below is in addition to time spent performing reported procedures but includes the following listed in this critical care notation. Medical Decision Making - Medical Records Medical records reviewed: Yes: I reviewed the patient's medical records. - Ben Inquiry Pt receiving controlled substance: No Vital Signs: 06/09/21 14:17 06/09/21 14:30 06/09/21 15:30 Temperature 98.1 F Temperature Source Rectal Pulse Rate 91 H 89 Pulse Rate [Left Radial] 92 H Respiratory Rate 22 18 18 Blood Pressure 126/62 128/60 Blood Pressure [Right Arm] 142/61 H Blood Pressure Mean 84 86 Blood Pressure Mean [Right Arm] 88 02 Sat by Pulse Oximetry 77 L 98 100 Oxygen Delivery Method Nasal Cannula BiPAP 06/09/21 16:00 Temperature Temperature Source Pulse Rate 91 H Pulse Rate [Left Radial] Respiratory Rate 20 Blood Pressure 119/63 Blood Pressure [Right Arm] Blood Pressure Mean 88 Blood Pressure Mean [Right Arm] 02 Sat by Pulse Oximetry 100 Oxygen Delivery Method BiPAP - Lab Data Lab results reviewed: Yes: I reviewed the patient's lab results. Lab Results 06/09/21 14:20: WBC 13.8 H, RBC 3.31 L, Hgb 9.2 L, Hct 30.3 L, MCV 91.4, MCH 27.6, MCHC 30.2 L, RDW 17.0, Plt Count 265, MPV 9.2, Neut % (Auto) 90.0 H, Lymph % (Auto) 5.1 L, [place] % (Auto) 4.6, Eos % (Auto) 0.1, Baso % (Auto) 0.3, Neut # (Auto) 12.4 H, Lymph # (Auto) 0.7, [place] # (Auto) 0.6, Eos # (Auto) 0.0, Baso # (Auto) 0.0, Total Counted 100, Neutrophils % (Manual) 89 H, Band Neutrophils % 3.0, Lymphocytes % (Manual) 6 L, Monocytes % (Manual) 2, Platelet Estimate Normal, Hypochromasia 2+, Anisocytosis 1+, Stomatocytes 1+ 06/09/21 14:20: Sodium 136, Potassium 4.9, Chloride 94 L, Carbon Dioxide 35 H, Anion Gap 11.9, BUN 45 H, Creatinine 0.70, Estimated Creat Clear 60, Estimated GFR 81, Est GFR ( Amer) 98, Glucose 251 H, Calcium 9.7, Total Bilirubin 1.4 H, AST 54 H, ALT 29, Alkaline Phosphatase 130 H, Total Protein 6.4, Albumin 3.5, Globulin 2.9, Albumin/Globulin Ratio 1.2 06/09/21 14:20: SARS-CoV-2 (PCR) Not detected, Influenza A Untype (PCR) Not detected, Influenza Type B (PCR) Not detected 06/09/21 14:20: Lactate 2.0 06/09/21 14:29: Specimen Source Right radial, O2 % 100, James Test Acceptable Result diagrams: 06/09/21 14:20 06/09/21 14:20 Orders (Tests/Meds): ED MEDICATIONS Generic Name Dose Route Start Last Admin Trade Name Freq PRN Reason Stop Dose Admin Piperacillin Sod/Tazobactam 100 mls @ 200 mls/hr 06/09/21 16:30 06/09/21 16:30 Sod 4.5 gm/ Sodium Chloride IV 06/23/21 16:29 200 mls/hr Q8H SERA Administration ORDERS Category Date Time Status Blood Culture Stat Micro 06/09/21 14:20 Received ABG [Arterial Blood Gas] Stat RT 06/09/21 14:29 Results Lactate Arterial Stat RT 06/09/21 14:29 Results Medical Decision Narrative: 75-year-old female presenting to emergency department chief complaint of difficult respirations. Reviewed patient history as patient is unable to provide significant history, and obtained additional history from EMS. Suspect the patient has an aspiration pneumonia, aspiration pneumonitis given concern for patient's aspiration. Also has a history of COPD, also suspicious of COPD exacerbation. X-ray, CBC, CMP, lact
--- NOTE | 2021-06-09 14:30 | PC.NURSE ---
Pt placed on bipap via respiratory
[2021-06-09 14:32] LABS: ABG Base Excess 5.5 mmol/L (-2.4-2.3); ABG HCO3 31.2 mmhg (22.0-26.0); ABG Oxygen Saturation 98 % (90-100); ABG PH 7.34 mmol/L (7.35-7.45); ABG TCO2 33.1 mmhg (23-27)
[2021-06-09 14:34] LABS: Allen's Test ACCEPTABLE; Oxygen 100 %; Source Right Radial
[2021-06-09 14:37] LABS: ABG PCO2 59.1 mmhg (35.0-45.0); Lactate Arterial 1.9 mmol/L (0.4-2.0)
--- NOTE | 2021-06-09 15:04 | XR_ITS ---
FINAL REPORT CLINICAL HISTORY: soa COMPARISON: May 25, 2021 FINDINGS: The is mild cardiomegaly. There are dense patchy perihilar and lower lobe airspace infiltrates consistent with acute pneumonia. There is no pneumothorax. IMPRESSION: Dense patchy perihilar and lower lobe airspace infiltrates consistent with acute pneumonia, progressed since the prior. Continued follow-up is recommended. Reviewed, Interpreted and Dictated by Jw Bui MD Transcribed by Etta Gaytan Authenticated by Jw Bui MD on 06/09/2021 04:00:58 PM [facility]
--- NOTE | 2021-06-09 15:05 | PC.NURSE ---
aware of ABG
[2021-06-09 15:11] LABS: Coronavirus 19, PCR Not Detected (NotDetected); Influenza A, PCR Not Detected (NotDetected); Influenza B, PCR Not Detected (NotDetected)
[2021-06-09 15:14] LABS: Basophils % 0.3 % (0.1-2.0); Eosinophils % 0.1 % (0.1-12.0); Hematocrit 30.3 % (37.0-47.0); Hemoglobin 9.2 g/dL (12.2-16.2); Lymphocytes # 0.7 K/mm3 (0.7-4.5); Lymphocytes % 5.1 % (10-50); Mean Corpuscular HGB Conc 30.2 g/dL (31.8-35.4); Mean Corpuscular Hemoglobin 27.6 pg (27.0-31.2); Mean Corpuscular Volume 91.4 fl (81-99); Mean Platelet Volume 9.2 fl (7.4-10.4); Monocytes # 0.6 K/mm3 (0.1-1.0); Monocytes % 4.6 % (1.7-9.3); Neutrophils # 12.4 K/mm3 (1.8-7.8); Platelet Count 265 K/mm3 (142-424); Red Blood Count 3.31 M/mm3 (4.20-5.40); White Blood Count 13.8 K/mm3 (4.8-10.8)
--- NOTE | 2021-06-09 15:16 | ECG_ITS ---
APPROVED REPORT Exam: Resting ECG HR:92 bpm ECG Measurements Heart Rate 92 AXES MI 225 P 28 QRSd 92 QRS -26 QT 354 T 124 QTc 404 Conclusion SINUS RHYTHM WITH FIRST DEGREE AV BLOCK Old snteroseptal and inf changes ABNORMAL ECG UNCONFIRMED REPORT Electronically signed by : Romeo Sanchez MD 06/10/2021 18:13:37
[2021-06-09 15:17] LABS: MANUAL DIFFERENTIAL MANUAL DIFFERENTIAL (MANUAL DIFF)
[2021-06-09 15:26] LABS: Chloride 94 mmol/L (98-107); Potassium 4.9 mmoL/L (3.5-5.1); Sodium 136 mmol/L (136-145)
[2021-06-09 15:35] LABS: Alanine Aminotransferase 29 U/L (12-78); Albumin Level 3.5 g/dl (3.5-5.0); Albumin/Globulin Ratio 1.2 (1.1-1.8); Alkaline Phosphatase 130 U/L (38-126); Anion Gap 11.9 mEq/L (5-15); Aspartate Amino Transferase 54 U/L (14-36); Bilirubin,Total 1.4 mg/dl (0.2-1.3); Blood Urea Nitrogen 45 mg/dl (7-17); Calcium 9.7 mg/dl (8.4-10.2); Carbon Dioxide 35 mmol/L (22.0-30.0); Creatinine Clearance Estimated 60 mL/min (50-200); Estimated Glomerular Filt Rate 81 ml/min (>60); GFR (African American) 98 ML/MIN (>60); Globulin 2.9 g/dL (1.3-3.2); Glucose 251 mg/dl (74-100); Total Protein,Serum 6.4 g/dl (6.3-8.2)
[2021-06-09 15:57] LABS: Anisocytosis 1+; Hypochromasia 2+; Lymphocytes % 6 % (10-50); Monocytes % 2 % (2-9); Neutrophils % 89 % (42-76); Platelet Estimate Normal; Stomatocytes 1+; Total Cells Counted 100
--- NOTE | 2021-06-09 16:24 | PC.NURSE ---
dr amin called for dr gibson
--- NOTE | 2021-06-09 18:16 | PC.NURSE ---
report called to [facility]
--- NOTE | 2021-06-09 19:42 | HMH.HP ---
*Chief complaint: aspiration pneumonia *History of present illness: Patient is a 75-year-old female presented to emergency department chief complaint of difficulty breathing. Report patient was noted to have significant increased difficulty breathing today. And recently had a G-tube placed. Patient is not generally on any supplemental oxygen, however was requiring BiPAP to maintain oxygen saturations. Patient has had a recent history of suspected aspiration pneumonia. No additional history was obtained. Patient has been nonverbal, really nonverbal at baseline. Workup included cxr FINDINGS: The is mild cardiomegaly. There are dense patchy perihilar and lower lobe airspace infiltrates consistent with acute pneumonia. There is no pneumothorax. IMPRESSION: Dense patchy perihilar and lower lobe airspace infiltrates consistent with acute pneumonia, progressed since the prior. Continued follow-up is recommended. Film demonstrates rightward process. Admitted for IV antibiotics and further evaluation. Has required ongoing support via bipap. [facility] History Medical History: Reports:: Anxiety, Cardiomyopathy, Coronary Artery Disease, Dementia, Diabetes Mellitus Type 2, Gastroesophageal Reflux Disease(GERD), Hyperlipidemia, Hypertension, Renal Insufficiency, Urinary Tract Infection Denies:: Cancer, Diabetes Mellitus Type 1, Internal Pacemaker, MRSA, Seizures *Have you ever received a pneumonia vaccine?: Yes *Have you received a flu vaccine this season?: Yes Other Medical History: Reports: Anemia, Hypothyroidism Other Surgeries: Yes: No Previous Surgery, Other (Gtube placement). No: Pacemaker Amputation: No Fractures: Yes - *Social History Last grade of school completed: High school graduate Smoking Status: Never smoker Alcohol Intake: never Substance Use Type: denies use *Occupational Status:: retired Housing: [facility] *Travel in the last 8 weeks: None - Psychiatric History Pschychiatric History:: Reports:: Anxiety Family Hx:: Unable to obtain Review of Systems - Review of Systems Review of systems:: unable to obtain Meds Home Medications Medication Instructions Recorded Confirmed Type Acetaminophen 500 mg PO Q4HP PRN 03/28/21 06/09/21 History Aspirin [Aspirin 81mg chewable 81 mg PO DAILY 03/28/21 06/09/21 History tab] Buspirone HCl [Buspar 10mg 10 mg PO TID 03/28/21 06/09/21 History tablet] Duloxetine HCl 60 mg PO DAILY 03/28/21 06/09/21 History Furosemide [Furosemide 20mg Tab*] 20 mg PO DAILY 03/28/21 06/09/21 History Losartan Potassium 25 mg PO DAILY 03/28/21 06/09/21 History Metformin HCl 500 mg PO BIDWMEAL 03/28/21 06/09/21 History Metoprolol Tartrate [Lopressor 12.5 mg PO BID 03/28/21 06/09/21 History 25mg tablet] Omeprazole [Omeprazole 20mg 20 mg PO DAILY 03/28/21 06/09/21 History Capsule] Sennosides [Senna] 8.6 mg PO BID 03/28/21 06/09/21 History Simethicone [Gas Relief] 80 - 160 mg PO QIDP PRN 03/28/21 06/09/21 History Gabapentin [Neurontin 300mg 300 mg PO HS 03/29/21 06/09/21 History capsule] Lactulose 30 ml PO DAILYP PRN 03/29/21 06/09/21 History Levocetirizine Dihydrochloride 2.5 mg PO DAILY 03/29/21 06/09/21 History Levothyroxine Sodium 50 mcg PO DAILYDM 03/29/21 06/09/21 History [Levothyroxine 50mcg (0.05mg) Tab] Linagliptin [Tradjenta 5mg tablet] 5 mg PO DAILYDM 03/29/21 06/09/21 History Pravastatin Sodium [Pravachol 40mg 40 mg PO HS 03/29/21 06/09/21 History Tablet] Insulin Glargine,Hum.rec.anlog 16 units SQ HS 04/26/21 06/09/21 History [Lantus Solostar 100 Units/mL 3mL flexpen] LORazepam [Ativan 1mg tablet] 1 mg PO TID 05/10/21 06/09/21 History hydrOXYzine pamoate [Vistaril 25mg 25 mg PO TIDP PRN 05/10/21 06/09/21 History capsule] risperiDONE [Risperidone] 1 mg PO HS 05/10/21 06/09/21 History hydrocodone 5 mg-acetaminophen 325 1 tab PO BID #60 tab 05/18/21 06/09/21 Rx mg tablet Insulin Aspart Prot/Insuln Asp 20 unit SQ BIDWMEAL 0
--- NOTE | 2021-06-09 20:21 | CT_ITS ---
PROCEDURE INFORMATION: Exam: CT Head Without Contrast Exam date and time: 06/09/2021 8:40 PM Age: 75 years old Clinical indication: Alteration of consciousness; Other: Not specified; Additional info: Altered loc TECHNIQUE: Imaging protocol: Computed tomography of the head without contrast. Radiation optimization: All CT scans at this facility use at least one of these dose optimization techniques: automated exposure control; mA and/or kV adjustment per patient size (includes targeted exams where dose is matched to clinical indication); or iterative reconstruction. COMPARISON: CT HEAD/BRAIN WO CON 05/24/2021 4:56 PM FINDINGS: Brain: Mild-moderate age-appropriate intracerebral volume loss. Falx calcification. Cerebral ventricles: No ventriculomegaly. Paranasal sinuses: Minimal frontal sinus inflammatory changes. Mastoid air cells: Visualized mastoid air cells are well aerated. Bones/joints: Mild deviation of the nasal septum. Mildly prominent septal spur encroaching upon the right nasal passage. Soft tissues: Unremarkable. IMPRESSION: 1. Mild-moderate age-appropriate intracerebral volume loss. 2. Minimal frontal sinus inflammatory changes.
--- NOTE | 2021-06-09 20:37 | PC.NURSE ---
PT OFF FLOOR AT THIS TIME VIA BED W/RADIOLOGY
--- NOTE | 2021-06-09 20:50 | PC.NURSE ---
PT BACK TO FLOOR @ THIS TIME
[2021-06-09 21:45] LABS: POC Glucose,Bedside 329 (70-110)
[2021-06-10] VITALS (7 sets, daily range): BP systolic 107–146; BP diastolic 47–67; PULSE 85–100; RESP 15–25; TEMP 37–38.5; O2SAT 87–100; BMI 26.4
--- NOTE | 2021-06-10 04:37 | HMH.ITSTN ---
Spoke to RN @[phone], holding off on chest xray. RN to check with MD regarding 2 view or portable cxr.
--- NOTE | 2021-06-10 06:00 | XR_ITS ---
PROCEDURE INFORMATION: Exam: XR Chest Exam date and time: 06/10/2021 8:23 AM Age: 75 years old Clinical indication: Shortness of breath; Additional info: SOA, pneumonia TECHNIQUE: Imaging protocol: XR of the chest. Views: 1 view. COMPARISON: CR XR CHEST PORTABLE 06/09/2021 3:08 PM FINDINGS: Tubes, catheters and devices: Surgical clips overlie the right axilla. Airway: Patent Lungs: Bilateral perihilar and mid to basal predominant ground-glass and patchy airspace opacities are new and/or worsened as compared to the reference examination. Pleural spaces: Questionable trace bilateral pleural effusions. No pneumothorax. Heart/Mediastinum: Stable heart size. Vasculature: Calcified aortic knob. Bones/joints: No acute skeletal abnormality or aggressive osseous lesion. IMPRESSION: 1. Worsening pneumonia or pulmonary edema in the bilateral perihilar regions and mid to lung bases. 2. Concern for trace bilateral pleural effusions.
[2021-06-10 06:42] LABS: POC Glucose,Bedside 231 (70-110)
--- NOTE | 2021-06-10 06:53 | PC.NURSE ---
Patient has remained on BiPAP t/o shift and tolerated well. Patient became febrile this shift treated with medication per MAR with favorable results. Patient vomited x 1 this shift. Patient has been turned q2 hours t/o shift. Unable to give PO meds this shift MD aware. Call ornelas in reach will continue to monitor.
--- NOTE | 2021-06-10 07:15 | P.CONPHA_ITS ---
[facility] Pharmacy VTE Monitoring - Patient Demographics Admission date: 06/10/21 Report Date: 06/10/21 Time: 07:15 Allergies/Adverse Reactions: Patient Allergies No Known Allergies Allergy (Verified 04/23/21 18:16) Height: 1.65 m Weight: 71.804 kg Patient Problems: Current Active Problems Feeding difficulty in adult (Acute) S/P percutaneous endoscopic gastrostomy (PEG) tube placement (Acute) G tube feedings (Acute) Dyspnea (Acute) Gastroesophageal reflux disease (Chronic) Diabetes mellitus (Chronic) Weakness (Chronic) Pneumonia (Acute) Hypothyroidism (acquired) (Chronic) - VTE Risk Labs: VTE Related Lab Results Hgb 9.2 g/dL (12.2-16.2) L 06/09/21 14:20 Hct 30.3 % (37.0-47.0) L 06/09/21 14:20 Plt Count 265 K/mm3 (142-424) 06/09/21 14:20 BUN 45 mg/dl (7-17) H 06/09/21 14:20 Creatinine 0.70 mg/dl (0.52-1.04) 06/09/21 14:20 Estimated Creat Clear 60 mL/min (50-200) 06/09/21 14:20 Was VTE Risk Assessment Performed: Yes VTE Risk Level: Low Risk Clinical Trial Participant: No - Prophylaxis VTE Prophylaxis Ordered?: Yes Types of VTE Prophylaxis: TEDS Knee High Location of Applied Device: Bilateral Lower Extremeties
[2021-06-10 07:38] LABS: Anion Gap 8.9 mEq/L (5-15); Blood Urea Nitrogen 42 mg/dl (7-17); Calcium 8.6 mg/dl (8.4-10.2); Carbon Dioxide 32 mmol/L (22.0-30.0); Chloride 102 mmol/L (98-107); Creatinine Clearance Estimated 54 mL/min (50-200); Estimated Glomerular Filt Rate 97 ml/min (>60); GFR (African American) 118 ML/MIN (>60); Glucose 209 mg/dl (74-100); Potassium 5.9 mmoL/L (3.5-5.1); Sodium 137 mmol/L (136-145)
[2021-06-10 07:39] LABS: Basophils % 0.3 % (0.1-2.0); Eosinophils % 0.5 % (0.1-12.0); Hematocrit 32.8 % (37.0-47.0); Lymphocytes # 0.7 K/mm3 (0.7-4.5); Mean Corpuscular HGB Conc 31.6 g/dL (31.8-35.4); Mean Corpuscular Hemoglobin 28.3 pg (27.0-31.2); Mean Corpuscular Volume 89.8 fl (81-99); Mean Platelet Volume 10.3 fl (7.4-10.4); Monocytes # 0.6 K/mm3 (0.1-1.0); Neutrophils # 7.6 K/mm3 (1.8-7.8); Neutrophils % 84.1 % (37.0-80.0); Platelet Count 175 K/mm3 (142-424); Red Blood Count 3.66 M/mm3 (4.20-5.40); Red Cell Distribution Width 16.8 % (11.5-17.5); White Blood Count 9.1 K/mm3 (4.8-10.8)
--- NOTE | 2021-06-10 07:54 | PC.WOUNDNOTE ---
Stage 3 to coccyx
--- NOTE | 2021-06-10 09:39 | SW/DCPLANNER ---
Addendum entered by [facility] 06/12/21 08:10: Patient does not require a COVID swab prior to discharging. Addendum entered by [facility] 06/12/21 08:06: I have received approval from Nurse Wholesale Buyer for End of Life Care for this patient. Patient will discharge back to [facility] today. I will fax all patient information to [facility]ators for them to follow up with patient once she returns to [facility]. Addendum entered by [facility] 06/11/21 14:45: Luzmaria (Nurse Wholesale Buyer) is still reviewing documentation for Hospice request. Addendum entered by [facility] 06/11/21 09:37: Patient information, Dr Castillo documentation, consulting MD (Dr Sanchez) documentation and paperwork has been faxed to Nurse Consultants to make this patient Hospice. Patient is currently DNR and I will follow up with Nurse Consultants once all information is reviewed. Addendum entered by [facility] 06/10/21 10:13: Michelle w/ [facility] has stated that she is waiting for a return phone call from Nurse Wholesale Buyer and will work with Dr Gabriel this AM to completed Hospice paperwork. Original Note: This patient currently resides at [facility]. I spoke with Michelle at [facility]: patient is SNF level of care. Michelle is currently in the process of completing Hospice paperwork for this patient. This patient is currently DNR at [facility]: Michelle has faxed paperwork to add to patients chart. I will follow up with Michelle today and assist in completing Hospice paperwork.
--- NOTE | 2021-06-10 10:38 | HMH.PHAINT ---
Home medication list has been verified using list from half-way
--- NOTE | 2021-06-10 11:23 | HMH.ACPN2 ---
Internal Medicine - PN: Subj *Date: 06/10/21 *Time: 08:00 Interval history: pt on bipap Exam Vital signs and Labs for Last 24 Hours: Temp Pulse Resp BP Pulse Ox 99.2 F 85 24 128/57 L 100 06/10/21 08:00 06/10/21 08:00 06/10/21 08:00 06/10/21 08:00 06/10/21 08:00 Laboratory Results - last 24 hr 06/09/21 14:20: WBC 13.8 H, RBC 3.31 L, Hgb 9.2 L, Hct 30.3 L, MCV 91.4, MCH 27.6, MCHC 30.2 L, RDW 17.0, Plt Count 265, MPV 9.2, Neut % (Auto) 90.0 H, Lymph % (Auto) 5.1 L, [place] % (Auto) 4.6, Eos % (Auto) 0.1, Baso % (Auto) 0.3, Neut # (Auto) 12.4 H, Lymph # (Auto) 0.7, [place] # (Auto) 0.6, Eos # (Auto) 0.0, Baso # (Auto) 0.0, Total Counted 100, Neutrophils % (Manual) 89 H, Band Neutrophils % 3.0, Lymphocytes % (Manual) 6 L, Monocytes % (Manual) 2, Platelet Estimate Normal, Hypochromasia 2+, Anisocytosis 1+, Stomatocytes 1+ 06/09/21 14:20: Sodium 136, Potassium 4.9, Chloride 94 L, Carbon Dioxide 35 H, Anion Gap 11.9, BUN 45 H, Creatinine 0.70, Estimated Creat Clear 60, Estimated GFR 81, Est GFR ( Amer) 98, Glucose 251 H, Calcium 9.7, Total Bilirubin 1.4 H, AST 54 H, ALT 29, Alkaline Phosphatase 130 H, Total Protein 6.4, Albumin 3.5, Globulin 2.9, Albumin/Globulin Ratio 1.2 06/09/21 14:20: SARS-CoV-2 (PCR) Not detected, Influenza A Untype (PCR) Not detected, Influenza Type B (PCR) Not detected 06/09/21 14:20: Lactate 2.0 06/09/21 14:29: Specimen Source Right radial, O2 % 100, ABG pH 7.34 L, ABG pCO2 59.1 H, ABG pO2 117.0 H, ABG HCO3 31.2 H, ABG Total CO2 33.1 H, ABG O2 Saturation 98, ABG Base Excess 5.5 H, James Test Acceptable, ABG Lactate 1.9 06/09/21 21:35: POC Glucose 329 H* 06/10/21 06:34: POC Glucose 231 H 06/10/21 06:36: Sodium 137, Potassium 5.9 H D, Chloride 102, Carbon Dioxide 32 H, Anion Gap 8.9, BUN 42 H, Creatinine 0.60, Estimated Creat Clear 54, Estimated GFR 97, Est GFR ( Amer) 118 D, Glucose 209 H, Calcium 8.6 I & O for Last 24 hours: Intake & Output 06/07/21 06/08/21 06/09/21 06/10/21 11:59 11:59 11:59 11:59 Weight 158 lb 4.67 oz - Constitutional no acute distress, chronically ill appearing - *Routine HEENT Exam Head: Present: normocephalic Eye: Present: PERRL ENT: Present: mucous membranes moist - *Routine Neck Exam Present: supple. Absent: lymphadenopathy - *Routine Respiratory Exam Present: decreased breath sounds, rhonchi - *Routine Cardiovascular Exam Present: RRR - *Routine Abdominal Exam Present: soft, normoactive bowel sounds, other. Absent: tenderness Comments: peg in place - *Routine Extremities Exam Present: edema. Absent: cyanosis, clubbing - *Routine Skin Exam Present: warm, wounds. Absent: rash Comments: stage 3 to coccyx - *Routine Neurological Exam Present: altered mental status Assessment and Plan (1) G tube feedings Status: Acute Category: Medical Code(s): Z93.1 - Gastrostomy status (2) Pneumonia Status: Acute Qualifiers: Pneumonia type: aspiration pneumonia Aspiration pneumonia type: due to regurgitated food Laterality: right Lung location: lower lobe of lung Qualified Code(s): J69.0 - Pneumonitis due to inhalation of food and vomit Category: Medical Code(s): J18.9 - Pneumonia, unspecified organism (3) Dyspnea Status: Acute Qualifiers: Dyspnea type: dyspnea on exertion Qualified Code(s): R06.00 - Dyspnea, unspecified Category: Medical Code(s): R06.00 - Dyspnea, unspecified (4) Feeding difficulty in adult Status: Acute Category: Medical Code(s): R63.39 - Other feeding difficulties (5) S/P percutaneous endoscopic gastrostomy (PEG) tube placement Status: Acute Category: Surgical Code(s): Z93.1 - Gastrostomy status (6) Diabetes mellitus Status: Chronic Qualifiers: Category: Medical Code(s): E11.9 - Type 2 diabetes mellitus without complications (7) Gastroesophageal reflux disease Status: Chronic Qualifiers: Esophagitis presence: esophagitis pre
--- NOTE | 2021-06-10 11:29 | DIET.NUTRFU ---
to promote healing of skin breakdown to bottom Stage 3 noted. To increased protein needs to 1.4gm/kg=91gm/day of protein to reach this will need to add 1 scoop of beneprotein BID. Mix 1 unpacked level scoop (7gm protein and 25kcal each) with 2-4 fl oz (60-120 mL) water. Administer by syringe through a feeding tube. Flush afterwards with a minimum of 1-2 fl oz (30-60 mL) water. Patient also recommended to start on zinc and vitamin C for healing. Glucerna goal rate at 80ml/hr to provide 1840kcal/77gm protein and 1569ml free water with 200ml flush/day for total fluid of 1869ml/day. This provides total of 28kcal, 1.4gm/kg and 28ml/kg. Labs reviewed, Kayexelate added for depleted potassium. Will review with nursing
[2021-06-10 12:15] LABS: Microscopic, Urine URINE MICROSCOPIC (MICROSCOPIC)
[2021-06-10 12:25] LABS: Hemoglobin 10.4 g/dL (12.2-16.2)
[2021-06-10 12:45] LABS: ABG PH 7.42 mmol/L (7.35-7.45)
[2021-06-10 12:46] LABS: ABG HCO3 32.1 mmhg (22.0-26.0); ABG TCO2 33.7 mmhg (23-27)
[2021-06-10 12:47] LABS: ABG Base Excess 6.7 mmol/L (-2.4-2.3); ABG Oxygen Saturation 100 % (90-100); Oxygen 60 %; Tidal Volume BIPAP 16/8; Vent Rate 26
[2021-06-10 13:16] LABS: Appearance,Urine CLEAR (Clear); Bilirubin,Urine Negative (Negative); Blood, Urine Negative (Negative); Color,Urine YELLOW (Yellow); Glucose,Urine (UA) Negative (Negative); Ketones,Urine Negative (Negative); Leukocyte Esterase,Urine Negative (Negative); Nitrate,Urine Negative (Negative); Protein,Urine TRACE (Negative)
[2021-06-10 13:17] LABS: POC Glucose,Bedside 213 (70-110)
[2021-06-10 16:16] LABS: Bacteria,Urine Trace /lpf; Yeast,Urine 1+ /lpf
[2021-06-10 17:36] LABS: POC Glucose,Bedside 263 (70-110)
--- NOTE | 2021-06-10 20:00 | PC.NURSE ---
PT IS RESTING IN BED. NO COMPLAINTS OF DISCOMFORT. PT HAS BECAME MORE AWAKE THIS AFTERNOON. BIPAP WAS REMOVED AT 1300. O2 SATURATION HAS MAINTAINED 90-95% ON 2 L NC. LUNG SOUNDS HAVE SCATTERED RHONCHI. TUBE FEEDINGS STARTED THIS AFTERNOON AT 2O ML/HR. NEW IV ACCESS NOTED TO RFA. EDEMA NOTED TO BUE. WILL CONTINUE TO MONITOR.
[2021-06-11] VITALS (7 sets, daily range): BP systolic 121–169; BP diastolic 76–86; PULSE 78–109; RESP 16–24; TEMP 36.5–37.1; O2SAT 88–98; BMI 26.8
--- NOTE | 2021-06-11 06:48 | PC.NURSE ---
Pt has slept through most of shift. Will open eyes and moan at times. GI tube in place with feeding running at 20ml/hr. Residuals have remained 0ml t/o night. At 0330, this RN found pt coughing up emesis and had audible rhonchi. Pt was deep suctioned and breathing improved. Lung sounds are rhonchi scattered t/o. Pt has remained on 2 L nc, tolerating well with sats in low 90s. Pt has been turned and oral care provided q2h. Call light within reach.
[2021-06-11 08:21] LABS: Anion Gap 9.4 mEq/L (5-15); Blood Urea Nitrogen 33 mg/dl (7-17); Carbon Dioxide 33 mmol/L (22.0-30.0); Chloride 100 mmol/L (98-107); Creatinine Clearance Estimated 55 mL/min (50-200); Estimated Glomerular Filt Rate 70 ml/min (>60); GFR (African American) 84 ML/MIN (>60); Glucose 290 mg/dl (74-100); Potassium 3.4 mmoL/L (3.5-5.1); Sodium 139 mmol/L (136-145)
--- NOTE | 2021-06-11 08:23 | HMH.CONS ---
*Admission Date: 06/10/21 *Reason for consult:: Evaluation for end-of-life/hospice care *History of present illness: 75-year-old white male with severe dementia and multiple medical problems admitted to hospital for respiratory failure. I am consulted to evaluate for appropriateness of hospice care. [facility] History I have reviewed the patient's past medical history: Yes Medical History: Reports:: Anxiety, Cardiomyopathy, Coronary Artery Disease, Dementia, Diabetes Mellitus Type 2, Gastroesophageal Reflux Disease(GERD), Hyperlipidemia, Hypertension, Renal Insufficiency, Urinary Tract Infection Denies:: Cancer, Diabetes Mellitus Type 1, Internal Pacemaker, MRSA, Seizures *Have you ever received a pneumonia vaccine?: Yes *Have you received a flu vaccine this season?: Yes Other Medical History: Reports: Anemia, Hypothyroidism Other Surgeries: Yes: No Previous Surgery, Other (Gtube placement). No: Pacemaker Amputation: No Fractures: Yes - *Social History Last grade of school completed: High school graduate Smoking Status: Never smoker Alcohol Intake: never Substance Use Type: denies use *Occupational Status:: retired Housing: group home *Travel in the last 8 weeks: None - Psychiatric History Pschychiatric History:: Reports:: Anxiety Family Hx:: Unable to obtain Review of Systems - Review of Systems Review of systems:: unable to obtain Meds Home Medications Medication Instructions Recorded Confirmed Type Acetaminophen 500 mg PO Q4HP PRN 03/28/21 06/10/21 History Aspirin [Aspirin 81mg chewable 81 mg PO DAILY 03/28/21 06/10/21 History tab] Buspirone HCl [Buspar 10mg 10 mg PO TID 03/28/21 06/10/21 History tablet] Duloxetine HCl 60 mg PO DAILY 03/28/21 06/10/21 History Furosemide [Furosemide 20mg Tab*] 20 mg PO DAILY 03/28/21 06/10/21 History Losartan Potassium 25 mg PO DAILY 03/28/21 06/10/21 History Metformin HCl 500 mg PO BIDWMEAL 03/28/21 06/10/21 History Metoprolol Tartrate [Lopressor 12.5 mg PO BID 03/28/21 06/10/21 History 25mg tablet] Omeprazole [Omeprazole 20mg 20 mg PO DAILY 03/28/21 06/10/21 History Capsule] Sennosides [Senna] 8.6 mg PO BID 03/28/21 06/10/21 History Simethicone [Gas Relief] 80 - 160 mg PO QIDP PRN 03/28/21 06/09/21 History Gabapentin [Neurontin 300mg 300 mg PO HS 03/29/21 06/10/21 History capsule] Lactulose 30 ml PO DAILYP PRN 03/29/21 06/10/21 History Levocetirizine Dihydrochloride 2.5 mg PO DAILY 03/29/21 06/09/21 History Levothyroxine Sodium 50 mcg PO DAILYDM 03/29/21 06/10/21 History [Levothyroxine 50mcg (0.05mg) Tab] Linagliptin [Tradjenta 5mg tablet] 5 mg PO DAILYDM 03/29/21 06/10/21 History Pravastatin Sodium [Pravachol 40mg 40 mg PO HS 03/29/21 06/10/21 History Tablet] Insulin Glargine,Hum.rec.anlog 16 units SQ HS 04/26/21 06/10/21 History [Lantus Solostar 100 Units/mL 3mL flexpen] LORazepam [Ativan 1mg tablet] 1 mg PO TID 05/10/21 06/10/21 History hydrOXYzine pamoate [Vistaril 25mg 25 mg PO TIDP PRN 05/10/21 06/10/21 History capsule] risperiDONE [Risperidone] 1 mg PO HS 05/10/21 06/10/21 History hydrocodone 5 mg-acetaminophen 325 1 tab PO BID #60 tab 05/18/21 06/10/21 Rx mg tablet Insulin Aspart Prot/Insuln Asp 20 unit SQ BIDWMEAL 05/25/21 06/10/21 History [Insulin Aspart Pro Oks85-65 Pn] Semaglutide [Ozempic] 0.5 mg SQ FR 05/25/21 06/09/21 History gabapentin 100 mg capsule 100 mg PO DAILY #30 cap 06/05/21 06/10/21 Rx Ascorbic Acid [Vitamin C] 1,000 mg PO DAILY 06/10/21 06/10/21 History Mag Hydrox/Aluminum Hyd/Simeth 30 ml PO Q6HP PRN 06/10/21 06/10/21 History [Mylanta Maximum Strength Liq] Multivitamin [Multi-Vitamin Plain] 1 tab PO DAILY 06/10/21 06/10/21 History Allergies Allergy/AdvReac Type Severity Reaction Status Date / Time No Known Allergies Allergy Verified 04/23/21 18:16 Exam Vital signs and Labs for Last 24 Hours: Temp Pulse Resp BP Pulse Ox 98.7 F 109 H 16 121/80 92 L
--- NOTE | 2021-06-11 09:11 | HMH.ACPN2 ---
Internal Medicine - PN: Subj *Date: 06/11/21 *Time: 09:11 Interval history: Patient is seen this morning, she is off the BiPAP but appears to be very uncomfortable. He has ongoing mental status changes, underlying dementia, bedbound status, G-tube dependent status, and carries diagnoses of failure to thrive, protein calorie malnutrition and sepsis. Patient has not cleared since patient, she is uncomfortable, moaning and groaning that she is incapable of coherent conversation. Patient is noted to have very poor quality of life overall, and chronic intractable progressive medical issues. For these reasons I believe that his care is appropriate. Exam Vital signs and Labs for Last 24 Hours: Temp Pulse Resp BP Pulse Ox 98.7 F 109 H 16 121/80 92 L 06/11/21 04:00 06/11/21 04:00 06/11/21 04:00 06/11/21 04:00 06/11/21 04:00 Laboratory Results - last 24 hr 06/09/21 14:29: ABG pH 7.34 L, ABG pCO2 59.1 H, ABG pO2 117.0 H, ABG HCO3 31.2 H, ABG Total CO2 33.1 H, ABG O2 Saturation 98, ABG Base Excess 5.5 H, ABG Lactate 1.9 06/10/21 06:36: WBC 9.1 D, RBC 3.66 L, Hgb 10.4 L D, Hct 32.8 L, MCV 89.8, MCH 28.3, MCHC 31.6 L, RDW 16.8, Plt Count 175 D, MPV 10.3, Neut % (Auto) 84.1 H, Lymph % (Auto) 8.0 L, [place] % (Auto) 7.0, Eos % (Auto) 0.5, Baso % (Auto) 0.3, Neut # (Auto) 7.6, Lymph # (Auto) 0.7, [place] # (Auto) 0.6, Eos # (Auto) 0.0, Baso # (Auto) 0.0 06/10/21 11:17: POC Glucose 213 H 06/10/21 12:00: Urine Color Yellow, Urine Appearance Clear, Urine pH 7.0, Ur Specific [place] 1.010, Urine Protein Trace, Urine Glucose (UA) Negative, Urine Ketones Negative, Urine Blood Negative, Urine Nitrate Negative, Urine Bilirubin Negative, Urine Urobilinogen 1.0, Ur Leukocyte Esterase Negative, Urine RBC None, Urine WBC 10-20, Ur Squamous Epith Cells None, Urine Bacteria Trace, Urine Yeast 1+ 06/10/21 12:25: O2 % 60, ABG pH 7.42, ABG pCO2 51.0 H, ABG pO2 291.0 H, ABG HCO3 32.1 H, ABG Total CO2 33.7 H, ABG O2 Saturation 100, ABG Base Excess 6.7 H, Vent Rate 26, Tidal Volume Bipap 16/8 06/10/21 17:20: POC Glucose 263 H 06/11/21 07:18: Sodium 139, Potassium 3.4 L D, Chloride 100, Carbon Dioxide 33 H, Anion Gap 9.4, BUN 33 H, Creatinine 0.80 D, Estimated Creat Clear 55, Estimated GFR 70, Est GFR ( Amer) 84 D, Glucose 290 H, Calcium 9.0 I & O for Last 24 hours: Intake & Output 06/08/21 06/09/21 06/10/21 06/11/21 23:59 23:59 23:59 23:59 Intake Total 2109 / 2109 Output Total 300 / 500 200 / 200 Balance 1809 / 1609 -200 / -200 Weight 158 lb 1 oz 158 lb 4.67 oz 161 lb 1 oz - Constitutional chronically ill appearing, agitated - *Routine HEENT Exam Head: Present: normocephalic Eye: Present: EOMI, PERRL ENT: Present: mucous membranes moist - *Routine Neck Exam Present: supple. Absent: lymphadenopathy - *Routine Respiratory Exam Present: rhonchi, distant breath sounds. Absent: accessory muscle use - *Routine Cardiovascular Exam Present: RRR - *Routine Abdominal Exam Present: soft Comments: g-tube in place - *Routine Extremities Exam Absent: tenderness - *Routine Skin Exam Present: warm. Absent: rash - *Routine Neurological Exam Present: altered mental status. Absent: alert, oriented X3, normal speech Assessment and Plan (1) G tube feedings Status: Acute Category: Medical Code(s): Z93.1 - Gastrostomy status (2) Pneumonia Status: Acute Qualifiers: Pneumonia type: aspiration pneumonia Aspiration pneumonia type: due to regurgitated food Laterality: right Lung location: lower lobe of lung Qualified Code(s): J69.0 - Pneumonitis due to inhalation of food and vomit Category: Medical Code(s): J18.9 - Pneumonia, unspecified organism (3) Dyspnea Status: Acute Qualifiers: Dyspnea type: dyspnea on exertion Qualified Code(s): R06.00 - Dyspnea, unspecified Category: Medical Code(s): R06.00 - Dyspnea, unspecified (4) Feeding difficulty in adult Status: Acute Category:
--- NOTE | 2021-06-11 11:23 | DIET.NUTRFU ---
Pt is tolerating TF better this AM at 20ml/hr with no residuals. Plan to discharge back to [place] today, consulting hospice d/t poor quality of life, failure to thrive
[2021-06-11 12:02] LABS: POC Glucose,Bedside 299 (70-110)
--- NOTE | 2021-06-11 15:23 | PC.NURSE ---
1523-1 scoop of beneprotein administered to pt at this time via gtube as directed by automatic drill operator, pt greg well, 0 residual noted from gtube, gtube flushed after administering protein, will continue to monitor
--- NOTE | 2021-06-11 16:24 | PC.NURSE ---
1604-spoke with Dusty Farfan, pt's state guardian at this time who informed me that granddaughter was wanting to get information on pt. Dusty stated that pt's granddaughter, Kassidy Diaz had permission to receive information of pt over the phone if requested due to Kassidy being pt's only family. Dusty also informed that Kassidy was not allowed to give consent for pt. Dusty reported that he would notify pt's granddaughter of designated password.
--- NOTE | 2021-06-11 17:03 | PC.NURSE ---
1702-pt has rested intermittently t/o shift, when pt awakens pt is noted to be agitated/restless and moaning allowed, pt unable to tell you needs at this time, pt has recieved both Buspar & Ativan scheduled and has helped pt rest easier, pt had small formed BM this am-incontinent, f/c draining at bedside, dk yellow/clear urine, pt continues to recieve tube feedings to G tube (Glucerna) @ 20ml's/hr and greg well t/o shift, no residual noted to gtube today, dressing remains intact to bottom/coccyx, pts sats have remains stable on 2l/nc, ls cta, will continue to monitor
[2021-06-11 20:34] LABS: POC Glucose,Bedside 301 (70-110)
[2021-06-11 20:34] LABS: POC Glucose,Bedside 304 (70-110)
[2021-06-11 21:02] LABS: POC Glucose,Bedside 224 (70-110)
[2021-06-12] VITALS: BP 145/64; PULSE 71; RESP 14; TEMP 36.7; O2SAT 100; O2SAT 97
[2021-06-12 04:00] VITALS: BP 143/63; PULSE 71; RESP 18; TEMP 36.5; O2SAT 98
[2021-06-12 05:54] VITALS: BMI 27.6
[2021-06-12 06:23] LABS: POC Glucose,Bedside 110 (70-110)
--- NOTE | 2021-06-12 06:57 | PC.NURSE ---
Pt slept t/o majority of shift. Pt titrated down to RA, tolerating well with sats in upper 90S. G tube in place. Residuals remained 5-15ml t/o night. Glucerna remains at 20ml/hr. 2 large BMs through the night, full bed bath and new DSG applied to coccyx. Qiu in place draining clear yellow urine with sediment. call light within reach, bed alarm on for safety.
[2021-06-12 08:00] VITALS: BP 161/90; PULSE 75; RESP 19; TEMP 36.8; O2SAT 95
[2021-06-12 08:47] LABS: Basophils # 0.1 K/mm3 (0-0.2); Basophils % 0.7 % (0.1-2.0); Chloride 101 mmol/L (98-107); Eosinophils # 0.4 K/mm3 (0.0-0.4); Eosinophils % 3.7 % (0.1-12.0); Hematocrit 25.7 % (37.0-47.0); Hemoglobin 8.1 g/dL (12.2-16.2); Lymphocytes # 1.4 K/mm3 (0.7-4.5); Lymphocytes % 13.1 % (10-50); Mean Corpuscular HGB Conc 31.7 g/dL (31.8-35.4); Mean Corpuscular Hemoglobin 28.4 pg (27.0-31.2); Mean Corpuscular Volume 89.8 fl (81-99); Mean Platelet Volume 8.9 fl (7.4-10.4); Monocytes # 0.6 K/mm3 (0.1-1.0); Monocytes % 5.5 % (1.7-9.3); Platelet Count 242 K/mm3 (142-424); Red Blood Count 2.86 M/mm3 (4.20-5.40); Red Cell Distribution Width 16.8 % (11.5-17.5); Sodium 136 mmol/L (136-145); White Blood Count 10.4 K/mm3 (4.8-10.8)
[2021-06-12 08:48] LABS: Potassium 3.2 mmoL/L (3.5-5.1)
[2021-06-12 08:50] LABS: Blood Urea Nitrogen 28 mg/dl (7-17); Creatinine Clearance Estimated 57 mL/min (50-200); Estimated Glomerular Filt Rate 97 ml/min (>60); GFR (African American) 118 ML/MIN (>60)
[2021-06-12 08:51] LABS: Anion Gap 9.2 mEq/L (5-15); Calcium 8.1 mg/dl (8.4-10.2); Carbon Dioxide 29 mmol/L (22.0-30.0); Glucose 113 mg/dl (74-100)
--- NOTE | 2021-06-12 09:40 | HMH.DCSUM ---
General - General Admission date:: 06/09/21 Discharge date: 06/12/21 HPI HPI: Patient is a 75-year-old female presented to emergency department chief complaint of difficulty breathing. Report patient was noted to have significant increased difficulty breathing today. And recently had a G-tube placed. Patient is not generally on any supplemental oxygen, however was requiring BiPAP to maintain oxygen saturations. Patient has had a recent history of suspected aspiration pneumonia. No additional history was obtained. Patient has been nonverbal, really nonverbal at baseline. Workup included cxr FINDINGS: The is mild cardiomegaly. There are dense patchy perihilar and lower lobe airspace infiltrates consistent with acute pneumonia. There is no pneumothorax. IMPRESSION: Dense patchy perihilar and lower lobe airspace infiltrates consistent with acute pneumonia, progressed since the prior. Continued follow-up is recommended. Film demonstrates rightward process. Admitted for IV antibiotics and further evaluation. Has required ongoing support via bipap. Hospital Course Hospital Course: Abnormal Lab Results 06/11/21 06:30: POC Glucose 299 H 06/11/21 11:30: POC Glucose 301 H* 06/11/21 15:48: POC Glucose 304 H* 06/11/21 20:03: POC Glucose 224 H 06/12/21 07:51: Potassium 3.2 L, BUN 28 H, Glucose 113 H, Calcium 8.1 L 06/12/21 07:51: RBC 2.86 L, Hgb 8.1 L, Hct 25.7 L, MCHC 31.7 L, Neut # (Auto) 8.0 H Microbiology 06/09/21 14:20 Blood Blood Culture - Preliminary NO GROWTH AFTER 48 HOURS 06/09/21 14:20 Blood Blood Culture - Preliminary NO GROWTH AFTER 48 HOURS 06/10/21 12:00 Urine,Clean Catch Urine Culture - Preliminary NO GROWTH AFTER 24 HOURS Ordering Physician: Hayde Luciano MD Date of Service: 06/09/21 Procedure(s): XR chest portable Accession Number(s): [id number] cc: Tank Gabriel MD; Jw Bui MD~ FINAL REPORT CLINICAL HISTORY: soa COMPARISON: May 25, 2021 FINDINGS: The is mild cardiomegaly. There are dense patchy perihilar and lower lobe airspace infiltrates consistent with acute pneumonia. There is no pneumothorax. IMPRESSION: Dense patchy perihilar and lower lobe airspace infiltrates consistent with acute pneumonia, progressed since the prior. Continued follow-up is recommended. Ordering Physician: Geovani Castillo MD Date of Service: 06/09/21 Procedure(s): CT head/brain wo con Accession Number(s): [id number] cc: Ambar Guerrero MD; Tank Gabriel MD; Geovani Castillo MD~ PROCEDURE INFORMATION: Exam: CT Head Without Contrast Exam date and time: 06/09/2021 8:40 PM Age: 75 years old Clinical indication: Alteration of consciousness; Other: Not specified; Additional info: Altered loc TECHNIQUE: Imaging protocol: Computed tomography of the head without contrast. Radiation optimization: All CT scans at this facility use at least one of these dose optimization techniques: automated exposure control; mA and/or kV adjustment per patient size (includes targeted exams where dose is matched to clinical indication); or iterative reconstruction. COMPARISON: CT HEAD/BRAIN WO CON 05/24/2021 4:56 PM FINDINGS: Brain: Mild-moderate age-appropriate intracerebral volume loss. Falx calcification. Cerebral ventricles: No ventriculomegaly. Paranasal sinuses: Minimal frontal sinus inflammatory changes. Mastoid air cells: Visualized mastoid air cells are well aerated. Bones/joints: Mild deviation of the nasal septum. Mildly prominent septal spur encroaching upon the right nasal passage. Soft tissues: Unremarkable. IMPRESSION: 1. Mild-moderate age-appropriate intracerebral volume loss. 2. Minimal frontal sinus inflammatory changes. medical consult: Dr Sanchez Assessment and plan all Dx Assessment and Plan for all problems:: Patient with significant dementia and a
[2021-06-12 10:59] VITALS: BP 151/67; PULSE 70; RESP 18; TEMP 36.9; O2SAT 95
[2021-06-12 21:54] LABS: POC Glucose,Bedside 122 (70-110)
--- NOTE | 2021-06-15 14:41 | CARE MANAGER ---
Spoke with patient nurse who states that patient is doing well, no issues.
== END 2021-06-12 12:22 | DRG 177 ==
LOC: ER 17:24 → 2ND 17:57
PROVIDERS: Nurse Practitioner Family; Admitting Provider Family Medicine; Emergency Provider Emergency Medicine; PCP Emergency Medicine; Visit Provider Emergency Medicine
DX: J69.0 Pneumonitis due to inhalation of food and vomit; L89.153 Pressure ulcer of sacral region, stage 3; I42.9 Cardiomyopathy, unspecified; E46 Unspecified protein-calorie malnutrition; F03.90 Unspecified dementia, unspecified severity, without behavioral disturbance, psychotic disturbance, mood disturbance, and anxiety; I25.10 Atherosclerotic heart disease of native coronary artery without angina pectoris; E11.9 Type 2 diabetes mellitus without complications; K21.9 Gastro-esophageal reflux disease without esophagitis; E78.5 Hyperlipidemia, unspecified; I10 Essential (primary) hypertension; E03.9 Hypothyroidism, unspecified; F41.9 Anxiety disorder, unspecified; Z93.1 Gastrostomy status; Z66 Do not resuscitate; Z51.5 Encounter for palliative care; Z74.01 Bed confinement status; Z79.4 Long term (current) use of insulin
CPT/HCPCS: 36415; 70450; 71045; 80048; 80053; 81001; 82803; 82962; 83605; 85007; 85025; 87040; 87081; 87086; 93005; 94640; 94660; 96365; 99285; C9803; J2543; U0003; U0005